=== PATIENT | male | born 1970 | race Native Hawaiian/Other Pacific Islander ===

== ENCOUNTER 2021-02-03 10:14 | Outpatient (REF) | payer MEDICAID, SELFPAY ==
--- NOTE | ~2021-02-03 | XR_ITS ---
EXAMINATION: LUMBOSACRAL SPINE 6 VIEWS PELVIS WITH LEFT HIP 3 VIEWS CHEST 2 VIEWS CLINICAL INFORMATION: Left-sided pain COMPARISON: 11/19/2016 TECHNIQUE: As above nonweightbearing FINDINGS: No acute deformity. Femoral head intact. Joint spaces preserved. No soft tissue calcifications. Sacrum grossly intact. Os acetabuli on the right again suspected. Two-view chest image is no focal abnormality. No rib lesions. No pneumothorax. Heart and mediastinal normal. Lumbosacral spine imaging demonstrates bulky syndesmophytes on the left at L1-L2. Generalized mild endplate spurring but preservation joint spaces. Vertebral pedicles and spinous processes intact. No fracture or subluxation. No spondylolysis. XR/XR chest 2V IMPRESSION: No acute findings. Chronic findings as above.
--- NOTE | ~2021-02-03 | XR_ITS ---
EXAMINATION: LUMBOSACRAL SPINE 6 VIEWS PELVIS WITH LEFT HIP 3 VIEWS CHEST 2 VIEWS CLINICAL INFORMATION: Left-sided pain COMPARISON: 11/19/2016 TECHNIQUE: As above nonweightbearing FINDINGS: No acute deformity. Femoral head intact. Joint spaces preserved. No soft tissue calcifications. Sacrum grossly intact. Os acetabuli on the right again suspected. Two-view chest image is no focal abnormality. No rib lesions. No pneumothorax. Heart and mediastinal normal. Lumbosacral spine imaging demonstrates bulky syndesmophytes on the left at L1-L2. Generalized mild endplate spurring but preservation joint spaces. Vertebral pedicles and spinous processes intact. No fracture or subluxation. No spondylolysis. XR/XR hip LT w PEL1V IMPRESSION: No acute findings. Chronic findings as above.
--- NOTE | ~2021-02-03 | XR_ITS ---
EXAMINATION: LUMBOSACRAL SPINE 6 VIEWS PELVIS WITH LEFT HIP 3 VIEWS CHEST 2 VIEWS CLINICAL INFORMATION: Left-sided pain COMPARISON: 11/19/2016 TECHNIQUE: As above nonweightbearing FINDINGS: No acute deformity. Femoral head intact. Joint spaces preserved. No soft tissue calcifications. Sacrum grossly intact. Os acetabuli on the right again suspected. Two-view chest image is no focal abnormality. No rib lesions. No pneumothorax. Heart and mediastinal normal. Lumbosacral spine imaging demonstrates bulky syndesmophytes on the left at L1-L2. Generalized mild endplate spurring but preservation joint spaces. Vertebral pedicles and spinous processes intact. No fracture or subluxation. No spondylolysis. XR/XR lumbar spine 4V min IMPRESSION: No acute findings. Chronic findings as above.
[2021-02-03 11:31] LABS: Alanine Aminotransferase 34 U/L (0-40); Albumin Level 4.6 g/dL (3.5-5.0); Alkaline Phosphatase 78 U/L (39-117); Anion Gap 12 (12-20); Aspartate Amino Transferase 33 U/L (5-37); Bilirubin Total 0.8 mg/dL (0.0-1.0); Blood Urea Nitrogen 12 mg/dL (9-16); Calcium 9.9 mg/dL (8.4-10.2); Carbon Dioxide 30 mmol/L (22-29); Chloride 103 mmol/L (96-108); Cholesterol 190 mg/dL; Estimated Glomerular Filt Rate > 60; Glucose Random 92 mg/dL (60-115); HDL Cholesterol 85 mg/dL; LDL Cholesterol Calculated 91 mg/dl; Sodium 140 mmol/L (135-145); Total Protein 7.2 g/dL (6.5-8.0); Triglycerides 70 mg/dL
[2021-02-03 11:40] LABS: Hematocrit 45.5 % (42-52); Mean Corpuscular Hemoglobin 31.8 pg (27.0-33.0); Mean Corpuscular Volume 96.6 fL (80-98); Mean Platelet Volume 9.1 fL (9.4-12.4); Platelet Count 264 X10*3/uL (160-400); Red Blood Count 4.71 X10*6/uL (4.60-5.80); Red Cell Distribution Width 12.3 % (11.0-16.0); White Blood Count 8.9 X10*3/uL (4.8-10.8)
[2021-02-03 11:50] LABS: Estimated Average Glucose 100 mg/dL; Hemoglobin A1c % 5.1 %
[2021-02-03 11:53] LABS: TSH reflex Free T4 1.66 uIU/mL (0.32-4.0)
== END 2021-02-03 10:15 | disposition home or self-care (01) ==
LOC: HO.XRAY 10:14
PROVIDERS: Absent Provider Internal Medicine; PCP Internal Medicine; Visit Provider General Practice
DX: Z00.00 Encounter for general adult medical examination without abnormal findings (principal); J44.9 Chronic obstructive pulmonary disease, unspecified; M25.552 Pain in left hip; M54.9 Dorsalgia, unspecified; F17.200 Nicotine dependence, unspecified, uncomplicated
CPT/HCPCS: 36415; 71046; 72110; 73502; 80053; 80061; 83036; 84443; 85027

== ENCOUNTER 2021-02-08 10:44 | Outpatient (REF) | payer MEDICAID, SELFPAY ==
[2021-02-08 11:21] LABS: Appearance Urine CLEAR; Color Urine YELLOW; Glucose Urine UA NEG (NEG); Leukocyte Esterase Urine NEG (NEG); Nitrite Urine NEG (NEG); Urine Blood NEG (NEG); Urine Ketones NEG (NEG); Urine Protein NEG (NEG-TRACE)
== END 2021-02-08 10:45 | disposition home or self-care (01) ==
LOC: HO.LNP 10:44
PROVIDERS: Visit Provider General Practice
DX: Z00.00 Encounter for general adult medical examination without abnormal findings (principal); J44.9 Chronic obstructive pulmonary disease, unspecified; M25.562 Pain in left knee; M54.9 Dorsalgia, unspecified
CPT/HCPCS: 81003

== ENCOUNTER 2021-08-18 14:54 | Outpatient (REF) | payer MEDICAID, SELFPAY ==
--- NOTE | ~2021-08-18 | MR_ITS ---
EXAMINATION: MR LUMBAR SPINE WITHOUT CONTRAST CLINICAL INFORMATION: Left leg pain. Low back pain. COMPARISON: MRI dated 02/07/2008. TECHNIQUE: MRI of the lumbar spine was obtained using routine sequences without contrast. FINDINGS: VERTEBRAL BODIES AND PARASPINAL STRUCTURES: The marrow signal is within normal limits. There are no compression fractures. Slight retrosubluxation evident at the L3-L4 level with progressed endplate spurring and mild disc degeneration. The imaged bony pelvis is normal. There is mild disc space narrowing and endplate osteophyte formation with reduced intradiscal signal which has worsened at the L1-L2, L2-L3, and L4-L5 levels. Mild rightward curvature of the lumbar spine evident. No compression fractures. The paraspinal soft tissues appear normal. CONUS MEDULLARIS AND CAUDA EQUINA: Normal, terminating at the level of L1-L2. No lower cord signal abnormality is seen. The cauda equina nerve roots are normal. SPINAL LEVELS: L1-L2: Mild disc space narrowing and reduced intradiscal signal with a generalized disc bulge and endplate spurring. Shallow left paracentral disc protrusion with an underlying annular tear slightly increased in size compared to prior imaging. No central canal stenosis or foraminal narrowing. No focal nerve root impingement evident. L2-L3: Further disc degeneration and diffuse disc bulge with mild facet arthropathy. No central canal stenosis. Mild left foraminal narrowing. Broad-based right lateral disc protrusion with mild to moderate right foraminal encroachment. L3-L4: Retrosubluxation and diffuse disc bulge with moderate facet arthropathy. No central canal stenosis. Mild to moderate left foraminal narrowing. Right subarticular to right foraminal disc protrusion and endplate spurring are new with significant right foraminal encroachment and mass effect upon the right L3 and L4 nerve roots. L4-L5: Diffuse disc bulge and hypertrophic facet arthropathy without central canal stenosis. New right paracentral disc protrusion mildly distorts the right L5 nerve root and ventral thecal sac. Moderate bilateral foraminal narrowing. L5-S1: Well-hydrated disc without central canal stenosis or foraminal narrowing. MR/MR lumbar spine wo con IMPRESSION: Progressed multilevel lumbar spondylosis compared to prior imaging. New right subarticular to right foraminal disc protrusion and endplate spurring at L3-L4 with significant right foraminal encroachment and compression of the right L3 and right L4 nerve roots. New right paracentral disc protrusion at the L4-L5 level mildly distorting the right L5 nerve root. Moderate bilateral foraminal narrowing without central canal stenosis.
== END 2021-08-18 14:55 | disposition home or self-care (01) ==
LOC: HO.MRI 14:54
PROVIDERS: PCP Family Medicine; Visit Provider Physical Medicine & Rehabilitation
DX: M47.816 Spondylosis without myelopathy or radiculopathy, lumbar region (principal); M51.37 Other intervertebral disc degeneration, lumbosacral region
CPT/HCPCS: 72148

== ENCOUNTER → 2021-12-08 08:52 | Outpatient (BNVA) | payer MEDICAID, SELFPAY | PROVIDERS: PCP Family Medicine; Visit Provider Internal Medicine | DX: M54.16 Radiculopathy, lumbar region (principal) | CPT/HCPCS: 99202 ==

== ENCOUNTER → 2022-01-11 10:27 | Outpatient (BNVA) | payer MEDICAID, SELFPAY | PROVIDERS: PCP Family Medicine; Referring Provider Family Medicine; Visit Provider Physician Assistant | DX: Z12.11 Encounter for screening for malignant neoplasm of colon (principal); R12 Heartburn | CPT/HCPCS: 99202; 99212 ==

== ENCOUNTER 2022-01-24 06:13 | Outpatient (REF) | payer MEDICAID, SELFPAY | END 2022-01-24 06:14 | disposition home or self-care (01) | LOC: HO.RADIR 06:13 | PROVIDERS: Visit Provider Internal Medicine | DX: Z13.89 Encounter for screening for other disorder (principal) ==

== ENCOUNTER 2022-02-09 14:10 | Outpatient (REF) | payer MEDICAID, SELFPAY ==
--- NOTE | ~2022-02-09 | CT_ITS ---
EXAMINATION: CT CHEST SCREENING CLINICAL INFORMATION: Current smoker. 36 pack year history. COMPARISON: None. TECHNIQUE: Multidetector volumetric CT imaging of the chest is performed without contrast using low dose technique. Additional 2D coronal and sagittal reformatted images and axial 3D maximum intensity projection (MIP) images are generated on the CT workstation. This CT examination was performed using dose optimization techniques as appropriate, variously including the following: *Automated exposure control *Adjustment of mA and/or kV according to patient size (this includes techniques or standardized protocols for targeted exams where dose is matched to indication/reason for exam; i.e. extremities or head) *Use of iterative reconstruction technique DLP: 46 mGy-cm FINDINGS: LUNGS: There is mild biapical pleural and parenchymal scarring. There is mild paraseptal emphysema. No pulmonary nodules are seen. No endobronchial or endotracheal lesion. MEDIASTINUM: There are small mediastinal lymph nodes. No enlarged lymph nodes are seen. The mediastinum is otherwise normal. PLEURA: There is no pleural effusion. No pleural mass or thickening. AXILLA: There are small axillary lymph nodes. No enlarged lymph nodes or chest wall mass. UPPER ABDOMEN: Unremarkable OSSEOUS STRUCTURES: Unremarkable. CT/CT lung screening IMPRESSION: Mild emphysema. Mild biapical pleural and parenchymal scarring. No pulmonary nodule. ASSESSMENT: Lung-RADS category 1: Negative RECOMMENDATION: Annual low-dose chest CT follow-up in one year.
== END 2022-02-09 14:11 | disposition home or self-care (01) ==
LOC: HO.CT 14:10
PROVIDERS: PCP Family Medicine; Visit Provider Physician Assistant Medical
DX: Z12.2 Encounter for screening for malignant neoplasm of respiratory organs (principal); F17.210 Nicotine dependence, cigarettes, uncomplicated
CPT/HCPCS: 71271; G0296

== ENCOUNTER 2022-03-14 06:09 | Outpatient (REF) | payer MEDICAID, SELFPAY ==
--- NOTE | ~2022-03-14 | FL_ITS ---
EXAMINATION: XR FLUOROSCOPY WITH IMAGES CLINICAL INFORMATION: Radiculopathy lumbar region. COMPARISON: MRI lumbar spine 08/18/2021. TECHNIQUE: Fluoroscopy performed by VIKI Jacques. Fluoroscopy time: 0.2. Cumulative Dose: 3.11 mGy. DAP: 0.44 Gy-cm2. Images: 2. FINDINGS: There are 2 digital images obtained revealing a posterior epidural contrast centered at L2-L3 disc level. There is loss of L1-L2 disc height with a large bridging left lateral osteophyte. No lytic or sclerotic process seen. FL/FL guidance in treatment room IMPRESSION: Fluoroscopy was provided to referring physician for pain management.
== END 2022-03-14 06:10 | disposition home or self-care (01) ==
LOC: CF 06:09
PROVIDERS: Visit Provider Internal Medicine
DX: M54.16 Radiculopathy, lumbar region (principal)
CPT/HCPCS: 62323; J1040; J1100

== ENCOUNTER → 2022-04-13 09:46 | Outpatient (BNVA) | payer MEDICAID, SELFPAY | PROVIDERS: PCP Family Medicine; Visit Provider Internal Medicine | DX: M54.16 Radiculopathy, lumbar region (principal) | CPT/HCPCS: 99212 ==

== ENCOUNTER → 2022-05-17 07:50 | Day surgery (SDC) | payer MEDICAID, SELFPAY ==
[2022-05-14 13:11] VITALS: BMI 22.3
--- NOTE | 2022-05-16 11:54 | P.CONAN_ITS ---
HPI - Anesthesia Eval Consult details Narrative: Pt reports chest tightness. Anesthesia and surgery agree pt requires medical/cardiac w/u preop. Pt's PCP notified. 52yo M for Upper Endoscopy and Colonoscopy [facility] Active Problems Active Problems: All Active Problems (Updated 02/09/22 @ 13:56 by Jo Ann Emanuel PA-C) Lumbar radiculopathy, chronic (Acute) Personal history of nicotine dependence (Acute) Heartburn (Acute) Wears partial dentures (Acute) COPD with asthma (Acute) Seasonal allergies (Acute) Past Medical History Medical History (Updated 05/17/22 @ 08:58 by Atilio Acuña MD) Alcoholism Lumbar radiculopathy, chronic Personal history of nicotine dependence Family History Family History Mother Diabetes Surgical History Surgical History (Updated 02/09/22 @ 13:59 by Jo Ann Emanuel PA-C) History of tonsillectomy Social History Social History (Updated 02/09/22 @ 13:56 by Jo Ann Emanuel PA-C) Household Members: Spouse Alcohol intake: current Patient Tobacco Use Status: Current everyday Tobacco user Tobacco use type: Cigarette Cigarette Packs Per Day: 1 Cigarettes Per Day: 20.0 Years Smoked: (onset 15yo, 1ppd x 36yrs, 35pyh) Substance Use Type: Marijuana Meds Allergies Allergy/AdvReac Type Severity Reaction Status Date / Time No Known Allergies Allergy Verified 04/13/22 09:49 [No Known Allergies*] Home Medications Medication Instructions Recorded Confirmed Last Taken Type acetaminophen 500 mg tablet 1,000 mg PO Q8H PRN 12/08/21 04/13/22 Unknown History albuterol sulfate 90 mcg/actuation 2 puff PO Q4-6H PRN wheezing 12/08/21 04/13/22 Unknown History aerosol inhaler (ProAir HFA) fluticasone propionate 110 2 puff PO BID 12/08/21 04/13/22 Unknown History mcg/actuation HFA aerosol inhaler (Flovent HFA) gabapentin 300 mg capsule 300 mg PO TID 12/08/21 04/13/22 Unknown History pantoprazole 20 mg tablet,delayed 20 mg PO DAILY 12/08/21 04/13/22 Unknown History release hydrocodone 10 mg-acetaminophen 1 tab PO Q6-8H PRN pain 04/13/22 04/13/22 Unknown History 325 mg tablet naloxone 4 mg/actuation nasal spray 0 spray intranasal 04/13/22 04/13/22 Unknown History sertraline 50 mg tablet 50 mg PO DAILY 04/13/22 04/13/22 Unknown History Exam Exam Date and Time: May 16, 2022 1154 Height,Weight and Vital Signs: Height 5 ft 11 in Weight 72.575 kg Assessment and Plan Assessment Anesthesia Assessment: Chart Reviewed
[2022-05-17 08:16] VITALS: BP 130/75; PULSE 73; RESP 18; TEMP 36.7; O2SAT 99
--- NOTE | 2022-05-17 08:16 | MHC.SHP ---
Pre-Procedural Eval Section A Date of Service: 05/17/22 Section B Chief Complaint: reflux disease,screening Relevant Family History (Specify if Yes): No Relevant Social History: Other (specify) (smoker, THC ) Present Medications: see Short Stay Collaborative assessment Medical History: Significant History (Alcoholism Lumbar radiculopathy, chronic Personal history of nicotine dependence) History of Previous Operations: Relevant previous surgery/procedure and date(s) (History of tonsillectomy) Allergies: Allergies Allergy/AdvReac Type Severity Reaction Status Date / Time No Known Allergies Allergy Verified 04/13/22 09:49 [No Known Allergies*] Review of Systems Sugical H&P ROS: Negative: Constitution, Cardiovascular, Respiratory, Neurological, Psychiatric, Hem-Onc, Allergic/Immunologic, Gastrointestinal, Genitourinary, Musculoskeletal, Integumentary, Endocrine and Eyes/Ears/Nose/Throat Exam Surgical H&P Exam: Normal: HEENT, Normal: Heart, Normal: Lungs, Normal: Extremities, Normal: Abdomen, Normal: Skin and Normal: Neurological Plan Diagnosis/Plan: Unchanged I have reviewed the history and physical and performed a pertinent physical examination on my patient. No changes have occurred unless specified.
[2022-05-17] MEDS: Lactated Ringers 1,000 ML 100 ML IVCONT (08:26)
--- NOTE | 2022-05-17 08:58 | PC.NURSE ---
Patient spoke to Dr Acuña regarding EGD for heartburn. Patient states I dont think its heartburn, that goes away quick but this just last. Its like a tightness I feel. Dr Acuña consulted Dr Cisse anesthesia regarding possible cardiology consult. Per Both Docs case cancelled and to have cardiac workup/clearance. IV removed, belongings returned to patient.
== END ==
PROVIDERS: PCP Family Medicine; Visit Provider Internal Medicine Gastroenterology
DX: Z12.11 Encounter for screening for malignant neoplasm of colon (principal); Z53.8 Procedure and treatment not carried out for other reasons; K21.9 Gastro-esophageal reflux disease without esophagitis

== ENCOUNTER → 2022-05-31 14:13 | Outpatient (BNVA) | payer MEDICAID, SELFPAY | PROVIDERS: PCP Family Medicine; Referring Provider Family Medicine; Visit Provider Physician Assistant | DX: R12 Heartburn (principal); Z79.899 Other long term (current) drug therapy | CPT/HCPCS: 99212 ==

== ENCOUNTER 2022-06-13 06:12 | Outpatient (REF) | payer MEDICAID, SELFPAY | END 2022-06-13 06:13 | disposition home or self-care (01) | LOC: CF 06:12 | PROVIDERS: Visit Provider Internal Medicine | DX: R10.32 Left lower quadrant pain (principal) | CPT/HCPCS: 64425 ==

== ENCOUNTER → 2022-06-15 09:10 | Outpatient (BNVA) | payer MEDICAID, SELFPAY | PROVIDERS: PCP Family Medicine; Visit Provider Internal Medicine | DX: M54.16 Radiculopathy, lumbar region (principal); M54.59 Other low back pain | CPT/HCPCS: 99212 ==

== ENCOUNTER → 2022-07-31 12:20 | Outpatient (BNVA) | payer MEDICAID, SELFPAY | PROVIDERS: Visit Provider Physician Assistant | DX: Z13.89 Encounter for screening for other disorder (principal) ==

== ENCOUNTER 2023-05-24 10:26 | Outpatient (AMB) | payer MEDICAID, SELFPAY ==
--- NOTE | 2023-05-24 10:34 | MHC.OFFVIS ---
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 Patient reports off and pain for a year with no history of injury or trauma. He states that his pain radiates up to his shoulders. Pain is equal on both side per patient. No hx of previous treatment. 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 The patient reports intermittent pain for a year, since 2021, with no injury or trauma. He states he has pain with rest and activities. He claims his pain starts in the bilateral elbows and radiates up to the bilateral shoulders. He states the patient is equal on both sides. He denies any prior treatments or testing. He confirms numbness in the 4th and 5th digits. He states he was treated in the past with night splints for possible carpal tunnel, which gave him relief. However, he states he was told he did not have carpal tunnel therefore he discontinued the use of the splints. The patient is currently being followed by Pain Management for lower back pain. [facility] Medical History (Updated 05/24/23 @ 11:15 by Shabana Churchill PA-C) Personal history of nicotine dependence Lumbar radiculopathy, chronic Alcoholism Surgical History History of tonsillectomy Family History Mother Diabetes Social History (Updated 05/24/23 @ 10:41 by Shawna Ha) Household Members: Spouse Alcohol intake: current Patient Tobacco Use Status: Current everyday Tobacco user Tobacco use type: Cigarette Cigarette Packs Per Day: 1 Cigarettes Per Day: 20.0 Years Smoked: (onset 15yo, 1ppd x 36yrs, 35pyh) Substance Use Type: Marijuana Current occupational status: unemployed Current occupation: right hand dominant Review of Systems Const All systems reviewed & are unremarkable except as noted in HPI and below Physical Exam Vital Signs: BMI result Body Mass Index 23.7 Const General: cooperative and no acute distress Orientation/consciousness: patient oriented x3 Resp Effort & Inspection: normal respiratory effort and able to speak in complete sentences Cardio Peripheral pulses: Peripheral pulses 2+ throughout Skin General skin exam: no rashes or lesions noted Neuro General: patient oriented x3 Extrem Other: Bilateral elbow: Normal to inspection. No ecchymosis, erythema, or edema. No tenderness to palpation over the olecranon. No tenderness to the medial or lateral epicondyle. Negative Tinel?s at the carpal and cubital tunnel. Negative Phalen?s test. NVI. Bilateral hands: Normal to inspection. No ecchymosis, erythema, or edema. Able to perform full finger flexion, extension, abduction, adduction, finger cross, okay sign, and thumbs up without deficit. Able to make a closed fist. Sensation intact. Capillary refill is brisk. Radial pulse intact. Assessment & Plan Assessment & Plan (1) Cubital tunnel syndrome, bilateral: Code(s): G56.23 - Lesion of ulnar nerve, bilateral upper limbs (2) Carpal tunnel syndrome, bilateral upper limbs: Code(s): G56.03 - Carpal tunnel syndrome, bilateral upper limbs Plan Mr. Ellis is a 53-year-old right hand dominant male who presents in the office today, as a new patient, for an evaluation of bilateral elbow and wrist pain. The patient reports intermittent pain for a year, since 2021, with no injury or trauma. He states he has pain with rest and activities. He claims his pain starts in the bilateral elbows and radiates up to the bilateral shoulders. He states the patient is equal on both sides. He denies any prior treatments or testing. He confirms numbness in the 4th and 5th digits. He states he was treated in the past with night splints for possible carpal tunnel, which gave him relief. However, he states he was told he did not have carpal tunnel therefore he discontinued the use of the splints. The patient will be referred for an EMG study for possible carpal and cubital tunnel. Follow up will be after the EMG is obtained, or sooner if needed. Orders: Orders NE electromyogram (EMG) Today G56.03 - Carpal tunnel syndrome, bilateral upper limbs, G56.23 - Lesion of ulnar nerve, bilateral upper limbs Patient Instructions: Scribed for Shabana Churchill PA-C by Jayne Lauren director of medical staff services, on 05/24/2023 at 10:31 am, EST. Coding Level of Care Code New Pt Level 4 (25296) Diagnoses Cubital tunnel syndrome, bilateral G56.23 Carpal tunnel syndrome, bilateral upper limbs G56.03
[2023-05-24 10:41] VITALS: BMI 23.7
== END 2023-05-24 11:13 | disposition home or self-care (01) ==
PROVIDERS: Visit Provider Physician Assistant
DX: G56.23 Lesion of ulnar nerve, bilateral upper limbs (principal); G56.03 Carpal tunnel syndrome, bilateral upper limbs
CPT/HCPCS: 99204

== ENCOUNTER → 2023-05-24 10:26 | Outpatient (BNVA) | payer MEDICAID, SELFPAY | PROVIDERS: Visit Provider Physician Assistant | DX: G56.23 Lesion of ulnar nerve, bilateral upper limbs (principal); G56.03 Carpal tunnel syndrome, bilateral upper limbs | CPT/HCPCS: 99212 ==

== ENCOUNTER 2023-07-05 12:29 | Outpatient (REF) | payer MEDICAID, SELFPAY ==
--- NOTE | 2023-07-05 12:32 | EMG_ITS ---
Chief complaint: Pain along the elbow left worse than right, numbness on 5th and 4th digits Reason for referral: Evaluate for ulnar neuropathy Referred by: Shabana RAMSAY Procedure done: Bilateral upper extremities NCS/EMG Precautions and/or limitations: None The limb temperature was monitored continuously and remained between 32-36 degrees C during the performance of the NCS. Ulnar motor NCS was performed with moderate elbow flexion between 70-90 degrees, with across-elbow distance of 10 cm. Nerve Conduction Studies Anti Sensory Summary Table ?Stim Site NR Onset (ms) Norm Onset (ms) Peak (ms) Norm Peak (ms) O-P Amp (?V) Norm O-P Amp Site1 Site2 Delta-0 (ms) Dist (cm) Lino (m/s) Norm Lino (m/s) Left Med Ante Brach Cutan Anti Sensory (Med Forearm) Elbow ? 2.1 2.7 14.0 Elbow Med Forearm 2.1 0.0 Left Median Anti Sensory (2nd Digit) Wrist ? 2.5 3.1 <3.6 25.2 >10 Wrist 2nd Digit 2.5 14.0 56 Right Median Anti Sensory (2nd Digit) Wrist ? 2.3 3.1 <3.6 16.4 >10 Wrist 2nd Digit 2.3 14.0 61 Left Radial Anti Sensory (Thumb) Forearm ? 1.3 2.1 <3.1 26.2 Forearm Thumb 1.3 0.0 Right Radial Anti Sensory (Thumb) Forearm ? 1.6 2.1 <3.1 25.7 Forearm Thumb 1.6 0.0 Left Ulnar Anti Sensory (5th Digit) Wrist ? 2.3 3.1 <3.7 8.6 >15.0 Wrist 5th Digit 2.3 14.0 61 Right Ulnar Anti Sensory (5th Digit) Wrist ? 3.0 3.3 <3.7 10.4 >15.0 Wrist 5th Digit 3.0 14.0 47 Motor Summary Table ?Stim Site NR Onset (ms) Norm Onset (ms) O-P Amp (mV) Norm O-P Amp iAmp (mV) Amp (1st) (%) Site1 Site2 Delta-0 (ms) Dist (cm) Lino (m/s) Norm Lino (m/s) Left Median Motor (Abd Poll Brev) Wrist ? 3.4 <3.9 10.5 >4.5 13.4 100.0 Elbow Wrist 4.3 23.5 55 >45 Elbow ? 7.7 10.0 12.6 95.2 Right Median Motor (Abd Poll Brev) Wrist ? 3.2 <3.9 11.9 >4.5 15.0 100.0 Elbow Wrist 4.3 23.0 53 >45 Elbow ? 7.5 11.0 14.0 92.4 Left Ulnar Motor (Abd Dig Minimi) Wrist ? 2.5 <3.0 9.6 >5 12.6 100.0 B Elbow Wrist 3.1 23.0 74 >45 B Elbow ? 5.6 10.5 13.8 109.4 A Elbow B Elbow 2.0 10.0 50 >45 A Elbow ? 7.6 9.4 12.1 97.9 Right Ulnar Motor (Abd Dig Minimi) Wrist ? 3.0 <3.0 9.3 >5 11.9 100.0 B Elbow Wrist 3.5 21.0 60 >45 B Elbow ? 6.5 8.9 11.4 95.7 A Elbow B Elbow 1.6 10.0 63 >45 A Elbow ? 8.1 8.5 11.0 91.4 Left Ulnar Motor (FDI) Wrist ? 5.1 <3.0 6.9 >5 7.7 100.0 B Elbow FDI 5.1 22.0 43 B Elbow ? 8.7 8.7 9.9 126.1 A Elbow B Elbow 3.6 10.0 28 >45 A Elbow ? 10.3 8.4 10.0 121.7 1.6 0.0 >45 Right Ulnar Motor (FDI) Wrist ? 4.4 <3.0 9.0 >5 10.9 100.0 B Elbow FDI 4.4 21.0 48 B Elbow ? 7.8 8.9 10.6 98.9 A Elbow B Elbow 3.4 10.0 29 >45 A Elbow ? 9.8 8.4 9.7 93.3 2.0 0.0 >45 EMG ?Side Muscle Nerve Root Ins Act Fibs Psw Amp Dur Poly Recrt Int Pat Comment Right 1stDorInt Ulnar C8-T1 Nml Nml Nml Incr Incr 0 Nml Complete Right Biceps Musculocut C5-6 Nml Nml Nml Nml Nml 0 Nml Complete Right Triceps Radial C6-7-8 Nml Nml Nml Nml Nml 0 Nml Complete Right Deltoid Axillary C5-6 Nml Nml Nml Nml Nml 0 Nml Complete Right FlexCarpiUln Ulnar C8,T1 Nml Nml Nml Nml Nml 0 Nml Complete Left 1stDorInt Ulnar C8-T1 Nml Nml Nml Nml Nml 0 Nml Complete Left Biceps Musculocut C5-6 Nml Nml Nml Nml Nml 0 Nml Complete Left Triceps Radial C6-7-8 Nml Nml Nml Nml Nml 0 Nml Complete Left Deltoid Axillary C5-6 Nml Nml Nml Nml Nml 0 Nml Complete Left FlexCarpiUln Ulnar C8,T1 Nml Nml Nml Nml Nml 0 Nml Complete FINDINGS: Left ulnar motor nerve was within normal, when recording at ADM. But when repeated while recording at FDI, showed prolonged distal latency, normal amplitude and slow conduction velocity across the elbow. Same results seen on right ulnar motor nerve, while recording at FDI. Bilateral ulnar sensory nerves showed normal peak latency but small amplitude. All other nerves tested were within normal. Concentric needle EMG was performed in selected muscles of the bilateral upper extremities. Study revealed Signs of electric abnormalities as shown in the table below. Right FDI showed increased amplitude and duration. IMPRESSION: 1. This is an abnormal study. 2. 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 3. There is no electrodiagnostic evidence for median neuropathy, brachial plexopathy, or cervical radiculopathy. Thank you for your kind referral. Yaa Estrella MD, [facility]ANCE Board Certified, [place] [employer] and [employer] (ABPMR) Board Certified, [place] [employer] Electrodiagnostic [employer] (ABEM) CODIN [id number] x 2 MTDD
== END 2023-07-05 12:30 | disposition home or self-care (01) ==
LOC: HO.NEURO 12:29
PROVIDERS: PCP Family Medicine; Visit Provider Physician Assistant
DX: G56.03 Carpal tunnel syndrome, bilateral upper limbs (principal); G56.23 Lesion of ulnar nerve, bilateral upper limbs
CPT/HCPCS: 95886; 95912

== ENCOUNTER → 2023-07-05 12:32 | Outpatient (BNV) | payer MEDICAID, SELFPAY | PROVIDERS: PCP Family Medicine; Visit Provider Physical Medicine & Rehabilitation | DX: G56.23 Lesion of ulnar nerve, bilateral upper limbs (principal) | CPT/HCPCS: 95886; 95912 ==

== ENCOUNTER 2023-07-16 11:22 | Outpatient (AMB) | payer MEDICAID, SELFPAY ==
--- NOTE | 2023-07-16 11:27 | A.OFFVIS_ITS ---
Intake Intake Visit Reasons: OV - B/L elbow EMG review, EMG done on 07/05/23 Intake Note: Ortega is a 53 year old male who presents today for a EMG review for his bilateral elbows. Bilateral EMG was done on 07/05/22. Patient reports he still continues to have pain nothing has changed. He states that he took a fall down the stairs last which he is having increase in pain on his sholders and elbows. Allergies No Known Allergies [No Known Allergies*] Allergy (Verified 07/16/23 11:27) HPI OV - B/L elbow EMG review, EMG done on 07/05/23 HPI Details 53-year-old right hand dominant male who presents in the office today for a follow up of bilateral elbow pain. I last saw the patient in the office on 05/24/2023 when he was referred for an EMG study. While in the office today the patient reports he is still having pain and his symptoms having not changed since his last encounter. Patient also reports he fell down stairs on 07/11/2023 which has caused him an increase in pain in the bilateral shoulders and elbows. Patient has no known allergy history. Patient is currently taking, as follows: -Acetaminophen 1,000 mg PO Q8H PRN -Albuterol sulfate 90 mcg/actuation 2 pu ffs PO Q4-6H -Fluticasone propionate 110 mcg/actuatio n 2 puffs PO BID -Hydrocodone-acetaminophen 10-325 mg PO Q6-8H PRN Patient has a medical history, as follows: -Lumbar radiculopathy, chronic -Alcoholism -Personal history of nicotine dependence Patient has a surgical history, as follows: -History of tonsillectomy Patient has a social history, as follows: -Alcohol intake: Currently -Tobacco use: Currently; cigarette 1 pac k per day (20 cigarettes) -Substance use: Marijuana -Work status: unemployed [facility] Medical History (Updated 05/24/23 @ 11:15 by Shabana Churchill PA-C) Personal history of nicotine dependence Lumbar radiculopathy, chronic Alcoholism Surgical History History of tonsillectomy Family History Mother Diabetes Social History (Updated 12/08/23 @ 10:41 by Shawna Ha) Household Members: Spouse Alcohol intake: current Patient Tobacco Use Status: Current everyday Tobacco user Tobacco use type: Cigarette Cigarette Packs Per Day: 1 Cigarettes Per Day: 20.0 Years Smoked: (onset 15yo, 1ppd x 36yrs, 35pyh) Substance Use Type: Marijuana Current occupational status: unemployed Current occupation: right hand dominant Review of Systems Const All systems reviewed & are unremarkable except as noted in HPI and below Physical Exam Const General: cooperative, healthy appearing and no acute distress Orientation/consciousness: patient oriented x3 Resp Effort & Inspection: normal respiratory effort and able to speak in complete sentences Cardio Rate: regular rate Peripheral pulses: Peripheral pulses 2+ throughout GI Palpation (GI): Soft to palpation Skin General skin exam: no rashes or lesions noted Lesions: no lesions Rashes: no rashes Neuro General: patient oriented x3 Extrem Other: Bilateral elbow: Normal to inspection. No ecchymosis, erythema, or edema. No tenderness to palpation over the olecranon. No tenderness to the medial or lateral epicondyle. Negative Tinel?s at the carpal and cubital tunnel. Negative Phalen?s test. NVI. Bilateral hands: Normal to inspection. No ecchymosis, erythema, or edema. Able to perform full finger flexion, extension, abduction, adduction, finger cross, okay sign, and thumbs up without deficit. Able to make a closed fist. Sensation intact. Capillary refill is brisk. Radial pulse intact. Assessment & Plan Assessment & Plan (1) Cubital tunnel syndrome, bilateral: Code(s): G56.23 - Lesion of ulnar nerve, bilateral upper limbs (2) Carpal tunnel syndrome, bilateral upper limbs: Code(s): G56.03 - Carpal tunnel syndrome, bilateral upper limbs Plan Mr. Christiano Ellis is a 53-year-old right hand dominant male who presents in the office today for a follow up of bilateral elbow pain. I last saw the patient in the office on 05/24/2023 when he was referred for an EMG study. While in the office today the patient reports he is still having pain and his symptoms having not changed since his last encounter. Patient also reports he fell down stairs on 07/11/2023 which has caused him an increase in pain in the bilateral shoulders and elbows. Patient has no known allergy history. Patient is currently taking, as follows: -Acetaminophen 1,000 mg PO Q8H PRN -Albuterol sulfate 90 mcg/actuation 2 puffs PO Q4-6H -Fluticasone propionate 110 mcg/actuation 2 puffs PO BID -Hydrocodone-acetaminophen 10-325 mg PO Q6-8H PRN Patient has a medical history, as follows: -Lumbar radiculopathy, chronic -Alcoholism -Personal history of nicotine dependence Patient has a surgical history, as follows: -History of tonsillectomy Patient has a social history, as follows: -Alcohol intake: Currently -Tobacco use: Currently; cigarette 1 pack per day (20 cigarettes) -Substance use: Marijuana -Work status: unemployed I discussed in detail the procedure and what to expect pre and post operatively. We discussed the risks, benefits and alternatives to the surgery as well as the rehabilitation course. The risks; which include, but are not limited to infection, bleeding, nerve injury, ongoing pain, swelling, and stiffness, perioperative risk of injury to bones and soft tissues, and blood clots. I have answered all questions and with their understanding they have consented to move forward with a left cubital tunnel release to be performed by Dr Edwige Hammer. A booking sheet was created and given to the surgical schedulers. They will reach out to the patient for available dates. Follow up will be at the post operative appointment or for his H&P prior to surgery (depending on available surgical dates), or sooner if needed. EMG of the bilateral upper extremities, obtained on 07/05/2023, revealed: 1. This is an abnormal study. 2. 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 3. There is no electrodiagnostic evidence for median neuropathy, brachial plexopathy, or cervical radiculopathy. Patient Instructions: Scribed for Shabana Churchill PA-C by Jayne Lauren medical customer service representative, on 07/16/2023 at 11:40 am, EST. Coding Level of Care Code Est Pt Level 4 (81321) Diagnoses Cubital tunnel syndrome, bilateral G56.23 Carpal tunnel syndrome, bilateral upper limbs G56.03
== END 2023-07-16 11:44 | disposition home or self-care (01) ==
PROVIDERS: PCP Family Medicine; Visit Provider Physician Assistant
DX: G56.23 Lesion of ulnar nerve, bilateral upper limbs (principal); G56.03 Carpal tunnel syndrome, bilateral upper limbs
CPT/HCPCS: 99214

== ENCOUNTER → 2023-07-16 11:22 | Outpatient (BNVA) | payer MEDICAID, SELFPAY | PROVIDERS: PCP Family Medicine; Visit Provider Physician Assistant | DX: G56.23 Lesion of ulnar nerve, bilateral upper limbs (principal); G56.03 Carpal tunnel syndrome, bilateral upper limbs | CPT/HCPCS: 99212 ==

== ENCOUNTER 2023-07-25 12:20 | Outpatient (REF) | payer MEDICAID, SELFPAY ==
--- NOTE | ~2023-07-25 | XR_ITS ---
EXAMINATION: XR KNEE, LEFT CLINICAL INFORMATION: Pain status-post fall. COMPARISON: None available. TECHNIQUE: AP, lateral, tunnel, and sunrise views of the left knee. FINDINGS: There are 2 probable mildly displaced fracture fragments arising from the upper pole of the patella. These are unlikely to represent accessory ossification centers. There is adjacent prepatellar soft tissue swelling. No significant joint effusion is seen. The lateral, medial and patellofemoral joint space compartments are well-maintained. No soft tissue gas or foreign body is seen. XR/XR knee LT 4V IMPRESSION: 2 mildly displaced fracture fragments are seen arising from the upper pole of the patella, with adjacent soft tissue swelling. These are unlikely to represent accessory ossification centers, and clinical correlation is recommended. Concomitant prepatellar bursitis is questioned.
== END 2023-07-25 12:21 | disposition home or self-care (01) ==
LOC: HO.XRAY 12:20
PROVIDERS: PCP Family Medicine; Visit Provider Family Medicine
DX: M25.562 Pain in left knee (principal)
CPT/HCPCS: 73564

== ENCOUNTER 2023-07-25 13:12 | Emergency (ER) | payer MEDICAID, SELFPAY ==
[2023-07-25 13:48] VITALS: BP 139/85; PULSE 78; RESP 15; TEMP 36.6; O2SAT 97; BMI 21.2
--- NOTE | 2023-07-25 13:49 | ED.SKABFB ---
HPI - Skin/Abscess/Foreign Bdy General Chief complaint: Skin/Abscess/Foreign Body Stated complaint: facial irritation Time Seen by Provider: 07/25/23 14:03 Source: patient Mode of arrival: ambulatory Limitations: no limitations History of Present Illness HPI narrative: [age] male with a past medical history of COPD and chronic back pain on hydrocodone presents to the emergency department concerns for itching and swelling to the left face and chest. He states yesterday he was cleaning his couch and that the chemical to use may be irritating his skin. He states he has been using aloe and anti-itch cream and that the redness and swelling has decreased. He denies any difficulty swallowing, breathing, or change in phonation. MD complaint: rash Related Data Home Medications Medication Instructions Recorded Confirmed acetaminophen 500 mg tablet 1,000 mg PO Q8H PRN 12/08/21 06/15/22 albuterol sulfate 90 mcg/actuation 2 puff PO Q4-6H PRN wheezing 12/08/21 06/15/22 aerosol inhaler (ProAir HFA) fluticasone propionate 110 2 puff PO BID 12/08/21 06/15/22 mcg/actuation HFA aerosol inhaler (Flovent HFA) hydrocodone 10 mg-acetaminophen 1 tab PO Q6-8H PRN pain 04/13/22 06/15/22 325 mg tablet Allergies Allergy/AdvReac Type Severity Reaction Status Date / Time No Known Allergies Allergy Verified 07/16/23 11:27 [No Known Allergies*] Review of Systems Review of Systems: Yes all other systems are reviewed and are negative [facility] Past Medical History Medical History (Updated 07/25/23 @ 13:59 by Zayra Osorio NP) Personal history of nicotine dependence Lumbar radiculopathy, chronic Alcoholism Surgical History History of tonsillectomy Family History Family History Mother Diabetes Social History Social History (Updated 05/24/23 @ 10:41 by Shawna Ha) Household Members: Spouse Alcohol intake: current Patient Tobacco Use Status: Current everyday Tobacco user Tobacco use type: Cigarette Cigarette Packs Per Day: 1 Cigarettes Per Day: 20.0 Years Smoked: (onset 15yo, 1ppd x 36yrs, 35pyh) Substance Use Type: Marijuana Advance Directives: No Current occupational status: unemployed Current occupation: right hand dominant Physical Exam Vital Signs: Vital Signs: Last Vital Signs Temp 97.9 F 07/25/23 13:48 Pulse 78 07/25/23 13:48 Resp 15 07/25/23 13:48 BP 139/85 07/25/23 13:48 Pulse Ox 97 07/25/23 13:48 O2 Del Method Room Air 07/25/23 13:48 BMI result Body Mass Index 21.2 Nursing notes and vital signs reviewed. GENERAL APPEARANCE: A&0 x 4, generally well appearing, no acute distress HENMT: Normal to inspection, atraumatic, face symmetrical. Normal external ears, nose, and oropharynx clear. EYE: PERRLA, EOM intact, structures appear normal NECK: Supple without stiffness or restricted ROM. HEART: Normal rate and regular rhythm, normal S1/S2, no M/R/G LUNGS: LS CTA, moving air well. Able to speak in complete sentences. No crackles, wheezes, or rhonchi auscultated BACK: No CVAT, no obvious deformity EXTREMITIES: Moving all extremities without difficulty. Normal capillary refill. NEUROLOGICAL: Alert and oriented, moving all 4 extremities with equal strength. CN not formally tested but appearing grossly intact. Observed to ambulate with normal gait. Cognition normal SKIN: Warm and dry. Mild erythema at upper chest with rash. No pustules or lesions noted Medical Decision Making Medical Decision Making MDM Narrative: Old records reviewed for previous imaging, lab studies, ECGs, and notes. Patient was assessed the emergency department with no acute distress or toxicity noted. Rash noted on upper chest without evidence of infection, insect bites, or lesions. Pt educated to use [id number] Benadryl for management of symptoms. Patient is safe for discharge at this time with plan for [id number]-[id number] Tylenol and/or NSAID such as ibuprofen or naproxen for fever/discomfort with dosing as per packaging. HPI, PE, diagnostics, and plan discussed with patient and family with no unanswered questions at this time. Strict return precautions given to return to the emergency department with new, worsening, or concerning emergent symptoms. Recommended to follow-up with there primary care provider in 24-48 hours for further treatment and management. Discharge Plan Discharge Clinical Impression: Rash Patient Disposition: Home, Self-Care Instructions: Contact Dermatitis (ED), Acute Rash (ED) Additional Instructions: Please use [id number] Benadryl for management of your symptoms Prescriptions: No Action acetaminophen 500 mg tablet 1,000 mg PO Q8H PRN fluticasone propionate [Flovent HFA] 110 mcg/actuation HFA aerosol inhaler 2 puff PO BID albuterol sulfate [ProAir HFA] 90 mcg/actuation HFA aerosol inhaler 2 puff PO Q4-6H PRN (Reason: wheezing) hydrocodone-acetaminophen 10-325 mg tablet 1 tab PO Q6-8H PRN (Reason: pain) Referrals: Maryan Santamaria MD [Primary Care Provider] - Interventions: ED Discharge Assessment Last Done: 07/25/23 14:05 Print Language: Welsh
== END 2023-07-25 14:05 | disposition home or self-care (01) ==
PROVIDERS: Emergency Provider Emergency Medicine; PCP Family Medicine
DX: R21 Rash and other nonspecific skin eruption (principal); F17.210 Nicotine dependence, cigarettes, uncomplicated; Z79.899 Other long term (current) drug therapy
CPT/HCPCS: 99282

== ENCOUNTER 2023-09-04 10:17 | Outpatient (AMB) | payer MEDICAID, SELFPAY ==
--- NOTE | 2023-09-04 11:04 | MHC.OFFVIS ---
Intake Vital Signs 09/04/23 11:05 Height 5 ft 11 in Weight 152 lb BMI 21.2 Intake Visit Reasons: Bilateral CTS, discuss surgery Intake Note: Ortega 53 yr old right hand dominant male presents today to discuss left cubital tunnel last seen with Shabana Churchill. Allergies No Known Allergies [No Known Allergies*] Allergy (Verified 09/04/23 11:06) HPI Bilateral CTS, discuss surgery HPI Details Ortega is a 53 year old right hand dominant man who presents for a NCS review of his bilateral hand numbness. His primary complaint is of pain over the dorsal lateral aspect of both elbows, which he says radiates up into his shoulders and neck. He says he is not being seen by anyone for his neck & back pain. He complains of numbness in the ring and small fingers bilaterally. He also says he has some occasional numbness in his index fingers. Symptoms intermittent, but daily, worse at night. He is out of work due to back problems, and say she has been out of work for ~3 years now. [facility] Medical History (Updated 09/04/23 @ 11:14 by Yuri Frankel) Personal history of nicotine dependence Lumbar radiculopathy, chronic Alcoholism Surgical History History of tonsillectomy Family History Mother Diabetes Social History Household Members: Spouse Alcohol intake: current Patient Tobacco Use Status: Current everyday Tobacco user Tobacco use type: Cigarette Cigarette Packs Per Day: 1 Cigarettes Per Day: 20.0 Years Smoked: (onset 15yo, 1ppd x 36yrs, 35pyh) Substance Use Type: Marijuana Current occupational status: unemployed Current occupation: right hand dominant Review of Systems Const All systems reviewed & are unremarkable except as noted in HPI and below Physical Exam Vital Signs: BMI result Body Mass Index 21.2 Const General: cooperative, healthy appearing and no acute distress Orientation/consciousness: patient oriented x3 HEENT Head: Yes normocephalic and Yes atraumatic Eyes EOM: EOMs intact bilaterally Resp Effort & Inspection: normal respiratory effort and able to speak in complete sentences Cardio Jugular venous distension: no JVD Skin General skin exam: turgor normal Rashes: no rashes Neuro General: patient oriented x3 Extrem Other: Evaluation of Bilateral Upper Extremity: The patient is alert, oriented, and in no acute distress Neuro: Median, Ulnar, Radial nerves motor and sensory intact Good finger cross . No thenar or intrinsic wasting. Vascular: Cap refill brisk ROM: He can make a fist and extend all his digits No locking or catching Full active flexion extension and prono-supination of the left elbow. The patient demonstrated that he gets pain over the lateral dorsal aspect of both elbows that radiates up the lateral aspects of the arms to the shoulders and then to his neck again bilaterally. Skin: No lacerations or abrasions. General: No Ecchymosis. No Erythema or evidence of infection. Nerve Conduction Study: IMPRESSION: 1. This is an abnormal study. 2. 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 3. There is no electrodiagnostic evidence for median neuropathy, brachial plexopathy, or cervical radiculopathy. Yaa Estrella MD, [facility] 07/05/23 Psych Appearance: grossly normal Affect: normal affect Attitude: cooperative Assessment & Plan Assessment & Plan (1) Cubital tunnel syndrome, bilateral: Code(s): G56.23 - Lesion of ulnar nerve, bilateral upper limbs (2) COPD with asthma: Code(s): J44.9 - Chronic obstructive pulmonary disease, unspecified (3) Personal history of nicotine dependence: Comment: (current smoker - onset 15yo, 1ppd x 36yrs, 35pyh) Code(s): Z87.891 - Personal history of nicotine dependence Plan Assessment & Plan: 1. Left Cubital tunnel syndrome Symptoms intermittent, but daily, worse at night 2. Right Cubital tunnel syndrome Symptoms intermittent, but daily, worse at night I educated him about this condition I discussed operative and non-operative treatment options The patient would like to proceed with surgery, beginning with the left side He will follow up to discuss treatment for his right side when he has recovered from surgery The risks and benefits of operative treatment were discussed with the patient and the patient wishes to proceed with surgery. These risks include, but are not limited to risk of damage to blood vessels, nerves, tendons, infection, recurrence, incomplete relief of preoperative symptoms, persistent pain, possible need for further surgery and the risks associated with regional blocks and anesthesia. The plan is to take the patient to the operating room sometime in the next few weeks for the following procedures: 1. Left cubital tunnel release vs transposition, under general All of the preoperative paperwork including the consent was reviewed today. All the patient's questions were answered. The patient understands that they will be contacted by our neurosurgery research director soon to schedule this procedure He denies Diabetes, blood thinners, heart, kidney issues He has COPD & asthma, and is a smoker 3. Bilateral upper arm and shoulder pain radiating to his neck Pain that extends from the dorsal lateral aspect of bilateral elbows which he reports radiates into his shoulders and neck. He will make an appointment with a PA to discuss this. Please note that greater than 35 minutes was spent with this patient going over the history, evaluating the patient and radiographs, formulating possible treatment options, discussing them with the patient, and documenting the visit. Scribed for Edwige Hammer MD by Yuri Frankel, medical records director, on 09/04/23 at 11:20 AM, EST. Coding Level of Care Code Est Pt Level 4 (28668) Diagnoses Cubital tunnel syndrome, bilateral G56.23 COPD with asthma J44.9 Personal history of nicotine dependence Z87.891
[2023-09-04 11:05] VITALS: BMI 21.2
== END 2023-09-04 11:57 | disposition home or self-care (01) ==
PROVIDERS: PCP Family Medicine; Visit Provider Orthopaedic Surgery
DX: G56.23 Lesion of ulnar nerve, bilateral upper limbs (principal); J44.9 Chronic obstructive pulmonary disease, unspecified; Z87.891 Personal history of nicotine dependence
CPT/HCPCS: 99214

== ENCOUNTER → 2023-09-04 10:17 | Outpatient (BNVA) | payer MEDICAID, SELFPAY | PROVIDERS: PCP Family Medicine; Visit Provider Orthopaedic Surgery | DX: G56.23 Lesion of ulnar nerve, bilateral upper limbs (principal); J44.9 Chronic obstructive pulmonary disease, unspecified; F17.210 Nicotine dependence, cigarettes, uncomplicated | CPT/HCPCS: 99212 ==

== ENCOUNTER 2023-09-19 07:06 | Day surgery (SDC) | payer MEDICAID, SELFPAY ==
[2023-09-17 14:08] VITALS: BMI 21.2
--- NOTE | 2023-09-18 11:51 | P.CONAN_ITS ---
Documented by User: Mini Croft NP 09/18/23 11:52 HPI - Anesthesia Eval Consult details Narrative: 53yo M for Left Cubital Tunnel Release 2021 pt reported CP in preop for endo procedures. Cx'd DOS and instructed for f/u with pcp and cardiology. No cardiac follow up. Case reviewed with Dr Lucas. ELENA for eval DOS. PMFSH Active Problems Active Problems: All Active Problems (Updated 09/04/23 @ 11:14 by Yuri Frankel) Cubital tunnel syndrome, bilateral (Acute) Intractable low back pain (Acute) Left inguinal pain (Acute) Encounter for screening colonoscopy (Acute) Chest pain (Acute) Lumbar radiculopathy, chronic (Acute) Personal history of nicotine dependence (Acute) Heartburn (Acute) Wears partial dentures (Acute) COPD with asthma (Acute) Seasonal allergies (Acute) Past Medical History Medical History (Updated 09/19/23 @ 07:21 by Rebecca Cheema, RN) Anxiety Depression COPD (chronic obstructive pulmonary disease) Asthma Personal history of nicotine dependence Lumbar radiculopathy, chronic Alcoholism Family History Family History Mother Diabetes Surgical History Surgical History History of tonsillectomy Social History Social History Household Members: Spouse Alcohol intake: current Patient Tobacco Use Status: Current everyday Tobacco user Tobacco use type: Cigarette Cigarette Packs Per Day: 1 Cigarettes Per Day: 20 Years Smoked: (onset 15yo, 1ppd x 36yrs, 35pyh) Use of substances other than those prescribed or required for medical reasons: Yes Substance Use Type: Marijuana Substance Use Frequency: Occasionally Are you DNR?: No Advance Directives: No Advance Directives Information Provided: Yes Current occupational status: unemployed Current occupation: right hand dominant Meds Allergies Allergy/AdvReac Type Severity Reaction Status Date / Time No Known Allergies Allergy Verified 09/19/23 07:21 [No Known Allergies*] Home Medications ?Medication ?Instructions ?Recorded ?Confirmed ?Last Taken ?Type acetaminophen 500 mg tablet 1,000 mg PO Q8H PRN Pain 12/08/21 09/19/23 Unknown History albuterol sulfate 90 mcg/actuation 2 puff PO Q4-6H PRN wheezing 12/08/21 09/19/23 Unknown History aerosol inhaler (ProAir HFA) fluticasone furoate 100 1 inh inhalation QAM 09/19/23 09/19/23 Unknown History mcg/actuation blister powder for inhalation (Arnuity Ellipta) montelukast 10 mg tablet 10 mg QAM 09/19/23 09/19/23 Unknown History sertraline 50 mg tablet 50 mg QAM 09/19/23 09/19/23 Unknown History Exam Height,Weight and Vital Signs: Height 5 ft 11 in Weight 68.946 kg Assessment and Plan Assessment Anesthesia Assessment: Chart Reviewed Documented by User: Hal Sheets MD 09/19/23 08:17 [facility] Past Medical History Medical History (Updated 09/19/23 @ 07:21 by Rebecca Cheema RN) Anxiety Depression COPD (chronic obstructive pulmonary disease) Asthma Personal history of nicotine dependence Lumbar radiculopathy, chronic Alcoholism Family History Family History Mother Diabetes Family history of problems with anesthesia: No Surgical History Surgical History History of tonsillectomy Social History Social History Household Members: Spouse Alcohol intake: current Patient Tobacco Use Status: Current everyday Tobacco user Tobacco use type: Cigarette Cigarette Packs Per Day: 1 Cigarettes Per Day: 20 Years Smoked: (onset 15yo, 1ppd x 36yrs, 35pyh) Use of substances other than those prescribed or required for medical reasons: Yes Substance Use Type: Marijuana Substance Use Frequency: Occasionally Are you DNR?: No Advance Directives: No Advance Directives Information Provided: Yes Current occupational status: unemployed Current occupation: right hand dominant Meds Allergies Allergy/AdvReac Type Severity Reaction Status Date / Time No Known Allergies Allergy Verified 09/19/23 07:21 [No Known Allergies*] Home Medications ?Medication ?Instructions ?Recorded ?Confirmed ?Last Taken ?Type acetaminophen 500 mg tablet 1,000 mg PO Q8H PRN Pain 12/08/21 09/19/23 Unknown History albuterol sulfate 90 mcg/actuation 2 puff PO Q4-6H PRN wheezing 12/08/21 09/19/23 Unknown History aerosol inhaler (ProAir HFA) fluticasone furoate 100 1 inh inhalation QAM 09/19/23 09/19/23 Unknown History mcg/actuation blister powder for inhalation (Arnuity Ellipta) montelukast 10 mg tablet 10 mg QAM 09/19/23 09/19/23 Unknown History sertraline 50 mg tablet 50 mg QAM 09/19/23 09/19/23 Unknown History Exam Airway TM Dist: >3cm Neck ROM: Full Denture: Lower Loose/Missing/Broken Teeth: Yes (broken 25) Heart: rrr Lungs: slight wheeze Assessment and Plan Assessment Anesthesia Assessment: Anesthesia Plan Discussed and Smoking Cess. Discussed Final Anesthetic Review Family History of Problems with Anesthesia: No NPO: Yes ASA Class: III Final Preanesthetic Review: No Changes in Pt Med Stat, Meds/Allgs Chart Reviewed, Consent Obtained/Reviewed and Anes Risks/Benef Reviewed Patient Risk: Intermediate Procedure Risk: Low Anesthetic Plan Anesthetic Plan: GA Disposition: Standard PACU
[2023-09-19] VITALS (7 sets, daily range): BP systolic 126–151; BP diastolic 73–93; PULSE 53–80; RESP 10–20; TEMP 36.1–36.7; O2SAT 96–100; BMI 22.8
--- NOTE | 2023-09-19 09:36 | MHC.SHP ---
Pre-Procedural Eval Section A - 24 Hr Update-Section A only Date of Service: 09/19/23 The patient is an INPATIENT: No Changes since office visit: No Cold of Flu in the past 2 weeks, No New Medical Problems, No Changes in Medication and No Patient answered all questions The patient has been examined within 24 hours of the surgical procedure. The History & Physical has been completed within 30 days and I have reviewed it.: Yes Section B - Complete if H&P > 30 days Chief Complaint: Lesion of ulnar nerve, bilateral upper limbs Allergies: Allergies Allergy/AdvReac Type Severity Reaction Status Date / Time No Known Allergies Allergy Verified 09/19/23 07:21 [No Known Allergies*] Exam Exam Comment: Left cubital tunnel syndrome Plan Diagnosis/Plan: Unchanged I have reviewed the history and physical and performed a pertinent physical examination on my patient. No changes have occurred unless specified. Time Spent With Patient Time: Total time managing care of this patient today ____ minutes.
--- NOTE | 2023-09-19 09:37 | W.PM.OPN ---
Operative Note Operative Note Date of Service: 09/19/23 Narrative: Operative Note Narrative: Preop diagnosis: 1. Left Cubital tunnel syndrome Postop diagnosis: Same Procedure: 1. Left Cubital Tunnel Release Surgeon: Edwige Hammer MD Anesthesia: General Anesthesia Findings: Thickening and fibrosis about the ulnar nerve at the cubital tunnel Implants: none Tourniquet time: 16 minutes EBL: 5.0 ml Specimen: none Drains: None Complications: None Disposition: Brought to the recovery room in stable condition Plan: Follow-up in 10-14 days for wound check, and suture removal Indications: The patient is 53 years old with left cubital tunnel syndrome with some persistent numbness . The risks and benefits of operative treatment, including but not limited to risk of damage to blood vessels, nerves, tendons, infection, recurrence, persistent pain or numbness, incomplete resolution of preoperative symptoms, or need for further surgery were discussed with the patient and they wished to proceed with surgery. Procedure: Once consent was obtained patient was brought back to the operating suite and placed in the operating table in a supine position. Perioperative antibiotics and anesthesia was administered by the anesthesia team. The limb was prepped and draped in a standard surgical fashion, and a sterile tourniquet applied to the proximal aspect of the left upper extremity. The limb was elevated exsanguinated with Esmarch bandage and the tourniquet inflated to 250 mm of mercury for a total tourniquet time of 16 minutes. A 6 cm gently curved but longitudinally oriented incision was made centered over the cubital tunnel of the left upper extremity. Incision was made through the skin to the subcutaneous tissues using a # 15 Blade. I then dissected down to the level of the medial epicondyle and the cubital tunnel using tenotomy scissors. Care was taken to protect the lateral antebrachial cutaneous nerve. The ulnar nerve was identified just posterior to the medial intermuscular septum. The ulnar nerve was released in a proximal to distal direction using tenotomy in iris scissors while directly visualizing and protecting the ulnar nerve. Thickening and fibrosis was appreciated about the ulnar nerve as it passed through the cubital tunnel. The ulnar nerve was assessed as I passed the elbow through full flexion and extension and was found to remain stable within its groove. At this point the tourniquet was deflated and hemostasis obtained with a brief period of local pressure and bipolar electrocautery. The wound was copiously irrigated with normal saline. The subcutaneous layer was closed with 4-0 Vicryl suture, and the skin edges were reapproximated a running 4-0 Monocryl subcuticular closure. Steri-Strips and Mastisol were applied. The wound was infiltrated with some 0.25% plain Marcaine for postop pain control and a sterile dressing was applied.. The patient appears to have tolerated the procedure well and with no complications. All digits were well vascularized conclusion of the case.
== END 2023-09-19 12:46 | disposition home or self-care (01) ==
PROVIDERS: PCP Family Medicine; Visit Provider Orthopaedic Surgery
PROC: (CPT 64718; principal; 2023-09-19 09:00)
DX: G56.22 Lesion of ulnar nerve, left upper limb (principal); R20.0 Anesthesia of skin; J44.9 Chronic obstructive pulmonary disease, unspecified; F10.20 Alcohol dependence, uncomplicated; F32.A Depression, unspecified; F41.9 Anxiety disorder, unspecified; Z79.51 Long term (current) use of inhaled steroids; Z79.899 Other long term (current) drug therapy; F17.210 Nicotine dependence, cigarettes, uncomplicated; Z56.0 Unemployment, unspecified
CPT/HCPCS: 64718; J0690; J1100; J1170; J2250; J2405; J2704; J2795; J3010

== ENCOUNTER → 2023-09-19 07:06 | Outpatient (BNV) | payer MEDICAID, SELFPAY | PROVIDERS: PCP Family Medicine; Visit Provider Orthopaedic Surgery | DX: G56.22 Lesion of ulnar nerve, left upper limb (principal) | CPT/HCPCS: 64718 ==

== ENCOUNTER 2023-09-27 08:30 | Outpatient (REF) | payer MEDICAID, SELFPAY ==
--- NOTE | ~2023-09-27 | XR_ITS ---
EXAMINATION: XR KNEE, RIGHT CLINICAL INFORMATION: Pain and unspecified knee. COMPARISON: 07/25/2023 left knee. TECHNIQUE: Single AP standing view of bilateral knees. FINDINGS: LEFT KNEE: Redemonstration of 2 possible mildly displaced fracture fragments versus accessory ossification centers along the superior pole of the patella, similar in appearance, but difficult to characterize due to overlying bony structures on the single view provided. Mild narrowing of the medial compartment. RIGHT KNEE: Mild narrowing of the medial compartment. XR/XR knee RT 2V IMPRESSION: 1. Redemonstration of 2 possible mildly displaced fracture fragments versus accessory ossification centers along the superior pole of the left patella, similar in appearance, but difficult to characterize due to overlying bony structures on the single view provided. 2. Mild narrowing of the medial compartments of bilateral knees.
== END 2023-09-27 08:31 | disposition home or self-care (01) ==
LOC: HO.HOSX 08:30
PROVIDERS: Visit Provider Physician Assistant
DX: S82.002A Unspecified fracture of left patella, initial encounter for closed fracture (principal)
CPT/HCPCS: 73560; 99212

== ENCOUNTER 2023-09-27 10:11 | Outpatient (AMB) | payer MEDICAID, SELFPAY ==
--- NOTE | 2023-09-27 10:24 | A.OFFVIS_ITS ---
Intake Intake Visit Reasons: New prob pain in LT knee s/p falling 1.5 month ago Intake Note: Ortega a 53 year old male presents today for an evaluation of left knee pain. Patient reports that he has tolerable bilateral knee pain however after a recent fall about 1.5 months ago his left knee pain has increased. He has a constant pain/ache in the anterior aspect of knee as well as intermittent swelling. Finds a little support with knee brace for support. States very little to no relief w ith ibuprofen and Tylenol. No previous tx. Allergies No Known Allergies [No Known Allergies*] Allergy (Verified 09/27/23 10:30) Medication List - Last Reconciled 09/27/23 by Gael Smith PA-C acetaminophen 1,000 mg PO Q8H PRN albuterol sulfate 90 mcg/actuation (ProAir HFA) 2 puffs PO Q4-6H PRN fluticasone furoate 100 mcg/actuation (Arnuity Ellipta) 1 inh inhalation QAM ibuprofen 600 mg PO TID montelukast 10 mg QAM sertraline 50 mg QAM HPI New prob pain in LT knee s/p falling 1.5 month ago HPI Details 53-year-old male who presents to the off ice today for evaluation of left knee pain. He was seen by his PCP who referred him to our office. He reports he has tolerable bilateral knee pain however after a recent fall about 1.5 months ago his left knee pain has increased. He currently states he has constant pain and intermittent swelling at the anterior aspect of his knee. His pain is aggravated with walking, going upstairs and even when sedentary. He finds mild support with a knee brace. He finds minimal relief with ibuprofen and Tylenol. He has not had any treatment in the past. [facility] Medical History (Updated 09/27/23 @ 10:55 by Gael Smith PA-C) Anxiety Depression COPD (chronic obstructive pulmonary disease) Asthma Personal history of nicotine dependence Lumbar radiculopathy, chronic Alcoholism Surgical History History of tonsillectomy Family History Mother Diabetes Social History Household Members: Spouse Alcohol intake: current Patient Tobacco Use Status: Current everyday Tobacco user Tobacco use type: Cigarette Cigarette Packs Per Day: 1 Cigarettes Per Day: 20 Years Smoked: (onset 15yo, 1ppd x 36yrs, 35pyh) Substance Use Type: Marijuana Current occupational status: unemployed Current occupation: right hand dominant Review of Systems Const All systems reviewed & are unremarkable except as noted in HPI and below Physical Exam Const General: cooperative and no acute distress Orientation/consciousness: patient oriented x3 Resp Effort & Inspection: normal respiratory effort and able to speak in complete sentences Cardio Peripheral pulses: Peripheral pulses 2+ throughout Neuro General: patient oriented x3 Extrem Other: Left knee: Skin intact, no erythema or joint effusion. Tenderness over the superior lateral portion of patella. Full ROM with crepitus. Negative Tyrone?s. No ligamentous laxity. NVI. Office Procedures Fracture Care Fracture Billing Code: Fracture Billing Code Results Reviewed Results Reviewed: Xrays were obtained in the office today and personally reviewed by me of the left knee evidence of stable fracture along the upper pole of the patella, Assessment & Plan Assessment & Plan (1) Left patella fracture: Code(s): S82.002A - Unspecified fracture of left patella, initial encounter for closed fracture (2) Osteoarthritis of left knee: Code(s): M17.12 - Unilateral primary osteoarthritis, left knee Plan With the injury occurring 2 months ago and the xray demonstrating stability of the fracture, he can increase activities as tolerated. We discussed options which include PT and NSAIDs. The patient will proceed with PT and NSAIDs. If symptoms persist, the patient will contact me for an injection, otherwise, PRN. Orders: Orders XR knee RT 2V Today M25.569 - Pain in unspecified knee PT Evaluation and Treatment Today M17.12 - Unilateral primary osteoarthritis, left knee, S82.002A - Unspecified fracture of left patella, initial encounter for closed fracture Patient Instructions: Scribed for Gael Smith PA-C, by Jorge Christensen medical technologist generalist, on 09/27/2023 at 10:15 AM CATALINO. Gael Kruger PA-C, have personally reviewed and agree with the information entered by the scribe. Coding Level of Care Code Est Pt Level 3 (85513) Diagnoses Left patella fracture S82.002A Osteoarthritis of left knee M17.12 CPT Codes Fracture Care - Fracture Billing Code: Fracture Billing Code ([id number])
== END 2023-09-27 11:26 | disposition home or self-care (01) ==
PROVIDERS: PCP Family Medicine; Visit Provider Physician Assistant
DX: S82.002A Unspecified fracture of left patella, initial encounter for closed fracture (principal); M17.12 Unilateral primary osteoarthritis, left knee
CPT/HCPCS: 99213

== ENCOUNTER 2023-10-04 08:10 | Outpatient (AMB) | payer MEDICAID, SELFPAY ==
--- NOTE | 2023-10-04 08:12 | MHC.OFFVIS ---
Vital Signs 10/04/23 08:16 Height 6 ft Weight 165 lb BMI 22.4 Intake Visit Reasons: PO LT Cubital tunnel release 09/19/23 AR Intake Note: Ortega is a 53 year old right hand dominant male who presents today for a post operative visit s/p Left Cubital Tunnel Release 09/19/[address] Hammer. Patient reports that he is doing well, he has some tenderness on the medial aspect of the elbow. His numbness and tingling has mostly resolved but he has some remaining in his small finger. He reports that his sutures fell out when he removed his bandage. Allergies No Known Allergies [No Known Allergies*] Allergy (Verified 10/04/23 08:16) HPI HPI PO LT Cubital tunnel release 09/19/23 AR: Details: 53-year-old right hand dominant male who returns to the office today for post-op left cubital tunnel release, 09/19/[address] Hammer. He reports he is doing well however he does c/o mild tenderness over the medial aspect of the elbow. He also states his numbness and tingling was resolved for about a week however it returned along the small finger and is intermittent. He mentions his sutures fell out when he removed his bandage. He has no other concerns today. [facility] Medical History (Updated 10/04/23 @ 08:32 by Gael Smith PA-C) Anxiety Depression COPD (chronic obstructive pulmonary disease) Asthma Personal history of nicotine dependence Lumbar radiculopathy, chronic Alcoholism Surgical History (Updated 10/04/23 @ 08:17 by Mesha Martin CMA) S/P cubital tunnel release (09/19/23) History of tonsillectomy Family History Mother Diabetes Social History Household Members: Spouse Alcohol intake: current Patient Tobacco Use Status: Current everyday Tobacco user Tobacco use type: Cigarette Cigarette Packs Per Day: 1 Cigarettes Per Day: 20 Years Smoked: (onset 15yo, 1ppd x 36yrs, 35pyh) Substance Use Type: Marijuana Current occupational status: unemployed Current occupation: right hand dominant Review of Systems Const All systems reviewed & are unremarkable except as noted in HPI and below Physical Exam Vital Signs: BMI result Body Mass Index 22.4 Extrem Other: Left elbow: Incision well healed. He has mild swelling over the surgical site. Good sensation over the surgical site. He has diminished sensation at the ulnar aspect of the hand. Full ROM of elbow and wrist. He is able to make a full fist and extend all the digits. NVI. Assessment & Plan Assessment & Plan (1) Cubital tunnel syndrome on left: Code(s): G56.22 - Lesion of ulnar nerve, left upper limb Category: Medical Plan I recommend a course of occupational therapy to initiate gentle motion, strengthening and iontophoresis. I did stress the importance of avoiding heavy lifting and repetitive motions for the next 4-6 weeks to aid in successful recovery. He did express his concerns about obtaining a ride to therapy sessions and I informed him to let the office know that he needs a Lyft ride to set him up a day before his appointment. I will see him back in [address] Hammer for reevaluation, sooner if needed. Orders: Orders OT Evaluation and Treatment Today G56.22 - Lesion of ulnar nerve, left upper limb Patient Instructions: Scribed for Gael Smith PA-C, by Jorge Christensen medical assistant float, on 10/04/2023 at 8:00 AM CATALINO. I, Gael Smith PA-C, have personally reviewed and agree with the information entered by the scribe.
[2023-10-04 08:16] VITALS: BMI 22.4
== END 2023-10-04 08:56 | disposition home or self-care (01) ==
PROVIDERS: PCP Family Medicine; Visit Provider Physician Assistant
DX: G56.22 Lesion of ulnar nerve, left upper limb (principal)
CPT/HCPCS: 99024

== ENCOUNTER → 2023-10-04 08:10 | Outpatient (BNVA) | payer MEDICAID, SELFPAY | PROVIDERS: PCP Family Medicine; Visit Provider Physician Assistant | DX: Z47.89 Encounter for other orthopedic aftercare (principal); Z98.890 Other specified postprocedural states | CPT/HCPCS: 99212 ==

== ENCOUNTER 2023-10-17 09:14 | Outpatient (REF) | payer MEDICAID, SELFPAY | END 2023-10-17 09:15 | disposition home or self-care (01) | LOC: HO.HOSX 09:14 | PROVIDERS: Visit Provider Physician Assistant | DX: Z13.89 Encounter for screening for other disorder (principal) ==

== ENCOUNTER 2023-10-28 09:40 | Outpatient (REF) | payer MEDICAID, SELFPAY ==
--- NOTE | ~2023-10-28 | XR_ITS ---
EXAMINATION: Right shoulder 3 views Left shoulder 3 views CLINICAL INFORMATION: Pain in unspecified shoulder COMPARISON: None. TECHNIQUE: 3 views of the right shoulder and 3 views of the left shoulder were obtained FINDINGS: Right shoulder: Alignment is anatomic. No fracture. Minimal spurring posterior glenoid. The visible right lung is clear. Left shoulder: Alignment is anatomic. No fracture. Minimal spurring anterior and posterior glenoid. The visible left lung is clear. XR/XR shoulder RT min 2V IMPRESSION: Minimal osteoarthritis.
--- NOTE | ~2023-10-28 | XR_ITS ---
EXAMINATION: Right shoulder 3 views Left shoulder 3 views CLINICAL INFORMATION: Pain in unspecified shoulder COMPARISON: None. TECHNIQUE: 3 views of the right shoulder and 3 views of the left shoulder were obtained FINDINGS: Right shoulder: Alignment is anatomic. No fracture. Minimal spurring posterior glenoid. The visible right lung is clear. Left shoulder: Alignment is anatomic. No fracture. Minimal spurring anterior and posterior glenoid. The visible left lung is clear. XR/XR shoulder LT min 2V IMPRESSION: Minimal osteoarthritis.
== END 2023-10-28 09:41 | disposition home or self-care (01) ==
LOC: HO.HOSX 09:40
PROVIDERS: Visit Provider Physician Assistant
DX: M54.12 Radiculopathy, cervical region (principal); M25.512 Pain in left shoulder; M25.511 Pain in right shoulder
CPT/HCPCS: 73030; 99212

== ENCOUNTER 2023-10-28 13:01 | Outpatient (AMB) | payer MEDICAID, SELFPAY ==
--- NOTE | 2023-10-28 13:28 | A.OFFVIS_ITS ---
Intake Visit Reasons: New Prob - B/L Shoulder pain Intake Note: Ortega is a 53 year old right hand dominant male who presents today for evaluation of his bilateral shoulder pain. Patient reports off and on pain for 3 - 4 months. He expresses that his left shoulder is worse than the right. Pain is on top of the shoulders and it moves down to his elbows. He doesn't find relief with taking Tylenol and ibuprofen. Pain is worse when lifting and doing his daily house cleaning. Allergies No Known Allergies [No Known Allergies*] Allergy (Verified 10/28/23 13:32) HPI HPI New Prob - B/L Shoulder pain: Details: 53-year-old right hand dominant male who presents in the office today for an evaluation of bilateral shoulder pain. Patient reports intermittent pain for 3-4 months. He states his left shoulder is worse than the right shoulder. He claims the pain is located on the top of the bilateral shoulders and radiates down to his bilateral elbows. He confirms the use of Tylenol and Ibuprofen with no relief. States pain increases when lifting and doing daily house cleaning. He confirms the use of an SUNITA wrap but states he does not get relief with this. He states the pain is affecting his daily life due to pain. Patient confirms lumbar back pain. He denies recent treatment of back pain. He does recall prior evaluation at [facility] but it has been a while. Patient confirms a history of cortisone injections with no relief. Patient has a surgical history of left carpal tunnel release on 09/19/[address] Hammer[address] [facility] Medical History (Updated 10/28/23 @ 13:51 by Jayne Lauren) Anxiety Depression COPD (chronic obstructive pulmonary disease) Asthma Personal history of nicotine dependence Lumbar radiculopathy, chronic Alcoholism Surgical History (Updated 10/04/23 @ 08:17 by Mesha Martin CMA) S/P cubital tunnel release (09/19/23) History of tonsillectomy Family History Mother Diabetes Social History Household Members: Spouse Alcohol intake: current Patient Tobacco Use Status: Current everyday Tobacco user Tobacco use type: Cigarette Cigarette Packs Per Day: 1 Cigarettes Per Day: 20 Years Smoked: (onset 15yo, 1ppd x 36yrs, 35pyh) Substance Use Type: Marijuana Current occupational status: unemployed Current occupation: right hand dominant Review of Systems Const All systems reviewed & are unremarkable except as noted in HPI and below Physical Exam Const General: cooperative, healthy appearing and no acute distress Resp Effort & Inspection: normal respiratory effort and able to speak in complete sentences Cardio Rate: regular rate Peripheral pulses: Peripheral pulses 2+ throughout GI Palpation (GI): Soft to palpation Skin Lesions: no lesions Rashes: no rashes Extrem Other: Bilateral shoulders: Forward flexion and abduction to 90 degrees. External rotation to neutral. Pain with cross-body reach. Negative empty can. Negative drop arm. ROM restrictions in all planes of cervical spine ROM. Assessment & Plan Assessment & Plan (1) Cervical radiculopathy: Code(s): M54.12 - Radiculopathy, cervical region Category: Medical Plan Mr. Christiano Ellis is a 53-year-old right hand dominant male who presents in the office today for an evaluation of bilateral shoulder pain. Patient reports intermittent pain for 3-4 months. He states his left shoulder is worse than the right shoulder. He claims the pain is located on the top of the bilateral shoulders and radiates down to his bilateral elbows. He confirms the use of Tylenol and Ibuprofen with no relief. States pain increases when lifting and doing daily house cleaning. He confirms the use of an SUNITA wrap but states he does not get relief with this. He states the pain is affecting his daily life due to pain. Patient confirms lumbar back pain. He denies recent treatment of back pain. He does recall prior evaluation at [facility] but it has been a while. Patient confirms a history of cortisone injections with no relief. Patient has a surgical history of left carpal tunnel release on 09/19/[address] Hammer. A referral Physiatry was placed in the office today for further evaluation of possible cervical back pain. Follow up with Orthopedics will be PRN, or sooner if needed. X-rays of the bilateral shoulders which were obtained while in the office today and were reviewed by me, Shabana Churchill PA-C, revealed no acute fracture or dislocation. Orders: Orders XR shoulder LT min 2V Today M25.519 - Pain in unspecified shoulder XR shoulder RT min 2V Today M25.519 - Pain in unspecified shoulder Patient Instructions: Scribed by Jayne Lauren, certified ophthalmic medical technician, for Shabana Churchill PA-C on 10/28/2023 at 1:07 pm, EST. Coding Level of Care Code Est Pt Level 3 (19458) Diagnoses Cervical radiculopathy M54.12
== END 2023-10-28 13:58 | disposition home or self-care (01) ==
PROVIDERS: PCP Family Medicine; Visit Provider Physician Assistant
DX: M54.12 Radiculopathy, cervical region (principal)
CPT/HCPCS: 99213

== ENCOUNTER 2023-10-31 11:00 | Outpatient (RCR) | payer MEDICAID, SELFPAY ==
--- NOTE | 2023-11-13 09:48 | MHC.PT.DC ---
[facility] [place] Office [place] Office [place] Office [address] Michaelle Dimas [address] [phone] F: [phone] F: [phone] F: [phone] F: [phone] Physical Therapy Discharge Report Diagnosis: unspecified fx of L patella, OA Date of Surgery: n/a Date of Evaluation: 10/21/23 Date of Discharge: 11/13/23 Treatments to Date: 2 Cancellations to Date: 4 No Shows to Date: 2 Discharge Status: Visit Non-compliance Discharge Summary: Pt no showed his last 2 scheduled visits and therefore to be d/c per attendance policy. Electronically signed by: Vijaya Flaherty, PT, DPT, ATC Please sign and return to therapist. Thank you for your referral.
== END 2023-11-13 09:48 | disposition home or self-care (01) ==
LOC: HO.PTCHIC 11:00
PROVIDERS: PCP Family Medicine; Visit Provider Physician Assistant
DX: S82.002D Unspecified fracture of left patella, subsequent encounter for closed fracture with routine healing (principal); M17.12 Unilateral primary osteoarthritis, left knee
CPT/HCPCS: 97110; 97161

== ENCOUNTER 2023-11-20 09:51 | Outpatient (REF) | payer MEDICAID, SELFPAY ==
--- NOTE | ~2023-11-20 | XR_ITS ---
EXAMINATION: XR CERVICAL SPINE CLINICAL INFORMATION: Cervalgia. COMPARISON: None available. TECHNIQUE: 3 views of the cervical spine were obtained. FINDINGS: Degenerative changes are present from C3 through C7 with most marked disc space narrowing at C3-C4 and C5-C6. There is endplate sclerosis and osteophyte formation. No prevertebral soft tissue swelling, fractures or subluxations. XR/XR cervical spine 3V IMPRESSION: Degenerative changes in the cervical spine as described above.
== END 2023-11-20 09:52 | disposition home or self-care (01) ==
LOC: HO.HOSX 09:51
PROVIDERS: Visit Provider Physical Medicine & Rehabilitation
DX: M54.12 Radiculopathy, cervical region (principal); M75.82 Other shoulder lesions, left shoulder; M54.2 Cervicalgia
CPT/HCPCS: 72040; 99212

== ENCOUNTER 2023-11-20 10:52 | Outpatient (AMB) | payer MEDICAID, SELFPAY ==
--- NOTE | 2023-11-20 10:57 | MHC.OFFVIS ---
Intake Visit Reasons: New Pt - cervical back pain Intake Note: Ortega is a 53 year old right hand dominant male who presents today for evaluation of his cervical spine pain. Patient reports his pain is a 7-8/10 on the pain scale. Pain is mainly in his neck, however his pain moves down to his left shoulder. He states that his pain hasn't really change since his last visit with Shabana. He has tried and failed taking ibuprfen and tylenol. No history of physical therapy. Allergies No Known Allergies [No Known Allergies*] Allergy (Verified 11/20/23 10:57) Medication List - Last Reconciled 11/20/23 by Yaa Estrella MD acetaminophen 1,000 mg PO Q8H PRN albuterol sulfate 90 mcg/actuation (ProAir HFA) 2 puffs PO Q4-6H PRN fluticasone furoate 100 mcg/actuation (Arnuity Ellipta) 1 inh inhalation QAM ibuprofen 600 mg PO TID montelukast 10 mg QAM prednisone 5 mg PO DIRECTED pregabalin (Lyrica) 25 mg PO BEDTIME sertraline 50 mg QAM HPI Comments Details: Met him for EMG done 07/05/23 which showed bilateral UNE. He has seen Dr. Hammer and had left cubital tunnel release. Was seeing Shabana RAMSAY for shoulder, which is not sure if connected to neck pain. He was then referred for neck pain to Physiatry. He can say that neck pain is separate issue from the hand numbness. 2-3 months, started with left neck pain. No falls or inciting injuries. He woke up with left arm/shoulder was in pain. Points to left lateral neck down to upper arm, forearm if ever. Limited shoulder ROM with pain. Ongoing left 5th digit numbness, thought to be ulnar neuropathy, he says is better after surgery. Treatment done so far: NSAIDs, tylenol wears chelsea band to release the tension No therapy yet. [facility] Medical History (Updated 11/20/23 @ 11:22 by Yaa Estrella MD) Anxiety Depression COPD (chronic obstructive pulmonary disease) Asthma Personal history of nicotine dependence Lumbar radiculopathy, chronic Alcoholism Surgical History (Updated 10/04/23 @ 08:17 by Mesha Martin [facility]) S/P cubital tunnel release (09/19/23) History of tonsillectomy Family History Mother Diabetes Social History Household Members: Spouse Alcohol intake: current Patient Tobacco Use Status: Current everyday Tobacco user Tobacco use type: Cigarette Cigarette Packs Per Day: 1 Cigarettes Per Day: 20 Years Smoked: (onset 15yo, 1ppd x 36yrs, 35pyh) Substance Use Type: Marijuana Current occupational status: unemployed Current occupation: right hand dominant Review of Systems Const All systems reviewed & are unremarkable except as noted in HPI and below Physical Exam Constitutional: Patient appears to be in no acute distress, well nourished and well developed. Patient was appropriately conversant and oriented. Good historian. MSK: Inspection reveals appropriate head and neck positioning. No pain with palpation over the neck musculature. Cervical ROM was full. Spurling's sign positive left? Limited left shoulder range of motion with abduction and forward flexion. Positive Aguiar sign on left. Positive empty can sign on left. Negative speed's test. No scapular winging. Strength is 5/5 in all muscle groups tested. No increased tone noted. Neurological: Neurologic examination of the upper and lower extremities was nonfocal with intact sensation, muscle stretch reflexes and without focal motor deficits . Hill?s negative bilaterally. Babinski was down going bilaterally. Clonus was negative. Gait is antalgic without loss of balance from chronic low back pain. Results Reviewed Results Reviewed: I independently reviewed the results of the following: X-rays done today showed decreased disc space most notably at C5-C6, anterior endplate spurs. I reviewed records from the following: Orthopedics/hand surgery Pain Management Assessment & Plan Assessment & Plan (1) Cervical radiculopathy: Code(s): M54.12 - Radiculopathy, cervical region Category: Medical (2) Tendonitis of left rotator cuff: Code(s): M75.82 - Other shoulder lesions, left shoulder Category: Medical Plan Difficult to localize if symptoms are coming from left C5-6 radiculitis versus rotator cuff injury. Could be both. We will start with sending patient to physical therapy. We will put him on a short dose oral prednisone. Discussed side effects and precautions. He has taken this before for low back pain without issues. Will re-evaluate in 6 weeks, at that point we can hopefully determine if we need further imaging for cervical or for shoulder. Assessment and plan discussed with patient, and patient was agreeable. All questions were answered thoroughly. Follow-up 6 weeks. Yaa Estrella MD, [place] Board Certified, [place] Board [employer] and Rehabilitation (ABPMR) Board Certified, [place] Board [employer] Electro[employer] (ABEM) Orders: Orders XR cervical spine 3V Today M54.2 - Cervicalgia PT Evaluation and Treatment Today M54.12 - Radiculopathy, cervical region, M75.82 - Other shoulder lesions, left shoulder Medications: New prednisone see taper instructions; 40 mg Daily for three days, 30 mg daily for three days, 20 mg daily for three days, 10 mg daily for three days 5 mg PO DIRECTED 60 tabs 0RF Coding Level of Care Code Est Pt Level 4 (09872) Diagnoses Cervical radiculopathy M54.12 Tendonitis of left rotator cuff M75.82
== END 2023-11-20 11:30 | disposition home or self-care (01) ==
PROVIDERS: PCP Family Medicine; Visit Provider Physical Medicine & Rehabilitation
DX: M54.12 Radiculopathy, cervical region (principal); M75.82 Other shoulder lesions, left shoulder
CPT/HCPCS: 99214

== ENCOUNTER 2024-01-15 10:45 | Outpatient (AMB) | payer MEDICAID, SELFPAY ==
--- NOTE | 2024-01-15 10:46 | A.OFFVIS_ITS ---
Vital Signs 01/15/24 10:57 Height 6 ft Weight 165 lb BMI 22.4 Intake Visit Reasons: O/V neck pain 6-7 week follow up Intake Note: Ortega is a 53 year old right hand dominant male who presents today for a follow up of his neck pain .Last visit states left C5-6 radiculitis versus rotator cuff injury. He was given a script for a Prednisone taper, this was not helpful. He explains that his pain is starting in the anterior aspect of the left shoulder and radiates down to the bicep. Additionally he complains of numbness and tingling in his elbow to hand and fingers. Hx of LT Cubital tunnel release 09/19/23 Dr. Hammer, this initially helped his numbness and tingling but has returned Allergies No Known Allergies [No Known Allergies*] Allergy (Verified 01/15/24 10:57) Medication List - Last Reconciled 01/15/24 by Yaa Estrella MD acetaminophen 1,000 mg PO Q8H PRN albuterol sulfate 90 mcg/actuation (ProAir HFA) 2 puffs PO Q4-6H PRN fluticasone furoate 100 mcg/actuation (Arnuity Ellipta) 1 inh inhalation QAM ibuprofen 600 mg PO TID montelukast 10 mg QAM pregabalin (Lyrica) 25 mg PO BEDTIME sertraline 50 mg QAM HPI Comments Details: Met him for EMG done 07/05/23 which showed bilateral UNE. He has seen Dr. Hammer and had left cubital tunnel release. Was seeing Shabana RAMSAY for shoulder, which is not sure if connected to neck pain. He was then referred for neck pain to Physiatry. He can say that neck pain is separate issue from the hand numbness. 2-3 months, started with left neck pain. No falls or inciting injuries. He woke up with left arm/shoulder was in pain. Points to left lateral neck down to upper arm, forearm if ever. Limited shoulder ROM with pain. Ongoing left 5th digit numbness, thought to be ulnar neuropathy. Appears more shaky since last time I saw him, says finger tremors started only 2 weeks ago. Denies any falls or stumbling. Chronic lower back pain that affects his gait. Still continues to have left-sided shoulder, upper arm pain with numbness on left hand especially 5th digit, despite ulnar neuropathy previously. Denies bladder or bowel changes. Despite chronic poor gait, denies any new weakness. [facility] Medical History Anxiety Depression COPD (chronic obstructive pulmonary disease) Asthma Personal history of nicotine dependence Lumbar radiculopathy, chronic Alcoholism Surgical History S/P cubital tunnel release (09/19/23) History of tonsillectomy Family History Mother Diabetes Social History Household Members: Spouse Alcohol intake: current Patient Tobacco Use Status: Current everyday Tobacco user Tobacco use type: Cigarette Cigarette Packs Per Day: 1 Cigarettes Per Day: 20 Years Smoked: (onset 15yo, 1ppd x 36yrs, 35pyh) Substance Use Type: Marijuana Current occupational status: unemployed Current occupation: right hand dominant Physical Exam Vital Signs: BMI result Body Mass Index 22.4 Constitutional: Patient appears to be in no acute distress, well nourished and well developed. Patient was appropriately conversant and oriented. Good historian. MSK: Inspection reveals appropriate head and neck positioning. No pain with palpation over the neck musculature. Cervical ROM was full. Spurling's sign positive left? Strength is 5/5 in all muscle groups tested. No increased tone noted. Neurological: Neurologic examination of the upper and lower extremities was nonfocal with intact sensation, muscle stretch reflexes and without focal motor deficits . Hill?s negative bilaterally. Babinski was down going bilaterally. Clonus was negative. Gait is antalgic without loss of balance from chronic low back pain. Results Reviewed Results Reviewed: Ordering Physician: Yaa Mckeon Date of Service: 11/20/23 Procedure(s): XR cervical spine 3V Accession Number(s): [id number] cc: Yaa Mckeon~ EXAMINATION: XR CERVICAL SPINE CLINICAL INFORMATION: Cervalgia. COMPARISON: None available. TECHNIQUE: 3 views of the cervical spine were obtained. FINDINGS: Degenerative changes are present from C3 through C7 with most marked disc space narrowing at C3-C4 and C5-C6. There is endplate sclerosis and osteophyte formation. No prevertebral soft tissue swelling, fractures or subluxations. XR/XR cervical spine 3V IMPRESSION: Degenerative changes in the cervical spine as described above. Assessment & Plan Assessment & Plan (1) Cervical radiculopathy: Code(s): M54.12 - Radiculopathy, cervical region Category: Medical (2) Cervical myelopathy: Code(s): G95.9 - Disease of spinal cord, unspecified Category: Medical Plan More concerned now for cervical myelopathy and/or radiculopathy. He has done PT and has taken oral prednisone without relief. Appears more shaky which he said started 2 weeks ago, but exam today overall normal. No hyperreflexia. We should still rule out significant spinal stenosis or cord compression. Urgent cervical spine MRI ordered. Advised to watch out for red flags and to seek Urgent Care if so. Assessment and plan discussed with patient, and patient was agreeable. All questions were answered thoroughly. Follow up or we will call patient after MRI done and reviewed. Yaa Estrella MD, VANCE Board Certified, [place] [employer] and Rehabilitation (ABPMR) Board Certified, [place] [employer] Electrodiagnostic [employer] (ABEM) Orders: Orders MR cervical spine wo con Today G95.9 - Disease of spinal cord, unspecified, M54.12 - Radiculopathy, cervical region Coding Level of Care Code Est Pt Level 4 (45667) Diagnoses Cervical radiculopathy M54.12 Cervical myelopathy G95.9
[2024-01-15 10:57] VITALS: BMI 22.4
== END 2024-01-15 11:22 | disposition home or self-care (01) ==
PROVIDERS: PCP Family Medicine; Referring Provider Family Medicine; Visit Provider Physical Medicine & Rehabilitation
DX: M54.12 Radiculopathy, cervical region (principal); G95.9 Disease of spinal cord, unspecified
CPT/HCPCS: 99213

== ENCOUNTER → 2024-01-15 10:45 | Outpatient (BNVA) | payer MEDICAID, SELFPAY | PROVIDERS: PCP Family Medicine; Visit Provider Physical Medicine & Rehabilitation | DX: M54.12 Radiculopathy, cervical region (principal); G95.9 Disease of spinal cord, unspecified | CPT/HCPCS: 99212 ==

== ENCOUNTER 2024-02-12 13:45 | Outpatient (REF) | payer MEDICAID, SELFPAY ==
--- NOTE | ~2024-02-12 | XR_ITS ---
EXAMINATION: XR SCREENING FILM FOR MR CLINICAL INFORMATION: Pre-MRI x-ray of head to rule out foreign body. COMPARISON: None available. TECHNIQUE: PA and lateral views of the skull obtained for evaluation for possible foreign body. FINDINGS: No radiopaque foreign body appreciated in the region of the orbits. XR/XR pre mri screening IMPRESSION: No radiopaque foreign body appreciated in the region of the orbits. Electronically signed by: Paula Diana MD 03/04/2024 09:40 AM EDT
--- NOTE | ~2024-02-12 | MR_ITS ---
EXAMINATION: MR CERVICAL SPINE WITHOUT CONTRAST CLINICAL INFORMATION: Cervical radiculopathy. COMPARISON: None TECHNIQUE: MRI of the cervical spine was obtained using routine sequences without contrast. FINDINGS: Motion degraded examination which somewhat limits accurate assessment of neural foraminal patency and cord signal. Trace retrolisthesis of C3 on C4. No suspicious marrow signal or focal osseous lesion. Endplate marrow edema is noted at C3-C4 and C6-C7. Type II endplate marrow signal changes at C5-C6. The vertebral body heights are maintained. Multilevel disc desiccation and height loss, worst at C3-C4 and C5-C6. No signal abnormality of the cervical cord within limitations of motion artifact. Limited evaluation of the soft tissues of the neck without demonstrated abnormalities. The flow voids of the major cervical vessels are maintained. Normal appearance of the cervicomedullary junction and visualized posterior fossa SPINAL LEVELS: C2-C3: No significant spinal canal or neuroforaminal narrowing . Mild facet arthropathy. C3-C4: Trace retrolisthesis. Mild facet arthropathy. Left greater than right uncovertebral hypertrophy. Suggestion of moderate right and severe left neural foraminal narrowing. No significant central spinal canal stenosis. C4-C5: Left greater than right facet arthropathy. Uncovertebral hypertrophy. No significant central spinal canal stenosis. Suggestion of mild to moderate bilateral neural foraminal narrowing C5-C6: Mild facet arthropathy. Right greater than left uncovertebral hypertrophy. Suggestion of severe right and moderate left neural foraminal narrowing. No significant central spinal canal stenosis. C6-C7: Disc osteophyte complex. Uncovertebral hypertrophy. Ligamentum flavum infolding. Mild to moderate central spinal canal stenosis. Suggestion of severe bilateral neuroforaminal narrowing. C7-T1: No significant spinal canal or neuroforaminal narrowing . Facet arthropathy. MR/MR cervical spine wo con IMPRESSION: Motion degraded examination which somewhat limits accurate assessment of neural foraminal patency and cord signal. Multilevel cervical spondylosis as described above, worst at C6-C7 where there is mild to moderate spinal canal stenosis and suggestion of severe bilateral neural foraminal narrowing. No other significant spinal canal canal stenosis, cord compression, or evidence of cord signal abnormality. Additional multilevel neural foraminal stenosis as detailed above, worst at C3-C4 and C5-C6 with suggestion of severe left neural foraminal narrowing at C3-C4 and severe right neural foraminal narrowing at C5-C6. Electronically signed by: Cordell Rangel MD 03/02/2024 01:11 PM EDT RP
== END 2024-02-12 13:46 | disposition home or self-care (01) ==
LOC: HO.MRI 13:45
PROVIDERS: PCP Family Medicine; Visit Provider Physical Medicine & Rehabilitation
DX: M54.12 Radiculopathy, cervical region (principal); G95.9 Disease of spinal cord, unspecified
CPT/HCPCS: 72141

== ENCOUNTER 2024-03-05 09:05 | Outpatient (AMB) | payer MEDICAID, SELFPAY ==
--- NOTE | 2024-03-05 09:06 | A.OFFVIS_ITS ---
Intake Visit Reasons: OV - Left Cubital Tunnel Release 09/19/23 Intake Note: Ortega is a 53 year old right hand dominant male who presents today for a follow up of his left wrist S/P Left Cubital Tunnel Release DOS: 09/19/2023 w/ Dr Hammer. Pt states he still has some tingling in all of his fingers and his pal m which travels up his arm. Pt denies any pain. Allergies No Known Allergies [No Known Allergies*] Allergy (Verified 03/05/24 09:06) HPI HPI OV - Left Cubital Tunnel Release 09/19/23: Details: Patient is a 53-year-old male who presents for numbness and tingling of the left hand, status post left cubital tunnel release with Dr. Hammer, DOS 09/19/2023. The patient reports that the numbness and tingling in his left small finger return to proximally one-week after his cubital tunnel release, and has gradually worsened since that time. Patient also reports that, over the last month, he has noticed increasing numbness and tingling in all of the other digits of his left hand, that moves into his left forearm. Patient reports that this numbness worsens with activity. Of note, the patient does report that he is also being evaluated for potential cervical spine pathologies with Dr. Mckeon, and then he has an MRI scheduled for his cervical spine. Patient denies any numbness or tingling in the right upper extremity. No other acute complaints or concerns at this time. [facility] Medical History Anxiety Depression COPD (chronic obstructive pulmonary disease) Asthma Personal history of nicotine dependence Lumbar radiculopathy, chronic Alcoholism Surgical History S/P cubital tunnel release (09/19/23) History of tonsillectomy Family History Mother Diabetes Social History Household Members: Spouse Alcohol intake: current Patient Tobacco Use Status: Current everyday Tobacco user Tobacco use type: Cigarette Cigarette Packs Per Day: 1 Cigarettes Per Day: 20 Years Smoked: (onset 15yo, 1ppd x 36yrs, 35pyh) Substance Use Type: Marijuana Current occupational status: unemployed Current occupation: right hand dominant Physical Exam Extrem Other: Neuro: Decreased sensation in the small finger of the left hand. Normal sensation to all other digits in the left hand today. Normal sensation in the tips of all digits of the right hand today. No thenar or intrinsic wasting. Good APB muscle firing and good finger cross. Vascular: Capillary refill brisk. ROM: Patient can make a fist and extend all their digits. Skin: No lacerations or abrasions noted. General: No ecchymosis. No erythema or evidence of infection. Assessment & Plan Assessment & Plan (1) Numbness and tingling of left hand: Code(s): R20.0 - Anesthesia of skin; R20.2 - Paresthesia of skin Category: Medical Plan 1. Numbness and tingling of left hand status post left cubital tunnel release DOS 09/19/2023 At this time, a repeat EMG and conduction study of the left upper extremity are ordered to assess the health of the nerves of the left upper extremity Patient is also educated that it was possible that any issues that he has ongoing in his cervical spine could also be causing this numbness and tingling in his left upper extremity, and that if this is the case on EMG we will have to refer him to a different provider for treatment. Patient is amenable to this plan Patient will follow-up with me after EMG and nerve conduction study for results review and discussion of further treatment options if indicated, sooner with any acute concerns Orders: Orders NE electromyogram (EMG) Today R20.0 - Anesthesia of skin, R20.2 - Paresthesia of skin NE nerve conduction velocity Today R20.0 - Anesthesia of skin, R20.2 - Paresthesia of skin Coding Level of Care Code Est Pt Level 3 (98625) Diagnoses Numbness and tingling of left hand R20.0; R20.2
== END 2024-03-05 09:43 | disposition home or self-care (01) ==
PROVIDERS: PCP Family Medicine
DX: R20.0 Anesthesia of skin (principal); R20.2 Paresthesia of skin
CPT/HCPCS: 99213

== ENCOUNTER → 2024-03-05 09:05 | Outpatient (BNVA) | payer MEDICAID, SELFPAY | PROVIDERS: PCP Family Medicine | DX: R20.0 Anesthesia of skin (principal); R20.2 Paresthesia of skin; G56.22 Lesion of ulnar nerve, left upper limb | CPT/HCPCS: 99212 ==

== ENCOUNTER → 2024-03-27 11:55 | Outpatient (BNVA) | payer MEDICAID, SELFPAY | PROVIDERS: PCP Family Medicine; Visit Provider Physical Medicine & Rehabilitation ==

== ENCOUNTER 2024-04-01 13:26 | Outpatient (REF) | payer MEDICAID, SELFPAY ==
--- NOTE | 2024-04-01 13:29 | EMG_ITS ---
Chief complaint: Last EMG 07/05/2023 showed bilateral ulnar neuropathy at the elbow. Patient underwent left cubital surgery by Dr. Hammer. However he continues to have the same symptoms, but now affecting all fingers of left hand, forearm and shoulder. Been following patient also for neck pain, possible radiculopathy/stenosis. MRI recently done, showed moderate spinal stenosis C6-7 with bilateral foraminal stenosis. Reason for referral: Evaluate for ulnar neuropathy versus Carpal Tunnel Syndrome versus radiculopathy Referred by: Chon RAMSAY Procedure done: Left upper extremity NCS/EMG Precautions and/or limitations: None The limb temperature was monitored continuously and remained between 32-36 degrees C during the performance of the NCS. Ulnar motor NCS was performed with moderate elbow flexion between 70-90 degrees, with across-elbow distance of 10 cm. Nerve Conduction Studies Anti Sensory Summary Table ?Stim Site NR Onset (ms) Norm Onset (ms) Peak (ms) Norm Peak (ms) O-P Amp (?V) Norm O-P Amp Site1 Site2 Delta-0 (ms) Dist (cm) Lino (m/s) Norm Lino (m/s) Left Median Anti Sensory (2nd Digit) Wrist ? 2.8 3.4 <3.6 17.5 >10 Wrist 2nd Digit 2.8 14.0 50 Left Radial Anti Sensory (Thumb) Forearm ? 1.9 2.5 <3.1 10.2 Forearm Thumb 1.9 0.0 Left Ulnar Anti Sensory (5th Digit) Wrist ? 2.6 3.2 <3.7 14.3 >15.0 Wrist 5th Digit 2.6 14.0 54 Motor Summary Table ?Stim Site NR Onset (ms) Norm Onset (ms) O-P Amp (mV) Norm O-P Amp iAmp (mV) Amp (1st) (%) Site1 Site2 Delta-0 (ms) Dist (cm) Lino (m/s) Norm Lino (m/s) Left Median Motor (Abd Poll Brev) Wrist ? 3.6 <3.9 10.4 >4.5 13.6 100.0 Elbow Wrist 4.4 24.5 56 >45 Elbow ? 8.0 10.0 13.1 96.2 Left Ulnar Motor (Abd Dig Minimi) Wrist ? 2.8 <3.0 13.8 >5 17.2 100.0 B Elbow Wrist 3.5 21.0 60 >45 B Elbow ? 6.3 13.0 16.3 94.2 A Elbow B Elbow 2.1 10.0 48 >45 A Elbow ? 8.4 12.0 14.0 87.0 EMG ?Side Muscle Nerve Root Ins Act Fibs Psw Amp Dur Poly Recrt Int Pat Comment Left 1stDorInt Ulnar C8-T1 Nml Nml Nml Nml Nml 0 Nml Complete Left FlexCarRad Median C6-7 Nml Nml Nml Nml Nml 0 Nml Complete Left Biceps Musculocut C5-6 Nml Nml Nml Nml Nml 0 Nml Complete Left Triceps Radial C6-7-8 Nml Nml Nml Nml Nml 0 Nml Complete Left Deltoid Axillary C5-6 Nml Nml Nml Nml Nml 0 Nml Complete Paraspinal EMG ?Side Muscle Nerve Root Ins Act Fibs Psw Comment Left Cervical Upper Rami Nml Nml Nml Left Cervical Mid Rami Nml Nml Nml Left Cervical Lower Rami Nml Nml Nml FINDINGS: Left ulnar motor nerve showed normal distal latency, normal amplitude and slight slowing of conduction velocity across elbow, but this time within normal limits and improved from last NCS. Left ulnar sensory nerve showed normal peak latency but slighly small amplitude, still overall improved from last NCS. All other nerves tested were within normal. Concentric needle EMG was performed in selected muscles of the left upper extremity and cervical paraspinals. Study did not reveal signs of electric abnormalities as shown in the table above. IMPRESSION: 1. Improvement of left ulnar neuropathy at the elbow. 2. No electrodiagnostic findings to suggest cervical radiculopathy or brachial plexopathy. 3. No electrodiagnostic findings for left median neuropathy at the wrist or Carpal Tunnel Syndrome. CLINICAL COMMENT: Discussed briefly MRI findings. Suspicion that symptoms are coming from cervical foraminal stenosis. Patient has follow up with me next week, patient wants to discuss further. Thank you for your kind referral. Yaa Estrella MD, VANCE Board Certified, [place] Board [employer] Physical Medicine and Rehabilitation (ABPMR) Board Certified, [place] Board [employer] Electrodiagnostic Medicine (ABEM) CODIN [id number] MTDD
== END 2024-04-01 13:27 | disposition home or self-care (01) ==
LOC: HO.NEURO 13:26
PROVIDERS: PCP Family Medicine
DX: R20.0 Anesthesia of skin (principal); R20.2 Paresthesia of skin
CPT/HCPCS: 95886; 95909

== ENCOUNTER → 2024-04-01 13:29 | Outpatient (BNV) | payer MEDICAID, SELFPAY | PROVIDERS: PCP Family Medicine; Visit Provider Physical Medicine & Rehabilitation | DX: R20.0 Anesthesia of skin (principal); R20.2 Paresthesia of skin | CPT/HCPCS: 95886; 95909 ==

== ENCOUNTER 2024-04-09 08:47 | Outpatient (AMB) | payer MEDICAID, SELFPAY ==
--- NOTE | 2024-04-09 08:50 | MHC.OFFVIS ---
Vital Signs 04/09/24 08:51 Height 6 ft Weight 165 lb BMI 22.4 Intake Visit Reasons: OV-MRI Review of Cervical Spine Intake Note: Ortega is a 53 year old male who presents today for a MRI review of his cervical spine. Allergies No Known Allergies [No Known Allergies*] Allergy (Verified 04/09/24 08:51) Medication List - Last Reconciled 04/09/24 by Yaa Estrella MD acetaminophen 1,000 mg PO Q8H PRN albuterol sulfate 90 mcg/actuation (ProAir HFA) 2 puffs PO Q4-6H PRN fluticasone furoate 100 mcg/actuation (Arnuity Ellipta) 1 inh inhalation QAM ibuprofen 600 mg PO TID montelukast 10 mg QAM pregabalin (Lyrica) 25 mg PO BEDTIME sertraline 50 mg QAM HPI Comments Details: Met him for EMG done 07/05/23 which showed bilateral UNE. He has seen Dr. Hammer and had left cubital tunnel release. Was seeing Shabana RAMSAY for shoulder, which is not sure if connected to neck pain. He was then referred for neck pain to Physiatry. He can say that neck pain is separate issue from the hand numbness. 2-3 months, started with left neck pain. No falls or inciting injuries. He woke up with left arm/shoulder was in pain. Points to left lateral neck down to upper arm, forearm if ever. Limited shoulder ROM with pain. Ongoing left 5th digit numbness, thought to be ulnar neuropathy. On last visit, appeared more shaky since last time I saw him, says finger tremors started only 2 weeks ago. Denies any falls or stumbling. Chronic lower back pain that affects his gait. Still continues to have left-sided shoulder, upper arm pain with numbness on left hand especially 5th digit, despite ulnar neuropathy previously. Denies bladder or bowel changes. Despite chronic poor gait, denies any new weakness. Cervical MRI showed multilevel spondylosis, mild-moderate spinal stenosis most notable at C6-7, without cord compression. IMPRESSION: Motion degraded examination which somewhat limits accurate assessment of neural foraminal patency and cord signal. Multilevel cervical spondylosis as described above, worst at C6-C7 where there is mild to moderate spinal canal stenosis and suggestion of severe bilateral neural foraminal narrowing. No other significant spinal canal canal stenosis, cord compression, or evidence of cord signal abnormality. Additional multilevel neural foraminal stenosis as detailed above, worst at C3-C4 and C5-C6 with suggestion of severe left neural foraminal narrowing at C3-C4 and severe right neural foraminal narrowing at C5-C6. Repeat EMG last week: IMPRESSION: 1. Improvement of left ulnar neuropathy at the elbow. 2. No electrodiagnostic findings to suggest cervical radiculopathy or brachial plexopathy. 3. No electrodiagnostic findings for left median neuropathy at the wrist or Carpal Tunnel Syndrome. CLINICAL COMMENT: Discussed briefly MRI findings. Suspicion that symptoms are coming from cervical foraminal stenosis. Patient has follow up with me next week, patient wants to discuss further. [facility] Medical History Anxiety Depression COPD (chronic obstructive pulmonary disease) Asthma Personal history of nicotine dependence Lumbar radiculopathy, chronic Alcoholism Surgical History S/P cubital tunnel release (09/19/23) History of tonsillectomy Family History Mother Diabetes Social History Household Members: Spouse Alcohol intake: current Patient Tobacco Use Status: Current everyday Tobacco user Tobacco use type: Cigarette Cigarette Packs Per Day: 1 Cigarettes Per Day: 20 Years Smoked: (onset 15yo, 1ppd x 36yrs, 35pyh) Substance Use Type: Marijuana Current occupational status: unemployed Current occupation: right hand dominant Physical Exam Vital Signs: BMI result Body Mass Index 22.4 Constitutional: Patient appears to be in no acute distress, well nourished and well developed. Patient was appropriately conversant and oriented. Good historian. MSK: Inspection reveals appropriate head and neck positioning. No pain with palpation over the neck musculature. Cervical ROM was full. Spurling's sign equivocal, already has constant tingling on left upper extremity. Strength is 5/5 in all muscle groups tested. No increased tone noted. Neurological: Neurologic examination of the upper and lower extremities was nonfocal with intact sensation, muscle stretch reflexes and without focal motor deficits. He has finger tremors. But he is not hyperreflexic. Hill?s negative bilaterally. Babinski was down going bilaterally. Clonus was negative. Gait is non antalgic without loss of balance, from chronic low back pain. Results Reviewed Results Reviewed: MRI and EMG as above. Images viewed with patient. Assessment & Plan Assessment & Plan (1) Cervical radiculopathy: Code(s): M54.12 - Radiculopathy, cervical region Category: Medical (2) Cervical myelopathy: Code(s): G95.9 - Disease of spinal cord, unspecified Category: Medical (3) Numbness and tingling of left hand: Code(s): R20.0 - Anesthesia of skin; R20.2 - Paresthesia of skin Category: Medical (4) Cervical stenosis of spinal canal: Code(s): M48.02 - Spinal stenosis, cervical region Category: Medical Plan MRI confirms [id number] spinal stenosis C6-7. Patient has shaking in his fingers but does not have other signs of hyperreflexia. Question whether he is myelopathic or not. He does not have any other neurologic deficits or concerns. But he continues to have constant tingling on left upper extremity despite EMG showing improvement of ulnar nerve, status post ulnar nerve surgery by Dr. Hammer. We talked about treatment options for him, pursuing injections versus getting surgical opinion. Patient opts to be referred to neurospine to discuss his surgical options. Patient has chronic neck pain, left upper extremity paresthesias, now also bothering right side, with chronic low back pain. It would be useful to refer him to physical therapy. Assessment and plan discussed with patient, and patient was agreeable. All questions were answered thoroughly. Follow up 2 months or after he sees neuro spine. Yaa Estrella MD, VANCE Board Certified, [place] Board [employer] and Rehabilitation (ABPMR) Board Certified, [place] Board [employer] Electrodiagnostic [employer] (ABEM) Orders: Orders PT Evaluation and Treatment Today G95.9 - Disease of spinal cord, unspecified, M48.02 - Spinal stenosis, cervical region, M54.12 - Radiculopathy, cervical region, R20.0 - Anesthesia of skin, R20.2 - Paresthesia of skin Referrals Neurosurgery Referral G95.9 - Disease of spinal cord, unspecified, M48.02 - Spinal stenosis, cervical region, M54.12 - Radiculopathy, cervical region, R20.0 - Anesthesia of skin, R20.2 - Paresthesia of skin Coding Level of Care Code Est Pt Level 4 (45505) Complex EM visit Add On G2211 Diagnoses Cervical radiculopathy M54.12 Cervical myelopathy G95.9 Numbness and tingling of left hand R20.0; R20.2 Cervical stenosis of spinal canal M48.02
[2024-04-09 08:51] VITALS: BMI 22.4
== END 2024-04-09 09:12 | disposition home or self-care (01) ==
PROVIDERS: PCP Family Medicine; Visit Provider Physical Medicine & Rehabilitation
DX: M54.12 Radiculopathy, cervical region (principal); G95.9 Disease of spinal cord, unspecified; R20.0 Anesthesia of skin; R20.2 Paresthesia of skin; M48.02 Spinal stenosis, cervical region
CPT/HCPCS: 99214

== ENCOUNTER → 2024-04-09 08:47 | Outpatient (BNVA) | payer MEDICAID, SELFPAY | PROVIDERS: PCP Family Medicine; Visit Provider Physical Medicine & Rehabilitation | DX: M54.12 Radiculopathy, cervical region (principal); M48.02 Spinal stenosis, cervical region; G95.9 Disease of spinal cord, unspecified; R20.0 Anesthesia of skin; R20.2 Paresthesia of skin | CPT/HCPCS: 99212 ==

== ENCOUNTER 2024-04-20 12:29 | Outpatient (AMB) | payer MEDICAID, SELFPAY ==
--- NOTE | 2024-04-20 12:54 | A.SPINEOV_ITS ---
Intake Visit Reasons: cervical stenosis/anesthesia of skin Intake Note: Mr. Christiano Ellis is here today c/o shoulder and back pain. Program Associate Required: No Allergies No Known Allergies [No Known Allergies*] Allergy (Verified 04/20/24 12:57) Assessment & Plan Assessment & Plan (1) Cervical radiculopathy: Code(s): M54.12 - Radiculopathy, cervical region Category: Medical Plan Dear Dr. Mckeon, Thank you for referring Ortega to our office today. He is a pleasant 53 y/o male who comes in today with a chief complaint of neck pain and shooting pains into his bilateral upper extremities, left worse than right. He states that about a year ago he started having pain near his left elbow shooting into his left 4th and 5th digits. He reports a numbness / tingling that accompanied this pain. He was evaluated by Orthopedics that completed a left cubital tunnel release back in October of this year. Unfortunately the patient continued to have worsening symptoms despite this. Over the course of the last few months he has also developed left-sided neck pain, left shoulder pain, and an intermittent shooting pain into his right deltoid (which he describes as much less severe than his LUE symptoms). He has tried several different bncn-gkh-[id number] remedies for this issue including Tylenol, ibuprofen, and pain gel/creams. He is currently on prescribed Lyrica in attempt to help mitigate this pain. He has been to physical therapy in the past for his lumbar spine, but has not as of yet attempted physical therapy for his neck. He does report he has been trying at home stretching/exercise with minimal relief of symptoms. He feels he is now to the point where symptoms are quite severe, causing him to be in pain all throughout the day, and lose many hours of sleep at night. He asked to sleep with multiple different pillows arranged in a certain way (body pillow, throw pillow, neck pillow) in order to obtain just enough relief to get to sleep. He does report pertinent medical history of longstanding spinal stenosis in his lumbar spine, and bilateral hip/knee osteoarthritis that somewhat affects his gait. PMH: COPD with asthma, GERD, generalized anxiety. History of left cubital tunnel release. Does not have this documented - but appears to have an essent ial tremor. Social hx: The patient smokes 1 pack per day cigarettes. Denies any other substance use. Medications: Tylenol, albuterol, fluticasone, ibuprofen, montelukast, Lyrica, sertraline. Allergies: NKDA. Physical exam: The patient has diminished 4/5 strength in his bilateral triceps. He has about 4/5 strength with interossei testing as well. He elicits full 5/5 strength elsewhere, but does have quite a bit of pain with bilateral iliopsoas testing. His reflexes are difficult to properly assess as he was unable to relax fully during the examination, however he does not appear to have hyperreflexia anywhere. He ambulates well with a somewhat antalgic gait favoring the left, but does not have a spastic gait. (-) Hill's bilaterally, (-) clonus, (-) Lhermitte's. Imaging review: MRI of the cervical spine completed here at [facility] shows moderate central canal and severe bilateral foraminal stenosis at C6-7. There also appears to be moderate left-sided foraminal stenosis at C3-4, and evidence of endplate inflammation seen on FLAIR sequence at C5-6. The inflammation seen at C5-6 is accompanied by a slight right-sided disc bulge causing only mild foraminal stenosis at this level. No notable myelomalacia or cord signal change. Impression: Ortega is a pleasant 53-year-old male who comes in today with a chief complaint of 1 year left ulnar radiculopathy with associated numbness/tingling into the left 4/5 digits. This did not improve with a cubital tunnel release on the left side. His symptoms have worsened over the course of the last few months and are now accompanied by left-sided neck pain, left shoulder pain, and an intermittent right triceps radiculopathy. He has notable weakness with interossei and triceps muscle group testing. I believe his symptoms are most likely caused by the severe bilateral foraminal stenosis at C6-7. This is something that Dr. Villaseñor would typically offer a C6-7 ACDF to treat. I informed the patient that I will need to review this case with Dr. Villaseñor and get back to him with a treatment decision later this week. We did discuss the possibility of cortisone injections as a temporizing measure before surgery, however he has attempted multiple rounds of cortisone injections for the known stenosis that he has in his lumbar spine and does not wish to pursue any type of other injection at this time, as he found they were not helpful at all for him. Thank you for allowing us to care for your patient. The total time spent with this visit with this patient was 45 minutes reviewing history, physical exam, MRI imaging review, and implementation of treatment plan or further diagnostic testing Tahir Villaseñor MD,PhD [facility] Coding Level of Care Code New Pt Level 4 (42518) Diagnoses Cervical radiculopathy M54.12
== END 2024-04-20 14:36 | disposition home or self-care (01) ==
LOC: HO.HNS 12:30
PROVIDERS: PCP Family Medicine; Referring Provider Physical Medicine & Rehabilitation; Visit Provider Physician Assistant
DX: M54.12 Radiculopathy, cervical region (principal)
CPT/HCPCS: 99204

== ENCOUNTER → 2024-04-20 12:29 | Outpatient (BNVA) | payer MEDICAID, SELFPAY | PROVIDERS: PCP Family Medicine; Visit Provider Physician Assistant | DX: M54.12 Radiculopathy, cervical region (principal); M62.81 Muscle weakness (generalized) | CPT/HCPCS: 99212 ==

== ENCOUNTER → 2024-05-20 13:04 | Outpatient (BNV) | payer MEDICAID, SELFPAY | PROVIDERS: PCP Family Medicine; Visit Provider Internal Medicine Cardiovascular Disease | DX: Z01.810 Encounter for preprocedural cardiovascular examination (principal) | CPT/HCPCS: 93010 ==

== ENCOUNTER 2024-06-03 08:29 | Day surgery (SDC) | payer MEDICAID, SELFPAY ==
--- NOTE | 2024-05-20 | ECG_ITS ---
Test Reason : preop Blood Pressure : / mmHG Vent. Rate : 069 BPM Atrial Rate : 069 BPM P-R Int : 122 ms QRS Dur : 096 ms QT Int : 398 ms P-R-T Axes : 034 058 065 degrees QTc Int : 426 ms Normal sinus rhythm Normal ECG No previous ECGs available Referred By: Mini Croft Electronically Signed By:Roel Concepcion
[2024-05-20 12:13] VITALS: BP 108/68; PULSE 77; RESP 16; O2SAT 96; BMI 21.4
--- NOTE | 2024-05-20 12:41 | HO.ANESPROP2 ---
HPI - Anesthesia Eval Consult details Narrative: 54yo M for C6-7 Ant Cerv Discectomy w/ fusion, 06/03/24 s/p cubital tunnel 09/2023 with GA-LMA 4 No recent illness No CP. SPAIN from lung disease at baseline. Able to do housework and walk flat ~ 15 mins Pain: r/t cspine. Rare atypical chest pains. COPD/Asthma/Smoker: Scheduled inhaler BID, rescue inhaler BID ETOH: 2-3 beers daily, discussed periop risk of daily ETOH use PMFSH Active Problems Active Problems: All Active Problems Cervical stenosis of spinal canal (Acute) Numbness and tingling of left hand (Acute) Cervical myelopathy (Acute) Tendonitis of left rotator cuff (Acute) Cervical radiculopathy (Acute) Cubital tunnel syndrome on left (Acute) Osteoarthritis of left knee (Acute) Left patella fracture (Acute) Cubital tunnel syndrome, bilateral (Acute) Intractable low back pain (Acute) Left inguinal pain (Acute) Encounter for screening colonoscopy (Acute) Chest pain (Acute) Heartburn (Acute) Wears partial dentures (Acute) COPD with asthma (Acute) Seasonal allergies (Acute) Lumbar radiculopathy, chronic (Acute) Personal history of nicotine dependence (Acute) Past Medical History Medical History Chest pain Tremor of both hands Numbness and tingling in left hand Hx of fracture of patella Osteoarthritis Carpal tunnel syndrome Fibromyalgia Medial epicondylitis of both elbows Low back pain Chronic nasal congestion Environmental and seasonal allergies Anxiety Depression COPD (chronic obstructive pulmonary disease) Asthma Personal history of nicotine dependence Lumbar radiculopathy, chronic Alcoholism Family History Family History Mother Diabetes Family history of problems with anesthesia: No Surgical History Surgical History S/P cubital tunnel release (09/19/23) History of tonsillectomy History of Problems with Anesthesia: No Social History Social History Household Members: Spouse Are you a primary reservoir caretaker to a significant other at home: No Do you presently have visiting nurse or other home services: No Alcohol intake: current Patient Tobacco Use Status: Current everyday Tobacco user Tobacco use type: Cigarette Cigarette Packs Per Day: 1 Cigarettes Per Day: 20.0 Years Smoked: (onset 15yo, 1ppd x 36yrs, 35pyh) Second Hand Smoke Exposure: No Substance Use Type: Marijuana Current occupational status: unemployed Current occupation: right hand dominant Meds Allergies Allergy/AdvReac Type Severity Reaction Status Date / Time No Known Allergies Allergy Verified 06/03/24 09:13 [No Known Allergies*] Home Medications ?Medication ?Instructions ?Recorded ?Confirmed ?Last Taken ?Type acetaminophen 500 mg tablet 1,000 mg PO Q8H PRN Pain 12/08/21 05/20/24 Unknown History montelukast 10 mg tablet 10 mg QAM 09/19/23 05/20/24 Unknown History sertraline 50 mg tablet 50 mg QAM 09/19/23 05/20/24 Unknown History ibuprofen 600 mg tablet 600 mg PO TID 09/27/23 05/20/24 05/27/24 History albuterol sulfate 90 mcg/actuation 2 puff inhalation Q4H PRN wheezing 05/20/24 05/20/24 Unknown History aerosol inhaler (Ventolin HFA) mometasone 100 mcg/actuation HFA 1 puff inhalation BID 05/20/24 05/20/24 Unknown History aerosol inhaler (Asmanex HFA) pregabalin 150 mg capsule 150 mg BID 05/20/24 05/20/24 Unknown History Exam Height,Weight and Vital Signs: Height 5 ft 10 in Weight 67.7 kg Last Vital Signs Pulse 77 05/20/24 12:13 Resp 16 05/20/24 12:13 BP 108/68 05/20/24 12:13 Pulse Ox 96 05/20/24 12:13 O2 Del Method Room Air 05/20/24 12:13 Pertinent Lab Results Pertinent Lab Results: Lab Results 05/20/24 Range/Units 13:02 WBC 8.8 (4.8-10.8) X10*3/uL RBC 4.51 L (4.60-5.80) X10*6/uL Hgb 14.9 (14.0-18.0) g/dl Hct 43.9 (42.0-52.0) % MCV 97.3 (80.0-98.0) fL MCH 33.0 (27.0-33.0) pg MCHC 33.9 (31.0-36.0) g/dl RDW 12.6 (11.0-16.0) % Plt Count 275 (160-400) X10*3/uL MPV 8.8 L (9.4-12.4) fL Absolute Nucleated RBC 0.000 (0.0-0.012) X10*3/uL Nucleated RBC % (auto) 0.0 (0.0-0.2) /100WBC Sodium 137 (135-145) mmol/L Potassium 4.2 (3.3-5.1) mmol/L Chloride 105 (96-108) mmol/L Carbon Dioxide 23 (22-29) mmol/L Anion Gap 13 (12-20) BUN 8 L (9-16) mg/dL Creatinine 0.62 (0.5-1.4) mg/dL Estim Creat Clear Calc 130.4 Estimated GFR > 60 Random Glucose 74 (60-115) mg/dL Calcium 9.2 D (8.4-10.2) mg/dL Total Bilirubin 0.9 (0.0-1.0) mg/dL AST 48 H (5-37) U/L ALT 38 (0-40) U/L Alkaline Phosphatase 73 (39-117) U/L Total Protein 6.9 (6.5-8.0) g/dL Albumin 4.0 (3.5-5.0) g/dL Narrative Narrative: EKG 05/2024 Vent. Rate : 069 BPM Atrial Rate : 069 BPM P-R Int : 122 ms QRS Dur : 096 ms QT Int : 398 ms P-R-T Axes : 034 058 065 degrees QTc Int : 426 ms Normal sinus rhythm Normal ECG No previous ECGs available Airway Mallampati Class: II TM Dist: >3cm Neck ROM: Limited Partial: Lower Heart: RRR Lungs: CTAB Assessment and Plan Assessment Anesthesia Assessment: Anesthesia Plan Discussed, Smoking Cess. Discussed and PAT Visit Final Anesthetic Review Family History of Problems with Anesthesia: No History of Problems with Anesthesia: No
[2024-05-20 13:30] LABS: Hematocrit 43.9 % (42.0-52.0); Hemoglobin 14.9 g/dl (14.0-18.0); Mean Corpuscular HGB Conc 33.9 g/dl (31.0-36.0); Mean Corpuscular Volume 97.3 fL (80.0-98.0); Mean Platelet Volume 8.8 fL (9.4-12.4); Platelet Count 275 X10*3/uL (160-400); Red Blood Count 4.51 X10*6/uL (4.60-5.80); Red Cell Distribution Width 12.6 % (11.0-16.0); White Blood Count 8.8 X10*3/uL (4.8-10.8)
[2024-05-20 14:17] LABS: Alanine Aminotransferase 38 U/L (0-40); Alkaline Phosphatase 73 U/L (39-117); Anion Gap 13 (12-20); Aspartate Amino Transferase 48 U/L (5-37); Bilirubin Total 0.9 mg/dL (0.0-1.0); Blood Urea Nitrogen 8 mg/dL (9-16); Calcium 9.2 mg/dL (8.4-10.2); Carbon Dioxide 23 mmol/L (22-29); Chloride 105 mmol/L (96-108); Creatinine Clr Calc Pharmacy 130.4; Estimated Glomerular Filt Rate > 60; Glucose Random 74 mg/dL (60-115); Potassium 4.2 mmol/L (3.3-5.1); Sodium 137 mmol/L (135-145); Total Protein 6.9 g/dL (6.5-8.0)
[2024-06-03] VITALS (13 sets, daily range): BP systolic 114–149; BP diastolic 65–88; PULSE 65–86; RESP 15–17; TEMP 36.1–36.9; O2SAT 94–98
--- NOTE | 2024-06-03 06:56 | MHC.SHP ---
Pre-Procedural Eval Section A - 24 Hr Update-Section A only Date of Service: 06/03/24 Section B - Complete if H&P > 30 days Chief Complaint: Radiculopathy, cervical region Allergies: Allergies Allergy/AdvReac Type Severity Reaction Status Date / Time No Known Allergies Allergy Verified 05/20/24 12:06 [No Known Allergies*] Review of Systems Sugical H&P ROS: Negative: Constitution, Cardiovascular, Respiratory, Neurological, Psychiatric, Hem-Onc, Allergic/Immunologic, Gastrointestinal, Genitourinary, Musculoskeletal, Integumentary, Endocrine and Eyes/Ears/Nose/Throat Exam Surgical H&P Exam: Not Evaluated: HEENT, Not Evaluated: Heart, Not Evaluated: Lungs, Not Evaluated: Extremities, Not Evaluated: Abdomen, Not Evaluated: Skin and Not Evaluated: Neurological Exam Comment: The patient is awake, alert, no acute distress. Proposed surgical incision site is clean, dry, with no evidence of recent injury or surgery. Plan Diagnosis/Plan: Unchanged I have reviewed the history and physical and performed a pertinent physical examination on my patient. No changes have occurred unless specified. Plan remains the same, C6-7 ACDF. Time Spent With Patient Time: Total time managing care of this patient today __15__ minutes.
--- NOTE | 2024-06-03 08:30 | HO.ANESPROP2 ---
[facility] Active Problems Active Problems: All Active Problems Cervical stenosis of spinal canal (Acute) Numbness and tingling of left hand (Acute) Cervical myelopathy (Acute) Tendonitis of left rotator cuff (Acute) Cervical radiculopathy (Acute) Cubital tunnel syndrome on left (Acute) Osteoarthritis of left knee (Acute) Left patella fracture (Acute) Cubital tunnel syndrome, bilateral (Acute) Intractable low back pain (Acute) Left inguinal pain (Acute) Encounter for screening colonoscopy (Acute) Chest pain (Acute) Heartburn (Acute) Wears partial dentures (Acute) COPD with asthma (Acute) Seasonal allergies (Acute) Lumbar radiculopathy, chronic (Acute) Personal history of nicotine dependence (Acute) Past Medical History Medical History Chest pain Tremor of both hands Numbness and tingling in left hand Hx of fracture of patella Osteoarthritis Carpal tunnel syndrome Fibromyalgia Medial epicondylitis of both elbows Low back pain Chronic nasal congestion Environmental and seasonal allergies Anxiety Depression COPD (chronic obstructive pulmonary disease) Asthma Personal history of nicotine dependence Lumbar radiculopathy, chronic Alcoholism Functional capacity: independent ambulation Family History Family History Mother Diabetes Family history of problems with anesthesia: No Surgical History Surgical History S/P cubital tunnel release (09/19/23) History of tonsillectomy History of Problems with Anesthesia: No Social History Social History Household Members: Spouse Are you a primary urgent care technician to a significant other at home: No Do you presently have visiting nurse or other home services: No Alcohol intake: current Patient Tobacco Use Status: Current everyday Tobacco user Tobacco use type: Cigarette Cigarette Packs Per Day: 1 Cigarettes Per Day: 20.0 Years Smoked: (onset 15yo, 1ppd x 36yrs, 35pyh) Smoked in Last 30 Days: Yes Second Hand Smoke Exposure: No Use of substances other than those prescribed or required for medical reasons: Yes Substance Use Type: Marijuana Substance Use Frequency: Daily Have you been hit, kicked, punched, or otherwise hurt by someone within the past year? If so, by whom?: No Are you DNR?: No Advance Directives: No Advance Directives Information Provided: Yes Advance Directives on File: No Recently lost weight without trying: No Poor oral hygiene: Yes (lower partial, many missing teeth) Current occupational status: unemployed Current occupation: right hand dominant Meds Allergies Allergy/AdvReac Type Severity Reaction Status Date / Time No Known Allergies Allergy Verified 06/03/24 09:13 [No Known Allergies*] Home Medications ?Medication ?Instructions ?Recorded ?Confirmed ?Last Taken ?Type acetaminophen 500 mg tablet 1,000 mg PO Q8H PRN Pain 12/08/21 05/20/24 Unknown History montelukast 10 mg tablet 10 mg QAM 09/19/23 05/20/24 Unknown History sertraline 50 mg tablet 50 mg QAM 09/19/23 05/20/24 Unknown History ibuprofen 600 mg tablet 600 mg PO TID 09/27/23 05/20/24 05/27/24 History albuterol sulfate 90 mcg/actuation 2 puff inhalation Q4H PRN wheezing 05/20/24 05/20/24 Unknown History aerosol inhaler (Ventolin HFA) mometasone 100 mcg/actuation HFA 1 puff inhalation BID 05/20/24 05/20/24 Unknown History aerosol inhaler (Asmanex HFA) pregabalin 150 mg capsule 150 mg BID 05/20/24 05/20/24 Unknown History Exam Height,Weight and Vital Signs: Height 5 ft 10 in Weight 67.7 kg Last Vital Signs Pulse 77 05/20/24 12:13 Resp 16 05/20/24 12:13 BP 108/68 05/20/24 12:13 Pulse Ox 96 05/20/24 12:13 O2 Del Method Room Air 05/20/24 12:13 Pertinent Lab Results Pertinent Lab Results: Laboratory Tests 05/20/24 13:02 WBC 8.8 RBC 4.51 L Hgb 14.9 Hct 43.9 MCV 97.3 MCH 33.0 MCHC 33.9 RDW 12.6 Plt Count 275 MPV 8.8 L Absolute Nucleated RBC 0.000 Nucleated RBC % (auto) 0.0 Sodium 137 Potassium 4.2 Chloride 105 Carbon Dioxide 23 Anion Gap 13 BUN 8 L Creatinine 0.62 Estim Creat Clear Calc 130.4 Estimated GFR > 60 Random Glucose 74 Calcium 9.2 D Total Bilirubin 0.9 AST 48 H ALT 38 Alkaline Phosphatase 73 Total Protein 6.9 Albumin 4.0 Airway Mallampati Class: II TM Dist: >3cm Neck ROM: Full Partial: Upper Heart: RRR Lungs: CTA Assessment and Plan Assessment Anesthesia Assessment: Anesthesia Plan Discussed, Smoking Cess. Discussed and Chart Reviewed Final Anesthetic Review Family History of Problems with Anesthesia: No History of Problems with Anesthesia: No NPO: Yes ASA Class: II Final Preanesthetic Review: Meds/Allgs Chart Reviewed, Consent Obtained/Reviewed and Anes Risks/Benef Reviewed Patient Risk: Intermediate Procedure Risk: Intermediate Anesthetic Plan Anesthetic Plan: GA Disposition: Standard PACU
[2024-06-03] MEDS: methocarbamoL 750 MG TABLET PO (09:19)
[2024-06-03] MEDS: Gabapentin 300 MG CAPSULE PO (09:19)
[2024-06-03] MEDS: Lactated Ringers 1,000 ML 100 ML IVCONT (09:22)
--- NOTE | 2024-06-03 11:50 | P.OP_ITS ---
Operative Note Operative Note Date of Service: 06/03/24 Narrative: Preoperative Diagnosis: Bilateral cervical radiculopathy Procedure: C6-7 Anterior discectomy, arthrodesis and implantation cage ; C6-7 anterior instrumentation ; local autograft; microscope Informed Consent was obtained for this operation. I have explained the nature, purpose and benefits of the operation. I have discussed the risks and benefit of the operation including possible complications or adverse events with patient/family. Alternative(s) were discussed with the patient with their relative benefits and risks as well as the consequences of not accepting the operation were included in obtaining consent. Surgeon: RANJIT BYRNES MD, PHD Procedure Assisted By: DEVENDRA David Description of Procedure: This patient is suffering from bilateral cervical radiculopathy. An MRI shows degenerative disc disease C6-7 with bilateral foraminal stenosis, left more than right which is in agreement with his clinical presentation. He was offered an anterior diskectomy and fusion C6-7. The procedure complications were explained. The patient was consented. The patient was brought to the operating room and endotracheally intubated. The patient was put in supine position with slight extension of the neck. Prep and drape was done followed by timeout. A mid cervical incision was made followed by opening of the platysma. The prevertebral fascia was reached following the natural planes while the physician sales service assistant provided manual retraction. The prevertebral fascia was opened to expose the disc space. A spinal needle was placed in the disk space to confirm the correct level with xray. The longus colli muscles were released bilaterally and a self retaining retractor was inserted. Two [place] pins were placed in the C6-7 vertebral bodies and distraction was give over the interspace. The discectomy was completed toward the posterior annulus of the disc. The microscope was brought in. The remainder of the discectomy was completed. The posterior ligament was opened and resected to expose the underlying dura. Osteophytes were resected from the body of C6-7 and saved for autograft. Bilateral foraminotomies were done. Severe left and moderate right foraminal stenosis was relieved. The endplates were prepared after which a 6 mm cage filled with autograft was inserted into the disc space. A separate attached plate was locked down with 2 x 14 mm screws as anterior instrumentation. Final x-rays in AP and lateral projection showed a satisfactory position of the implant. The physician sales service assistant took over. The [place] pin was removed. Hemostasis was done. He closed the incision in 2 layers with a 3-0 Vicryl. Steri-Strips used to approximate incision. An OpSite with Tegaderm was used to cover the incision. All sponge and needle counts were correct. Patient was extubated and transported in stable is to recovery room. Anesthesia: General Estimated Blood Loss (ml): 15 mL Duration of Surgery: 60 minutes Postoperative Plan: Discharge home Complications: None
--- NOTE | 2024-06-03 12:04 | P.DS_ITS ---
DS: Providers Provider Date of Service: 06/03/24 Primary care physician: Maryan Santamaria MD DS: Summary Time Attestation Discharge Coordination Time (in mins): 15 Quality: Safe Use of Opioids Does Pt have an Active Cancer Diagnosis on the Problem List?: No Quality: Stroke Does the patient have a stroke diagnosis?: No Physical Exam Vital Signs: Vital Signs: Last Vital Signs Temp 98.5 F 06/03/24 09:17 Pulse 73 06/03/24 09:17 Resp 15 06/03/24 09:17 BP 114/65 06/03/24 09:17 Pulse Ox 98 06/03/24 09:17 O2 Del Method Room Air 06/03/24 09:17 BMI result Body Mass Index 21.4 Discharge Plan Discharge Patient Disposition: Home, Self-Care Referrals: Maryan Santamaria MD [Primary Care Provider] - 1 Week Discharge Medications: New oxycodone 5 mg tablet 5 mg PO Q6H PRN (Reason: pain ) Qty: 30 0RF Rx Instructions: Partial Fill upon patient request. Continued albuterol sulfate [Ventolin HFA] 90 mcg/actuation HFA aerosol inhaler 2 puff inhalation Q4H PRN (Reason: wheezing) pregabalin 150 mg capsule 150 mg BID Asmanex HFA 100 mcg/actuation HFA aerosol inhaler 1 puff inhalation BID montelukast 10 mg tablet 10 mg QAM sertraline 50 mg tablet 50 mg QAM acetaminophen 500 mg tablet 1,000 mg PO Q8H PRN (Reason: Pain) Held ibuprofen 600 mg tablet 600 mg PO TID Hold Instructions: Resume on 06/04/24. Discharge Orders: Discharge Order (Routine); Ordered 06/03/24 Ordered By: Tahir Gillespie Diet: Advance to usual diet Activity on Discharge: As tolerated Activity Restrictions/Additional Instructions: After your spinal surgery we ask you to observe the following restrictions/guidelines: Activity: It is normal to feel some discomfort as you increase your activity, but that will improve with time. We ask you avoid heavy lifting or acitivities that cause pain. As a general r ule, 8lbs is a safe limit for lifting right after surgery. Walk as much as you feel comfortable but not to exhaustion. You will feel extra tired the first few days after surgery. Stay well hydrated. It is OK to walk up and down stairs You may return to driving when you are off narcotics (such as vicodin, oxycodone, dilaudid, etc), and you are back to normal functional capacity. If you have any concerns please check with office before driving. Return to work is specific to each patient and each surgery, so please speak with your doctor/PA at first follow up. Please bring paperwork such as FMLA at that time if you need it filled out. Medications: We recommend you take 1,000mg Tylenol every 8 hours for the first few weeks after surgery, if you do not have any liver issues and can tolerate this medication. Do not exceed 4,000mg daily. We will give you a short supply of narcotics after surgery (usually one weeks worth). If you need more please call the office but do not use more than prescribed. You will need to give our office 48 hours notice if you need narcotics refilled and we do not fill narcotics on weekends or evenings. If you are on a narcotic, it is a good idea to take a stool softener such as colace or senna to avoid constipation If you take blood thinner such as aspirin, Plavix, Coumadin, Effient, Eliquis etc for conditions such as Afib, DVT, Pulmonary embolus, coronary disease, stents etc please speak with your surgeon about specific details as to when you can resume these medications. You can resume NSAIDs on post op day 1 (eg: Motrin, Naproxen, etc). Follow up: Please call the office, , after surgery to arrange a 3 week follow up for wound check. Wound Care: You may remove your dressing on the first day after surgery. ?You may ?leave open to air. Please do not remove the steri strips underneath. they will fall off on their own in one week. IT IS NORMAL FOR THE WOUND TO OOZE OR BE BLOODY FOR A FEW DAYS AFTER SURGERY. ?IF THIS HAPPENS JUST PLACE NEW DRESSING OVER IT TO AVOID STAINING CLOTHES. You may shower on post op day # 1 We ask that you do not let the water soak the wound. If it does get wet, just towel dry lightly. Please do not scrub your incision or place any type of chemical/ointment on the wound. No tub baths, pools or jacuzzis for one month. If you have any leaking or redness from your wound, or fevers, please call the office. Print Language: Panamanian
[2024-06-03] MEDS: fentaNYL citrate/PF 100 MCG/2 ML VIAL 25 MCG IVPUSH ×2 (13:26→13:39)
--- NOTE | 2024-06-03 15:15 | HO.POSTANES ---
Post Anesthesia Evaluation Post Anesthesia Evaluation Date of Service: 06/03/24 Vital Signs: Vital Signs Temp Pulse Resp BP Pulse Ox O2 Del Method 06/03/24 14:04 97.0 F 77 17 129/74 98 Room Air 06/03/24 13:46 70 17 130/74 97 Room Air 06/03/24 13:39 17 06/03/24 13:31 65 16 128/80 97 Room Air 06/03/24 13:26 17 06/03/24 13:18 66 17 136/81 98 Room Air 06/03/24 13:00 81 16 130/81 96 Room Air 06/03/24 12:45 71 16 147/88 H 96 Room Air 06/03/24 12:29 86 16 128/77 96 Room Air 06/03/24 12:24 82 16 141/85 H 96 Room Air 06/03/24 12:19 77 16 144/85 H 94 Room Air 06/03/24 12:14 97.8 F 86 16 149/86 H 94 Room Air 06/03/24 09:17 98.5 F 73 15 114/65 98 Room Air Anesthesia: General LMA Mental Status: Awake Pain Control: Satisfactory Nausea/Vomiting: None Hydration: Adequate Anesthesia-Related Issues: No Anes. Related Issues
== END 2024-06-03 14:51 | disposition home or self-care (01) ==
PROVIDERS: Nurse Practitioner; PCP Family Medicine; Visit Provider Neurological Surgery
PROC: (CPT 22551; principal; 2024-06-03 09:50)
DX: M54.12 Radiculopathy, cervical region (principal); M54.2 Cervicalgia; M48.02 Spinal stenosis, cervical region; M79.622 Pain in left upper arm; M79.621 Pain in right upper arm; M25.511 Pain in right shoulder; R20.0 Anesthesia of skin; R20.2 Paresthesia of skin; J44.9 Chronic obstructive pulmonary disease, unspecified; F41.1 Generalized anxiety disorder; Z98.890 Other specified postprocedural states; F17.210 Nicotine dependence, cigarettes, uncomplicated; Z79.899 Other long term (current) drug therapy
CPT/HCPCS: 22551; 22853; 20936; 22845; 36415; 80053; 85027; 93005; C1713; C1889; J0131; J0690; J1100; J1596; J2003; J2250; J2405; J2704; J3010

== ENCOUNTER → 2024-06-03 08:29 | Outpatient (BNV) | payer MEDICAID, SELFPAY | PROVIDERS: PCP Family Medicine; Visit Provider Neurological Surgery | DX: M54.12 Radiculopathy, cervical region (principal) | CPT/HCPCS: 20936; 22551; 22845; 22853; 99499 ==

== ENCOUNTER 2024-06-23 12:24 | Outpatient (AMB) | payer MEDICAID, SELFPAY ==
--- NOTE | 2024-06-23 12:58 | A.SPINEOV_ITS ---
Vital Signs 06/23/24 13:08 Height 6 ft Weight 145 lb BMI 19.7 Intake Visit Reasons: 1st post Intake Note: Mr. Christiano Ellis is here today for his 1st post op. Underwriter Required: No Allergies No Known Allergies [No Known Allergies*] Allergy (Verified 06/23/24 13:01) Physical Exam Vital Signs: BMI result Body Mass Index 19.7 Assessment & Plan Assessment & Plan (1) S/P cervical spinal fusion: Code(s): Z98.1 - Arthrodesis status Category: Surgical Plan Ortega comes in today for his 1st postoperative appointment after C6-7 ACDF was completed about 3 weeks ago. He reports that his shooting pain into his left upper extremity has largely resolved, but he continues to have lot of posterior neck pain and difficulty with sleeping. In addition to this he reports that directly after surgery he had quite a bit of trouble with swallowing. Thankfully is now able to swallow fairly well, but he is still dealing with quite a bit of pain as described previously. He asked several questions regarding the postoperative healing course all of which I answered to the best of my ability. No new neurological deficits. The patient ambulates well and rises from seated position without difficulty. The anterior incision site is closed and well healing with no signs of drainage. I would like to follow up with Ortega again in 6 weeks and obtain a set of x- rays. I believe his pain is related to postoperative inflammation, I refilled his oxycodone for him. Tahir Villaseñor MD,PhD [facility] Medications: Changed From oxycodone Please do not fill until 06/11 5 mg PO Q6H PRN 30 tabs 0RF pain To oxycodone 5 mg PO BID PRN 14 tabs 0RF pain Coding Level of Care Code Global (43023) Diagnoses S/P cervical spinal fusion Z98.1
[2024-06-23 13:08] VITALS: BMI 19.7
== END 2024-06-23 13:21 | disposition home or self-care (01) ==
PROVIDERS: PCP Family Medicine; Visit Provider Physician Assistant
DX: Z98.1 Arthrodesis status (principal)
CPT/HCPCS: 99024

== ENCOUNTER → 2024-06-23 12:24 | Outpatient (BNVA) | payer MEDICAID, SELFPAY | PROVIDERS: PCP Family Medicine; Visit Provider Physician Assistant | DX: Z98.1 Arthrodesis status (principal) | CPT/HCPCS: 99212 ==

== ENCOUNTER 2024-07-08 15:00 | Emergency (ER) | payer MEDICAID, SELFPAY ==
--- NOTE | 2024-07-08 | ECG_ITS ---
Test Reason : CHEST PAIN Blood Pressure : */* mmHG Vent. Rate : 88 BPM Atrial Rate : 88 BPM P-R Int : 132 ms QRS Dur : 84 ms QT Int : 344 ms P-R-T Axes : 73 63 67 degrees QTcB Int : 416 ms Sinus rhythm with occasional Premature ventricular complexes Otherwise normal ECG When compared with ECG of 20-May-2024 13:04, Premature ventricular complexes are now Present Referred By: Generic ED Physician Electronically Signed By: ANSLEY SÁNCHEZ MD
--- NOTE | ~2024-07-08 | XR_ITS ---
EXAMINATION: XR CHEST CLINICAL INFORMATION: chest pain COMPARISON: 02/03/2021. TECHNIQUE: Frontal view of the chest was obtained. FINDINGS: Cardiac, hilar, and mediastinal contours are normal. Subsegmental consolidation inferior lateral right upper lobe abutting the minor fissure. Findings are consistent with pneumonia. Left lung is clear. There are no effusions or pneumothoraces. No soft tissue or bony abnormalities. XR/XR chest 1V IMPRESSION: Right upper lobe subsegmental pneumonia. No effusions. Electronically signed by: Chuck Doss MD 07/08/2024 04:01 PM EST
[2024-07-08 15:10] VITALS: BP 116/72; PULSE 84; O2SAT 97
[2024-07-08 15:12] VITALS: BP 130/73; PULSE 93; RESP 20; TEMP 37.1; O2SAT 98; BMI 21.8
[2024-07-08 15:59] LABS: Basophils Absolute Auto 0.1 X10*3/uL (0.0-0.2); Basophils Percent Auto 0.6 % (0-2); Eosinophils Absolute Auto 0.1 X10*3/uL (0.0-0.4); Eosinophils Percent Auto 0.9 % (0-4); Hematocrit 43.3 % (42.0-52.0); Hemoglobin 14.7 g/dl (14.0-18.0); Imm Gran Pct Auto 0.6 % (0.0-0.4); Lymphocytes Absolute Auto 1.5 X10*3/uL (1.2-4.9); Lymphocytes Percent Auto 9.4 % (20-40); MANUAL DIFF FLAG SCAN; Mean Corpuscular HGB Conc 33.9 g/dl (31.0-36.0); Mean Corpuscular Hemoglobin 32.9 pg (27.0-33.0); Mean Corpuscular Volume 96.9 fL (80.0-98.0); Mean Platelet Volume 9.5 fL (9.4-12.4); Monocytes Absolute Auto 1.4 X10*3/uL (0.1-1.2); Monocytes Percent Auto 8.6 % (2-11); Neutrophils Absolute Auto 12.9 x10*3/uL (2.0-8.3); Neutrophils Percent Auto 79.9 % (45-73); PLT CLUMP 1; Red Blood Count 4.47 X10*6/uL (4.60-5.80); Red Cell Distribution Width 12.3 % (11.0-16.0); SCAN SMEAR FLAG 1
[2024-07-08 16:08] LABS: Alanine Aminotransferase 11 U/L (0-40); Albumin Level 3.6 g/dL (3.5-5.0); Anion Gap 16 (12-20); Aspartate Amino Transferase 21 U/L (5-37); Bilirubin Total 0.8 mg/dL (0.0-1.0); Blood Urea Nitrogen 5 mg/dL (9-16); Calcium 8.7 mg/dL (8.4-10.2); Carbon Dioxide 19 mmol/L (22-29); Chloride 103 mmol/L (96-108); Creatinine Clr Calc Pharmacy 148.5; Estimated Glomerular Filt Rate > 60; Glucose Random 88 mg/dL (60-115); Potassium 4.1 mmol/L (3.3-5.1); Sodium 134 mmol/L (135-145); Total Protein 6.8 g/dL (6.5-8.0)
--- NOTE | 2024-07-08 16:11 | ED_ITS ---
HPI - Chest Pain General Chief Complaint: Chest Pain Stated Complaint: CP RAD TO R SINCE LAST NIGHT,SOB PER EMS Time Seen by Provider: 07/08/24 16:01 History of Present Illness HPI narrative: Patient is a 54-year-old male presents today with having chest pain that is sharp. It initially started on the middle. Then it radiates from 1 side to another. It is not associated with shortness breath is associated with coughing. Positive history of smoking. No history of ND. No history of diabetes. No history of hypertension. No family history of coronary artery disease. Denies any leg swelling. No travel history. No diaphoresis. Patient from home no recent stress test. Pain is worse with touch. Now is on the right side. Related Data Home Medications ?Medication ?Instructions ?Recorded ?Confirmed acetaminophen 500 mg tablet 1,000 mg PO Q8H PRN Pain 12/08/21 05/20/24 montelukast 10 mg tablet 10 mg QAM 09/19/23 05/20/24 sertraline 50 mg tablet 50 mg QAM 09/19/23 05/20/24 ibuprofen 600 mg tablet 600 mg PO TID 09/27/23 05/20/24 albuterol sulfate 90 mcg/actuation 2 puff inhalation Q4H PRN wheezing 05/20/24 05/20/24 aerosol inhaler (Ventolin HFA) mometasone 100 mcg/actuation HFA 1 puff inhalation BID 05/20/24 05/20/24 aerosol inhaler (Asmanex HFA) pregabalin 150 mg capsule 150 mg BID 05/20/24 05/20/24 Previous Rx's ?Medication ?Instructions ?Recorded baclofen 5 mg tablet 5 mg PO TID muscle spasms #30 tabs 06/08/24 oxycodone 5 mg tablet 5 mg PO BID PRN pain #14 tabs 06/23/24 doxycycline hyclate 100 mg capsule 100 mg PO BID cough 7 days #14 caps 07/08/24 Allergies Allergy/AdvReac Type Severity Reaction Status Date / Time No Known Allergies Allergy Verified 07/08/24 15:15 [No Known Allergies*] Review of Systems 2 Review of Systems: Positive coughing positive chest pain Yes all other systems are reviewed and are negative PMFSH Past Medical History Attestation statement: The following information was validated with the patient. Medical History Chest pain Tremor of both hands Numbness and tingling in left hand Hx of fracture of patella Osteoarthritis Carpal tunnel syndrome Fibromyalgia Medial epicondylitis of both elbows Low back pain Chronic nasal congestion Environmental and seasonal allergies Anxiety Depression COPD (chronic obstructive pulmonary disease) Asthma Personal history of nicotine dependence Lumbar radiculopathy, chronic Alcoholism Surgical History S/P cubital tunnel release (09/19/23) History of tonsillectomy Family History Family History Mother Diabetes Social History Social History Household Members: Spouse Are you a primary client care consultant to a significant other at home: No Do you presently have visiting nurse or other home services: No Alcohol intake: current Patient Tobacco Use Status: Current everyday Tobacco user Tobacco use type: Cigarette Cigarette Packs Per Day: 1 Cigarettes Per Day: 20.0 Years Smoked: (onset 15yo, 1ppd x 36yrs, 35pyh) Second Hand Smoke Exposure: No Substance Use Type: Marijuana Advance Directives: No Advance Directives Information Provided: Yes Do you have a plan to hurt others: No Plan Current occupational status: unemployed Current occupation: right hand dominant Physical Exam 2 Vital Signs: Vital Signs: Last Vital Signs Temp 99.1 F 07/08/24 16:27 Pulse 85 07/08/24 16:27 Resp 20 07/08/24 16:27 BP 129/77 07/08/24 16:27 Pulse Ox 97 07/08/24 16:27 O2 Del Method Room Air 07/08/24 16:27 BMI result Body Mass Index 21.8 Appearance: Alert. Oriented X3. No acute distress. Eyes: Pupils equal, round and reactive to light. ENT: Pharynx normal. Neck: Normal inspection. Neck supple. No lymph nodes noted. No crepitus CVS: Normal heart rate and rhythm. Pulses normal. Normal S1 and S2 Respiratory: No respiratory distress. Breath sounds normal. No Wheezing. No rales Abdomen: Soft and nontender. No rigidity. No distention. good BS x4 Skin: Skin warm and dry. Normal skin color. Normal skin turgor. Extremities: No lower extremity edema. Neurovascular intact to all extremities. No Lacerations. No Rash Neuro: Oriented X 3. No motor deficit. No sensory deficit. Moving all extermities. No slurred speech Medications Administered Discontinued Medications Generic Name Dose Route Start Last Admin Trade Name Socrates PRN Reason Stop Dose Admin Azithromycin 500 mg 07/08/24 16:09 07/08/24 16:29 Azithromycin 500 Mg Tablet PO 07/08/24 16:10 500 mg ONCE ONE Administration Ceftriaxone Sodium 1 gm 07/08/24 16:09 07/08/24 16:29 Ceftriaxone Sodium 1 Gm Vial IVPUSH 07/08/24 16:10 1 gm ONCE ONE Administration Medical Decision Making Medical Decision Making [facility] Narrative: Patient had chest pain that is sharp. Worse with coughing worse with breathing. Patient's D-dimer is negative. There is no history of blood clot there is no risk for blood clot in the setting of low risk unlikely to have pulmonary emboli. Patient's chest x-ray was done. There is evidence for a right sided pneumonia. Patient otherwise well-appearing white count is normal oxygen saturation is good patient in no distress. Lactate is normal there is no evidence for severe sepsis. Pneumonia severity index is low. Will discharge patient home on outpatient antibiotics. Currently in stable condition. Patient's chest pain atypical for ACS. Patient is 54 years old heart enzymes are negative. EKG is normal. Heart score is less than 3. Differential Diagnosis Differential Diagnoses: The differential diagnosis associated with the presentation includes ACS, pneumonia, PE, pneumothorax Admission/Observation Consideration of admission/observation: Escalation of care including admission/observation considered Lab Data [facility] Lab Attestation statement: I reviewed the patient's lab results. 07/08/24 15:48 07/08/24 15:48 Labs: Lab Results 07/08/24 07/08/24 Range/Units 15:48 16:27 WBC 16.2 H (4.8-10.8) X10*3/uL RBC 4.47 L (4.60-5.80) X10*6/uL Hgb 14.7 (14.0-18.0) g/dl Hct 43.3 (42.0-52.0) % MCV 96.9 (80.0-98.0) fL MCH 32.9 (27.0-33.0) pg MCHC 33.9 (31.0-36.0) g/dl RDW 12.3 (11.0-16.0) % Plt Count TNP MPV 9.5 (9.4-12.4) fL Immature Gran % (Auto) 0.6 H (0.0-0.4) % Neut % (Auto) 79.9 H (45-73) % Lymph % (Auto) 9.4 L (20-40) % Hardee % (Auto) 8.6 (2-11) % Eos % (Auto) 0.9 (0-4) % Baso % (Auto) 0.6 (0-2) % Lymph # (Auto) 1.5 (1.2-4.9) X10*3/uL Hardee # (Auto) 1.4 H (0.1-1.2) X10*3/uL Eos # (Auto) 0.1 (0.0-0.4) X10*3/uL Baso # (Auto) 0.1 (0.0-0.2) X10*3/uL Abs Immat Gran (auto) 0.10 H (0.00-0.03) X10*3/uL Absolute Neuts (auto) 12.9 H (2.0-8.3) x10*3/uL Absolute Nucleated RBC 0.000 (0.0-0.012) X10*3/uL Nucleated RBC % (auto) 0.0 (0.0-0.2) /100WBC Smear Tech's Comments VERIFIED D-Dimer High Sensitivty < 150 NG/ML Sodium 134 L (135-145) mmol/L Potassium 4.1 (3.3-5.1) mmol/L Chloride 103 (96-108) mmol/L Carbon Dioxide 19 L (22-29) mmol/L Anion Gap 16 (12-20) BUN 5 L (9-16) mg/dL Creatinine 0.57 (0.5-1.4) mg/dL Estim Creat Clear Calc 148.5 Estimated GFR > 60 Random Glucose 88 (60-115) mg/dL Lactic Acid 1.3 (0.5-2.0) mmol/L Calcium 8.7 (8.4-10.2) mg/dL Total Bilirubin 0.8 (0.0-1.0) mg/dL AST 21 (5-37) U/L ALT 11 (0-40) U/L Alkaline Phosphatase 98 (39-117) U/L Troponin I High Sens < 2.7 (<3.5-35.0) ng/L Total Protein 6.8 (6.5-8.0) g/dL Albumin 3.6 (3.5-5.0) g/dL Influenza Type A (PCR) NEGATIVE (Negative) Influenza Type B (PCR) NEGATIVE (Negative) RSV RNA Qual (PCR) NEGATIVE (Negative) SARS-CoV-2 RNA (RT-PCR) NEGATIVE (Negative) Independent Interpretation I performed an independent interpretation of an: EKG ( sinus heart rate is 90 W[place] QRS QTC normal there is PVC noted there is no acute ST segment elevation. Other than the PVC there is no other changes in EKG) and Plain X-Ray ( chest x-ray showed a right middle lobe infiltrate) Radiology Impression Discussion of test interpretation with radiology: I have reviewed the radiologist's reading. External Record Review External record reviewed: Inpatient record Prescription Management I considered prescription management with: Antibiotic Discharge Plan Discharge Clinical Impression: Pneumonia Patient Disposition: Home, Self-Care Instructions: Community Acquired Pneumonia (DC) Prescriptions: New doxycycline hyclate 100 mg capsule 100 mg PO BID 7 Days Qty: 14 0RF No Action baclofen 5 mg tablet 5 mg PO TID Qty: 30 0RF albuterol sulfate [Ventolin HFA] 90 mcg/actuation HFA aerosol inhaler 2 puff inhalation Q4H PRN (Reason: wheezing) pregabalin 150 mg capsule 150 mg BID Asmanex HFA 100 mcg/actuation HFA aerosol inhaler 1 puff inhalation BID montelukast 10 mg tablet 10 mg QAM sertraline 50 mg tablet 50 mg QAM acetaminophen 500 mg tablet 1,000 mg PO Q8H PRN (Reason: Pain) ibuprofen 600 mg tablet 600 mg PO TID oxycodone 5 mg tablet 5 mg PO BID PRN (Reason: pain ) Qty: 14 0RF Referrals: Maryan Santamaria MD [Primary Care Provider] - 07/10/24 Print Language: Georgian
[2024-07-08 16:14] LABS: White Blood Count 16.2 X10*3/uL (4.8-10.8)
[2024-07-08 16:15] LABS: SLIDE REVIEW VERIFIED
[2024-07-08 16:16] LABS: Troponin-I High Sensitivity < 2.7 ng/L (<3.5-35.0)
[2024-07-08 16:17] LABS: Alkaline Phosphatase 98 U/L (39-117)
[2024-07-08 16:27] VITALS: BP 129/77; PULSE 85; RESP 20; TEMP 37.3; O2SAT 97
[2024-07-08] MEDS: cefTRIAXone sodium 1 GM VIAL IVPUSH (16:29)
[2024-07-08] MEDS: Azithromycin 500 MG TABLET PO (16:29)
[2024-07-08 16:51] LABS: Lactic Acid 1.3 mmol/L (0.5-2.0)
[2024-07-08 17:01] LABS: D Dimer High Sensitivity < 150 NG/ML
[2024-07-08 17:15] LABS: Influenza A PCR NEGATIVE (Negative); Influenza B PCR NEGATIVE (Negative); Resp Syncy Virus RNA Qual PCR NEGATIVE (Negative); SARS COV2 PCR INHOUSE NEGATIVE (Negative)
--- OUTSIDE RECORDS SUMMARY | 2024-07-08 17:47 | XMS_ITS | Encounter Summary ---
Author Organization [facility] Address [address] [place] [address] Care Team Providers Care Cognos Name Role Phone Maryan Santamaria MD Primary Care Provider [phone] Reason for Visit * Reason Onset Date Comments case back from lab 07/25/2023 Encounter Details Date Type Department Care Team (Late st Contact Info) Description 07/25/2023 Telephone [facility] ADULT DENTAL [address] [place] [address] Norberto Castro DDS [address] [place] [address] case back from lab Social History Tobacco Use Types Packs/Day Years Used Date Smoking Tobacco: Every Day Cigarettes Passive Smoke Exposure: Never Smokeless Tobacco: Never Alcohol Use Standard Drinks/Week Comments Never 0 (1 standard drink = 0.6 oz pur e alcohol) Depression Answer Date Recorded Patient Health Questionnaire-9 Score 13 07/26/2022 Housing Stability Answer Date Recorded What is your housing situation today? I have sondra angela 04/03/[address] you li ve. Do you have problems with any of the following? None of the above 04/03/2023 Food Insecurity Answer Date Recorded Within the past 12 months, y ou worried that your food would run out before you got money to buy more: Never True 04/03/2023 Within the past 12 months,th e food you bought just didn't last and you didn't have enough money to get more: Never True Transportation Answer Date Recorded In the past 12 months, has l ack of transportation kept you from medical appts, meetings, work or from getting things needed for daily living? No 04/03/2023 Utilities Answer Date Recorded In the past 12 months, has t he electric, gas, oil or water company threatened to shut off services in your home? No 04/03/2023 Depression Answer Date Recorded Patient Health Questionnaire-2 Score 4 07/26/2022 Sex and Gender Information Value Date Recorded Sex Assigned at Male 04/16/2022 10:20 AM EDT Legal Sex Male 10:20 AM EDT Gender Identity Male 04/16/2022 10:20 AM EDT Sexual Orientation Straight 04/16/2022 10 :20 AM EDT documented as of this encounter Miscellaneous Notes * Telephone Encounter - Rossy Cruz - 07/25/2023 2:31 PM EST Patient called in to confirm if case is back from lab. Patient would like to hear back either way. Pls reach out to patient. DR documented in this encounter Plan of Treatment Upcoming Encounters Date Type Department Care Team (Late st Contact Info) Description 07/20/2024 3:00 PM EST Office Visit [facility] ADULT DENTAL [address] [place] [address] Tello Ramirez, DMD [address] [place] [address] documented as of this encounter Visit Diagnoses Not on filedocumented in this encounter Additional Health Concerns Assessment Noted Time PHQ-9 Depression Total Score: 13 023 9:21 AM EST documented as of this encounter Care Teams Cognos Relationship Specialty Start Date End Date Maryan Santamaria MD [address] [place] [address] PCP - General Family Medicine 03/17/21 documented as of this encounter
--- OUTSIDE RECORDS SUMMARY | 2024-07-08 17:47 | XMS_ITS | Encounter Summary ---
Author Organization [facility] Address [address] [place] [address] Care Team Providers Care Industrial Trainer Name Role Phone Maryan Santamaria MD Primary Care Provider [phone] Reason for Visit * Reason Onset Date Comments PT-1 08/20/2023 Encounter Details Date Type Department Care Team ([facility] st Contact Info) Description 08/20/2023 Telephone [facility] MEDICINE [address] [place] [address] Maryan Santamaria MD [address] [place] [address] PT-1 Social History Tobacco Use Types Packs/Day Years Used Date Smoking Tobacco: Every Day Cigarettes Passive Smoke Exposure: Never Smokeless Tobacco: Never Alcohol Use Standard Drinks/Week Comments Never 0 (1 standard drink = 0.6 oz pur e alcohol) Depression Answer Date Recorded Patient Health Questionnaire-9 Score 13 07/26/2022 Housing Stability Answer Date Recorded What is your housing situation today? I have sondra angela 08/23/[address] you li ve. Do you have problems with any of the following? None of the above 08/23/2023 Food Insecurity Answer Date Recorded Within the past 12 months, y ou worried that your food would run out before you got money to buy more: Never True 08/23/2023 Within the past 12 months,th e food you bought just didn't last and you didn't have enough money to get more: Never True 01/2024 Transportation Answer Date Recorded In the past 12 months, has l ack of transportation kept you from medical appts, meetings, work or from getting things needed for daily living? Yes, it has kept me from medical appointments or getting medications. 08/23/2023 Utilities Answer Date Recorded In the past 12 months, has t he electric, gas, oil or water company threatened to shut off services in your home? No 08/23/2023 Depression Answer Date Recorded Patient Health Questionnaire-2 Score 4 07/26/2022 Sex and Gender Information Value Date Recorded Sex Assigned at Male 04/16/2022 10:20 AM EDT Legal Sex Male 10:20 AM EDT Gender Identity Male 04/16/2022 10:20 AM EDT Sexual Orientation Straight 04/16/2022 10 :20 AM EDT documented as of this encounter Miscellaneous Notes * Telephone Encounter - Zulay Donahue - 08/20/2023 3:11 PM EST PT-1 submitted for patient. They will receive a letter of approval or denial in the mail. * Telephone Encounter - Jeremias Espino - 08/20/2023 1:37 PM EST PT1 needed Date: 08/28 Time: 9:00 Visits: 3 Address: [address] [place], [place] Facility: [facility] Norberto Castro Wheel Chair: no Head Baggage Porter Needed: no PT1 needed Date: 09/01 Time: 10:30 Visits: 4 Address: [address] [place], [place] Facility: [facility] [address] Chair: no Head Baggage Porter Needed: no PT1 needed Date: 09/03 Time: 10:30 Visits: 3 Address: [address] [place] [address] Facility[place] [facility] [place] [address] [place] Chair: no Head Baggage Porter Needed: no documented in this encounter Plan of Treatment Upcoming Encounters Date Type Department Care Team (Late st Contact Info) Description 07/20/2024 3:00 PM EST Office Visit [facility] ADULT [facility] [address] [place] [address] Tello Ramirez, DMD [address] [place] [address] documented as of this encounter Visit Diagnoses Not on filedocumented in this encounter Additional Health Concerns Assessment Noted Time PHQ-9 Depression Total Score: 13 023 9:21 AM EST documented as of this encounter Care Teams Industrial Trainer Relationship Specialty Start Date End Date Maryan Santamaria MD [address] [place] [address] PCP - General Family Medicine 03/17/21 documented as of this encounter
--- OUTSIDE RECORDS SUMMARY | 2024-07-08 17:47 | XMS_ITS | Clinical Summary ---
Author Organization [facility] Address [address] [place] [address] Care Team Providers Care Drafter Cartographic Name Role Phone Hiren Alcala MD Primary Care Provider [phone] Allergies No known active allergies Medications Medication Sig Dispensed Refills Start Date End Date Status cyclobenzaprine (FLEXERIL) 10 mg tablet Take 1 Tab by mouth 3 times daily as needed for Muscle spasms. 02/16/2014 Active loratadine (CLARITIN) 10 mg tablet Take 1 Tab by mouth daily. 02/16/2014 Active fluticasone HFA (Flovent HFA) 110 mcg/actuation inhaler Inhale 1 Puff into the lungs 2 times daily. Rinse mouth after use. 07/21/2013 Active Active Problems Problem Noted Date Diagnosed Date Asthma 06/22/2024 Gynecomastia 04/12/2014 Low back pain 07/05/2011 Lumbar disc herniation with radiculopathy 2011 Immunizations Name Administration Dates Next Due Hepatitis B (Megppge-B-Spnaj , Recombivax HB-Adult) 19yo and older 03/23/2013,02/19/2013 Td Tetanus diptheria (Tdvax) 7yo and older 07/28 Tdap Tetanus diptheria acell ular pertussis (Boostrix; Adacel) 7yo and older 04/17/2013 Surgical History Surgery Date Site/Laterality Comments WISDOM TOOTH EXTRACTION PROCEDURE: HISTORICAL WISDOM TEETH EXTRACTION Medical History Medical History Date Comments Lumbar disc herniation with radiculopathy 07/05/2011 DX:Lumbar disc herniation wi th radiculopathy Asthma DX:Asthma Family History Medical History Relation Name Comments Hypertension Brother 1 Diabetes Mother asthma, glaucom a Hypertension Mother Other cancer Mother pancreatic Hypertension Sister 1 Relation Name Status Comments Brother 1 Brother 2 Mother Sister 1 Sister 2 Social History Tobacco Use Types Packs/Day Years Used Date Smoking Tobacco: Every Day Cigarettes Smokeless Tobacco: Never Alcohol Use Standard Drinks/Week Comments Yes 0 (1 standard drink = 0.6 oz pur e alcohol) Sex and Gender Information Value Date Recorded Sex Assigned at Not on file Gender Identity Not on file Sexual Orientation Not on file Obstetrics History Plan of Treatment Health Maintenance Due Date Last Done Comments Pneumococcal Vaccine: Pediatrics (0 to 5 Years) and At-Risk Patients (6 to 64 Years) (1 of 2 - PCV) 1976 Hepatitis B Vaccines (3 of 3 - 19+ 3-dose series) 08/19/2013 03/23/2013, 02/19/2013 Zoster Vaccines (1 of 2) 2020 DTaP,Tdap,and Td Vaccines (3 - Td or Tdap) 04/17/2023 04/17/2013, 07/28/2008 COVID-19 Vaccine (2023-2 5 season) 2024 Influenza Vaccine (#1) 2024 Cholesterol Screening (Lipid Panel) 06/23/2024 01/04/2013 Colorectal Cancer Screening: Colonoscopy 06/23/2024 Depression Screening 06/23/2024 07/26/2022 HIV Screening 06/23/2024 Hepatitis C Screening 06/23/2024 Social Influencers of Health Screening 06/23/2024 HIB Vaccines Aged Out No longer eligi ble based on patient's age to complete this topic HPV Vaccines Aged Out No longer eligi ble based on patient's age to complete this topic Hepatitis A Vaccines Aged Out No long er eligible based on patient's age to complete this topic IPV Vaccines Aged Out No longer eligi ble based on patient's age to complete this topic MMR Vaccines Aged Out No longer eligi ble based on patient's age to complete this topic Meningococcal ACWY Vaccine Aged Out N o longer eligible based on patient's age to complete this topic RSV Immunization Patients Under 20 months Aged Out No longer eligible b ased on patient's age to complete this topic Varicella Vaccines Aged Out No longer eligible based on patient's age to complete this topic Procedures Procedure Name Priority Date/Time Associated Diagnosis Comments LIPID PANEL Routine 01/04/2013 from Last 3 Months or Most Recently Relevant to Health Maintenance Results * Lipid panel (01/04/2013) LDL/HDL Ratio 2 0 - 4 Triglycerides 75 0 - 150 mg/dL Cholesterol 151 0 - 200 mg/dL HDL 93 40 mg/dL LDL Cholesterol 43 0 - 100 mg/dL Blood Venous blood specimen / Unknown Historical Provider LAB BLOOD ORDERAB LES from Last 3 Months or Most Recently Relevant to Health Maintenance Care Teams Drafter Cartographic Relationship Specialty Start Date End Date Hiren lAcala MD PCP - General Internal Medicine 05/29/11
--- OUTSIDE RECORDS SUMMARY | 2024-07-08 17:47 | XMS_ITS | Encounter Summary ---
Author Organization [employer] Address [address] [facility] [address] [place] [address] Care Team Providers Care Education Spec Name Role Phone Maryan Santamaria MD Primary Care Provider [phone] Reason for Visit * Reason Onset Date Comments call back requested 09/17/2023 Encounter Details Date Type Department Care Team ([facility] st Contact Info) Description 09/17/[address] [facility] MEDICINE [address] [place] [address] Maryan Santamaria MD [address] [place] [address] call back requested Social History Tobacco Use Types Packs/Day Years Used Date Smoking Tobacco: Every Day Cigarettes Passive Smoke Exposure: Never Smokeless Tobacco: Never Alcohol Use Standard Drinks/Week Comments Never 0 (1 standard drink = 0.6 oz pur e alcohol) Alcohol Answer Date Recorded Frequency of Alcohol Consumption Not on file 04/17/2024 Average Number of Drinks Not on file 024 Frequency of Binge Drinking Not on file 06/2023 Score 0 04/17/2024 Depression Answer Date Recorded Patient Health Questionnaire-9 Score 15 04/17/2024 Patient Health Questionnaire-9 Score 15 04/17/2024 Last PHQ-9: Questionnaire Data Not on file 1 06/17/2023 Housing Stability Answer Date Recorded What is [...] the past 12 months, has t he [employer], gas, oil or water company threatened to shut off services in your home? No 08/23/2023 Depression Answer Date Recorded Patient Health Questionnaire-2 Score 4 04/17/2024 Sex and Gender Information Value Date Recorded Sex Assigned at Male 04/16/2022 10:20 AM EDT Legal Sex Male 10:20 AM EDT Gender Identity Male 04/16/2022 10:20 AM EDT Sexual Orientation Straight 04/16/2022 10 :20 AM EDT documented as of this encounter Miscellaneous Notes * Telephone Encounter - Kaya Archuleta RN - 09/19/2023 11:00 AM EDT T/C to [facility] ortho for below message, Tile Inspector states Anesthesiologist already spoke with show dog trainer. Orthopedics office is all set now. * Telephone Encounter - Nessa Phillips - 09/18/2023 11:12 AM EDT Tc from [facility] at [facility] requesting status on message below. * Telephone Encounter - Shazia Delacruz - 09/17/2023 3:25 PM EDT Tc from [facility] requesting a call back, states would like to know if pt has xavier show dog trainer or if pt has any cardiac issue due to pt having procedure on 09/19/23 and will be under general anesthesia , and if PCP can specifications writer a letter with further information. Please contact at [phone] documented in this encounter Plan of Treatment Upcoming Encounters Date Type Department Care Team (Late st Contact Info) Description 07/20/2024 3:00 PM EST Office Visit [facility] ADULT DENTAL [address] [place] [address] Tello Ramirez, DMD [address] [place] [address] documented as of this encounter Visit Diagnoses Not on filedocumented in this encounter Additional Health Concerns Assessment Noted Time PHQ-9 Depression Total Score: 10 024 10:41 AM EDT documented as of this encounter Care Teams Education Spec Relationship Specialty Start Date End Date Maryan Santamaria MD [address] [place] [address] PCP - General Family Medicine 03/17/21 documented as of this encounter
--- OUTSIDE RECORDS SUMMARY | 2024-07-08 17:47 | XMS_ITS | Encounter Summary ---
Author Organization [employer] Address [address] [facility] [address] [place] [address] Care Team Providers Care Personnel Associate Name Role Phone Maryan Santamaria MD Primary Care Provider [phone] Reason for Visit * Reason Comments Scaling And Root Planing UR LR Encounter Details Date Type Department Care Team ([facility] st Contact Info) Description 06/11/2024 9:00 AM EST Office Visit [facility] ADULT DENTAL [address] [place] [address] Jasmin Marie Dental calculus (Primary Dx) Social History Tobacco Use Types Packs/Day Years [...] your housing situation today? I have sondra julio césar 08/23/[address] you li [...] AM EDT documented as of this encounter Last Filed Vital Signs Vital Sign Reading Time Taken Comments Blood Pressure 132/86 06/11/2024 8:22 AM EST Pulse - - Temperature - - Respiratory Rate - - Oxygen Saturation - - Inhaled Oxygen Concentration - - Weight - - Height - - Body Mass Index - - documented in this encounter Progress Notes * Jasmin Marie - 06/11/2024 9:00 AM EST Patient ID: Ortega Ellis is a 54 y.o. male. Time Out: Timeout Date: 06/11/24, Timeout Time: 824 Location: [facility] Tooth: UR and LR Procedure: Scaling and Root Planing Verified the above with patient, per diem physical therapist assistant, and provider. Confirmed via patient's chart, intraorally and by radiographs. Waitstaff Captain: not applicable Medical Hx: Vitals: Blood pressure 132/86. Medications, Med Hx reviewed with patient and updated in chart. Treatment Provided Dental procedures in this visit D4341 - PERIODONTAL SCALING AND ROOT PLANING - 4 OR MORE TEETH PER QUADRANT UR (Completed) Service provider: Jasmin Cruz provider: Dina Darnell [id number] - PERIODONTAL SCALING AND ROOT PLANING - 4 OR MORE TEETH PER QUADRANT LR (Completed) Service provider: Jasmin Cruz provider: Dina Darnell [id number] - CASE PRESENTATION, DETAILED AND EXTENSIVE TREATMENT PLANNING (Completed) Service provider: Jasmin Cruz provider: Dina Darnell [id number] - ORAL HYGIENE INSTRUCTIONS (Completed) Service provider: Jasmin Marie Billing provider: Dina Darnell Topical: 20% Benzocaine Confirmed profound anesthesia. Oral Cancer Screening: No lesions Head/Neck Exam: No Lesions Instruments Used: Hand Scalers and Prophy angle Fluoride: N/A Calculus: Light, Generalized, and Subgingival Plaque: Moderate and Generalized Stain: Light and Generalized Bleeding: Moderate and Localized Gingiva: Bleeding on probing, Recession- localized, and Erythematous OH: Poor Oral hygiene instructions provided to patient including brushing technique and flossing. Recommendations: Como two times daily, modified wilson technique, Floss daily, Electric toothbrush, Soft bristle toothbrush, Como Tongue, Anti-sensitivity toothpaste Recall Frequency: 6 mo NV: Extractions Hygienist: Jasmin Marie RDH documented in this encounter Plan of Treatment Upcoming Encounters Date Type Department Care Team (Late st Contact Info) Description 07/20/2024 3:00 PM EST Office Visit [facility] ADULT D[facility]AL [address] [place] [address] Tello Ramirez, DMD [address] [place] [address] documented as of this encounter Procedures Procedure Name Priority Date/Time Associated Diagnosis Comments LR PERIODONTAL SCALING AND ROOT PLANING - 4 OR MORE TEETH PER QUADRANT Routine 06/11/2024 9:00 AM EST UR PERIODONTAL SCALING AND ROOT PLANING - 4 OR MORE TEETH PER QUADRANT Routine 06/11/2024 9:00 AM EST ORAL HYGIENE INSTRUCTIONS Routine 2023 9:00 AM EST [facility] - PROFESSIONAL VISITS - CASE PRESENTATION, SUBSEQUENT TO DETAILED AND EXTENSIVE TREATMENT PLANNING Routine 06/11/2024 9:00 AM EST documented in this encounter Visit Diagnoses Diagnosis Dental calculus- Primary Accretions on teeth documented in this encounter Additional Health Concerns Assessment Noted Time PHQ-9 Depression Total Score: 15 024 8:53 AM EDT documented as of this encounter Care Teams Personnel Associate Relationship Specialty Start Date End Date Maryan Santamaria MD [address] [place] [id number] PCP - General Family Medicine 03/17/21 documented as of this encounter
--- OUTSIDE RECORDS SUMMARY | 2024-07-08 17:47 | XMS_ITS | Encounter Summary ---
Author Organization [employer] Address [address] [place] [address] Care Team Providers Care Publications Production Supervisor Name Role Phone Maryan Santamaria MD Primary Care Provider [phone] Encounter Details Date Type Department Care Team (Late st Contact Info) Description 08/01/2023 Abstract [facility] ADULT DENTAL [address] [place] [address] Norberto Castro DDS [address] [facility] [place] [address] Social History Tobacco Use Types Packs/Day Years [...] AM EDT documented as of this encounter Plan of Treatment Upcoming Encounters Date Type Department Care Team (Late st Contact Info) Description 07/20/2024 3:00 PM EST Office Visit [facility] ADULT DENTAL [address] [place] [address] Tello Ramirez, DMD [address] [place] [address] documented as of this encounter Visit Diagnoses Not on filedocumented in this encounter Additional Health Concerns Assessment Noted Time PHQ-9 Depression Total Score: 13 023 9:21 AM EST documented as of this encounter Care Teams Publications Production Supervisor Relationship Specialty Start Date End Date Maryan Santamaria MD [address] [place] [address] PCP - General Family Medicine 03/17/21 documented as of this encounter
--- OUTSIDE RECORDS SUMMARY | 2024-07-08 17:47 | XMS_ITS | Encounter Summary ---
Author Organization [employer] Address [address] [place] [address] [address] [place] [address] Care Team Providers Care House Furnishings Supervisor Name Role Phone Maryan Santamaria MD Primary Care Provider [phone] Reason for Visit * Reason Comments Med Refill Encounter Details Date Type Department Care Team ([facility] st Contact Info) Description 06/26/2024 Refill [facility]ED[facility] [address] [place] [address] Maryan Santamaria MD [address] [place] [address] Social History Tobacco Use Types Packs/Day Years [...] Description 07/20/2024 3:00 PM EST Office Visit [facility] ADULT DENTAL [address] [place] [address] Tello Ramirez, DMD [address] [place] [address] documented as of this encounter Visit Diagnoses Not on filedocumented in this encounter Additional Health Concerns Assessment Noted Time PHQ-9 Depression Total Score: 15 024 8:53 AM EDT documented as of this encounter Care Teams House Furnishings Supervisor Relationship Specialty Start Date End Date Maryan Santamaria MD [address] [place] [address] PCP - General Family Medicine 03/17/21 documented as of this encounter
--- OUTSIDE RECORDS SUMMARY | 2024-07-08 17:47 | XMS_ITS | Clinical Summary ---
Author Organization [employer] Address [address] [facility] [address] [place] [address] Care Team Providers Care Carpenter Labor Supervisor Name Role Phone Maryan Santamaria MD Primary Care Provider [phone] Allergies No known active allergies Medications naloxone (Narcan) 4 mg/0.1 mL nasal spray FOR SUSPECTED OPIOID OVERDOSE. SPRAY 0.1mL IN ONE NOSTRIL. REPEAT IN ALTERNATE NOSTRIL EVERY 2-3 MINUTES IF NEEDED. SEEK MEDICAL ATTENTION IMMEDIATELY EVEN IF PT RESPONDS. 03/07/20 22 Active omeprazole (PriLOSEC) [address] capsule Take 20 mg by mouth in the morning. 03/07/20 22 Active polyethylene glycol, PEG, 3350 (Glycolax) 17 GM/SCOOP powder MIX with liquid AND DRINK ONCE DIRECTED THE DAY BEFORE your PROCEDURE 01/12/20 22 Active gabapentin (Neurontin) 300 MG capsuleIndicati ons:Chronic midline low back pain, unspecified whether sciatica present Take 1 capsule (300 mg) by mouth 3 times daily. 90 capsule 2 07/26/19 23 Active fluticasone (Flonase) 50 MCG/ACT nasal spray Administer 1-2 sprays into each nostril in the morning. Shake gently. Before first use, prime pump. After use, clean tip and replace cap. 16 g 2 09/02/19 24 025 Active montelukast (Singulair) 10 MG tablet Take 1 tablet (10 mg) by mouth in the morning. 30 tablet 11 09/02/19 24 025 Active albuterol (Ventolin HFA) 108 (90 Base) MCG/ACT inhaler Inhale 2 puffs every 4 (four) hours if needed for wheezing. 18 g 11 09/02/19 24 Active Acetaminophen Extra Strength 500 MG tablet TAKE TWO TABLETS BY MOUTH EVERY EIGHT HOURS NEEDED 120 tablet 1 04/17/20 24 Active Mometasone Furoate (Asmanex, 30 Metered Doses,) 110 MCG/ACT aerosol powder Inhale 1 puff 2 times daily. 60 each 3 04/17/20 24 Active sertraline (Zoloft) 50 MG tablet TAKE ONE TABLET EVERY MORNING 90 tablet 1 06/02/20 24 Active oxyCODONE (Roxicodone) 5 MG immediate release tablet 5 mg. 06/03/20 24 Active ibuprofen 600 MG tablet TAKE ONE TABLET THREE TIMES DAILY 270 tablet 1 06/29/19 25 Active pregabalin (Lyrica) 150 MG capsule TAKE ONE CAPSULE TWICE DAILY 60 capsule 2 06/29/19 25 Active ibuprofen 600 MG tablet Take 1 tablet (600 mg) by mouth 3 times daily. 270 tablet 1 09/02/19 24 025 Discontinued pregabalin (Lyrica) 150 MG capsule TAKE ONE CAPSULE TWICE DAILY 60 capsule 2 02/27/20 24 025 Discontinued Active Problems Problem Noted Date Diagnosed Date Osteoarthritis of left knee 03/05/2024 Left patella fracture 03/05/2024 Physical exam 09/02/2023 Assessment & Plan (09/02/2023 11:12 PM EDT): Labs: Lipid Panel IZ: Tdap, PCV-20 Polyarthralgia 09/02/2023 Assessment & Plan (09/02/2023 11:11 PM EDT): Patient has Hx of osteoarthritis. We discussed possible referral to a lunchroom food service supervisor for further evaluation and management. Explore non-opiate pain management options and consider referral to a transportation equipment painter. Labs: CBC, C-reactive, Sed Rate, LISA Screen, Rheumatoid Factor, CCP, Comprehensive Metabolic Panel Fibromyalgia 07/31/2023 Assessment & Plan (04/18/2024 1:01 AM EDT): -Pt continues experiencing pain despite trying different medications including opiates. -Pt was provided with a list of his current medical conditions -Pt was advised to f/u with his Neurosurgeon and pain specialist. Relevant orders: Referral to Pain Medicine Assessment & Plan (07/31/2023 9:28 AM EST): Patient reported that the [place] medication is not helping with pain . I discontinued Chey[place] medication and prescribed Lyrica. I have also sent a referral for pain management. He will have a follow-up appointment for physical examination and on Lyrica medication F/U. I discussed the imaging finding of his left knee. I informed him he will be referred to orthopedic since he has severe arthritis. Carpal tunnel syndrome, bilateral upper limbs Cubital tunnel syndrome, bilateral 07/31/2023 Lumbar radiculopathy, chronic 07/31/2023 Personal history of nicotine dependence 07/31/19 24 Fall (on) (from) other stairs and steps, initial encounter 07/18/2023 Acute pain of left knee 07/18/2023 Assessment & Plan (07/18/2023 2:48 PM EST): Patient that presented visit with complaints of L knee pain that worse due to a fall, will be sent for imaging for further evaluation. In addition, patient will be referred to Orthopaedic Surgery. Medial epicondylitis of both elbows 03/28/2023 Assessment & Plan (03/28/2023 5:05 PM EDT): -Patient will be referred to Hand Surgery. -Will be prescribing low dose of Prednisone to treat inflammation. - He is already on norco 10 mg chronically - will schedule patient for regular f/up to address his other concerns Chronic midline low back pain 07/26/2022 Assessment & Plan (07/18/2023 2:48 PM EST): Patient that presented visit with chronic lower back pain will be provided with medication to treat pain. Assessment & Plan (07/26/2022 9:11 PM EST): Patient with severe LBP not improved with various trials of medications including other narcotics. He was seen by neurosurgeon and also follows with pain management. Recommended continue followup with them. Unfortnately we have not been able to help decrease patient patient and improvement of his MRADLs. Will send message to COT RN to get patient in opiate contract Chronic nasal congestion 06/22/2022 Assessment & Plan (06/25/2022 4:42 PM EST): Recommended supportive care, nasal lavage with high nasal saline volume low pressure. Will rx decongestant. Normal lung exam. Alcoholism 03/26/2018 Asthma-chronic obstructive p ulmonary disease overlap syndrome 03/26/2018 Assessment & Plan (04/18/2024 12:46 AM EDT): Notified the pt that his medication had been discontinued by the demand equipment repairer. I informed the pt that I sent a new order for a similar medication on the . Had to call the pharmacy to sort out issue with insurance approval. 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/26/2018 Wears partial dentures 03/26/2018 Encounters Date Type Department Care Team Description 07/08/2024 Orders Only [facility] External Provider, [facility] 06/26/2024 Refill [facility] [address] [place] [address] Maryan Santamaria MD 06/22/2024 1:00 PM EST Office Visit [facility] [address] [place] [address] Tello Ramirez DMD Dental caries (Primary Dx); Periodontal disease 06/11/2024 9:00 AM EST Office Visit [facility] [address] [place] [address] Jasmin Marie Dental calculus (Primary Dx) 06/01/2024 10:00 AM EST Office Visit [facility] [address] [place] [address] Tello Ramirez DMD Dental caries (Primary Dx) 06/01/2024 Refill [facility] [address] [place] [address] Maryan Santamaria MD 05/20/2024 Orders Only GENERIC EXTERNAL DATA DEPARTMENT Provider, Generic External Data 05/19/2024 10:00 AM EST Office Visit [facility] [address] [place] [address] Jasmin Marie Dental calculus (Primary Dx) 05/04/2024 9:00 AM EST Office Visit [facility] [address] [place] [address] Fabian Patel Dental calculus (Primary Dx) 04/27/2024 Telephone [facility] [address] [place], [place] [phone] Erika Rodriguez DDS 04/24/2024 Telephone [facility] [address] [place] [address] [phone] Maryan Santamaria MD 04/17/2024 9:00 AM EDT Office Visit [facility] [address] [place] [address] Maryan Santamaria MD Asthma-chronic obstructive pulmonary disease overlap syndrome (CMS/HCC) (Primary Dx); Fibromyalgia 04/17/2024 Travel 04/17/2024 Refill [facility] [address] [place] [address] Maryan Santamaria MD 04/14/2024 Telephone [facility] [address] [place], [place] [phone] Maryan Santamaria MD CHART PREP 04/10/2024 Patient Outreach [facility] [address] [place] [address] Maryan Santamaria MD Pre-visit Planning ([facility] screening completed on 08/23/2023/) from Last 3 Months Immunizations Name Administration Dates Next Due Hep B, adult 08/07/2019,03/23/2013,02/19/2013 Pfizer Covid-19 Vaccine 12+ Bivalent 05/22/2022 Pfizer Covid-19 Vaccine 12+ lashanda-sucrose (Aldrich Cap) 07/18/2021 Pneumococcal Conjugate PCV 20 09/02/2023 Pneumococcal Polysaccharide PPSV23 12/04/2016 TD (adult), 2 Lf tetanus tox oid, preservative free, adsorbed 07/28/2008 Tdap 09/02/2023,04/17/2013 Social History Tobacco Use Types Packs/Day Years Used Date Smoking Tobacco: Every Day Cigarettes Passive Smoke Exposure: Never Smokeless Tobacco: Never Tobacco Cessation:Ready to Q uit: Not Asked; Counseling Given: Not Answered Alcohol Use Standard Drinks/Week Comments Never 0 [...] Orientation Straight 04/16/2022 10 :20 AM EDT Last Filed Vital Signs Vital Sign Reading Time Taken Comments Blood Pressure 120/78 06/22/2024 1:03 PM EST Pulse 60 05/04/2024 8:53 AM EST Temperature 36.7 ??C (98 ??F) 04/17/2024 8:49 AM EDT Respiratory Rate 19 04/17/2024 8:49 AM EDT Oxygen Saturation 96% 04/17/2024 8:49 AM EDT Inhaled Oxygen Concentration - - Weight 64.9 kg (143 lb) 04/17/2024 8:49 AM EDT Height 177.8 cm (5' 10 ) 04/17/2024 8:49 AM EDT Body Mass Index 20.52 04/17/2024 8:49 AM EDT Plan of Treatment Upcoming Encounters Date Type Department Care Team (Late st Contact Info) Description 07/20/2024 3:00 PM EST Office Visit [facility] [address] [place] [address] Tello Ramirez, DMD [address] [place] [address] Health Maintenance Due Date Last Done Comments CT Colonography 1970 Colonoscopy 1970 FIT 1970 FOBT 1970 Sigmoidoscopy 1970 Hepatitis A Vaccines (1 of 2 - Risk 2-dose series) 1989 Zoster Vaccines (1 of 2) 2020 Dental Oral Exam 11/14/2023 05/15/2023, 01/27/2010 COVID-19 Vaccine ( season) 2024 05/22/2022, 07/18/2021, 01/02/2021, Additional history exists SDOH Screening 08/22/2024 08/23/2023 Depression Monitoring (PHQ-9) 10/15/2024 04/17/2024, 04/17/2024 Dental Prophylaxis 11/02/2024 05/04/2024, 0 07/05/2023, 02/06/2010 Influenza Vaccine (#1) 2024 Postp oned from 02/16/2024 (Patient Refused) Alcohol/Substance Use Screening 04/17/2025 04/17/2024 Depression Screening 04/17/2025 04/17/2024, 04/17/20 Dental X-Ray: Bitewings 05/05/2025 05/04/20, 05/15/2023, 01/27/2010 Tobacco Screening 06/22/2025 06/22/2024 Dental X-Ray: Full Mouth 05/16/2026 023, 01/27/2010, 11/09/2009 Colorectal Cancer Screening 10/03/2026 FIT DNA/Cologuard 10/03/2026 10/04/2023 Lipid Panel 03/07/2027 03/07/2022 DTaP/Tdap/Td Vaccines (3 - Td or Tdap) 09/01/2033 09/02/2023, 04/17/2013, 07/28/2008 RSV Patients and Patients Aged 60 years or older (1 - 1-dose 75+ series) 2045 Hepatitis B Vaccines Completed 08/07/2019, 03/23/2013, 02/19/2013 HIV Screening Completed 03/07/2022 Hepatitis C Screening Completed 03/07/2022 Pneumococcal Vaccine: Pediatrics (0 to 5 Years) and At-Risk Patients (6 to 64 Years) Completed 09/02/2023, 12/04/2016 HIB Vaccines Aged Out No longer eligi ble based on patient's age to complete this topic HPV Vaccines Aged Out No longer eligi ble based on patient's age to complete this topic IPV Vaccines Aged Out No longer eligi ble based on patient's age to complete this topic Meningococcal Vaccine Aged Out No lashay mee eligible based on patient's age to complete this topic RSV under 20 months Aged Out No longe r eligible based on patient's age to complete this topic Rotavirus Vaccines Aged Out No longer eligible based on patient's age to complete this topic Procedures Procedure Name Priority Date/Time Associated Diagnosis Comments D DIMER HIGH SENSITIVITY Routine 07/08/2024 4:27 PM EST LACTIC ACID Routine 07/08/2024 4:27 PM EST SARS COV2/INFLUENZA A/B AND RSV RNA QL NAAT Routine 07/08/2024 4:27 PM EST XR CHEST 1 VIEW Routine 07/08/2024 3:52 PM EST ADJUNCTIVE GENERAL SERVICES - PROFESSIONAL VISITS - CASE PRESENTATION, SUBSEQUENT TO DETAILED AND EXTENSIVE TREATMENT PLANNING Routine 06/22/2024 1:00 PM EST Dental caries Periodontal disease 14 EXTRACTION, ERUPTED TOOTH OR EXPOSED ROOT (ELEVATION AND/OR FORCEPS REMOVAL) Routine 06/22/2024 1:00 PM EST Dental caries Periodontal disease 15 EXTRACTION, ERUPTED TOOTH OR EXPOSED ROOT (ELEVATION AND/OR FORCEPS REMOVAL) Routine 06/22/2024 1:00 PM EST Dental caries Periodontal disease ORAL HYGIENE INSTRUCTIONS Routine 06/11/2024 9:00 AM EST ADJUNCTIVE GENERAL SERVICES - PROFESSIONAL VISITS - CASE PRESENTATION, SUBSEQUENT TO DETAILED AND EXTENSIVE TREATMENT PLANNING Routine 06/11/2024 9:00 AM EST LR PERIODONTAL SCALING AND ROOT PLANING - 4 OR MORE TEETH PER QUADRANT Routine 06/11/2024 9:00 AM EST UR PERIODONTAL SCALING AND ROOT PLANING - 4 OR MORE TEETH PER QUADRANT Routine 06/11/2024 9:00 AM EST ADJUNCTIVE GENERAL SERVICES - PROFESSIONAL VISITS - CASE PRESENTATION, SUBSEQUENT TO DETAILED AND EXTENSIVE TREATMENT PLANNING Routine 06/01/2024 10:00 AM EST Dental caries 12 MOD RESTORATIVE - RESIN-BASED COMPOSITE RESTORATIONS - DIRECT - RESIN-BASED COMPOSITE - THREE SURFACES, POSTERIOR Routine 06/01/2024 10:00 AM EST Dental caries 8 L RESTORATIVE - RESIN-BASED COMPOSITE RESTORATIONS - DIRECT - RESIN-BASED COMPOSITE - ONE SURFACE, ANTERIOR Routine 06/01/2024 10:00 AM EST Dental caries COMPREHENSIVE METABOLIC PANEL Routine 05/20/2024 1:02 PM EST CBC Routine 05/20/2024 1:02 PM EST ORAL HYGIENE INSTRUCTIONS Routine 05/19/2024 10:00 AM EST ADJUNCTIVE GENERAL SERVICES - PROFESSIONAL VISITS - CASE PRESENTATION, SUBSEQUENT TO DETAILED AND EXTENSIVE TREATMENT PLANNING Routine 05/19/2024 10:00 AM EST LL PERIODONTAL SCALING AND ROOT PLANING - 1 TO 3 TEETH PER QUADRANT Routine 05/19/2024 10:00 AM EST UL PERIODONTAL SCALING AND ROOT PLANING - 4 OR MORE TEETH PER QUADRANT Routine 05/19/2024 10:00 AM EST INTRAORAL - PERIAPICAL EACH ADDITIONAL RADIOGRAPHIC IMAGE Routine 05/04/2024 9:00 AM EST INTRAORAL - PERIAPICAL FIRST RADIOGRAPHIC IMAGE Routine 05/04/2024 9:00 AM EST ORAL HYGIENE INSTRUCTIONS Routine 05/04/2024 9:00 AM EST BITEWINGS - 4 RADIOGRAPHIC IMAGES Routine 05/04/2024 9:00 AM EST Full PROPHYLAXIS - ADULT Routine 05/04/2024 9:00 AM EST ADJUNCTIVE GENERAL SERVICES - PROFESSIONAL VISITS - CASE PRESENTATION, SUBSEQUENT TO DETAILED AND EXTENSIVE TREATMENT PLANNING Routine 05/04/2024 9:00 AM EST LAB COLOGUARD?? COLON CANCER SCREEN Routine 10/04/2023 12:30 PM EDT Colon cancer screening DIAGNOSTIC - DIAGNOSTIC IMAGING - INTRAORAL - COMPREHENSIVE SERIES OF RADIOGRAPHIC IMAGES Routine 05/15/2023 9:00 AM EST PERIODIC ORAL EVALUATION - ESTABLISHED PATIENT Routine 05/15/2023 9:00 AM EST LIPID PANEL, STANDARD Routine 03/07/2022 11:24 AM EDT ZZZ HISTORICAL HEPATITIS C AB W/REFL TO HCV RNA, QN, PCR Routine 03/07/2022 11:23 AM EDT HIV 1/2 ANTIGEN/ANTIBODY, FOURTH GENERATION W/RFL Routine 03/07/2022 11:23 AM EDT from Last 3 Months or Most Recently Relevant to Health Maintenance Results * D Dimer High Sensitivity (07/08/2024 4:27 PM EST) D Dimer High Sensitivity <150 NG/ML [facility] Comment:D-DIMER HS REFERENCE RANGENote: Our assay reports D-Dimer Units (D- DU).The cut-off value for venous thromboembolic (VTE) disease is230 ng/mL. This value has a very high negative predictivevalue when the patient has a low to moderate clinicalprobability of VTE.The upper limit of normal is 243 ng/mL. 07/08/2024 4:27 PM EST 07/08/2024 4:35 PM EST us Generic External Data Provider LAB BLOOD ORDERAB LES Final Result [facility] [address] [place] [phone] * SARS-CoV-2 RNA, Influenza A/B, and RSV RNA, Ql NAAT (07/08/2024 4:27 PM EST) Influenza A PCR NEGATIVE Negative [facility] Influenza B PCR NEGATIVE Negative [facility] Resp Syncy Virus RNA Qual PCR NEGATIVE Negative [facility] SARS COV2 PCR NEGATIVE Negative [facility] Comment:All test results mus t be correlated with clinical findings.Negative results do not preclude SARS-CoV2, influenza Avirus, influenza B virus and/or RSV infectionand should not be used as the sole basis for treatment orother patient management decisions. Negative results must becombined with clinical observations, patient history, andepidemiological information.This test has not been evaluated for monitoring treatment ofinfection.This test has been authorized by the FDA under an EmergencyUse Authorization (EUA) for use by authorized laboratories.Testing performed on the [employer] GeneXpert utilizingreal-time RT-PCR.All SARS CoV2 and positive influenza A/B results arereported to [facility]. 07/08/2024 4:27 PM EST 07/08/2024 4:32 PM EST Generic External Data Provider LAB MICROBIOLOGY - GENERAL ORDERABLES Final Result Performing Organization Address City/[facility]/ZIP Co de Phone Number [facility] [address] [place] [phone] * Lactic Acid (07/08/2024 4:27 PM EST) Lactic Acid 1.3 0.5 - 2.0 mmol/L [facility] 07/08/2024 4:27 PM EST 07/08/2024 4:32 PM EST Generic External Data Provider LAB BLOOD ORDERAB LES Final Result Performing Organization Address [facility]/ZIP Co de Phone Number [facility] [address] [place] [phone] * XR Chest 1 View (07/08/2024 3:52 PM EST) Anatomical Region Laterality Modality Chest Radiographic Ines ging 07/08/2024 3:52 PM EST Narrative 07/08/2024 4:04 PM EST ? [facility] ?[address] ?[place] [address] ?XRay Report ? Signed ? Patient: Alvarado Ellis,Ortega L ?MR#: ?? [id number] ? : 1970 ?Acct:[id number] ? Age/Sex: 54 / M ?ADM Date: 07/08/24 ? Loc: HO.ED ? Attending Dr: ? Ordering Physician: Cat Vinson MD ?? Date of Service: 07/08/24 ?? Procedure(s): XR chest 1V ?? Accession Number(s): [id number] ? cc: Cat Vinson MD; Maryan Santamaria MD ? EXAMINATION: ?? XR CHEST ? CLINICAL INFORMATION: ?? chest pain ? COMPARISON: ?? 02/03/2021. ? TECHNIQUE: ?? Frontal view of the chest was obtained. ? FINDINGS: ?? Cardiac, hilar, and mediastinal contours are normal. ? Subsegmental consolidation inferior lateral right upper lobe abutting ?? the minor fissure. Findings are consistent with pneumonia. ?? Left lung is clear. There are no effusions or pneumothoraces. ? No soft tissue or bony abnormalities. ? XR/XR chest 1V ?? IMPRESSION: ?? Right upper lobe subsegmental pneumonia. No effusions. ? Electronically signed by: ??Chuck Doss MD ??07/08/2024 04:01 PM EST RP ? Dictated By: ?Chuck Doss MD ? Signed By: ?<Electronically signed by Chuck Doss MD in OV> ?07/08/24 1601 ? DD/ 1552 ? TD/TT: 07/08/24 1552 ? Crossing Supervisor: ? Procedure Note Chen Whittaker - 07/08/[address] [address] XRay Report Signed Patient: Ortega Lane LMR#: [id number] : 1970Acct:[id number] Age/Sex: 54 / MADM Date: 07/08/24 Loc: HO.ED Attending Dr: Ordering Physician: Cat Vinson MD Date of Service: 07/08/24 Procedure(s): XR chest 1V Accession Number(s): [id number] cc: Cat Vinson MD; Maryan Santamaria MD EXAMINATION: XR CHEST CLINICAL INFORMATION: chest pain COMPARISON: 02/03/2021. TECHNIQUE: Frontal view of the chest was obtained. FINDINGS: Cardiac, hilar, and mediastinal contours are normal. Subsegmental consolidation inferior lateral right upper lobe abutting the minor fissure. Findings are consistent with pneumonia. Left lung is clear. There are no effusions or pneumothoraces. No soft tissue or bony abnormalities. XR/XR chest 1V IMPRESSION: Right upper lobe subsegmental pneumonia. No effusions. Electronically signed by: Chuck Doss MD 07/08/2024 04:01 PM EST Dictated By: Chuck Doss MD Signed By: <Electronically signed by Chuck Doss MD in OV> 07/08/24 1601 DD/ 1552 TD/TT: 07/08/24 1552 Crossing Supervisor: [facility] External Provider IMG XR PROCEDURES Final Result * (ABNORMAL) CBC (05/20/2024 1:02 PM EST) White Blood Count 8.8 4.8 - 10.8 X10*3/uL [facility] Red Blood Count 4.51(L) 4.60 - 5.80 X10*6/uL [facility] Hemoglobin 14.9 14.0 - 18.0 g/dl [facility] Hematocrit 43.9 42.0 - 52.0 % [facility] Mean Corpuscular Volume 97.3 80.0 - 98.0 fL [facility] Mean Corpuscular Hemoglobin 33.0 27.0 - 33.0 pg [facility] Mean Corpuscular HGB Conc 33.9 31.0 - 36.0 g/dl [facility] Red Cell Distribution Width 12.6 11.0 - 16.0 % [facility] Platelet Count 275 160 - 400 X10*3/uL [facility] Mean Platelet Volume 8.8(L) 9.4 - 12.4 fL [facility] NRBC Pct Auto 0.0 0.0 - 0.2 /100WBC [facility] NRBC Abs Auto 0.000 0.0 - 0.012 X10*3/uL [facility] 05/20/2024 1:02 PM EST 05/20/2024 1:02 PM EST us Generic External Data Provider LAB BLOOD ORDERAB LES Final Result [facility] [address] [place] [phone] * (ABNORMAL) Comprehensive Metabolic Panel (05/20/2024 1:02 PM EST) Sodium 137 135 - 145 mmol/L [facility] Potassium 4.2 3.3 - 5.1 mmol/L [facility] Chloride 105 96 - 108 mmol/L [facility] Carbon Dioxide 23 22 - 29 mmol/L [facility] Anion Gap 13 12 - 20 [facility] Urea Nitrogen (BUN) 8(L) 9 - 16 mg/dL [facility] Creatinine, Serum 0.62 0.5 - 1.4 mg/dL [facility] Creatinine Clr Calc Pharmacy 130.4 [facility] Comment:eGFR (calculated fro m the MDRD study equation) and eCrCl(calculated from the Cockcroft-Gault equation) are based ondifferent parameters and may not yield comparable results.If eCrCl result is absurd, please check patient'sheight/weight. Estimated Glomerular Filt Rate >60 [facility] Comment:Chronic Kidney Disea se: Estimated GFR < 60 mL/min/1.35h8Epitxg Kidney Disease: Estimated GFR < 15 mL/min/1.73m2 Glucose 74 60 - 115 mg/dL [facility] Calcium 9.2 8.4 - 10.2 mg/dL [facility] Bilirubin, Total 0.9 0.0 - 1.0 mg/dL [facility] Aspartate Amino Transferase 48(H) 5 - 37 U/L [facility] Alanine Aminotransferase 38 0 - 40 U/L [facility] Total Protein 6.9 6.5 - 8.0 g/dL [facility] Albumin Level 4.0 3.5 - 5.0 g/dL [facility] Alkaline Phosphatase 73 39 - 117 U/L [facility] 05/20/2024 1:02 PM EST 05/20/2024 1:02 PM EST us Generic External Data Provider LAB BLOOD ORDERAB LES Final Result [facility] [address] [place] [phone] [phone] * (ABNORMAL) Cologuard?? colon cancer screening (10/04/2023 12:30 PM EDT) Cologuard Result Positive( A) Negative 10/15/2023 2:08 AM EDT [email or web address] (CLIA #:[id number]) Comment: POSITIVE TEST RESULT. A positive Cologuard result should be followed with a colonoscopy or visual examination of the colon. The normal value (reference range) for this assay is negative. TEST DESCRIPTION: Composite algorithmic analysis of stool DNA-biomarkers with hemoglobin immunoassay. ?? Quantitative values of individual biomarkers are not reportable and are not associated with individual biomarker result reference ranges. Cologuard is intended for colorectal cancer screening of adults of either sex, 45 years or older, who are at average-risk for colorectal cancer (CRC). Cologuard has been approved for use by the U.[place]. FDA. The performance of Cologuard was established in a cross sectional study of average-risk adults aged 50-84. Cologuard performance in patients ages 45 to 49 years was estimated by sub-group analysis of near-age groups. Colonoscopies performed for a positive result may find as the most clinically significant lesion: colorectal cancer [4.0%], advanced adenoma (including sessile serrated polyps greater than or equal to 1cm diameter) [20%] or non- advanced adenoma [31%]; or no colorectal neoplasia [45%]. These estimates are derived from a prospective cross-sectional screening study of 10,000 individuals at average risk for colorectal cancer who were screened with both Cologuard and colonoscopy. (Berenice Funes al, N Engl J Med 2014;370(14):9553-2356.) Cologuard may produce a false negative or false positive result (no colorectal cancer or precancerous polyp present at colonoscopy follow up). A negative Cologuard test result does not guarantee the absence of CRC or advanced adenoma (pre-cancer). The current Cologuard screening interval is every 3 years. ([place] [employer] and U.S. Multi-Society Task Force). Cologuard performance data in a 10,000 patient pivotal study using colonoscopy as the reference method can be accessed at the following location: www.[email or web address]/results. Additional description of the Cologuard test process, warnings and precautions can be found at [email or web address] [email or web address]. Stool specimen (specimen) 10/04/2023 12:30 PM EDT 10/05/2023 10:57 AM EDT us Maryan Santamaria MD LAB MOLECULAR DIAGNOSTICS ORD ERABLES Final Result [email or web address] (CLIA #:[id number]) [address] [place] [address], * LIPID PANEL, STANDARD (03/07/2022 11:24 AM EDT) Chol/HDLC Ratio 2.2 <5.0 (calc) [facility] Cholesterol, Total 177 <200 mg/dL [facility] HDL Cholesterol 80 > OR = 40 mg/dL [facility] LDL Cholesterol 74 mg/dL (calc) [facility] Comment: Reference range: <100 ?? Desirable range <100 mg/dL for primary prevention; ?? <70 mg/dL for patients with CHD or diabetic patients ?? with > or = 2 CHD risk factors. ?? LDL-C is now calculated using the Jovan-Roth ?? calculation, which is a validated novel method providing ?? better accuracy than the Friedewald equation in the ?? estimation of LDL-C. ?? Jovan HOWARD et al. ALISE. 2013;31019): 9001-0906 ?? (http://FightMe.[employer]/faq/QVG967) Non-HDL Cholesterol 97 <130 mg/dL (calc) [facility] Comment: For patients with diabetes plus 1 major ASCVD risk ?? factor, treating to a non-HDL-C goal of <100 mg/dL ?? (LDL-C of <70 mg/dL) is considered a therapeutic ?? option. Triglycerides 147 <150 mg/dL [facility] 03/07/2022 11:2 4 AM EDT Maryan Santamaria MD LAB BLOOD ORDERABLES Final Re sult Performing Organization Address [facility] Phone Number [facility] [address] [place] [address], * HEPATITIS C AB W/REFL TO HCV RNA, QN, PCR (03/07/2022 11:23 AM EDT) HEPATITIS C ANTIBODY NON-REACT CARLO NON-REACT CARLO [facility] INDEX 0.06 <1.00 [facility] Comment: ?? HCV antibody was non-reactive. There is no laboratory ?? evidence of HCV infection. ?? In most cases, no further action is required. However, if recent HCV exposure is suspected, a test for HCV RNA (test code 85964) is suggested. ?? For additional information please refer to http://education.hulu/faq/ADC81s2 (This link is being provided for informational/ educational purposes only.) ?? 03/07/2022 11:2 3 AM EDT Maryan Santamaria MD HISTORICAL/NON ORDERABLE LABS Final Result Performing Organization Address [facility] Phone Number [facility] [address] [place] [address], * HIV 1/2 ANTIGEN/ANTIBODY,FOURTH GENERATION W/RFL (03/07/2022 11:23 AM EDT) HIV-1/2 ANTIGEN AND ANTIBODIES, 4TH GENERATION W/ REFLEX NON-REACT CARLO NON-REACT CARLO [facility] Comment: HIV-1 antigen and HIV-1/HIV-2 antibodies were not detected. There is no laboratory evidence of HIV infection. ?? PLEASE NOTE: This information has been disclosed to you from records whose confidentiality may be protected by state law. ??If your state requires such protection, then the state law prohibits you from making any further disclosure of the information without the specific written consent of the person to whom it pertains, or as otherwise permitted by law. A general authorization for the release of medical or other information is NOT sufficient for this purpose. ? For additional information please refer to http://FightMe.hulu/faq/TUC093 (This link is being provided for informational/ educational purposes only.) ? The performance of this assay has not been clinically validated in patients less than 2 years old. ?? 03/07/2022 11:2 3 AM EDT us Maryan Santamaria MD LAB BLOOD ORDERABLES Final Re sult Performing Organization Address City/State/[facility] Co de Phone Number [facility] [address] from Last 3 Months or Most Recently Relevant to Health Maintenance Insurance [facility] C3 DENTAL-[facility] MEDICAID STAND ADULT Care Teams Carpenter Labor Supervisor Relationship Specialty Start Date End Date Maryan Santamaria MD [address] [place] [phone] PCP - General Family Medicine 03/17/21
--- OUTSIDE RECORDS SUMMARY | 2024-07-08 17:47 | XMS_ITS | Encounter Summary ---
Author Organization [employer] Address [address] [place] [address] [address]t [place] [address] Care Team Providers Care Retail Department Reset Name Role Phone Maryan Santamaria MD Primary Care Provider [phone] Reason for Visit * Reason Comments Extraction Patient presents tod ay for extraction Luh PATEL Encounter Details Date Type Department Care Team ([facility] st Contact Info) Description 06/22/2024 1:00 PM EST Office Visit [facility] [address] [place], [place] [phone] Tello Ramirez, DMD [address] [place], [place] [phone] Dental caries (Primary Dx); Periodontal disease Social History Tobacco Use Types Packs/Day Years [...] the past 12 months, has t he [employer], gas, oil or water inDplay threatened to shut off services in your [...] Pressure 120/78 06/22/2024 1:03 PM EST Pulse - - Temperature - - Respiratory Rate - - Oxygen Saturation - - Inhaled Oxygen Concentration - - Weight - - Height - - Body Mass Index - - documented in this encounter Progress Notes * Tello Ramirez, KARL - 06/22/2024 1:00 PM EST Patient ID: Ortega Ellis is a 54 y.o. male. Time Out: Timeout Date: 06/22/24, Timeout Time: 1313 (EXT #14,15) Location: [facility] Tooth: #14 and #15 Procedure: Extraction Verified the above with patient, clinical nursing assistant, and provider. Confirmed via patient's chart, intraorally and by radiographs. Public Address Announcer: not applicable Chief Complaint Patient presents with Extraction Patient presents today for extraction Luh JORGE Medical Hx: Vitals: Blood pressure 120/78. Past Medical History: Diagnosis Date Asthma COPD (chronic obstructive pulmonary disease) ([facility]) Medications: Outpatient Encounter Medications as of 06/22/2024 Medication Sig Dispense Refill Acetaminophen Extra Strength 500 MG tablet TAKE TWO TABLETS BY MOUTH EVERY EIGHT HOURS NEEDED 120 tablet 1 albuterol (Ventolin HFA) 108 (90 Base) MCG/ACT inhaler Inhale 2 puffs every 4 (four) hours if needed for wheezing. 18 g 11 fluticasone (Flonase) 50 MCG/ACT nasal spray Administer 1-2 sprays into each nostril in the morning. Shake gently. Before first use, prime pump. After use, clean tip and replace cap. 16 g 2 gabapentin (Neurontin) 300 MG capsule Take 1 capsule (300 mg) by mouth 3 times daily. 90 capsule 2 ibuprofen 600 MG tablet Take 1 tablet (600 mg) by mouth 3 times daily. 270 tablet 1 Mometasone Furoate (Asmanex, 30 Metered Doses,) 110 MCG/ACT aerosol powder Inhale 1 puff 2 times daily. 60 each 3 montelukast (Singulair) 10 MG tablet Take 1 tablet (10 mg) by mouth in the morning. 30 tablet 11 naloxone (Narcan) 4 mg/0.1 mL nasal spray FOR SUSPECTED OPIOID OVERDOSE. SPRAY 0.1mL IN ONE NOSTRIL. REPEAT IN ALTERNATE NOSTRIL EVERY 2-3 MINUTES IF NEEDED. SEEK MEDICAL ATTENTION IMMEDIATELY EVEN IF PT RESPONDS. omeprazole (PriLOSEC) [address] capsule Take 20 mg by mouth in the morning. oxyCODONE (Roxicodone) 5 MG immediate release tablet 5 mg. polyethylene glycol, PEG, 3350 (Glycolax) 17 GM/SCOOP powder MIX with liquid AND DRINK ONCE DIRECTED THE DAY BEFORE your PROCEDURE (Patient not taking: Reported on 06/11/2024) pregabalin (Lyrica) 150 MG capsule TAKE ONE CAPSULE TWICE DAILY 60 capsule 2 sertraline (Zoloft) 50 MG tablet TAKE ONE TABLET EVERY MORNING 90 tablet 1 No facility-administered encounter medications on file as of 06/22/2024. Consent Obtained: The risks, benefits, indications, potential complications, and alternatives were explained to the patient and informed consent was obtained with good understanding. Treatment Provided: Dental procedures in this visit D7140 - EXTRACTION, ERUPTED TOOTH OR EXPOSED ROOT (ELEVATION AND/OR FORCEPS REMOVAL) 15 (Completed) Service provider: Tello Ramirez DMD Billing provider: Tello Ramirez DMD D7140 - EXTRACTION, ERUPTED TOOTH OR EXPOSED ROOT (ELEVATION AND/OR FORCEPS REMOVAL) 14 (Completed) Service provider: Tello Ramirez DMD Billing provider: Tello Ramirez DMD D9450 - CASE PRESENTATION, DETAILED AND EXTENSIVE TREATMENT PLANNING (Completed) Service provider: Tello Ramirez DMD Billing provider: Tello Ramirez DMD Diagnosis: #14 caries, periodontal disease, supraeruption, pre-prosthetic extraction and #15 chronic apical abscess, non-restorable caries and periodontal disease Pt asymptomatic Topical: 20% Benzocaine Anesthesia: 2% Lidocaine (Xylocaine) w/ 1:100,000 epinephrine and 4% Septocaine (Articaine) w/ 1:200,000 epinephrine Number of Cartridges: 1 of each Injection Type: Buccal infiltration and Palatal infiltration Confirmed profound anesthesia. Pharyngeal curtain and bite block placed. Removed tooth with elevators and forceps. Apices intact. Surgical Extraction: N/A Socket curetted & irrigated with sterile water. Compressed alveolar bone. Sutures: None Needed All adjacent teeth intact. Hemostasis achieved. Complications: None Written and verbal post-op instructions given. Patient discharged in stable condition; ambulatory, alert, and oriented. NV: evaluation of healing and impressions for maxillary and mandibular RPDs Senior Product Engineer: Luh Dugan Dentist: Tello Ramirez DMD documented in this encounter Plan of Treatment Upcoming Encounters Date Type Department Care Team (Late st Contact Info) Description 07/20/2024 3:00 PM EST Office Visit [facility] ADULT D[facility]AL [address] [place] [address] Tello Ramirez DMD [address] [place] [address] Scheduled Orders Name Type Priority Associated Diagnoses Orde r Schedule DENTURE IMPRESSION Dental Routine 1 Occu rrences starting 06/22/2024 documented as of this encounter Procedures Procedure Name Priority Date/Time Associated Diagnosis Comments 14 EXTRACTION, ERUPTED TOOTH OR EXPOSED ROOT (ELEVATION AND/OR FORCEPS REMOVAL) Routine 06/22/2024 1:00 PM EST Dental caries Periodontal disease 15 EXTRACTION, ERUPTED TOOTH OR EXPOSED ROOT (ELEVATION AND/OR FORCEPS REMOVAL) Routine 06/22/2024 1:00 PM EST Dental caries Periodontal disease ADJUNCTIVE GENERAL SERVICES - PROFESSIONAL VISITS - CASE PRESENTATION, SUBSEQUENT TO DETAILED AND EXTENSIVE TREATMENT PLANNING Routine 06/22/2024 1:00 PM EST Dental caries Periodontal disease documented in this encounter Visit Diagnoses Diagnosis Dental caries- Primary Unspecified dental caries Periodontal disease Unspecified gingival and periodontal disease documented in this encounter Additional Health Concerns Assessment Noted Time PHQ-9 Depression Total Score: 15 024 8:53 AM EDT documented as of this encounter Care Teams Retail Department Reset Relationship Specialty Start Date End Date Maryan Santamaria MD [address] [place] [phone] PCP - General Family Medicine 03/17/21 documented as of this encounter
--- OUTSIDE RECORDS SUMMARY | 2024-07-08 17:47 | XMS_ITS | Encounter Summary ---
Author Organization [employer] Address [address] [facility] [address] [place] [address] Care Team Providers Care Industrial Locomotive Operator Name Role Phone Maryan Santamaria MD Primary Care Provider [phone] Encounter Details Date Type Department Care Team (Late st Contact Info) Description 07/08/2024 Orders Only [facility] External Provider, [facility] Social History Tobacco Use Types Packs/Day Years [...] Description 07/20/2024 3:00 PM EST Office Visit [facility] AD[facility] D[facility] [address] [place] [address] Tello Ramirez, DMD [address] [place] [address] documented as of this encounter Procedures Procedure Name Priority Date/Time Associated Diagnosis Comments D DIMER HIGH SENSITIVITY Routine 07/08/2024 4:27 PM EST SARS COV2/INFLUENZA A/B AND RSV RNA QL NAAT Routine 07/08/2024 4:27 PM EST LACTIC ACID Routine 07/08/2024 4:27 PM EST XR CHEST 1 VIEW Routine 07/08/2024 3:52 PM EST documented in this encounter Results * SARS-CoV-2 RNA, Influenza A/B, and RSV RNA, Ql NAAT (07/08/2024 4:27 PM EST) Influenza A PCR NEGATIVE Negative [facility] Influenza B PCR NEGATIVE Negative [facility] Resp Syncy Virus RNA Qual PCR NEGATIVE Negative [facility] SARS COV2 PCR NEGATIVE Negative [facility] Comment:All test results mus t be [...] use by authorized laboratories.Testing performed on the [employer] GeneXpert utilizingreal-time RT-PCR.All SARS CoV2 and positive influenza A/B results arereported to [facility]. 07/08/2024 4:27 PM EST 07/08/2024 4:32 PM EST Generic External Data Provider LAB MICROBIOLOGY - GENERAL ORDERABLES Final Result Performing Organization Address [facility] de Phone Number [facility] [address] [place] [phone] * D Dimer High Sensitivity (07/08/2024 4:27 PM EST) Pathologist [facility] D Dimer High Sensitivity <150 NG/ML [facility] Comment:D-DIMER HS REFERENCE RANGENote: Our assay reports D-Dimer Units (D- DU).The cut-off value for venous thromboembolic (VTE) disease is230 ng/mL. This value has a very high negative predictivevalue when the patient has a low to moderate clinicalprobability of VTE.The upper limit of normal is 243 ng/mL. 07/08/2024 4:27 PM EST 07/08/2024 4:35 PM EST Generic External Data Provider LAB BLOOD ORDERAB LES Final Result Performing Organization Address [facility] de Phone Number [facility] [address] [place] [phone] * Lactic Acid (07/08/2024 4:27 PM EST) Pathologist [facility] Lactic Acid 1.3 0.5 - 2.0 mmol/L [facility] 07/08/2024 4:27 PM EST 07/08/2024 4:32 PM EST us Generic External Data Provider LAB BLOOD ORDERAB LES Final Result [facility] [address] [facility] [place] [address] [phone] * XR Chest 1 View (07/08/2024 3:52 PM EST) Anatomical Region Laterality Modality Chest Radiographic Ines ging 07/08/2024 3:52 PM EST Narrative 07/08/2024 4:04 PM EST ? [facility] ?[address] ?[place] [address] ?XRay Report ? Signed ? Patient: Christiano Ellis,Ortega L ?MR#: ?? [id number] ? : 1970 ?Acct:[id number] ? Age/Sex: 54 / M ?ADM Date: 07/08/24 ? Loc: HO.ED ? Attending Dr: ? Ordering Physician: Cat Vinson MD ?? Date of Service: 07/08/24 ?? Procedure(s): XR chest 1V ?? Accession Number(s): [id number] ? cc: Cat Vinson MD; Maryan Santamaria [...] DD/ 1552 ? TD/TT: 07/08/24 1552 ? Lens Cementer: ? Procedure Note Donotjessicater, Image - 07/08/[address] [address] XRay Report Signed Patient: Ortega Lane LMR#: [id number] : 1970Acct:[id number] Age/Sex: 54 / MADM Date: 07/08/24 Loc: HO.ED Attending Dr: Ordering Physician: Cat Vinson MD Date of Service: 07/08/24 Procedure(s): XR chest 1V Accession Number(s): [id number] cc: Cat Vinson MD; Maryan Santamaria MD [...] by: Chuck Doss MD 07/08/2024 04:01 PM [facility] Dictated By: Chuck Doss MD Signed By: <Electronically signed by Chuck Doss MD in OV> 07/08/24 1601 DD/ 1552 TD/TT: 07/08/24 1552 Lens Cementer: [facility] External Provider IMG XR PROCEDURES Final Result documented in this encounter Visit Diagnoses Not on filedocumented in this encounter Additional Health Concerns Assessment Noted Time PHQ-9 Depression Total Score: 15 024 8:53 AM EDT documented as of this encounter Care Teams Industrial Locomotive Operator Relationship Specialty Start Date End Date Maryan Santamaria MD [address] [place] [address] PCP - General Family Medicine 03/17/21 documented as of this encounter
[2024-07-08 18:06] VITALS: BP 132/87; PULSE 95; RESP 18; TEMP 37.2; O2SAT 96
== END 2024-07-08 18:07 | disposition home or self-care (01) ==
PROVIDERS: Emergency Provider Emergency Medicine Emergency Medical Services; PCP Family Medicine
DX: J18.9 Pneumonia, unspecified organism (principal); R07.89 Other chest pain; R06.02 Shortness of breath; R05.9 Cough, unspecified; F17.210 Nicotine dependence, cigarettes, uncomplicated; Z03.818 Encounter for observation for suspected exposure to other biological agents ruled out; Z79.899 Other long term (current) drug therapy
CPT/HCPCS: 0241U; 36415; 71045; 80053; 83605; 84484; 85025; 85379; 87040; 93005; 96374; 99284; J0696

== ENCOUNTER → 2024-07-08 15:10 | Outpatient (BNV) | payer MEDICAID, SELFPAY | PROVIDERS: Emergency Provider Emergency Medicine Emergency Medical Services; PCP Family Medicine; Visit Provider Internal Medicine Cardiovascular Disease | DX: R07.9 Chest pain, unspecified (principal) | CPT/HCPCS: 93010 ==

== ENCOUNTER → 2024-07-08 15:16 | Outpatient (BNV) | payer MEDICAID, SELFPAY | PROVIDERS: Emergency Provider Emergency Medicine Emergency Medical Services; PCP Family Medicine; Visit Provider Radiology Diagnostic Radiology | DX: R07.9 Chest pain, unspecified (principal) | CPT/HCPCS: 71045 ==

== ENCOUNTER 2024-08-06 09:05 | Outpatient (REF) | payer MEDICAID, SELFPAY ==
--- NOTE | ~2024-08-06 | XR_ITS ---
EXAMINATION: XR CERVICAL SPINE CLINICAL INFORMATION: Z98.1 - Arthrodesis status COMPARISON: November 20, 2023. TECHNIQUE: 4 views of the cervical spine, inclusive of flexion and extension views, were obtained. FINDINGS: Intervertebral body disc spacer, C6-7. Multilevel syndesmophyte formation and marginal osteophyte formation C3 C6. Grade 1 retrolisthesis C3-4 in neutral position which maintains during flexion and extension position. Transcervical junction is intact. No acute cortical disruption. Upper airways patent. XR/XR cervical spine 4V IMPRESSION: Grade 1 retrolisthesis C3-4 without instability. Multilevel cervical spondylosis. Intact arthrodesis, C6-7. Electronically signed by: Quentin Mccormack MD 08/06/2024 03:02 PM [employer]
--- OUTSIDE RECORDS SUMMARY | 2024-08-06 09:41 | XMS_ITS | Encounter Summary ---
Author Organization [employer] Address [address] [facility] 7t [place] [address] Care Team Providers Care Director Pharmaceutical Name Role Phone Maryan Santamaria MD Primary Care Provider [phone] Encounter Details Date Type Department Care Team (Late st Contact Info) Description 07/08/2024 Orders Only [facility] External Provider, [facility] Social History Tobacco Use Types Packs/Day Years [...] as of this encounter Plan of Treatment Not on file documented as of this encounter Procedures Procedure Name Priority Date/Time Associated Diagnosis Comments D DIMER HIGH SENSITIVITY Routine 07/08/2024 4:27 PM EST BLOOD CULTURE (SECOND) Routine 07/08/2024 4:27 PM EST SARS COV2/INFLUENZA A/B AND RSV RNA QL NAAT Routine 07/08/2024 4:27 PM EST LACTIC ACID Routine 07/08/2024 4:27 PM EST BLOOD CULTURE (FIRST) Routine 07/08/2024 4:20 PM EST XR CHEST 1 VIEW Routine 07/08/2024 3:52 PM EST documented in this encounter Results * Blood Culture (Second) (07/08/2024 4:27 PM EST) Blood Venous blood specimen / Unknown 07/08/2024 4:27 PM EST 07/08/2024 4:32 PM EST Comment:Blood Narrative [facility] - 07/13/2024 6:33 PM EST Blood Culture (Second) No growth after 5 days. Specimen Source: Blood us Generic External Data Provider LAB MICROBIOLOGY - GENERAL ORDERABLES Final Result [facility] [address] [place] [address] [phone] * SARS-CoV-2 RNA, Influenza A/B, and RSV RNA, Ql NAAT (07/08/2024 4:27 PM EST) Pathologist [facility] Influenza A PCR NEGATIVE Negative [facility] Influenza B PCR NEGATIVE Negative [facility] Resp Syncy Virus RNA Qual PCR NEGATIVE Negative [facility] SARS COV2 PCR NEGATIVE Negative [facility] Comment:All test results mus [...] use by authorized laboratories.Testing performed on the [employer] GeneXpert utilizingreal-time RT-PCR.All SARS CoV2 and positive influenza A/B results arereported to [facility]. 07/08/2024 4:27 PM EST 07/08/2024 4:32 PM EST us Generic External Data Provider LAB MICROBIOLOGY - GENERAL ORDERABLES Final Result [facility] [address] [place] [address] [phone] * D Dimer High Sensitivity (07/08/2024 4:27 PM EST) [facility] D Dimer High Sensitivity <150 NG/ML [facility] Comment:D-DIMER HS REFERENCE RANGENote: Our [...] ORDERAB LES Final Result Performing Organization Address [facility] de Phone Number [facility] [address] [place] [phone] * Lactic Acid (07/08/2024 4:27 PM EST) Lactic Acid 1.3 0.5 - 2.0 mmol/L [facility] 07/08/2024 4:27 PM EST 07/08/2024 4:32 PM EST Generic External Data Provider LAB BLOOD ORDERAB LES Final Result Performing Organization Address [facility] Phone Number [facility] [address] [place] [phone] * Blood Culture (First) (07/08/2024 4:20 PM EST) Blood Venous blood specimen / Unknown 07/08/2024 4:20 PM EST 07/08/2024 4:35 PM EST Comment:Blood Narrative [facility] - 07/13/2024 6:35 PM EST Blood Culture (First) No growth after 5 days. Specimen Source: Blood Generic External Data Provider LAB MICROBIOLOGY - GENERAL ORDERABLES Final Result Performing Organization Address [facility] de Phone Number [facility] [address] [place] [phone] * XR Chest 1 View (07/08/2024 3:52 PM EST) Anatomical Region Laterality Modality Chest Radiographic Ines ging 07/08/2024 3:52 PM EST Narrative 07/08/2024 4:04 PM EST ? [facility] ?[address] ?[place] [address] ?XRay Report ? Signed ? Patient: Alvarado Ellis,Ortega L ?MR#: ?? [id number] ? : 1970 ?Acct:[id number] ? Age/Sex: 54 / M ?ADM Date: 07/08/24 ? Loc: HO.ED ? Attending Dr: ? Ordering Physician: Cat Vinson MD ?? Date of Service: 07/08/24 ?? Procedure(s): XR chest 1V ?? Accession Number(s): [id number] ? cc: Cat Vinson MD; Maryan Santamaria [...] DD/ 1552 ? TD/TT: 07/08/24 1552 ? Termite Inspector: ? Procedure Note Remedios, Chen - 07/08/[address] [address] XRay Report Signed Patient: Ortega Lane LMR#: [id number] : 1970Acct:[id number] Age/Sex: 54 / MADM Date: 07/08/24 Loc: HO.ED Attending Dr: Ordering Physician: Cat Vinson MD Date of Service: 07/08/24 Procedure(s): XR chest 1V Accession Number(s): [id number] cc: Cat Vinson MD; Maryan Santamaria MD [...] by: Chuck Doss MD 07/08/2024 04:01 PM [facility] Dictated By: Chuck Doss MD Signed By: <Electronically signed by Chuck Doss MD in OV> 07/08/24 1601 DD/ 1552 TD/TT: 07/08/24 1552 Termite Inspector: [facility] External Provider IMG XR PROCEDURES Final Result documented in this encounter Visit Diagnoses Not on filedocumented in this encounter Additional Health Concerns Assessment Noted Time PHQ-9 Depression Total Score: 15 024 8:53 AM EDT documented as of this encounter Care Teams Director Pharmaceutical Relationship Specialty Start Date End Date Marayn Santamaria MD [address] [place] [address] PCP - General Family Medicine 03/17/21 documented as of this encounter
--- OUTSIDE RECORDS SUMMARY | 2024-08-06 09:41 | XMS_ITS | Clinical Summary ---
Author Organization [facility] Address [address] [place] [address] Care Team Providers Care Help Desk Team Leader Name Role Phone Hiren Alcala MD Primary Care Provider [phone] Allergies No known active allergies Medications cyclobenzaprine (FLEXERIL) 10 mg tablet Take 1 [...] Name Administration Dates Next Due Hepatitis B (Sdxcakc-B-Afnwi , Recombivax HB-Adult) 19yo and older 03/23/2013,02/19/2013 [...] Recorded Sex Assigned at Not on file Legal Sex Male 8:26 AM EST Gender Identity Not on file Sexual Orientation Not on file Obstetrics History Plan of Treatment Health Maintenance Due Date Last Done Comments Pneumococcal Vaccine: 50+ Years (1 of 2 - PCV) 1989 Pneumococcal Vaccine: Pediatrics (0 to 5 Years) and At-Risk Patients (6 to 64 Years) (1 of 2 - PCV) 1989 Hepatitis B Vaccines (3 of 3 - [...] patient's age to complete this topic Meningococcal B Vacine Aged Out No lo nger eligible based on patient's age to complete [...] 151 0 - 200 mg/dL HDL 93 >=40 mg/dL LDL Cholesterol 43 0 - 100 mg/dL Blood Venous blood specimen / Unknown us Historical Provider LAB BLOOD ORDERABLES Genevieve l Result from Last 3 Months or Most Recently Relevant to Health Maintenance Care Teams Help Desk Team Leader Relationship Specialty Start Date End Date Hiren Alcala MD PCP - General Internal Medicine 05/29/11
--- OUTSIDE RECORDS SUMMARY | 2024-08-06 09:41 | XMS_ITS | Encounter Summary ---
Author Organization [employer] Address [address] [facility] [address] [place] [address] Care Team Providers Care Stem Lead Former Name Role Phone Maryan Santamaria MD Primary Care Provider [phone] Reason for Visit * Reason Onset Date Comments PT-1 08/20/2023 Encounter Details Date Type Department Care Team ([facility] st Contact Info) Description 08/20/2023 Telephone [facility] MEDICINE [address] [place] [address] Maryan Santamaria MD [address] [place] [address] PT-1 Social History Tobacco Use Types Packs/Day [...] 08/28 Time: 9:00 Visits: 3 Address: [address] [place], [place] Facility: [facility] Norberto Castro Wheel Chair: no Crm Specialist Needed: no PT1 needed Date: 09/01 Time: 10:30 Visits: 4 Address: [address] [place] [address] Facility: [facility] [address] Chair: no Crm Specialist Needed: no PT1 needed Date: 09/03 Time: 10:30 Visits: 3 Address: [address] [place] [address] [address] [facility] Dr. Landon Hammer Wheel Chair: no Crm Specialist Needed: no documented in this encounter Plan of Treatment Not on file documented as of this encounter Visit Diagnoses Not on filedocumented in this encounter Additional Health Concerns Assessment Noted Time PHQ-9 Depression Total Score: 13 023 9:21 AM EST documented as of this encounter Care Teams Stem Lead Former Relationship Specialty Start Date End Date Maryan Santamaria MD [address] [place] [address] PCP - General Family Medicine 03/17/21 documented as of this encounter
--- OUTSIDE RECORDS SUMMARY | 2024-08-06 09:41 | XMS_ITS | Encounter Summary ---
Author Organization [employer] Address [address] [facility] [address] [place] [address] Care Team Providers Care High [employer] Business Teacher Name Role Phone Maryan Santamaria MD Primary Care Provider [phone] Encounter Details Date Type Department Care Team (Late st Contact Info) Description 08/01/2023 Abstract [facility] ADULT DENTAL [address] [place] [address] Norberto Castro DDS [address] [facility] [place] [address] Social History Tobacco Use Types Packs/Day Years [...] documented as of this encounter Care Teams High [employer] Business Teacher Relationship Specialty Start Date End Date Maryan Santamaria MD [address] [place] [address] PCP - General Family Medicine 03/17/21 documented as of this encounter
--- OUTSIDE RECORDS SUMMARY | 2024-08-06 09:41 | XMS_ITS | Encounter Summary ---
Author Organization [employer] Address [address] [facility] [address] [place] [address] Care Team Providers Care Transformation Specialist Name Role Phone Maryan Santamaria MD Primary Care Provider [phone] Reason for Visit * Reason Onset Date Comments case back from lab 07/25/2023 Encounter Details Date Type Department Care Team (Late st Contact Info) Description 07/25/2023 Telephone [facility] ADULT DENTAL [address] [place], [place] [id number] Norberto Castro DDS [address] [place] [address] case back from lab Social History Tobacco [...] either way. Pls reach out to patient. documented in this encounter Plan of Treatment Not on file documented as of this encounter Visit Diagnoses Not on filedocumented in this encounter Additional Health Concerns Assessment Noted Time PHQ-9 Depression Total Score: 13 023 9:21 AM EST documented as of this encounter Care Teams Transformation Specialist Relationship Specialty Start Date End Date Maryan Santamaria MD [address] [place] [address] PCP - General Family Medicine 03/17/21 documented as of this encounter
--- OUTSIDE RECORDS SUMMARY | 2024-08-06 09:41 | XMS_ITS | Clinical Summary ---
Author Organization [employer] Address [address] [facility] 7[address] [place] [address] Care Team Providers Care Field Crop Harvest Contractor Name Role Phone Maryan Santamaria MD Primary Care Provider [phone] Allergies No known active allergies Medications naloxone (Narcan) 4 mg/0.1 mL nasal spray FOR SUSPECTED OPIOID OVERDOSE. SPRAY 0.1mL IN ONE NOSTRIL. REPEAT IN ALTERNATE NOSTRIL EVERY 2-3 MINUTES IF NEEDED. SEEK MEDICAL ATTENTION IMMEDIATELY EVEN IF PT RESPONDS. 2 Active omeprazole (PriLOSEC) [address] capsule Take 20 mg by mouth in the morning. 2 Active polyethylene glycol, PEG, 3350 (Glycolax) 17 GM/SCOOP powder MIX with liquid AND DRINK ONCE DIRECTED THE DAY BEFORE your PROCEDURE 2 Active gabapentin (Neurontin) 300 MG capsuleIndicatio ns:Chronic midline low back pain, unspecified whether sciatica present Take 1 capsule (300 mg) by mouth 3 times daily. 90 capsule 2 3 Active fluticasone (Flonase) 50 MCG/ACT nasal spray Administer 1-2 sprays into each nostril in the morning. Shake gently. Before first use, prime pump. After use, clean tip and replace cap. 16 g 2 4 09/02/19 25 Active montelukast (Singulair) 10 MG tablet Take 1 tablet (10 mg) by mouth in the morning. 30 tablet 11 4 09/02/19 25 Active albuterol (Ventolin HFA) 108 (90 Base) MCG/ACT inhaler Inhale 2 puffs every 4 (four) hours if needed for wheezing. 18 g 11 4 Active Acetaminophen Extra Strength 500 MG tablet TAKE TWO TABLETS BY MOUTH EVERY EIGHT HOURS NEEDED 120 tablet 1 4 Active Mometasone Furoate (Asmanex, 30 Metered Doses,) 110 MCG/ACT aerosol powder Inhale 1 puff 2 times daily. 60 each 3 4 Active sertraline (Zoloft) 50 MG tablet TAKE ONE TABLET EVERY MORNING 90 tablet 1 4 Active oxyCODONE (Roxicodone) 5 MG immediate release tablet 5 mg. 4 Active ibuprofen 600 MG tablet TAKE ONE TABLET THREE TIMES DAILY 270 tablet 1 5 Active pregabalin (Lyrica) 150 MG capsule TAKE ONE CAPSULE TWICE DAILY 60 capsule 2 5 Active Active Problems Problem Noted Date Diagnosed Date Osteoarthritis of left knee 03/05/2024 Left patella fracture 03/05/2024 Physical exam 09/02/2023 Assessment & Plan (09/02/2023 11:12 PM EDT): Labs: Lipid Panel IZ: Tdap, PCV-20 Polyarthralgia 09/02/2023 Assessment & Plan (09/02/2023 11:11 PM EDT): Patient has Hx of osteoarthritis. We discussed possible referral to a valet parking attendant for further evaluation and management. Explore non-opiate pain management options and consider referral to a shading painter. Labs: CBC, C-reactive, Sed Rate, LISA [...] 9:28 AM EST): Patient reported that the Lincoln medication is not helping with pain . I discontinued Lincoln medication and prescribed Lyrica. I have also [...] his medication had been discontinued by the cupola operator insulation. I informed the pt that I sent a new order for a similar medication on the . Had to call the pharmacy to sort out issue with insurance approval. 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/26/2018 Wears partial dentures 03/26/2018 Encounters Date Type Department Care Team Description 07/08/2024 Orders Only [facility] External Provider, [facility] 06/26/2024 Refill [facility] [address] [place] [address] Maryan Santamaria MD 06/22/2024 1:00 PM EST Office Visit [facility] [address] [place] [address] Tello Ramirez DMD Dental caries (Primary Dx); Periodontal disease 06/11/2024 9:00 AM EST Office Visit [facility] [address] [place] [address] Jasmin Marie Dental calculus (Primary Dx) 06/01/2024 10:00 AM EST Office Visit [facility] [address] [place] [address] Tello Ramirez DMD Dental caries (Primary Dx) 06/01/2024 Refill [facility] [address] [place] [address] Maryan Santamaria MD 05/20/2024 Orders Only GENERIC EXTERNAL DATA DEPARTMENT Provider, Generic External Data 05/19/2024 10:00 AM EST Office Visit [facility] [address] [place] [address] Jasmin Marie Dental calculus (Primary Dx) from Last 3 Months Immunizations Name Administration [...] 04/17/2024 8:49 AM EDT Plan of Treatment Health Maintenance Due Date [...] 04/17/2025 04/17/2024, 04/17/20 Dental X-Ray: Bitewings 05/05/2025 05/04/20 24, 05/15/2023, 01/27/2010 Tobacco Screening 06/22/2025 06/22/2024 Dental [...] Hepatitis C Screening Completed 03/07/2022 Pneumococcal Vaccine: 50+ Years Completed 09/02/2023, 12/04/2016 HIB Vaccines Aged Out [...] 4:27 PM EST BLOOD CULTURE (SECOND) Routine 4:27 PM EST SARS COV2/INFLUENZA A/B AND RSV RNA QL NAAT Routine 07/08/2024 4:27 PM EST BLOOD CULTURE (FIRST) Routine 07/08/2024 4:20 PM EST XR CHEST 1 VIEW Routine 07/08/2024 3:52 PM EST CASE PRESENTATION, DETAILED AND EXTENSIVE TREATMENT PLANNING Routine 06/22/2024 1:00 PM EST Dental caries Periodontal disease 14 EXTRACTION, ERUPTED TOOTH OR EXPOSED ROOT (ELEVATION/FORCEPS REMOVAL) Routine 06/22/2024 1:00 PM EST Dental caries Periodontal disease 15 EXTRACTION, ERUPTED TOOTH OR EXPOSED ROOT (ELEVATION/FORCEPS REMOVAL) Routine 06/22/2024 1:00 PM EST Dental caries Periodontal disease ORAL HYGIENE INSTRUCTIONS Routine 06/11/2024 9:00 AM EST CASE PRESENTATION, DETAILED AND EXTENSIVE TREATMENT PLANNING Routine 06/11/2024 9:00 AM EST LR PERIODONTAL SCALING AND ROOT PLANING - 4 OR MORE TEETH PER QUADRANT Routine 06/11/2024 9:00 AM EST UR PERIODONTAL SCALING AND ROOT PLANING - 4 OR MORE TEETH PER QUADRANT Routine 06/11/2024 9:00 AM EST FL GUIDANCE IN OR Routine 06/03/2024 10: 30 AM EST CASE PRESENTATION, DETAILED AND EXTENSIVE TREATMENT PLANNING Routine 06/01/2024 10:00 AM EST Dental caries 12 MOD RESIN-BASED COMPOSITE - 3 SURF, POSTERIOR Routine 06/01/2024 10:00 AM EST Dental caries 8 L RESIN-BASED COMPOSITE - 1 SURF, ANTERIOR Routine 06/01/2024 10:00 AM EST Dental caries COMPREHENSIVE METABOLIC PANEL Routine 05/20/2024 1:02 PM EST CBC Routine 05/20/2024 1:02 PM EST ORAL HYGIENE INSTRUCTIONS Routine 05/19/2024 10:00 AM EST CASE PRESENTATION, DETAILED AND EXTENSIVE TREATMENT PLANNING Routine 05/19/2024 10:00 AM EST LL PERIODONTAL SCALING AND ROOT PLANING - 1 TO 3 TEETH PER QUADRANT Routine 05/19/2024 10:00 AM EST UL PERIODONTAL SCALING AND ROOT PLANING - 4 OR MORE TEETH PER QUADRANT Routine 05/19/2024 10:00 AM EST Full PROPHYLAXIS - ADULT Routine 05/04/2024 9:00 AM EST BITEWINGS - 4 RADIOGRAPHIC IMAGES Routine 05/04/2024 9:00 AM EST LAB COLOGUARD?? COLON CANCER SCREEN Routine 10/04/2023 12:30 PM EDT Colon cancer screening INTRAORAL - COMPLETE SERIES OF RADIOGRAPHIC IMAGES Routine 05/15/2023 9:00 [...] EST) D Dimer High Sensitivity <150 NG/ML [facility] Comment:D-DIMER HS REFERENCE RANGENote: Our assay [...] Provider LAB BLOOD ORDERAB LES Final Result [facility] [address] [place] [phone] * Blood Culture (Second) (07/08/2024 4:27 PM EST) Blood Venous blood specimen / Unknown 07/08/2024 4:27 PM EST 07/08/2024 4:32 PM EST Comment:Blood Narrative [facility] - 07/13/2024 6:33 PM EST Blood Culture (Second) No growth after 5 days. Specimen Source: Blood Generic External Data Provider LAB MICROBIOLOGY - GENERAL ORDERABLES Final Result Performing Organization Address [facility] Co de Phone Number [facility] [address] [place] [phone] * SARS-CoV-2 RNA, Influenza A/B, and RSV RNA, Ql NAAT (07/08/2024 4:27 PM EST) Influenza A PCR NEGATIVE Negative [facility] Influenza B PCR NEGATIVE Negative [facility] Resp Syncy Virus RNA Qual PCR NEGATIVE Negative [facility] SARS COV2 PCR NEGATIVE Negative [facility] Comment:All test results mus t be [...] use by authorized laboratories.Testing performed on the [employer] GeneXpert utilizingreal-time RT-PCR.All SARS CoV2 and positive influenza A/B results arereported to [facility]. 07/08/2024 4:27 PM EST 07/08/2024 4:32 PM EST Generic External Data Provider LAB MICROBIOLOGY - GENERAL ORDERABLES Final Result Performing Organization Address [facility] Co de Phone Number [facility] [address] [place] [phone] * Lactic Acid (07/08/2024 4:27 PM EST) Lactic Acid 1.3 0.5 - 2.0 mmol/L [facility] 07/08/2024 4:27 PM EST 07/08/2024 4:32 PM EST us Generic External Data Provider LAB BLOOD ORDERAB LES Final Result Performing Organization Address [facility] de Phone Number [facility] [address] [place] [address] [phone] * Blood Culture (First) (07/08/2024 4:20 PM EST) Blood Venous blood specimen / Unknown 07/08/2024 4:20 PM EST 07/08/2024 4:35 PM EST Comment:Blood Narrative [facility] - 07/13/2024 6:35 PM EST Blood Culture (First) No growth after 5 days. Specimen Source: Blood Generic External Data Provider LAB MICROBIOLOGY - GENERAL ORDERABLES Final Result Performing Organization Address [facility] de Phone Number [facility] [address] [place] [address] [phone] * XR Chest 1 View (07/08/2024 3:52 PM EST) Anatomical Region Laterality Modality Chest Radiographic Ines ging 07/08/2024 3:52 PM EST Narrative 07/08/2024 4:04 PM EST ? [facility] ?[address] ?[place] [address] ?XRay Report ? Signed ? Patient: Christiano Ellis,Ortega L ?MR#: ?? [id number] ? : 1970 ?Acct:[id number] ? Age/Sex: 54 / M ?ADM Date: 07/08/24 ? Loc: HO.ED ? Attending Dr: ? Ordering Physician: Cat Vinson MD ?? Date of Service: 07/08/24 ?? Procedure(s): XR chest 1V ?? Accession Number(s): [id number] ? cc: Cat Vinson MD; Maryan Santamaria [...] DD/ 1552 ? TD/TT: 07/08/24 1552 ? Senior Mechanical Estimator: ? Procedure Note Donmaryter, Image - 07/08/2024 [place] [address] XRay Report Signed Patient: Ortega Lane LMR#: [id number] : 1970Acct:[id number] Age/Sex: 54 / MADM Date: 07/08/24 Loc: HO.ED Attending Dr: Ordering Physician: Cat Vinson MD Date of Service: 07/08/24 Procedure(s): XR chest 1V Accession Number(s): [id number] cc: Cat Vinson MD; Maryan Santamaria MD [...] by: Chuck Doss MD 07/08/2024 04:01 PM [facility] Dictated By: Chuck Doss MD Signed By: <Electronically signed by Chuck Doss MD in OV> 07/08/24 1601 DD/ 1552 TD/TT: 07/08/24 1552 Senior Mechanical Estimator: [facility] External Provider IMG XR PROCEDURES Final Result * FL Guidance in OR (06/03/2024 10:30 AM EST) Anatomical Region Laterality Modality X-Ray Angiograph y 06/03/2024 10:3 0 AM EST Narrative 07/16/2024 7:50 AM EST ? [facility] ?[address] ?[place], [place] [address] ? Fluoroscopy Report ? Signed ? Patient: Christiano EllisOrtega ?MR#: ?? [id number] ? : 1970 ?Acct:[id number] ? Age/Sex: 54 / M ?ADM Date: 06/03/24 ? Loc: HO.SSS ? Attending Dr: Renan Villaseñor MD, PhD ? Ordering Physician: Renan Villaseñor MD, PhD ?? Date of Service: 06/03/24 ?? Procedure(s): FL guidance in OR ?? Accession Number(s): [id number] ? cc: Renan Villaseñor MD, PhD; Maryan Santamaria MD ? EXAMINATION: ?? FLUORO GUIDANCE IN OR ? CLINICAL INFORMATION: ?? C6-C7 ACDF. ? COMPARISON: ?? None available. ? TECHNIQUE: ?? Fluoroscopy supervised by: Dr. Seth Justice. ?? Fluoroscopy time: 5.0 seconds. ?? Cumulative Dose: 0.1871 mGy. ?? DAP: 0.0814 Gy-cm2 (aldrich-centimeter squared). ?? Images: 2. ? FINDINGS: ?? ACDF hardware is present at C6-C7. Degenerative changes are present in ?? the spine. ? FL/FL guidance in OR ?? IMPRESSION: ?? Fluoroscopy during procedure. Please see procedure report for ?? additional information. ? Electronically signed by: ??Trevor Singh MD ??07/16/2024 07:47 AM EST ?? RP ? Dictated By: ?Trevor Singh MD ? Signed By: ?<Electronically signed by Trevor Singh MD in OV> ? 07/16/24 0747 ? DD/ 1030 ? TD/TT: 06/03/24 1150 ? Senior Mechanical Estimator: SS ? Procedure Note Donotuseinterpreter, Image - 07/16/[address] [address] Fluoroscopy Report Signed Patient: Ortega Lane LMR#: [id number] : 1970Acct:[id number] Age/Sex: 54 / MADM Date: 06/03/24 Loc: HO.SSS Attending Dr: Renan Villaseñor MD, PhD Ordering Physician: Renan Villaseñor MD, PhD Date of Service: 06/03/24 Procedure(s): FL guidance in OR Accession Number(s): [id number] cc: Renan Villaseñor MD, PhD; Maryan Santamaria MD EXAMINATION: FLUORO GUIDANCE IN OR CLINICAL INFORMATION: C6-C7 ACDF. COMPARISON: None available. TECHNIQUE: Fluoroscopy supervised by: Dr. Seth Justice. Fluoroscopy time: 5.0 seconds. Cumulative Dose: 0.1871 mGy. DAP: 0.0814 Gy-cm2 (aldrich-centimeter squared). Images: 2. FINDINGS: ACDF hardware is present at C6-C7. Degenerative changes are present in the spine. FL/FL guidance in OR IMPRESSION: Fluoroscopy during procedure. Please see procedure report for additional information. Electronically signed by: Trevor Singh MD 07/16/2024 07:47 AM EST Dictated By: Trevor Singh MD Signed By: <Electronically signed by Trevor Singh MD in OV> 07/16/24 0747 DD/ 1030 TD/TT: 06/03/24 1150 Senior Mechanical Estimator: ANITA us [facility] External Provider IMG IR PROCEDURES Edited Result - Final * (ABNORMAL) CBC (05/20/2024 1:02 PM EST) White Blood Count 8.8 4.8 - 10.8 X10*3/uL [facility] Red Blood Count 4.51(L) 4.60 - 5.80 X10*6/uL [facility] Hemoglobin 14.9 14.0 - 18.0 g/dl [facility] Hematocrit 43.9 42.0 - 52.0 % [facility] Mean Corpuscular Volume 97.3 80.0 - 98.0 fL [facility] Mean Corpuscular Hemoglobin 33.0 27.0 - 33.0 pg [facility] Mean Corpuscular HGB Conc 33.9 31.0 - 36.0 g/dl [facility] Red Cell Distribution Width 12.6 11.0 - 16.0 % [facility] Platelet Count 275 160 - 400 X10*3/uL [facility] Mean Platelet Volume 8.8(L) 9.4 - 12.4 fL [facility] NRBC Pct Auto 0.0 0.0 - 0.2 /100WBC [facility] NRBC Abs Auto 0.000 0.0 - 0.012 X10*3/uL [facility] 05/20/2024 1:02 PM EST 05/20/2024 1:02 PM EST us Generic External Data Provider LAB BLOOD ORDERAB LES Final Result [facility] [address] [place], [place] [phone] * (ABNORMAL) Comprehensive Metabolic Panel (05/20/2024 1:02 PM EST) Sodium 137 135 - 145 mmol/L [facility] Potassium 4.2 3.3 - 5.1 mmol/L [facility] Chloride 105 96 - 108 mmol/L [facility] Carbon Dioxide 23 22 - 29 mmol/L [facility] Anion Gap 13 12 - 20 [facility] Urea Nitrogen (BUN) 8(L) 9 - 16 mg/dL [facility] Creatinine, Serum 0.62 0.5 - 1.4 mg/dL [facility] Creatinine Clr Calc Pharmacy 130.4 [facility] Comment:eGFR (calculated fro m the MDRD study equation) and eCrCl(calculated from the Cockcroft-Gault equation) are based ondifferent parameters and may not yield comparable results.If eCrCl result is absurd, please check patient'sheight/weight. Estimated Glomerular Filt Rate >60 [facility] Comment:Chronic Kidney Disea se: Estimated GFR < 60 mL/min/1.86q4Uncwce Kidney Disease: Estimated GFR < 15 mL/min/1.73m2 Glucose 74 60 - 115 mg/dL [facility] Calcium 9.2 8.4 - 10.2 mg/dL [facility] Bilirubin, Total 0.9 0.0 - 1.0 mg/dL [facility] Aspartate Amino Transferase 48(H) 5 - 37 U/L [facility] Alanine Aminotransferase 38 0 - 40 U/L [facility] Total Protein 6.9 6.5 - 8.0 g/dL [facility] Albumin Level 4.0 3.5 - 5.0 g/dL [facility] Alkaline Phosphatase 73 39 - 117 U/L [facility] 05/20/2024 1:02 PM EST 05/20/2024 1:02 PM EST us Generic External Data Provider LAB BLOOD ORDERAB LES Final Result [facility] [address] [place] [phone] * (ABNORMAL) Cologuard?? colon cancer screening (10/04/2023 12:30 PM EDT) Cologuard Result Positive( A) Negative 10/15/2023 2:08 AM EDT [facility] (CLIA #:[id number]) Comment: POSITIVE TEST RESULT. A positive Cologuard [...] screened with both Cologuard and colonoscopy. (Berenice Flores et al, N Engl J Med 2014;370(14):1668-5831.) Cologuard may produce a false negative or false positive result (no colorectal cancer or precancerous polyp present at colonoscopy follow up). A negative Cologuard test result does not guarantee the absence of CRC or advanced adenoma (pre-cancer). The current Cologuard screening interval is every 3 years. ([place] [employer] Society and U.S. Multi-Society Task Force). Cologuard performance data in a 10,000 patient pivotal study using colonoscopy as the reference method can be accessed at the following location: www.Funplus/results. Additional description of the Cologuard test process, warnings and precautions can be found at www.[employer].com. Stool specimen (specimen) 10/04/2023 12:30 PM EDT 10/05/2023 10:57 AM EDT us Maryan Santamaria MD LAB MOLECULAR DIAGNOSTICS ORD ERABLES Final Result [facility] (CLIA #:[id number]) [address] [place] [address], * LIPID PANEL, STANDARD (03/07/2022 11:24 AM EDT) Pathologist [facility] Chol/HDLC Ratio 2.2 <5.0 (calc) [facility] Cholesterol, Total 177 <200 mg/dL [facility] HDL Cholesterol 80 > OR = 40 mg/dL [facility] LDL Cholesterol 74 mg/dL (calc) [facility] Comment: Reference range: <100 ?? [...] LDL-C. ?? Jovan HOWARD et al. ALISE. 2013;310(19): 5294-1260 ?? (http://education.Sleek Africa Magazine/faq/QLS874) Non-HDL Cholesterol 97 <130 mg/dL (calc) [facility] Comment: For patients with diabetes plus 1 major ASCVD risk ?? factor, treating to a non-HDL-C goal of <100 mg/dL ?? (LDL-C of <70 mg/dL) is considered a therapeutic ?? option. Triglycerides 147 <150 mg/dL [facility] 03/07/2022 11:2 4 AM EDT Maryan Santamaria MD LAB BLOOD ORDERABLES Final Re sult [facility] [address] [place] [address], * HEPATITIS C AB W/REFL TO HCV RNA, QN, PCR (03/07/2022 11:23 AM EDT) Pathologist [facility] HEPATITIS C ANTIBODY NON-REACT CARLO NON-REACT CARLO [facility] INDEX 0.06 <1.00 [facility] Comment: ?? HCV antibody was non-reactive. There is no laboratory ?? evidence of HCV infection. ?? In most cases, no further action is required. However, if recent HCV exposure is suspected, a test for HCV RNA (test code 76647) is suggested. ?? For additional information please refer to http://Cheezburger.LuckyCal/faq/ESR35m7 (This link is being provided for informational/ educational purposes only.) ?? 03/07/2022 11:2 3 AM EDT Maryan Santamaria MD HISTORICAL/NON ORDERABLE LABS Final Result Performing Organization Address [facility] Phone Number [facility] [address] * HIV 1/2 ANTIGEN/ANTIBODY,FOURTH GENERATION W/RFL (03/07/2022 11:23 AM EDT) [facility] HIV-1/2 ANTIGEN AND ANTIBODIES, 4TH GENERATION W/ REFLEX NON-REACT CARLO NON-REACT CARLO [facility] Comment: HIV-1 antigen and HIV-1/HIV-2 [...] ? For additional information please refer to http://Cheezburger.LuckyCal/faq/LAZ749 (This link is being provided for informational/ educational purposes only.) ? The performance of this assay has not been clinically validated in patients less than 2 years old. ?? 03/07/2022 11:2 3 AM EDT Maryan Santamaria MD LAB BLOOD ORDERABLES Final Re sult Performing Organization Address [facility] de Phone Number [facility] [address] from Last 3 Months or Most Recently Relevant to Health Maintenance Insurance [facility] C3 D[facility]AL-[facility] MEDICAID STAND ADULT Care Teams Field Crop Harvest Contractor Relationship Specialty Start Date End Date Maryan Santamaria MD [address] [place] [phone] PCP - General Family Medicine 03/17/21
== END 2024-08-06 09:06 | disposition home or self-care (01) ==
LOC: HO.HOSX 09:05
PROVIDERS: Visit Provider Physician Assistant
DX: Z98.1 Arthrodesis status (principal)
CPT/HCPCS: 72050; 99212

== ENCOUNTER 2024-08-06 09:38 | Outpatient (AMB) | payer MEDICAID, SELFPAY ==
--- NOTE | 2024-08-06 09:54 | A.SPINEOV_ITS ---
Intake Visit Reasons: 2nd post op with xrays Intake Note: Mr. Christiano Ellis is here today for his 2nd post op with xrays. Seo Manager Required: No Allergies No Known Allergies [No Known Allergies*] Allergy (Verified 08/06/24 09:55) Assessment & Plan Assessment & Plan (1) S/P cervical spinal fusion: Code(s): Z98.1 - Arthrodesis status Category: Surgical Plan Procedure: C6-7 ACDF Ortega comes in today for his 1st postoperative appointment after C6-7 ACDF was completed a couple of months ago. He is overall doing well but continues to report some posterior neck pain, and feels he is overall de-conditioned as a result of pre-operative pain. We reviewed his X-ray images which show stable placement of surgical construct. We discussed the postoperative healing course and I answered all questions to the best of my ability. No new neurological deficits. Patient ambulates well and rises from a seated position without difficulty. His anterior incision site is closed and well healing. I would like to send Ortega for course of physical therapy for the aforementioned deconditioning and pain, and he may follow up with us thereafter if he continues to have pain. Tahir Villaseñor MD,PhD [facility] Orders: Orders XR cervical spine 4V 08/06/24 Z98.1 - Arthrodesis status PT Evaluation and Treatment 08/06/24 Z98.1 - Arthrodesis status Coding Level of Care Code Global (81181) Diagnoses S/P cervical spinal fusion Z98.1
--- OUTSIDE RECORDS SUMMARY | 2024-08-06 10:27 | XMS_ITS | Encounter Summary ---
Author Organization [employer] Address [address] [facility] [address] [place] [address] Care Team Providers Care Baton Teacher Name Role Phone Maryan Santamaria MD Primary Care Provider [phone] Reason for Visit * Reason Onset Date Comments PT-1 08/20/2023 Encounter Details Date Type Department Care Team ([facility] st Contact Info) Description 08/20/2023 Telephone [facility] [address] [place] [address] Maryan Santamaria MD [address] [place] [address] PT-1 Social History Tobacco Use Types Packs/Day [...] 08/28 Time: 9:00 Visits: 3 Address: [address] [place], [place] Facility: [facility] Norberto Castro Wheel Chair: no Marine Electrician Apprentice Needed: no PT1 needed Date: 09/01 Time: 10:30 Visits: 4 Address: [address] [place] [address] Facility: [facility] [address] Chair: no Marine Electrician Apprentice Needed: no PT1 needed Date: 09/03 Time: 10:30 Visits: 3 Address: [address] [place] [address] Facility: [facility] Dr. Landon Hammer Wheel Chair: no Marine Electrician Apprentice Needed: no documented in this encounter Plan of Treatment Not on file documented as of this encounter Visit Diagnoses Not on filedocumented in this encounter Additional Health Concerns Assessment Noted Time PHQ-9 Depression Total Score: 13 023 9:21 AM EST documented as of this encounter Care Teams Baton Teacher Relationship Specialty Start Date End Date Maryan Santamaria MD [address] [place] [address] PCP - General Family Medicine 03/17/21 documented as of this encounter
--- OUTSIDE RECORDS SUMMARY | 2024-08-06 10:27 | XMS_ITS | Encounter Summary ---
Author Organization [employer] Address [address] [facility] [address] [place] [address] Care Team Providers Care Preparing Box Tender Name Role Phone Maryan Santamaria MD Primary Care Provider [phone] Encounter Details Date Type Department Care Team (Late st Contact Info) Description 07/08/2024 Orders Only [facility] External Provider, [facility] Social History Tobacco Use Types Packs/Day [...] EST 07/08/2024 4:32 PM EST Comment:Blood Narrative [facility] - 07/13/2024 6:33 PM EST Blood Culture (Second) No growth after 5 days. Specimen Source: Blood us Generic External Data Provider LAB MICROBIOLOGY - GENERAL ORDERABLES Final Result [facility] [address] [place] [address] [phone] * SARS-CoV-2 RNA, Influenza A/B, and RSV RNA, Ql NAAT (07/08/2024 4:27 PM EST) Pathologist [facility] Influenza A PCR NEGATIVE Negative [facility] Influenza B PCR NEGATIVE Negative [facility] Resp Syncy Virus RNA Qual PCR NEGATIVE Negative [facility] SARS COV2 PCR NEGATIVE Negative [facility] Comment:All test results mus t [...] use by authorized laboratories.Testing performed on the [employer] GeneXpert utilizingreal-time RT-PCR.All SARS CoV2 and positive influenza A/B results arereported to [facility]. 07/08/2024 4:27 PM EST 07/08/2024 4:32 PM EST us Generic External Data Provider LAB MICROBIOLOGY - GENERAL ORDERABLES Final Result [facility] [address] [place] [address] [phone] * D Dimer High Sensitivity (07/08/2024 4:27 PM EST) [facility] D Dimer High Sensitivity <150 NG/ML [facility] Comment:D-DIMER HS REFERENCE RANGENote: Our [...] ORDERAB LES Final Result Performing Organization Address [facility] de Phone Number [facility] [address] [place] [phone] * Lactic Acid (07/08/2024 4:27 PM EST) Lactic Acid 1.3 0.5 - 2.0 mmol/L [facility] 07/08/2024 4:27 PM EST 07/08/2024 4:32 PM EST Generic External Data Provider LAB BLOOD ORDERAB LES Final Result Performing Organization Address [facility] Phone Number [facility] [address] [place] [phone] * Blood Culture (First) (07/08/2024 4:20 PM EST) Blood Venous blood specimen / Unknown 07/08/2024 4:20 PM EST 07/08/2024 4:35 PM EST Comment:Blood Narrative [facility] - 07/13/2024 6:35 PM EST Blood Culture (First) No growth after 5 days. Specimen Source: Blood Generic External Data Provider LAB MICROBIOLOGY - GENERAL ORDERABLES Final Result Performing Organization Address [facility] de Phone Number [facility] [address] [place] [phone] * XR Chest 1 View (07/08/2024 3:52 PM EST) Anatomical Region Laterality Modality Chest Radiographic Ines ging 07/08/2024 3:52 PM EST Narrative 07/08/2024 4:04 PM EST ? [facility] ?[address] ?[place] [address] ?XRay Report ? Signed ? Patient: Alvarado Ellis,Ortega L ?MR#: ?? [id number] ? : 1970 ?Acct:[id number] ? Age/Sex: 54 / M ?ADM Date: 07/08/24 ? Loc: HO.ED ? Attending Dr: ? Ordering Physician: Cat Vinson MD ?? Date of Service: 07/08/24 ?? Procedure(s): XR chest 1V ?? Accession Number(s): [id number] ? cc: Cat Vinson MD; Maryan Santamaria [...] DD/ 1552 ? TD/TT: 07/08/24 1552 ? Color Expert: ? Procedure Note Remedios, [facility] - 07/08/[address] [address] XRay Report Signed Patient: Ortega Lane LMR#: [id number] : 1970Acct:[id number] Age/Sex: 54 / MADM Date: 07/08/24 Loc: HO.ED Attending Dr: Ordering Physician: Cat Vinson MD Date of Service: 07/08/24 Procedure(s): XR chest 1V Accession Number(s): [id number] cc: Cat Vinson MD; Maryan Santamaria MD [...] by: Chuck Doss MD 07/08/2024 04:01 PM [facility] Dictated By: Chuck Doss MD Signed By: <Electronically signed by Chuck Doss MD in OV> 07/08/24 1601 DD/ 1552 TD/TT: 07/08/24 1552 Color Expert: [facility] External Provider IMG XR PROCEDURES Final Result documented in this encounter Visit Diagnoses Not on filedocumented in this encounter Additional Health Concerns Assessment Noted Time PHQ-9 Depression Total Score: 15 024 8:53 AM EDT documented as of this encounter Care Teams Preparing Box Tender Relationship Specialty Start Date End Date Maryan Santamaria MD [address] [place] [address] PCP - General Family Medicine 03/17/21 documented as of this encounter
--- OUTSIDE RECORDS SUMMARY | 2024-08-06 10:27 | XMS_ITS | Clinical Summary ---
Author Organization [facility] Address [address] [place] [address] Care Team Providers Care Internet Retailer Name Role Phone Hiren Alcala MD Primary Care Provider [phone] Allergies No known active allergies Medications cyclobenzaprine [...] Name Administration Dates Next Due Hepatitis B (Myskogk-Y-Iblrx , Recombivax HB-Adult) 19yo and older 03/23/2013,02/19/2013 [...] Recently Relevant to Health Maintenance Care Teams Internet Retailer Relationship Specialty Start Date End Date Hiren Alcala MD PCP - General Internal Medicine 05/29/11
--- OUTSIDE RECORDS SUMMARY | 2024-08-06 10:27 | XMS_ITS | Encounter Summary ---
Author Organization [employer] Address [address] [facility] [address] [place] [address] Care Team Providers Care Briar Cutter Name Role Phone Maryan Santamaria MD Primary Care Provider [phone] Encounter Details Date Type Department Care Team (Late st Contact Info) Description 08/01/2023 Abstract [facility] [address] [place] [address] Norberto Castro DDS [address] [facility] [place] [address] Social History Tobacco Use Types Packs/Day Years [...] documented as of this encounter Care Teams Briar Cutter Relationship Specialty Start Date End Date Maryan Santamaria MD [address] [place] [address] PCP - General Family Medicine 03/17/21 documented as of this encounter
--- OUTSIDE RECORDS SUMMARY | 2024-08-06 10:27 | XMS_ITS | Encounter Summary ---
Author Organization [employer] Address [address] [address] [address] [place] [address] Care Team Providers Care Grommet Worker Name Role Phone Maryan Santamaria MD Primary Care Provider Reason for Visit * Reason Onset Date Comments case back from lab 07/25/2023 Encounter Details Date Type Department Care Team (Late st Contact Info) Description 07/25/2023 Telephone [facility]ULT [facility] [address] [place], [place] [phone] Norberto Castro DDS [address] [place] [address] case back from lab Social History Tobacco [...] documented as of this encounter Care Teams Grommet Worker Relationship Specialty Start Date End Date Maryan Santamaria MD [address] [place] [address] PCP - General Family Medicine 03/17/21 documented as of this encounter
--- OUTSIDE RECORDS SUMMARY | 2024-08-06 10:27 | XMS_ITS | Clinical Summary ---
Author Organization [employer] Address [address] [facility] 7t [place] [address] Care Team Providers Care Cash Management Associate Name Role Phone Maryan Santamaria MD Primary Care Provider [phone] Allergies No known active allergies Medications naloxone [...] osteoarthritis. We discussed possible referral to a cover remover for further evaluation and management. Explore non-opiate pain management options and consider referral to a clock and watch hands painter. Labs: CBC, C-reactive, Sed Rate, LISA [...] 9:28 AM EST): Patient reported that the [place] medication is not helping with pain . I discontinued [place] medication and prescribed Lyrica. I have also [...] his medication had been discontinued by the license distributor. I informed the pt that I sent a new order for a similar medication on the . Had to call the pharmacy to sort out issue with insurance approval. 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/26/2018 Wears partial dentures 03/26/2018 Encounters Date Type Department Care Team Description 07/08/2024 Orders Only [facility] External Provider, [facility] 06/26/2024 Refill [facility] [address] [place] [address] Maryan Santamaria MD 06/22/2024 1:00 PM EST Office Visit [facility] ADULT DENTAL [address] [place] [address] Tello Raimrez DMD Dental caries (Primary Dx); Periodontal disease 06/11/2024 9:00 AM EST Office Visit [facility]ULT [facility] [address] [place] [address] Jasmin Marie Dental calculus (Primary Dx) 06/01/2024 10:00 AM EST Office Visit [facility]ULT [facility] [address] [place] [address] Tello Ramirez DMD Dental caries (Primary Dx) 06/01/2024 Refill [facility] [address] [place] [address] Maryan Santamaria MD 05/20/2024 Orders Only GENERIC EXTERNAL DATA DEPARTMENT Provider, Generic External Data 05/19/2024 10:00 AM EST Office Visit [facility]ULT [facility] [address] [place] [address] Jasmin Marie Dental calculus (Primary Dx) from [...] EST) D Dimer High Sensitivity <150 NG/ML [facility] Comment:D-DIMER HS REFERENCE RANGENote: Our [...] Provider LAB BLOOD ORDERAB LES Final Result [facility] [address] [place] [phone] * Blood Culture (Second) (07/08/2024 4:27 PM EST) Blood Venous blood specimen / Unknown 07/08/2024 4:27 PM EST 07/08/2024 4:32 PM EST Comment:Blood Narrative [facility] - 07/13/2024 6:33 PM EST Blood Culture (Second) No growth after 5 days. Specimen Source: Blood Generic External Data Provider LAB MICROBIOLOGY - GENERAL ORDERABLES Final Result Performing Organization Address [facility] Co de Phone Number [facility] [address] [place] [phone] * SARS-CoV-2 RNA, Influenza A/B, and RSV RNA, Ql NAAT (07/08/2024 4:27 PM EST) Influenza A PCR NEGATIVE Negative [facility] Influenza B PCR NEGATIVE Negative [facility] Resp Syncy Virus RNA Qual PCR NEGATIVE Negative [facility] SARS COV2 PCR NEGATIVE Negative [facility] Comment:All test results mus t be [...] use by authorized laboratories.Testing performed on the [employer] GeneXpert utilizingreal-time RT-PCR.All SARS CoV2 and positive influenza A/B results arereported to [facility]. 07/08/2024 4:27 PM EST 07/08/2024 4:32 PM EST Generic External Data Provider LAB MICROBIOLOGY - GENERAL ORDERABLES Final Result Performing Organization Address [facility] Co de Phone Number [facility] [address] [place] [phone] * Lactic Acid (07/08/2024 4:27 PM EST) Lactic Acid 1.3 0.5 - 2.0 mmol/L [facility] 07/08/2024 4:27 PM EST 07/08/2024 4:32 PM EST us Generic External Data Provider LAB BLOOD ORDERAB LES Final Result Performing Organization Address [facility] de Phone Number [facility] [address] [place] [phone] * Blood Culture (First) (07/08/2024 4:20 PM EST) Blood Venous blood specimen / Unknown 07/08/2024 4:20 PM EST 07/08/2024 4:35 PM EST Comment:Blood Narrative [facility] - 07/13/2024 6:35 PM EST Blood Culture (First) No growth after 5 days. Specimen Source: Blood Generic External Data Provider LAB MICROBIOLOGY - GENERAL ORDERABLES Final Result Performing Organization Address [facility] de Phone Number [facility] [address] [place] [phone] [phone] * XR Chest 1 View (07/08/2024 3:52 PM EST) Anatomical Region Laterality Modality Chest Radiographic Ines ging 07/08/2024 3:52 PM EST Narrative 07/08/2024 4:04 PM EST ? [facility] ?[address] ?[place] [address] ?XRay Report ? Signed ? Patient: Christiano Ellis,Ortega L ?MR#: ?? [id number] ? : 1970 ?Acct:[id number] ? Age/Sex: 54 / M ?ADM Date: 07/08/24 ? Loc: HO.ED ? Attending Dr: ? Ordering Physician: Cat Vinson MD ?? Date of Service: 07/08/24 ?? Procedure(s): XR chest 1V ?? Accession Number(s): [id number] ? cc: Cat Vinson MD; Maryan Santamaria [...] DD/ 1552 ? TD/TT: 07/08/24 1552 ? Aircraft Cleaner: ? Procedure Note Donmaryter, Image - 07/08/2024 [place] [address] XRay Report Signed Patient: Ortega Lane LMR#: [id number] : 1970Acct:[id number] Age/Sex: 54 / MADM Date: 07/08/24 Loc: HO.ED Attending Dr: Ordering Physician: Cat Vinson MD Date of Service: 07/08/24 Procedure(s): XR chest 1V Accession Number(s): [id number] cc: Cat Vinson MD; Maryan Santamaria MD [...] by: Chuck Doss MD 07/08/2024 04:01 PM [facility] Dictated By: Chuck Doss MD Signed By: <Electronically signed by Chuck Doss MD in OV> 07/08/24 1601 DD/ 1552 TD/TT: 07/08/24 1552 Aircraft Cleaner: [facility] External Provider IMG XR PROCEDURES Final Result * FL Guidance in OR (06/03/2024 10:30 AM EST) Anatomical Region Laterality Modality X-Ray Angiograph y 06/03/2024 10:3 0 AM EST Narrative 07/16/2024 7:50 AM EST ? [facility] ?[address] ?[place], [place] [address] ? Fluoroscopy Report ? Signed ? Patient: Christiano EllisOrtega ?MR#: ?? [id number] ? : 1970 ?Acct:[id number] ? Age/Sex: 54 / M ?ADM Date: 06/03/24 ? Loc: HO.SSS ? Attending Dr: Renan Villaseñor MD, PhD ? Ordering Physician: Renan Villaseñor MD, PhD ?? Date of Service: 06/03/24 ?? Procedure(s): FL guidance in OR ?? Accession Number(s): [id number] ? cc: Renan Villaseñor MD, PhD; Maryan [...] DD/ 1030 ? TD/TT: 06/03/24 1150 ? Aircraft Cleaner: SS ? Procedure Note Donotuseinterpreter, Image - 07/16/[address] [address] Fluoroscopy Report Signed Patient: Ortega Lane LMR#: [id number] : 1970Acct:[id number] Age/Sex: 54 / MADM Date: 06/03/24 Loc: HO.SSS Attending Dr: Renan Villaseñor MD, PhD Ordering Physician: Renan Villaseñor MD, PhD Date of Service: 06/03/24 Procedure(s): FL guidance in OR Accession Number(s): [id number] cc: Renan Villaseñor MD, PhD; Maryan Santamaria [...] 07/16/24 0747 DD/ 1030 TD/TT: 06/03/24 1150 Aircraft Cleaner: ANITA us [facility] External Provider IMG IR PROCEDURES Edited Result - Final * (ABNORMAL) CBC (05/20/2024 1:02 PM EST) White Blood Count 8.8 4.8 - 10.8 X10*3/uL [facility] Red Blood Count 4.51(L) 4.60 - 5.80 X10*6/uL [facility] Hemoglobin 14.9 14.0 - 18.0 g/dl [facility] Hematocrit 43.9 42.0 - 52.0 % [facility] Mean Corpuscular Volume 97.3 80.0 - 98.0 fL [facility] Mean Corpuscular Hemoglobin 33.0 27.0 - 33.0 pg [facility] Mean Corpuscular HGB Conc 33.9 31.0 - 36.0 g/dl [facility] Red Cell Distribution Width 12.6 11.0 - 16.0 % [facility] Platelet Count 275 160 - 400 X10*3/uL [facility] Mean Platelet Volume 8.8(L) 9.4 - 12.4 fL [facility] NRBC Pct Auto 0.0 0.0 - 0.2 /100WBC [facility] NRBC Abs Auto 0.000 0.0 - 0.012 X10*3/uL [facility] 05/20/2024 1:02 PM EST 05/20/2024 1:02 PM EST us Generic External Data Provider LAB BLOOD ORDERAB LES Final Result [facility] [address] [place], [place] [phone] * (ABNORMAL) Comprehensive Metabolic Panel (05/20/2024 1:02 PM EST) Sodium 137 135 - 145 mmol/L [facility] Potassium 4.2 3.3 - 5.1 mmol/L [facility] Chloride 105 96 - 108 mmol/L [facility] Carbon Dioxide 23 22 - 29 mmol/L [facility] Anion Gap 13 12 - 20 [facility] Urea Nitrogen (BUN) 8(L) 9 - 16 mg/dL [facility] Creatinine, Serum 0.62 0.5 - 1.4 mg/dL [facility] Creatinine Clr Calc Pharmacy 130.4 [facility] Comment:eGFR (calculated fro m the MDRD study equation) and eCrCl(calculated from the Cockcroft-Gault equation) are based ondifferent parameters and may not yield comparable results.If eCrCl result is absurd, please check patient'sheight/weight. Estimated Glomerular Filt Rate >60 [facility] Comment:Chronic Kidney Disea se: Estimated GFR < 60 mL/min/1.71p0Sorrov Kidney Disease: Estimated GFR < 15 mL/min/1.73m2 Glucose 74 60 - 115 mg/dL [facility] Calcium 9.2 8.4 - 10.2 mg/dL [facility] Bilirubin, Total 0.9 0.0 - 1.0 mg/dL [facility] Aspartate Amino Transferase 48(H) 5 - 37 U/L [facility] Alanine Aminotransferase 38 0 - 40 U/L [facility] Total Protein 6.9 6.5 - 8.0 g/dL [facility] Albumin Level 4.0 3.5 - 5.0 g/dL [facility] Alkaline Phosphatase 73 39 - 117 U/L [facility] 05/20/2024 1:02 PM EST 05/20/2024 1:02 PM EST us Generic External Data Provider LAB BLOOD ORDERAB LES Final Result [facility] [address] [place] [phone] * (ABNORMAL) Cologuard?? colon cancer screening (10/04/2023 12:30 PM EDT) Cologuard Result Positive( A) Negative 10/15/2023 2:08 AM EDT [employer] (CLIA #:[id number]) Comment: POSITIVE TEST RESULT. A positive Cologuard [...] Flores et al, N Engl J Med 2014;370(14):4036-4508.) Cologuard may produce a false negative or false positive result (no colorectal cancer or precancerous polyp present at colonoscopy follow up). A negative Cologuard test result does not guarantee the absence of CRC or advanced adenoma (pre-cancer). The current Cologuard screening interval is every 3 years. ([place] [employer] Society and U.S. Multi-Society Task Force). Cologuard performance data in a 10,000 patient pivotal study using colonoscopy as the reference method can be accessed at the following location: www.EZ4U/results. Additional description of the Cologuard test process, warnings and precautions can be found at www.[employer].com. Stool specimen (specimen) 10/04/2023 12:30 PM EDT 10/05/2023 10:57 AM EDT us Maryan Santamaria MD LAB MOLECULAR DIAGNOSTICS ORD ERABLES Final Result [employer] (CLIA #:[id number]) [address] [place] [address], * LIPID PANEL, STANDARD (03/07/2022 11:24 AM EDT) Pathologist [facility] Chol/HDLC Ratio 2.2 <5.0 (calc) [facility] Cholesterol, Total 177 <200 mg/dL [facility] HDL Cholesterol 80 > OR = 40 mg/dL [facility] LDL Cholesterol 74 mg/dL (calc) [facility] Comment: Reference range: <100 ?? [...] ?? Jovan HOWARD et al. ALISE. 2013;310(19): 1315-0278 ?? (http://education.Getyoo/faq/WKU295) Non-HDL Cholesterol 97 <130 mg/dL (calc) [facility] Comment: For patients with diabetes plus 1 major ASCVD risk ?? factor, treating to a non-HDL-C goal of <100 mg/dL ?? (LDL-C of <70 mg/dL) is considered a therapeutic ?? option. Triglycerides 147 <150 mg/dL [facility] 03/07/2022 11:2 4 AM EDT Maryan Santamaria MD LAB BLOOD ORDERABLES Final Re sult [facility] [address] [place] [address], * HEPATITIS C AB W/REFL TO HCV RNA, QN, PCR (03/07/2022 11:23 AM EDT) Pathologist [facility] HEPATITIS C ANTIBODY NON-REACT CARLO NON-REACT CARLO [facility] INDEX 0.06 <1.00 [facility] Comment: ?? HCV antibody was non-reactive. There is no laboratory ?? evidence of HCV infection. ?? In most cases, no further action is required. However, if recent HCV exposure is suspected, a test for HCV RNA (test code 88829) is suggested. ?? For additional information please refer to http://[employer]/faq/MYL96m8 (This link is being provided for informational/ educational purposes only.) ?? 03/07/2022 11:2 3 AM EDT Maryan Santamaria MD HISTORICAL/NON ORDERABLE LABS Final Result Performing Organization Address [facility] Phone Number [facility] [address] * HIV 1/2 ANTIGEN/ANTIBODY,FOURTH GENERATION W/RFL (03/07/2022 11:23 AM EDT) [facility] HIV-1/2 ANTIGEN AND ANTIBODIES, 4TH GENERATION W/ REFLEX NON-REACT CARLO NON-REACT CARLO [facility] Comment: HIV-1 antigen and HIV-1/HIV-2 [...] ? For additional information please refer to http://[employer]/faq/KNK936 (This link is being provided for informational/ educational purposes only.) ? The performance of this assay has not been clinically validated in patients less than 2 years old. ?? 03/07/2022 11:2 3 AM EDT Maryan Santamaria MD LAB BLOOD ORDERABLES Final Re sult Performing Organization Address [facility] de Phone Number [facility] [address] from Last 3 Months or Most Recently Relevant to Health Maintenance Insurance [facility] C3 DENTAL-[facility] MEDICAID STAND ADULT Care Teams Cash Management Associate Relationship Specialty Start Date End Date Maryan Santamaria MD [address] [place] [phone] PCP - General Family Medicine 03/17/21
== END 2024-08-06 10:17 | disposition home or self-care (01) ==
PROVIDERS: PCP Family Medicine; Visit Provider Physician Assistant
DX: Z98.1 Arthrodesis status (principal)
CPT/HCPCS: 99024

== ENCOUNTER → 2024-08-06 09:45 | Outpatient (BNV) | payer MEDICAID, SELFPAY | PROVIDERS: Visit Provider Radiology Diagnostic Radiology | DX: Z98.1 Arthrodesis status (principal) | CPT/HCPCS: 72050 ==

== ENCOUNTER 2024-08-31 09:33 | Outpatient (AMB) | payer MEDICAID, SELFPAY ==
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
--- OUTSIDE RECORDS SUMMARY | 2024-08-31 10:23 | XMS_ITS | Encounter Summary ---
Author Organization [employer] Address [address] 7t [place] [address] Care Team Providers Care Bundle Shaker Name Role Phone Maryan Santamaria MD Primary Care Provider [phone] Encounter Details Date Type Department Care Team (Late st Contact Info) Description 08/01/2023 Abstract [facility] ADULT DENTAL [address] [place] [address] Norberto Castro DDS [address] [facility] [place] [address] Social History Tobacco Use Types Packs/Day Years [...] Care Team (Late st Contact Info) Description 09/01/2024 11:00 AM EDT Office Visit [facility] ADULT [facility] [address] [place] [address] Tello Ramirez, DMD [address] [place] [address] documented as of this encounter Visit Diagnoses Not on filedocumented in this encounter Additional Health Concerns Assessment Noted Time PHQ-9 Depression Total Score: 13 023 9:21 AM EST documented as of this encounter Care Teams Bundle Shaker Relationship Specialty Start Date End Date Maryan Santamaria MD [address] [place] [address] PCP - General Family Medicine 03/17/21 documented as of this encounter
--- OUTSIDE RECORDS SUMMARY | 2024-08-31 10:23 | XMS_ITS | Encounter Summary ---
Author Organization [employer] [facility] Address [address] [facility] 7t [place] [address] Care Team Providers Care Upper Marker Name Role Phone Maryan Santamaria MD Primary Care Provider [phone] Encounter Details Date Type Department Care Team ([facility] st Contact Info) Description 08/28/2024 Population Health Risk Score [facility] (C3) Department [address] [id number] Provider, Population Health Generic Social History Tobacco Use Types Packs/Day Years [...] Description 09/01/2024 11:00 AM EDT Office Visit [facility] ADULT DENTAL [address] [place] [address] Tello Ramirez, DMD [address] [place] [address] documented as of this encounter Visit Diagnoses Not on filedocumented in this encounter Additional Health Concerns Assessment Noted Time PHQ-9 Depression Total Score: 15 024 8:53 AM EDT documented as of this encounter Care Teams Upper Marker Relationship Specialty Start Date End Date Maryan Santamaria MD [address] [place] [address] PCP - General Family Medicine 03/17/21 documented as of this encounter
--- OUTSIDE RECORDS SUMMARY | 2024-08-31 10:23 | XMS_ITS | Encounter Summary ---
Author Organization [employer] Address [address] 7[address] [place] [address] Care Team Providers Care Project Technician Name Role Phone Maryan Santamaria MD Primary Care Provider [phone] Reason for Visit * Reason Onset Date Comments case back from lab 07/25/2023 Encounter Details Date Type Department Care Team (Late st Contact Info) Description 07/25/2023 Telephone [facility] ADULT DENTAL [address] [place], [place] [id number] Norberto Castro DDS [address] [place] [address] case back from lab Social History Tobacco [...] Description 09/01/2024 11:00 AM EDT Office Visit [facility] ADULT DENTAL [address] [place] [address] Tello Ramirez, KARL [address] [place] [address] documented as of this encounter Visit Diagnoses Not on filedocumented in this encounter Additional Health Concerns Assessment Noted Time PHQ-9 Depression Total Score: 13 023 9:21 AM EST documented as of this encounter Care Teams Project Technician Relationship Specialty Start Date End Date Maryan Santamaria MD [address] [place] [address] PCP - General Family Medicine 03/17/21 documented as of this encounter
--- OUTSIDE RECORDS SUMMARY | 2024-08-31 10:23 | XMS_ITS | Encounter Summary ---
Author Organization [employer] Address [address] [facility] 7t [place] [address] Care Team Providers Care Sweatband Decorating Machine Operator Name Role Phone Maryan Santamaria MD Primary Care Provider [phone] Reason for Visit * Reason Onset Date Comments PT-1 08/20/2023 Encounter Details Date Type Department Care Team ([facility] st Contact Info) Description 08/20/2023 Telephone [facility] MEDIC[facility] [address] [place] [address] Maryan Santmaaria MD [address] [place] [address] PT-1 Social History Tobacco Use Types Packs/Day [...] 08/28 Time: 9:00 Visits: 3 Address: [address] [place], [place] Facility: [facility] Norberto Park Chair: no Reinforcing Metal Worker Needed: no PT1 needed Date: 09/01 Time: 10:30 Visits: 4 Address: [address] [place], [place] Facility: [facility] [address] Chair: no Reinforcing Metal Worker Needed: no PT1 needed Date: 09/03 Time: 10:30 Visits: 3 Address: [address] [place] [address] Facility: [facility] [address] [place] Chair: no Reinforcing Metal Worker Needed: no documented in this encounter Plan of Treatment Upcoming Encounters Date Type Department Care Team (Late st Contact Info) Description 09/01/2024 11:00 AM EDT Office Visit [facility] ADULT DENTAL [address] [place] [address] Tello Ramirez, DMD [address] [place] [address] documented as of this encounter Visit Diagnoses Not on filedocumented in this encounter Additional Health Concerns Assessment Noted Time PHQ-9 Depression Total Score: 13 023 9:21 AM EST documented as of this encounter Care Teams Sweatband Decorating Machine Operator Relationship Specialty Start Date End Date Maryan Santamaria MD [address] [place] [address] PCP - General Family Medicine 03/17/21 documented as of this encounter
--- OUTSIDE RECORDS SUMMARY | 2024-08-31 10:23 | XMS_ITS | Clinical Summary ---
Author Organization [employer] Address [address] [facility] 7t [place] [address] Care Team Providers Care Sports Director Name Role Phone Maryan Santamaria MD Primary Care Provider [phone] Allergies No known active allergies Medications naloxone [...] osteoarthritis. We discussed possible referral to a aircraft maintenance engineer for further evaluation and management. Explore non-opiate pain management options and consider referral to a paint trimmer pipe bowls. Labs: CBC, C-reactive, Sed Rate, LISA Screen, [...] 9:28 AM EST): Patient reported that the [place] medication is not helping with pain . I discontinued [place] medication and prescribed Lyrica. I have also [...] his medication had been discontinued by the chief engineer research. I informed the pt that I sent a new order for a similar medication on the . Had to call the pharmacy to sort out issue with insurance approval. 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/26/2018 Wears partial dentures 03/26/2018 Encounters Date Type Department Care Team Description 08/28/2024 Population Health Risk Score [facility] (C3) Department [address] [address] Provider, Population Health Generic 07/08/2024 Orders Only [facility] External Provider, [facility] 06/26/2024 Refill [facility] [address] [place] [address] Maryan Santamaria MD 06/22/2024 1:00 PM EST Office Visit [facility] ADULT DENTAL [address] [place] [address] Tello Ramirez DMD Dental caries (Primary Dx); Periodontal disease 06/11/2024 9:00 AM EST Office Visit [facility] ADULT [facility] [address] [place] [address] Jasmin Marie Dental calculus (Primary Dx) from [...] Description 09/01/2024 11:00 AM EDT Office Visit [facility] ADULT DENT[facility] [address] [place] [address] Tello Ramirez, DMD [address] [place] [address] Health Maintenance Due Date Last Done Comments CT Colonography 1970 Colonoscopy 1970 FIT 1970 FOBT 1970 Sigmoidoscopy 1970 Zoster Vaccines (1 of 2) 2020 Dental [...] OR Routine 06/03/2024 10: 30 AM EST Full PROPHYLAXIS - ADULT Routine [...] EST) D Dimer High Sensitivity <150 NG/ML [facility] Comment:D-DIMER HS REFERENCE RANGENote: Our [...] ORDERAB LES Final Result Performing Organization Address [facility] Co de Phone Number [facility] [address] [place] [phone] * Blood Culture (Second) (07/08/2024 4:27 PM EST) Blood Venous blood specimen / Unknown 07/08/2024 4:27 PM EST 07/08/2024 4:32 PM EST Comment:Blood Narrative [facility] - 07/13/2024 6:33 PM EST Blood Culture (Second) No growth after 5 days. Specimen Source: Blood [facility] External Data Provider LAB MICROBIOLOGY - GENERAL ORDERABLES Final Result Performing Organization Address [facility] Co de Phone Number [facility] [address] [place] [phone] * SARS-CoV-2 RNA, Influenza A/B, and RSV RNA, Ql NAAT (07/08/2024 4:27 PM EST) Influenza A PCR NEGATIVE Negative [facility] Influenza B PCR NEGATIVE Negative [facility] Resp Syncy Virus RNA Qual PCR NEGATIVE Negative [facility] SARS COV2 PCR NEGATIVE Negative [facility] Comment:All test results mus t [...] use by authorized laboratories.Testing performed on the [employer] GeneXpert utilizingreal-time RT-PCR.All SARS CoV2 and positive influenza A/B results arereported to [facility]. 07/08/2024 4:27 PM EST 07/08/2024 4:32 PM EST Generic External Data Provider LAB MICROBIOLOGY - GENERAL ORDERABLES Final Result Performing Organization Address [facility] de Phone Number [facility] [address] [place] [phone] * Lactic Acid (07/08/2024 4:27 PM EST) Lactic Acid 1.3 0.5 - 2.0 mmol/L [facility] 07/08/2024 4:27 PM EST 07/08/2024 4:32 PM EST Generic External Data Provider LAB BLOOD ORDERAB LES Final Result Performing Organization Address [facility] Phone Number [facility] [address] [place] [phone] * Blood Culture (First) (07/08/2024 4:20 PM EST) Blood Venous blood specimen / Unknown 07/08/2024 4:20 PM EST 07/08/2024 4:35 PM EST Comment:Blood Narrative [facility] - 07/13/2024 6:35 PM EST Blood Culture (First) No growth after 5 days. Specimen Source: Blood Generic External Data Provider LAB MICROBIOLOGY - GENERAL ORDERABLES Final Result Performing Organization Address [facility] de Phone Number [facility] [address] [place] [phone] * XR Chest 1 View (07/08/2024 3:52 PM EST) Anatomical Region Laterality Modality Chest Radiographic Ines ging 07/08/2024 3:52 PM EST Narrative 07/08/2024 4:04 PM EST ? [facility] ?[address] ?[place], [place] [address] ?XRay Report ? Signed ? Patient: Alvarado Ellis,Ortega L ?MR#: ?? [id number] ? : 1970 ?Acct:[id number] ? Age/Sex: 54 / M ?ADM Date: 07/08/24 ? Loc: HO.ED ? Attending Dr: ? Ordering Physician: Cat Vinson MD ?? Date of Service: 07/08/24 ?? Procedure(s): XR chest 1V ?? Accession Number(s): [id number] ? cc: Cat Vinson MD; Maryan Santamaria [...] Doss MD ??07/08/2024 04:01 PM EST RP ?? Workstation: [id number] ? Dictated By: ?Chuck Doss MD ? Signed By: ?<Electronically signed by Chuck Doss MD in OV> ?07/08/24 1601 ? DD/ 1552 ? TD/TT: 07/08/24 1552 ? Substation Operator: ? Procedure Note Remedios, Image - 07/08/[address] [address] XRay Report Signed Patient: Christiano Otrega Ellis LMR#: [id number] : 1970Acct:[id number] Age/Sex: 54 / MADM Date: 07/08/24 Loc: HO.ED Attending Dr: Ordering Physician: Cat Vinson MD Date of Service: 07/08/24 Procedure(s): XR chest 1V Accession Number(s): [id number] cc: Cat Vinson MD; Maryan Santamaria MD [...] 07/08/24 1601 DD/ 1552 TD/TT: 07/08/24 1552 Substation Operator: [facility] External Provider IMG XR PROCEDURES Final Result * FL Guidance in OR (06/03/2024 10:30 AM EST) Anatomical Region Laterality Modality X-Ray Angiograph y 06/03/2024 10:3 0 AM EST Narrative 07/16/2024 7:50 AM EST ? [facility] ?[address] ?[place] [address] ? Fluoroscopy Report ? Signed ? Patient: Alvarado Ellis,Ortega L ?MR#: ?? [id number] ? : 1970 ?Acct:[id number] ? Age/Sex: 54 / M ?ADM Date: 12/18/24 ? Loc: HO.SSS ? Attending Dr: Renan Villaseñor MD, PhD ? Ordering Physician: Renan Villaseñor MD, PhD ?? Date of Service: 06/03/24 ?? Procedure(s): FL guidance in OR ?? Accession Number(s): [id number] ? cc: Renan Villaseñor MD, PhD; Maryan [...] ??Trevor Singh MD ??07/16/2024 07:47 AM EST ? Dictated By: ?Trevor Singh MD ? Signed By: ?<Electronically signed by Trevor Singh MD in OV> ? 07/16/24 0747 ? DD/ 1030 ? TD/TT: 06/03/24 1150 ? Substation Operator: SS ? Procedure Note Remedios, Image - 07/16/2024 [place] [address] Fluoroscopy Report Signed Patient: Ortega Lane LMR#: [id number] : 1970Acct:[id number] Age/Sex: 54 / MADM Date: 06/03/24 Loc: HO.SSS Attending Dr: Renan Villaseñor MD, PhD Ordering Physician: Renan Villaseñor MD, PhD Date of Service: 06/03/24 Procedure(s): FL guidance in OR Accession Number(s): [id number] cc: Renan Villaseñor MD, PhD; Maryan Santamaria [...] Trevor Singh MD 07/16/2024 07:47 AM EST RP Dictated By: Trevor Singh MD Signed By: <Electronically signed by Trevor Singh MD in OV> 07/16/24 0747 DD/ 1030 TD/TT: 06/03/24 1150 Substation Operator: ANITA [facility] External Provider IMG IR PROCEDURES Edited Result - Final * (ABNORMAL) Cologuard?? colon cancer screening (10/04/2023 12:30 PM EDT) Cologuard Result Positive( A) Negative 10/15/2023 2:08 AM EDT [facility] (CLIA #:[id number]) Comment: POSITIVE TEST RESULT. A positive Cologuard [...] (Berenice Funes al, N Engl J Med 2014;370(14):1820-2182.) Cologuard may produce a false negative or false positive result (no colorectal cancer or precancerous polyp present at colonoscopy follow up). A negative Cologuard test result does not guarantee the absence of CRC or advanced adenoma (pre-cancer). The current Cologuard screening interval is every 3 years. ([place] Cancer Society and U.S. Multi-Society Task Force). Cologuard performance data in a 10,000 patient pivotal study using colonoscopy as the reference method can be accessed at the following location: www.ClubLocal/results. Additional description of the Cologuard test process, warnings and precautions can be found at www.[employer] DeafogCarbon Digitalrd.Truly. Stool specimen (specimen) 10/04/2023 12:30 PM EDT 10/05/2023 10:57 AM EDT us Maryan Santamaria MD LAB MOLECULAR DIAGNOSTICS ORD ERABLES Final Result [facility] (CLIA #:[id number]) [address] [place] [address], * LIPID PANEL, STANDARD (03/07/2022 11:24 AM [...] ?? Jovan HOWARD et al. ALISE. 2013;310(19): 9330-7657 ?? (http://[employer].Inmoo/faq/BHE215) Non-HDL Cholesterol 97 <130 mg/dL (calc) [facility] Comment: For patients with diabetes plus 1 major ASCVD risk ?? factor, treating to a non-HDL-C goal of <100 mg/dL ?? (LDL-C of <70 mg/dL) is considered a therapeutic ?? option. Triglycerides 147 <150 mg/dL [facility] 03/07/2022 11:2 4 AM EDT Maryan Santamaria MD LAB BLOOD ORDERABLES Final Re sult Performing Organization Address [facility] Phone Number [facility] [address] [place] [address], * HEPATITIS C AB W/REFL TO HCV RNA, QN, PCR (03/07/2022 11:23 AM EDT) HEPATITIS C ANTIBODY NON-REACT CARLO NON-REACT CARLO [facility] INDEX 0.06 <1.00 [facility] Comment: ?? HCV antibody was non-reactive. There is no laboratory ?? evidence of HCV infection. ?? In most cases, no further action is required. However, if recent HCV exposure is suspected, a test for HCV RNA (test code 34070) is suggested. ?? For additional information please refer to http://education.Buzz Referrals/faq/LEX21x1 (This link is being provided for informational/ educational purposes only.) ?? 03/07/2022 11:2 3 AM EDT Maryan Santamaria MD HISTORICAL/NON ORDERABLE LABS Final Result Performing Organization Address [facility] Co de Phone Number [facility] [address] [place] [address], * HIV 1/2 ANTIGEN/ANTIBODY,FOURTH GENERATION W/RFL (03/07/2022 11:23 AM EDT) HIV-1/2 ANTIGEN AND ANTIBODIES, 4TH GENERATION W/ REFLEX NON-REACT CARLO NON-REACT CARLO [facility] Comment: HIV-1 antigen [...] ? For additional information please refer to http://[employer].Buzz Referrals/faq/XBC867 (This link is being provided for informational/ educational purposes only.) ? The performance of this assay has not been clinically validated in patients less than 2 years old. ?? 03/07/2022 11:2 3 AM EDT us Maryan Santamaria MD LAB BLOOD ORDERABLES Final Re sult [facility] [address] from Last 3 Months or Most Recently Relevant to Health Maintenance Insurance [facility] C3 DENTAL-[facility] MEDICAID STAND ADULT Member Subscriber Plan / Payer (Ef fective 2016-Present) Name:Ortega Lane Relation to Subscriber:Self Name:Ortega Lane Franck Payer ID:Not on file Group ID:Not on file Type:Not on file Address: [address] [place] [phone] Care Teams Sports Director Relationship Specialty Start Date End Date Maryan Santamaria MD [address] [place] [phone] PCP - General Family Medicine 03/17/21
--- OUTSIDE RECORDS SUMMARY | 2024-08-31 10:24 | XMS_ITS | Clinical Summary ---
Author Organization [facility] Address [address] [place] [address] Care Team Providers Care Surgery Center Administrator Name Role Phone Hiren Alcala MD Primary Care Provider [phone] Allergies No known active allergies Medications cyclobenzaprine [...] Name Administration Dates Next Due Hepatitis B (Wyptgiy-P-Clvqr , Recombivax HB-Adult) 19yo and older 03/23/2013,02/19/2013 [...] Recently Relevant to Health Maintenance Care Teams Surgery Center Administrator Relationship Specialty Start Date End Date Hiren Alcala MD PCP - General Internal Medicine 05/29/11
== END 2024-08-31 10:32 | disposition home or self-care (01) ==
LOC: HO.HNS 09:34
PROVIDERS: PCP Family Medicine; Visit Provider Physician Assistant
DX: M54.50 Low back pain, unspecified (principal)
CPT/HCPCS: 99024

== ENCOUNTER 2024-08-31 09:33 | Outpatient (REF) | payer MEDICAID, SELFPAY ==
--- NOTE | ~2024-08-31 | XR_ITS ---
CLINICAL HISTORY: M54.50 - Low back pain, unspecified 4 views lumbar spine Comparison: None Findings: Slight rightward curvature of the lumbar spine.5 [id number]-[id number] lumbar-type vertebral bodies. Multilevel disc height loss with reactive endplate changes. No listhesis. No instability on flexion extension. No vertebral body height loss. IMPRESSION: Multilevel degenerative change. No findings of instability on flexion-extension. This document has been electronically signed by: Марина Birch MD on 09/02/2024 08:51:27
== END 2024-08-31 09:34 | disposition home or self-care (01) ==
LOC: HO.HOSX 09:33
PROVIDERS: PCP Family Medicine; Visit Provider Physician Assistant
DX: M54.50 Low back pain, unspecified (principal); M48.061 Spinal stenosis, lumbar region without neurogenic claudication; Z98.890 Other specified postprocedural states
CPT/HCPCS: 72110; 99212

== ENCOUNTER → 2024-08-31 10:14 | Outpatient (BNV) | payer MEDICAID, SELFPAY | PROVIDERS: PCP Family Medicine; Visit Provider Radiology Diagnostic Radiology | DX: M54.50 Low back pain, unspecified (principal) | CPT/HCPCS: 72110 ==

== ENCOUNTER 2024-09-14 10:39 | Outpatient (RCR) | payer MEDICAID, SELFPAY ==
--- NOTE | 2024-08-24 16:42 | MHC.PT.EP ---
[facility] [place] Office [place] Office [place] Office [address] Michaelle Dimas [address] [phone] F: [phone] F: [phone] F: [phone] F: [phone] Physical Therapy Plan of Care Date of Evaluation: 08/24/24 Date of Surgery: 06/03/24 Diagnosis: Arthrodesis s/p C6-7 ACDF (fusion) Assessment: Pt is a 54 y/o male referred to PT for eval and treat of Arthrodesis s/p C6-7 ACDF who's condition is resulting in decreased tolerance for reaching high shelves, reading, turning his head to end ranges, lifting objects of weight and disturbed sleep secondary to decreased cervical ROM, decreased scapular and cervical posture, stomach sleeping post fusion, C6-7 ACDF surgical recovery, increased accessory tissue tension and pain. Pt is deemed an appropriate candidate to receive skilled PT services to address their physical impairments in order to improve their functional ability. Frequency and Duration: The patient will be seen 2 x/ wk x 3 wks. Short Term Goals: initiate home program Improve baseline pain to at most 3/10; initial 5-6/10 Supervisor [employer]enic [employer] Goals: I with home program. Pt will improve NDI by at least 9 points. Pt will report no longer painful with B end range rotation. Pt will report at most 50% disturbed sleep; initial: completely disturbed. Treatment Plan: Modalities to reduce pain, spasms and effusion. Manual therapy to restore motion and function. Therapeutic exercise to improve strength and flexibility. Neuromuscular re-education for posture and balance. Therapeutic activities to return to functional activities of daily living. Electronically signed by: Dain Gomes PT. Please sign and return to therapist. Thank you for your referral.
--- NOTE | 2024-09-14 12:45 | MHC.PT.DC ---
[facility] Interior Office [place] Office [place] Office [address] Michaelle Dimas 140 [facility] [phone] F: [phone] F: [phone] F: [phone] F: [phone] Physical Therapy Discharge Report Diagnosis: Arthrodesis s/p C6-7 ACDF (fusion) Date of Surgery: 06/03/24 Date of Evaluation: 08/24/24 Date of Discharge: 09/14/24 Treatments to Date: 6 Cancellations to Date: No Shows to Date: Discharge Status: Improved Function Independent with HEP Discharge Summary: Ortega has been a motivated and active participant in his program and we are in agreement with DC today as he has met some of his therapeutic goals, is improved of his pain, and is I with his home program. Electronically signed by: Dain Gomes PT. Please sign and return to therapist. Thank you for your referral.
== END 2024-09-14 12:46 | disposition home or self-care (01) ==
LOC: HO.PT 10:39
PROVIDERS: PCP Family Medicine; Visit Provider Physician Assistant
DX: M54.2 Cervicalgia (principal); Z98.1 Arthrodesis status
CPT/HCPCS: 97110; 97161

== ENCOUNTER 2024-09-15 09:57 | Outpatient (REF) | payer MEDICAID, SELFPAY ==
--- NOTE | ~2024-09-15 | MR_ITS ---
EXAMINATION: MR LUMBAR SPINE WITHOUT CONTRAST CLINICAL INFORMATION: Low back pain. COMPARISON: August 18, 2021 TECHNIQUE: MRI of the lumbar spine was obtained using routine sequences without contrast. FINDINGS: Last rib-bearing vertebra labeled T12. There is mild bone marrow STIR signal in the right side of inferior endplate of L4 and the posterior midline inferior endplate of L3. Bone marrow inhomogeneity. Focal hyperintense T2 STIR signal in the posterior intervertebral disc L3-4 likely annular fissure. Multilevel marginal osteophyte formation and disc desiccation from L1 to L5. 1 mm retrolisthesis L2-3 and L4-5 level. Conus medullaris ends at inferior endplate of L1 with normal signal. T12-L1: No disc herniation. No neuroforamina stenosis. L1-2: No disc herniation. No neuroforamina stenosis. L2-3: Broad-based disc bulging. Facet joint and ligamentum flavum hypertrophy. Facet effusion. Decreased AP diameter of the thecal sac and the neural foramina likely encroaching the L2 exiting nerve roots. L3-4: Focal annular fissure. Central right subarticular and foraminal broad-based disc herniation compressing the right L4 and L3 nerve roots and the neural elements of the thecal sac. Facet joint and ligamentum flavum hypertrophy. Reduced AP diameter of the thecal sac. Right neuroforamina stenosis. L4-5: Right subarticular disc herniation compressing the right L5 nerve root on its lateral recess. Facet joint and ligamentum flavum hypertrophy. Bilateral neuroforamina narrowing encroaching the L4 exiting nerve roots. L5-S1: Broad-based disc bulging. Facet joint hypertrophy. No central spinal canal stenosis. Bilateral neuroforamina narrowing. No prevertebral compartment hematoma, mass or fluid collection. MR/MR lumbar spine wo con IMPRESSION: Right subarticular disc herniation L4-5 compressing the right L5 nerve root. Broad-based central right subarticular and foraminal disc herniation encroaching the neural elements of the thecal sac and the right L3 exiting nerve root. Multilevel lumbar spondylosis L2-L5. Electronically signed by: Quentin Mccormack MD 09/16/2024 08:20 AM EDT
--- OUTSIDE RECORDS SUMMARY | 2024-09-15 11:38 | XMS_ITS | Encounter Summary ---
Author Organization [employer] Address [address] [facility] [address] [place] [address] Care Team Providers Care Meal Temperer Name Role Phone Maryan Santamaria MD Primary Care Provider [phone] Encounter Details Date Type Department Care Team (Late st Contact Info) Description 08/01/2023 Abstract [facility] ADULT D[facility] [address] [place] [address] Norberto Castro DDS [address] [place] [address] Social History Tobacco Use Types Packs/Day Years [...] Care Team (Late st Contact Info) Description 09/16/2024 11:00 AM EDT Office Visit [facility] [address] [place] [address] Tello Ramirez, DMD [address] [place] [address] documented as of this encounter Visit Diagnoses Not on filedocumented in this encounter Additional Health Concerns Assessment Noted Time PHQ-9 Depression Total Score: 13 023 9:21 AM EST documented as of this encounter Care Teams Meal Temperer Relationship Specialty Start Date End Date Maryan Santamaria MD [address] [place] [address] PCP - General Family Medicine 03/17/21 documented as of this encounter
--- OUTSIDE RECORDS SUMMARY | 2024-09-15 11:38 | XMS_ITS | Clinical Summary ---
Author Organization [employer] Address 75 [facility] 7t [place] [address] Care Team Providers Care Utility Aircrewman Name Role Phone Maryan Santamaria MD Primary Care Provider [phone] Allergies No known active allergies Medications naloxone [...] and replace cap. 16 g 2 4 Active montelukast (Singulair) 10 MG tablet Take 1 tablet (10 mg) by mouth in the morning. 30 tablet 11 4 Active albuterol (Ventolin HFA) 108 (90 Base) [...] TWICE DAILY 60 capsule 2 5 Active Asmanex HFA 100 MCG/ACT aerosol INHALE ONE PUFF TWICE DAILY, RINSE MOUTH AFTER USE 13 g 3 5 Active Active Problems Problem Noted Date Diagnosed Date Osteoarthritis of left knee 03/05/2024 Left patella fracture 03/05/2024 Physical exam 09/02/2023 Assessment & Plan (09/02/2023 11:12 PM EDT): Labs: Lipid Panel IZ: Tdap, PCV-20 Polyarthralgia 09/02/2023 Assessment & Plan (09/02/2023 11:11 PM EDT): Patient has Hx of osteoarthritis. We discussed possible referral to a shipping agent for further evaluation and management. Explore non-opiate pain management options and consider referral to a furniture painter. Labs: CBC, C-reactive, Sed Rate, LISA [...] 9:28 AM EST): Patient reported that the Seneca medication is not helping with pain . I discontinued Seneca medication and prescribed Lyrica. I have also [...] his medication had been discontinued by the movement assembler. I informed the pt that I sent a new order for a similar medication on the . Had to call the pharmacy to sort out issue with insurance approval. 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/26/2018 Wears partial dentures 03/26/2018 Encounters Date Type Department Care Team Description 09/02/2024 2:00 PM EDT Office Visit [facility] ADULT DENTAL [address] [place] [address] Tello Ramirez DMD Alveolar exostosis (Primary Dx) 09/01/2024 11:00 AM EDT Office Visit [facility]ULT [facility] [address] [place] [address] Tello Ramirez DMD Partial edentulism, unspecified edentulism class (Primary Dx); Alveolar exostosis 09/01/2024 Refill [facility] PED[facility] [address] [place] [address] Maryan Santamaria MD 08/31/2024 Orders Only [facility] External Provider, [facility] 08/28/2024 Population Health Risk Score [facility] Department [address] [phone] Provider, Population Health Generic 07/08/2024 Orders Only [facility] External Provider, [facility] 06/26/2024 Refill [facility] [address] [place] [address] Maryan Santamaria MD 06/22/2024 1:00 PM EST Office Visit [facility] ADULT D[facility] [address] [place] [address] Tello Ramirez DMD Dental caries (Primary Dx); Periodontal disease from Last 3 Months Immunizations Name Administration [...] t he electric, gas, oil or water [employer] threatened to shut off services in your [...] Description 09/16/2024 11:00 AM EDT Office Visit [facility] [address] [place] [address] Tello Ramirez, DMD [address] [place] [address] Health Maintenance Due Date Last Done Comments [...] 05/05/2025 05/04/20 24, 05/15/2023, 01/27/2010 Tobacco Screening 09/02/2025 09/02/2024 Colorectal Cancer Screening 10/03/2026 FIT DNA/Cologuard 10/03/2026 10/04/2023 Lipid Panel 03/07/2027 03/07/2022 Dental X-Ray: Full Mouth 09/04/2027 025, 05/15/2023, 01/27/2010, Additional history exists DTaP/Tdap/Td Vaccines (3 - Td or Tdap) [...] Procedure Name Priority Date/Time Associated Diagnosis Comments LIMITED ORAL EVALUATION - PROBLEM FOCUSED Routine 09/02/2024 2:00 PM EDT Alveolar exostosis PANORAMIC RADIOGRAPHIC IMAGE Routine 09/02/2024 2:00 PM EDT Alveolar exostosis XR LUMBAR SPINE COMPLETE 4+ VIEWS Routine 09/02/2024 8:51 AM EDT CASE PRESENTATION, DETAILED AND EXTENSIVE TREATMENT PLANNING Routine 09/01/2024 11:00 AM EDT Partial edentulism, unspecified edentulism class Alveolar exostosis DENTURE IMPRESSION Routine 09/01/2024 11 :00 AM EDT Partial edentulism, unspecified edentulism class Alveolar exostosis D DIMER HIGH SENSITIVITY Routine 07/08/2024 4:27 [...] 1:00 PM EST Dental caries Periodontal disease Full PROPHYLAXIS - ADULT Routine 05/04/2024 9:00 AM EST BITEWINGS - 4 RADIOGRAPHIC IMAGES Routine 05/04/2024 9:00 AM EST LAB COLOGUARD?? COLON CANCER SCREEN Routine 10/04/2023 12:30 PM EDT Colon cancer screening PERIODIC ORAL EVALUATION - ESTABLISHED PATIENT Routine 05/15/2023 9:00 AM EST LIPID PANEL, STANDARD Routine 03/07/2022 11:24 AM EDT [facility] HISTORICAL HEPATITIS C AB W/REFL TO HCV RNA, QN, PCR Routine 03/07/2022 11:23 AM EDT HIV 1/2 ANTIGEN/ANTIBODY, FOURTH GENERATION W/RFL Routine 03/07/2022 11:23 AM EDT from Last 3 Months or Most Recently Relevant to Health Maintenance Results * XR Lumbar Spine Complete 4+ Views (09/02/2024 8:51 AM EDT) Anatomical Region Laterality Modality Spine, L-spine Radiographic Ines ging 09/02/2024 8:51 AM EDT Narrative 09/02/2024 8:52 AM EDT ? [facility] ? [address] ?[place] [address] ?XRay Report ? Signed ? Patient: Alvarado Ellis,Ortega L ?MR#: ?? [id number] ? : 1970 ?Acct:[id number] ? Age/Sex: 54 / M ?ADM Date: 08/31/24 ? Loc: HO.HOSX ? Attending Dr: Tahir RAMSAY ? Ordering Physician: Tahir Gillespie ?? Date of Service: 08/31/24 ?? Procedure(s): XR lumbar spine 4V min ?? Accession Number(s): [id number] ? cc: Tahir Gillespie; Maryan Santamaria MD ? CLINICAL HISTORY: M54.50 - Low back pain, unspecified ? 4 views lumbar spine ? Comparison: None ? Findings: ?? Slight rightward curvature of the lumbar spine.5 [id number] ?? lumbar-type vertebral bodies. ?? Multilevel disc height loss with reactive endplate changes. No listhesis. ?? No instability on flexion extension. ?? No vertebral body height loss. ? IMPRESSION: ?? Multilevel degenerative change. No findings of instability on ?? flexion-extension. ? This document has been electronically signed by: Марина Birch MD on ?? 09/02/2024 08:51:27 ? Dictated By: ?Марина Birch MD ? Signed By: ?<Electronically signed by Марина Birch MD in OV> ?09/02/24 0852 ? DD/ 0851 ? TD/TT: 09/02/24 0851 ? Media Promoter: ? Procedure Note Donotuseinterpreter, Image - 09/02/2024 [facility] [address] [place] [address] Drive [address] [place] [address] XRay Report Signed Patient: Ortega Lane LMR#: [id number] : 1970Acct:[id number] Age/Sex: 54 / MADM Date: 08/31/24 Loc: HO.HOSX Attending Dr: Tahir RAMSAY Ordering Physician: Tahir Gillespie Date of Service: 08/31/24 Procedure(s): XR lumbar spine 4V min Accession Number(s): [id number] cc: Tahir Gillespie; Maryan Santamaria MD CLINICAL HISTORY: M54.50 - Low back pain, unspecified 4 views lumbar spine Comparison: None Findings: Slight rightward curvature of the lumbar spine.5 [id number] lumbar-type vertebral bodies. Multilevel disc height loss with reactive endplate changes. No listhesis. No instability on flexion extension. No vertebral body height loss. IMPRESSION: Multilevel degenerative change. No findings of instability on flexion-extension. This document has been electronically signed by: Марина Birch MD on 09/02/2024 08:51:27 Dictated By: Марина Birch MD Signed By: <Electronically signed by Марина Birch MD in OV> 09/02/24 0852 DD/ 0851 TD/TT: 09/02/24 0851 Media Promoter: [facility] External Provider IMG XR PROCEDURES Final Result * D Dimer High Sensitivity (07/08/2024 4:27 PM EST) D Dimer High Sensitivity <150 NG/ML [facility] Comment:D-DIMER HS REFERENCE RANGENote: Our [...] ORDERAB LES Final Result Performing Organization Address [facility]/ZIP Co de Phone Number [facility] [address] [place] [phone] * Blood Culture (Second) (07/08/2024 4:27 PM EST) Blood Venous blood specimen / Unknown 07/08/2024 4:27 PM EST 07/08/2024 4:32 PM EST Comment:Blood Narrative [facility] - 07/13/2024 6:33 PM EST Blood Culture (Second) No growth after 5 days. Specimen Source: Blood Generic External Data Provider LAB MICROBIOLOGY - GENERAL ORDERABLES Final Result Performing Organization Address [facility] Co de Phone Number [facility] [address] [place] [phone] * SARS-CoV-2 RNA, Influenza A/B, and RSV RNA, Ql NAAT (07/08/2024 4:27 PM EST) Influenza A PCR NEGATIVE Negative [facility] Influenza B PCR NEGATIVE Negative [facility] Resp Syncy Virus RNA Qual PCR NEGATIVE Negative [facility] SARS COV2 PCR NEGATIVE Negative [facility] Comment:All test results mus t [...] use by authorized laboratories.Testing performed on the [employer] GeneXpert utilizingreal-time RT-PCR.All SARS CoV2 and positive influenza A/B results arereported to [facility]. 07/08/2024 4:27 PM EST 07/08/2024 4:32 PM EST Generic External Data Provider LAB MICROBIOLOGY - GENERAL ORDERABLES Final Result Performing Organization Address [facility] Phone Number [facility] [address] [place] [phone] * Lactic Acid (07/08/2024 4:27 PM EST) Lactic Acid 1.3 0.5 - 2.0 mmol/L [facility] 07/08/2024 4:27 PM EST 07/08/2024 4:32 PM EST Generic External Data Provider LAB BLOOD ORDERAB LES Final Result Performing Organization Address [facility] Phone Number [facility] [address] [place] [phone] * Blood Culture (First) (07/08/2024 4:20 PM EST) Blood Venous blood specimen / Unknown 07/08/2024 4:20 PM EST 07/08/2024 4:35 PM EST Comment:Blood Narrative [facility] - 07/13/2024 6:35 PM EST Blood Culture (First) No growth after 5 days. Specimen Source: Blood Generic External Data Provider LAB MICROBIOLOGY - GENERAL ORDERABLES Final Result Performing Organization Address [facility] de Phone Number [facility] [address] [place] [phone] * XR Chest 1 View (07/08/2024 3:52 PM EST) Anatomical Region Laterality Modality Chest Radiographic Ines ging 07/08/2024 3:52 PM EST Narrative 07/08/2024 4:04 PM EST ? [facility] ?[address] ?[place] [address] ?XRay Report ? Signed ? Patient: Alvarado Ellis,Ortega L ?MR#: ?? [id number] ? : 1970 ?Acct:[id number] ? Age/Sex: 54 / M ?ADM Date: 07/08/24 ? Loc: HO.ED ? Attending Dr: ? Ordering Physician: Cat Vinson MD ?? Date of Service: 07/08/24 ?? Procedure(s): XR chest 1V ?? Accession Number(s): [id number] ? cc: Cat Vinson MD; Maryan Santamaria [...] DD/ 1552 ? TD/TT: 07/08/24 1552 ? Media Promoter: ? Procedure Note Remedios, Image - 07/08/[address] [address] XRay Report Signed Patient: Ortega Lane LMR#: [id number] : 1970Acct:[id number] Age/Sex: 54 / MADM Date: 07/08/24 Loc: HO.ED Attending Dr: Ordering Physician: Cat Vinson MD Date of Service: 07/08/24 Procedure(s): XR chest 1V Accession Number(s): [id number] cc: Cat Vinson MD; Maryan Santamaria MD [...] by: Chuck Doss MD 07/08/2024 04:01 PM [facility] Dictated By: Chuck Doss MD Signed By: <Electronically signed by Chuck Doss MD in OV> 07/08/24 1601 DD/ 1552 TD/TT: 07/08/24 155 Media Promoter: [facility] External Provider IMG XR PROCEDURES Final Result * (ABNORMAL) Cologuard?? colon cancer screening (10/04/2023 12:30 PM EDT) Cologuard Result Positive( A) Negative 10/15/2023 2:08 AM EDT [facility] (CLIA #:[id number]) Comment: POSITIVE TEST RESULT. A positive Cologuard [...] (Berenice Funes al, N Engl J Med 2014;370(14):0762-4599.) Cologuard may produce a false negative or false positive result (no colorectal cancer or precancerous polyp present at colonoscopy follow up). A negative Cologuard test result does not guarantee the absence of CRC or advanced adenoma (pre-cancer). The current Cologuard screening interval is every 3 years. ([place] Cancer Society and U.S. Multi-Society Task Force). Cologuard performance data in a 10,000 patient pivotal study using colonoscopy as the reference method can be accessed at the following location: www.Jajah/results. Additional description of the Cologuard test process, warnings and precautions can be found at www.[employer]. Stool specimen (specimen) 10/04/2023 12:30 PM EDT 10/05/2023 10:57 AM EDT us Maryan Santamaria MD LAB MOLECULAR DIAGNOSTICS ORD ERABLES Final Result [facility] (CLIA #:[id number]) [address] [place] [address], * LIPID PANEL, STANDARD (03/07/2022 11:24 AM [...] ?? LDL-C is now calculated using the Joe ?? calculation, which is a validated novel method providing ?? better accuracy than the Friedewald equation in the ?? estimation of LDL-C. ?? Jovan HOWARD et al. ALISE. 2013;310(19): 4799-4543 ?? (http://svh24.de.Bioenvision/faq/UCM719) Non-HDL Cholesterol 97 <130 mg/dL (calc) [facility] Comment: For patients with diabetes plus 1 major ASCVD risk ?? factor, treating to a non-HDL-C goal of <100 mg/dL ?? (LDL-C of <70 mg/dL) is considered a therapeutic ?? option. Triglycerides 147 <150 mg/dL [facility] 03/07/2022 11:2 4 AM EDT us Maryan Santamaria MD LAB BLOOD ORDERABLES Final Re sult Performing Organization Address [facility] de Phone Number [facility] [address] [place] [address], * HEPATITIS C AB W/REFL TO HCV [...] a test for HCV RNA (test code 74833) is suggested. ?? For additional information please refer to http://svh24.de.Trueffect/faq/IXE90i2 (This link is being provided for informational/ educational purposes only.) ?? 03/07/2022 11:2 3 AM EDT us Maryan Santamaria MD HISTORICAL/NON ORDERABLE LABS Final Result Performing Organization Address [facility] Co de Phone Number [facility] [address] * HIV 1/2 ANTIGEN/ANTIBODY,FOURTH GENERATION W/RFL [...] ? For additional information please refer to http://education.Trueffect/faq/ZWV921 (This link is being provided for informational/ educational purposes only.) ? The performance of this assay has not been clinically validated in patients less than 2 years old. ?? 03/07/2022 11:2 3 AM EDT us Maryan Santamaria MD LAB BLOOD ORDERABLES Final Re sult Performing Organization Address [facility] de Phone Number [facility] [address] from Last 3 Months or Most Recently Relevant to Health Maintenance Insurance [facility] C3 DENTAL-[facility] MEDICAID STAND ADULT Care Teams Utility Aircrewman Relationship Specialty Start Date End Date Maryan Santamaria MD [address] [place] [phone] PCP - General Family Medicine 03/17/21
--- OUTSIDE RECORDS SUMMARY | 2024-09-15 11:38 | XMS_ITS | Encounter Summary ---
Author Organization [employer] Address [address] [facility] 7t [place] [address] Care Team Providers Care Fiscal Accountant Name Role Phone Maryan Santamaria MD Primary Care Provider [phone] Reason for Visit * Reason Onset Date Comments PT-1 08/20/2023 Encounter Details Date Type Department Care Team ([facility] st Contact Info) Description 08/20/[address] [facility] MEDICINE [address] [place] [address] Maryan Santamaria MD [address] [place] [address] PT-1 Social History Tobacco Use Types Packs/Day [...] 08/28 Time: 9:00 Visits: 3 Address: [address] [place], [place] Facility: [facility] [place] Chair: no Car Repairman Needed: no PT1 needed Date: 09/01 Time: 10:30 Visits: 4 Address: [address] [place], [place] Facility: [facility] [address] Chair: no Car Repairman Needed: no PT1 needed Date: 09/03 Time: 10:30 Visits: 3 Address: [address] [place] [address] Facility: [facility] [address] [place] Chair: no Car Repairman Needed: no documented in this encounter Plan of Treatment Upcoming Encounters Date Type Department Care Team (Late st Contact Info) Description 09/16/2024 11:00 AM EDT Office Visit [facility] ADULT D[facility] [address] [place] [address] Tello Ramirez, DMD [address] [place] [address] documented as of this encounter Visit Diagnoses Not on filedocumented in this encounter Additional Health Concerns Assessment Noted Time PHQ-9 Depression Total Score: 13 023 9:21 AM EST documented as of this encounter Care Teams Fiscal Accountant Relationship Specialty Start Date End Date Maryan Santamaria MD [address] [place] [address] PCP - General Family Medicine 03/17/21 documented as of this encounter
--- OUTSIDE RECORDS SUMMARY | 2024-09-15 11:38 | XMS_ITS | Clinical Summary ---
Author Organization [facility] Address [address] [place] [address] Care Team Providers Care Tax Assessor Name Role Phone Hiren Alcala MD Primary Care Provider [phone] Allergies No known active allergies Medications cyclobenzaprine [...] Name Administration Dates Next Due Hepatitis B (Zyrosac-P-Etnku , Recombivax HB-Adult) 19yo and older 03/23/2013,02/19/2013 [...] Recently Relevant to Health Maintenance Care Teams Tax Assessor Relationship Specialty Start Date End Date Hiren Alcala MD PCP - General Internal Medicine 05/29/11
--- OUTSIDE RECORDS SUMMARY | 2024-09-15 11:38 | XMS_ITS | Encounter Summary ---
Author Organization [employer] Address [address] [facility] [address] [place] [address] Care Team Providers Care Concrete Pipe Plant Supervisor Name Role Phone Maryan Santamaria MD Primary Care Provider [phone] Reason for Visit * Reason Onset Date Comments case back from lab 07/25/2023 Encounter Details Date Type Department Care Team (Late st Contact Info) Description 07/25/2023 Telephone [facility] [address] [place] [address] Norberto Castro DDS [address] [place] [address] case back from lab Social History Tobacco [...] [facility] [address] [place] [address] Tello Ramirez, DMD [address] [place] [address] documented as of this encounter Visit Diagnoses Not on filedocumented in this encounter Additional Health Concerns Assessment Noted Time PHQ-9 Depression Total Score: 13 023 9:21 AM EST documented as of this encounter Care Teams Concrete Pipe Plant Supervisor Relationship Specialty Start Date End Date Maryan Santamaria MD [address] [place] [address] PCP - General Family Medicine 03/17/21 documented as of this encounter
== END 2024-09-15 09:58 | disposition home or self-care (01) ==
LOC: HO.MRI 09:57
PROVIDERS: PCP Family Medicine; Visit Provider Physician Assistant
DX: M54.50 Low back pain, unspecified (principal)
CPT/HCPCS: 72148

== ENCOUNTER → 2024-09-15 09:57 | Outpatient (BNV) | payer MEDICAID, SELFPAY | PROVIDERS: PCP Family Medicine; Visit Provider Radiology Diagnostic Radiology | DX: M51.26 Other intervertebral disc displacement, lumbar region (principal) | CPT/HCPCS: 72148 ==

== ENCOUNTER 2024-09-22 09:41 | Outpatient (AMB) | payer MEDICAID, SELFPAY ==
--- NOTE | 2024-09-22 09:55 | MHC.OFFVIS ---
Vital Signs 09/22/24 09:57 Height 5 ft 11 in Weight 156 lb BMI 21.8 Intake Visit Reasons: OV-Radiculopathy, cervical region, B/L sides Intake Note: Ortega is a 54 year old male who presents today for a follow up of his cervical radiculopathy/myelopathy. He was last seen with Neuro Spine office on 08/31/24 for a follow up s/p C6-7 ACDF 06/03/[address] Villaseñor - he reported that the neck pain has remained relatively unchanged. At this visit with Spine he also complained of lower back pain. pain is the worst when attempting to rise from a seated position. He has to move very slowly and wait for the initial onset of sharp pain to subside before standing up straight. His primary care physician has tried to help treat this pain with several different prescription medications including Lyrica, oxycodone, and Vicodin. He feels these have only been modestly helpful to relieve his symptoms. He has also tried a plethora of pbtl-qsy-[id number] medications including Tylenol, NSAIDs, pain patches/creams, all without relief of symptoms. He has allso had Facet injections with [facility] in the past that had only provided about 1 week of relief. An MRI or the lumbar spine was ordered and performed 09/15/24. Allergies No Known Allergies [No Known Allergies*] Allergy (Verified 09/22/24 09:57) Medication List - Last Reconciled 09/22/24 by Yaa Estrella MD acetaminophen 1,000 mg PO Q8H PRN albuterol sulfate 90 mcg/actuation (Ventolin HFA) 2 puffs inhalation Q4H PRN baclofen 5 mg PO TID doxycycline hyclate 100 mg PO BID 7 days ibuprofen 600 mg PO TID mometasone 100 mcg/actuation (Asmanex HFA) 1 puff inhalation BID montelukast 10 mg QAM oxycodone 5 mg PO BID PRN pregabalin 150 mg BID sertraline 50 mg QAM HPI Comments Details: Last saw the patient 04/09/2024 for neck pain. Underwent C6-[address] Villaseñor 06/03/2024. Multiple no-shows to physiatry since then. He saw neuro spine 08/31/2024 complain of lower back pain. MRI lumbar spine was ordered/done, has not seen neuro spine yet to review MRI. Lower back pain, mostly in the hips, does not radiate to legs. Sometimes might feel something on left thigh but not often. Has knee pain which he attributes to arthritis. No numbness on his feet. No gait change or stumbling. Worse pain on lower back, starts to sway back and forth, with prolonged standing. Heavy drinker, he only admits drinking couple beers at night, he smells alcohol today and he admits from drinking last night, but denies from this morning. [facility] Medical History Chest pain Tremor of both hands Numbness and tingling in left hand Hx of fracture of patella Osteoarthritis Carpal tunnel syndrome Fibromyalgia Medial epicondylitis of both elbows Low back pain Chronic nasal congestion Environmental and seasonal allergies Anxiety Depression COPD (chronic obstructive pulmonary disease) Asthma Personal history of nicotine dependence Lumbar radiculopathy, chronic Alcoholism Surgical History S/P cubital tunnel release (09/19/23) History of tonsillectomy Family History Mother Diabetes Social History Household Members: Spouse Are you a primary adult care manager to a significant other at home: No Do you presently have visiting nurse or other home services: No Alcohol intake: current Patient Tobacco Use Status: Current everyday Tobacco user Tobacco use type: Cigarette Cigarette Packs Per Day: 1 Cigarettes Per Day: 20.0 Years Smoked: (onset 15yo, 1ppd x 36yrs, 35pyh) Second Hand Smoke Exposure: No Substance Use Type: Marijuana Current occupational status: unemployed Current occupation: right hand dominant Physical Exam Vital Signs: BMI result Body Mass Index 21.8 He still has some tremors that I previously saw in the past, previously thought to be connected to cervical myelopathy. However as patient has consumed alcohol prior to coming to visit, suspect tremors are from alcohol abuse. Gait appeared normal though. Results Reviewed Results Reviewed: Ordering Physician: Tahir Gillespie Date of Service: 09/15/24 Procedure(s): MR lumbar spine wo con Accession Number(s): [id number] cc: Tahir Gillespie; Maryan Santamaria MD~ EXAMINATION: MR LUMBAR SPINE WITHOUT CONTRAST CLINICAL INFORMATION: Low back pain. COMPARISON: August 18, 2021 TECHNIQUE: MRI of the lumbar spine was obtained using routine sequences without contrast. FINDINGS: Last rib-bearing vertebra labeled T12. There is mild bone marrow STIR signal in the right side of inferior endplate of L4 and the posterior midline inferior endplate of L3. Bone marrow inhomogeneity. Focal hyperintense T2 STIR signal in the posterior intervertebral disc L3-4 likely annular fissure. Multilevel marginal osteophyte formation and disc desiccation from L1 to L5. 1 mm retrolisthesis L2-3 and L4-5 level. Conus medullaris ends at inferior endplate of L1 with normal signal. T12-L1: No disc herniation. No neuroforamina stenosis. L1-2: No disc herniation. No neuroforamina stenosis. L2-3: Broad-based disc bulging. Facet joint and ligamentum flavum hypertrophy. Facet effusion. Decreased AP diameter of the thecal sac and the neural foramina likely encroaching the L2 exiting nerve roots. L3-4: Focal annular fissure. Central right subarticular and foraminal broad-based disc herniation compressing the right L4 and L3 nerve roots and the neural elements of the thecal sac. Facet joint and ligamentum flavum hypertrophy. Reduced AP diameter of the thecal sac. Right neuroforamina stenosis. L4-5: Right subarticular disc herniation compressing the right L5 nerve root on its lateral recess. Facet joint and ligamentum flavum hypertrophy. Bilateral neuroforamina narrowing encroaching the L4 exiting nerve roots. L5-S1: Broad-based disc bulging. Facet joint hypertrophy. No central spinal canal stenosis. Bilateral neuroforamina narrowing. No prevertebral compartment hematoma, mass or fluid collection. MR/MR lumbar spine wo con IMPRESSION: Right subarticular disc herniation L4-5 compressing the right L5 nerve root. Broad-based central right subarticular and foraminal disc herniation encroaching the neural elements of the thecal sac and the right L3 exiting nerve root. Multilevel lumbar spondylosis L2-L5. Electronically signed by: Quentin Mccormack MD 09/16/2024 08:20 AM EDT RP Assessment & Plan Assessment & Plan (1) Low back pain: Code(s): M54.50 - Low back pain, unspecified Category: Medical Qualifiers: Chronicity: chronic Back pain laterality: bilateral Sciatica presence: without sciatica Qualified Code(s): M54.50 - Low back pain, unspecified; G89.29 - Other chronic pain (2) Lumbar radiculopathy, chronic: Code(s): M54.16 - Radiculopathy, lumbar region Category: Medical (3) Alcohol abuse: Code(s): F10.10 - Alcohol abuse, uncomplicated Category: Social Hx Plan Chronic lower back pain. We looked at lumbar MRI images together, there is a right-sided disc bulge L4-5. Patient denies radicular symptoms in the right side. Advised patient to get follow up appointment with neuro spine. If they do not recommend surgery, then he can perhaps be referred to pain management for injection. Alcohol abuse, suggested alcoholics anonymous or referral to our addiction department. Patient defers both. Assessment and plan discussed with patient, and patient was agreeable. All questions were answered thoroughly. Yaa Estrella MD, VANCE Board Certified, [place] [employer] and Rehabilitation (ABPMR) Board Certified, [place] [employer] of Electrodiagnostic Medicine (ABEM) Coding Level of Care Code Est Pt Level 4 (43153) Diagnoses Chronic bilateral low back pain without sciatica M54.50; G89.29 Chronicity: chronic Back pain laterality: bilateral Sciatica presence: without sciatica Lumbar radiculopathy, chronic M54.16 Alcohol abuse F10.10
[2024-09-22 09:57] VITALS: BMI 21.8
--- OUTSIDE RECORDS SUMMARY | 2024-09-22 11:04 | XMS_ITS | Clinical Summary ---
Author Organization [facility] Address [address] [place] [address] Care Team Providers Care Marketing Communications Associate Name Role Phone Hiren Alcala MD Primary Care Provider [phone] Allergies No known active allergies Medications cyclobenzaprine [...] Name Administration Dates Next Due Hepatitis B (Eywhgld-X-Mfxde , Recombivax HB-Adult) 19yo and older 03/23/2013,02/19/2013 [...] 07/28/2008 COVID-19 Vaccine (2023-2 5 season) 2024 Cholesterol Screening (Lipid Panel) 06/23/2024 01/04/2013 Colorectal Cancer Screening: Colonoscopy 06/23/2024 Depression Screening 06/23/2024 07/26/2022 HIV Screening 06/23/2024 Hepatitis C Screening 06/23/2024 Social Influencers of Health Screening 06/23/2024 Influenza Vaccine (Season Ended) 2025 HIB Vaccines Aged Out No longer eligi [...] age to complete this topic Meningococcal B Vaccine Aged Out No l onger eligible based on patient's age to complete [...] Recently Relevant to Health Maintenance Care Teams Marketing Communications Associate Relationship Specialty Start Date End Date Hiren Alcala MD PCP - General Internal Medicine 05/29/11
--- OUTSIDE RECORDS SUMMARY | 2024-09-22 11:04 | XMS_ITS | Encounter Summary ---
Author Organization [employer] Address [address] [place] [address] Care Team Providers Care Instrument Inspector Name Role Phone Maryan Santamaria MD Primary Care Provider [phone] Reason for Visit * Reason Onset Date Comments case back from lab 07/25/2023 Encounter Details Date Type Department Care Team ([facility] st Contact Info) Description 07/25/2023 Telephone [facility] [address] [place] [address] Norberto Castro DDS [address] [place] [address] case back from lab Social History Tobacco [...] Care Team (Late st Contact Info) Description 10/09/2024 1:00 PM EDT Office Visit [facility] [address] [place] [address] Tello Ramirez, DMD [address] [place] [address] documented as of this encounter Visit Diagnoses Not on filedocumented in this encounter Additional Health Concerns Assessment Noted Time PHQ-9 Depression Total Score: 13 023 9:21 AM EST documented as of this encounter Care Teams Instrument Inspector Relationship Specialty Start Date End Date Maryan Santamaria MD [address] [place] [address] PCP - General Family Medicine 03/17/21 documented as of this encounter
--- OUTSIDE RECORDS SUMMARY | 2024-09-22 11:04 | XMS_ITS | Encounter Summary ---
Author Organization [employer] Address [address] [place] [address] Care Team Providers Care Cable Tester Name Role Phone Maryan Santamaria MD Primary Care Provider [phone] Reason for Visit * Reason Onset Date Comments PT-1 08/20/2023 Encounter Details Date Type Department Care Team ([facility] st Contact Info) Description 08/20/2023 Telephone [facility] [address] [place] [address] Maryan Santamaria MD [address] [place] [address] PT-1 Social History Tobacco Use Types Packs/Day [...] 08/28 Time: 9:00 Visits: 3 Address: [address] [place], [place] Facility: [facility] [place]berto Park Chair: no Ditcher Needed: no PT1 needed Date: 09/01 Time: 10:30 Visits: 4 Address: [address] [place], [place] Facility: [facility] [address] Chair: no Ditcher Needed: no PT1 needed Date: 09/03 Time: 10:30 Visits: 3 Address: [address] [place] [address] Facility: [facility] [address] [place] Chair: no Ditcher Needed: no documented in this encounter Plan of Treatment Upcoming Encounters Date Type Department Care Team (Late st Contact Info) Description 10/09/2024 1:00 PM EDT Office Visit [facility] [address] [place] [address] Tello Ramirez, DMD [address] [place] [address] documented as of this encounter Visit Diagnoses Not on filedocumented in this encounter Additional Health Concerns Assessment Noted Time PHQ-9 Depression Total Score: 13 023 9:21 AM EST documented as of this encounter Care Teams Cable Tester Relationship Specialty Start Date End Date Maryan Santamaria MD [address] [place] [address] PCP - General Family Medicine 03/17/21 documented as of this encounter
--- OUTSIDE RECORDS SUMMARY | 2024-09-22 11:04 | XMS_ITS | Encounter Summary ---
Author Organization [employer] Address [address] [place] [address] Care Team Providers Care Mask Design Engineer Name Role Phone Maryan Santamaria MD Primary Care Provider [phone] Encounter Details Date Type Department Care Team (Late st Contact Info) Description 08/01/2023 Abstract [facility] [address] [place] [address] Norberto Castro DDS [address] [place] [address] Social History Tobacco Use Types Packs/Day Years [...] Description 10/09/2024 1:00 PM EDT Office Visit [facility] [address] [place] [address] Tello Ramirez, DMD [address] [place] [address] documented as of this encounter Visit Diagnoses Not on filedocumented in this encounter Additional Health Concerns Assessment Noted Time PHQ-9 Depression Total Score: 13 023 9:21 AM EST documented as of this encounter Care Teams Mask Design Engineer Relationship Specialty Start Date End Date Maryan Santamaria MD [address] [place] [address] PCP - General Family Medicine 03/17/21 documented as of this encounter
--- OUTSIDE RECORDS SUMMARY | 2024-09-22 11:04 | XMS_ITS | Clinical Summary ---
Author Organization [employer] Address [address] [facility] [address] [place] [address] Care Team Providers Care Fried Cake Maker Name Role Phone Maryan Santamaria MD Primary Care Provider Allergies No known active allergies Medications naloxone [...] AFTER USE 13 g 3 5 Active amoxicillin (Amoxil) 500 MG capsuleIndicatio ns:Hx of oral surgery Take 1 capsule (500 mg) by mouth every 8 (eight) hours for 7 days. 21 capsule 5 09/24/19 25 Active chlorhexidine (Peridex) 0.12 % solutionIndicati ons:Hx of oral surgery Swish 15 mL morning and night for 1 minute. Spit, do not swallow. Do not eat or drink for 30 minutes following use. 473 mL 5 Active acetaminophen (Tylenol) 500 MG tabletIndication s:Hx of oral surgery Take 1 tablet (500 mg) by mouth every 6 (six) hours if needed for mild pain for up to 20 doses. 20 tablet 5 Active Active Problems Problem Noted Date Diagnosed Date Osteoarthritis of left knee 03/05/2024 Left patella fracture 03/05/2024 Physical exam 09/02/2023 Assessment & Plan (09/02/2023 11:12 PM EDT): Labs: Lipid Panel IZ: Tdap, PCV-20 Polyarthralgia 09/02/2023 Assessment & Plan (09/02/2023 11:11 PM EDT): Patient has Hx of osteoarthritis. We discussed possible referral to a chlorination operator for further evaluation and management. Explore non-opiate pain management options and consider referral to a highway painter. Labs: CBC, C-reactive, Sed Rate, LISA [...] 9:28 AM EST): Patient reported that the [place] medication is not helping with pain . I discontinued [place] medication and prescribed Lyrica. I have also [...] his medication had been discontinued by the electronics installer. I informed the pt that I sent a new order for a similar medication on the . Had to call the pharmacy to sort out issue with insurance approval. 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/26/2018 Wears partial dentures 03/26/2018 Encounters Date Type Department Care Team Description 09/16/2024 11:00 AM EDT Office Visit [facility] ADULT [facility] [address] [place] [address] Tello Ramirez DMD Alveolar exostosis (Primary Dx); Hx of oral surgery 09/02/2024 2:00 PM EDT Office Visit [facility] [address] [place] [address] Tello Ramirez DMD Alveolar exostosis (Primary Dx) 09/01/2024 11:00 AM EDT Office Visit [facility] [address] [place] [address] Tello Ramirez DMD Partial edentulism, unspecified edentulism class (Primary Dx); Alveolar exostosis 09/01/[address] [facility] [address] [place] [address] Maryan Santamaria MD 08/31/2024 Orders Only [facility] External Provider, [facility] 08/28/2024 Population Health Risk Score [facility] ([facility]) Department [address] [place] [phone] Provider, Population Health Generic 07/08/2024 Orders Only [facility] External Provider, [facility] 06/26/[address] [facility] [address] [place] [address] Maryan Santamaria MD from Last 3 Months Immunizations Name Administration [...] Sign Reading Time Taken Comments Blood Pressure 130/70 09/16/2024 11:18 AM EDT Pulse 60 05/04/2024 8:53 AM EST Temperature [...] Description 10/09/2024 1:00 PM EDT Office Visit [facility] [address] [place] [address] Tello Ramirez, KARL [address] [place] [address] Health Maintenance Due Date Last Done Comments [...] 05/05/2025 05/04/20 24, 05/15/2023, 01/27/2010 Tobacco Screening 09/16/2025 09/16/2024 Colorectal Cancer Screening 10/03/2026 FIT DNA/Cologuard 10/03/2026 [...] Procedure Name Priority Date/Time Associated Diagnosis Comments CASE PRESENTATION, DETAILED AND EXTENSIVE TREATMENT PLANNING Routine 09/16/2024 11:00 AM EDT Alveolar exostosis 12,13,14,15 UL ALVEOLOPLASTY NOT IN CONJ W/ EXTRACTIONS - 4+ TEETH, PER QUAD Routine 09/16/2024 11:00 AM EDT Alveolar exostosis MR LUMBAR SPINE WO CONTRAST Routine 09/15/2024 10:24 AM EDT LIMITED ORAL EVALUATION - PROBLEM FOCUSED Routine [...] 1 VIEW Routine 07/08/2024 3:52 PM EST Full PROPHYLAXIS - ADULT Routine 05/04/2024 [...] Recently Relevant to Health Maintenance Results * MR Lumbar Spine w/o Contrast (09/15/2024 10:24 AM EDT) Anatomical Region Laterality Modality Spine, L-spine Magnetic Resonan ce 09/15/2024 10:2 4 AM EDT Narrative 09/16/2024 8:23 AM EDT ? [facility] ?[address] ?[place] [address] ? Magnetic Resonance Report ? Signed ? Patient: Alvarado Ellis,Ortega L ?MR#: ?? [id number] ? : 1970 ?Acct:[id number] ? Age/Sex: 54 / M ?ADM Date: 04/01/25 ? Loc: HO.MRI ? Attending Dr: Tahir RAMSAY ? Ordering Physician: Tahir Gillespie ?? Date of Service: 09/15/24 ?? Procedure(s): MR lumbar spine wo con ?? Accession Number(s): [id number] ? cc: Tahir Gillespie; Maryan Santamaria MD ? EXAMINATION: ?? MR LUMBAR SPINE WITHOUT CONTRAST ? CLINICAL INFORMATION: ?? Low back pain. ? COMPARISON: ?? August 18, 2021 ? TECHNIQUE: ?? MRI of the lumbar spine was obtained using routine sequences without ?? contrast. ? FINDINGS: ?? Last rib-bearing vertebra labeled T12. ? There is mild bone marrow STIR signal in the right side of inferior ?? endplate of L4 and the posterior midline inferior endplate of L3. ?? Bone marrow inhomogeneity. ?? Focal hyperintense T2 STIR signal in the posterior intervertebral disc ?? L3-4 likely annular fissure. ?? Multilevel marginal osteophyte formation and disc desiccation from L1 ?? to L5. ?? 1 mm retrolisthesis L2-3 and L4-5 level. ?? Conus medullaris ends at inferior endplate of L1 with normal signal. ? T12-L1: ?? No disc herniation. No neuroforamina stenosis. ? L1-2: ?? No disc herniation. No neuroforamina stenosis. ? L2-3: Broad-based disc bulging. Facet joint and ligamentum flavum ?? hypertrophy. Facet effusion. Decreased AP diameter of the thecal sac ?? and the neural foramina likely encroaching the L2 exiting nerve roots. ? L3-4: ?? Focal annular fissure. Central right subarticular and foraminal ?? broad-based disc herniation compressing the right L4 and L3 nerve roots ?? and the neural elements of the thecal sac. Facet joint and ligamentum ?? flavum hypertrophy. Reduced AP diameter of the thecal sac. Right ?? neuroforamina stenosis. ? L4-5: ?? Right subarticular disc herniation compressing the right L5 nerve root ?? on its lateral recess. Facet joint and ligamentum flavum hypertrophy. ?? Bilateral neuroforamina narrowing encroaching the L4 exiting nerve ?? roots. ? L5-S1: ?? Broad-based disc bulging. Facet joint hypertrophy. No central spinal ?? canal stenosis. Bilateral neuroforamina narrowing. ? No prevertebral compartment hematoma, mass or fluid collection. ? MR/MR lumbar spine wo con ?? IMPRESSION: ?? Right subarticular disc herniation L4-5 compressing the right L5 nerve ?? root. ? Broad-based central right subarticular and foraminal disc herniation ?? encroaching the neural elements of the thecal sac and the right L3 ?? exiting nerve root. ? Multilevel lumbar spondylosis L2-L5. ? Electronically signed by: ??Quentin Mccormack MD ??09/16/2024 08:20 AM ?? EDT RP ? Dictated By: ?Quentin Martin MD ? Signed By: ?<Electronically signed by Quentin White MD in OV> ? 09/16/24 0820 ? DD/ 1024 ? TD/TT: 09/15/24 1043 ? Sourcer: ? Procedure Note Donmaryter, Image - 09/16/2024 [place] [address] Magnetic Resonance Report Signed Patient: Ortega Lane LMR#: [id number] : 1970Acct:[id number] Age/Sex: 54 / MADM Date: 09/15/24 Loc: HO.MRI Attending Dr: Tahir RAMSAY Ordering Physician: Tahir Gillespie Date of Service: 09/15/24 Procedure(s): MR lumbar spine wo con Accession Number(s): [id number] cc: Tahir Gillespie; Maryan Santamaria MD EXAMINATION: MR LUMBAR SPINE WITHOUT CONTRAST CLINICAL INFORMATION: Low back pain. COMPARISON: August 18, 2021 TECHNIQUE: MRI of the lumbar spine was obtained using routine sequences without contrast. FINDINGS: Last rib-bearing vertebra labeled T12. There is mild bone marrow STIR signal in the right side of inferior endplate of L4 and the posterior midline inferior endplate of L3. Bone marrow inhomogeneity. Focal hyperintense T2 STIR signal in the posterior intervertebral disc L3-4 likely annular fissure. Multilevel marginal osteophyte formation and disc desiccation from L1 to L5. 1 mm retrolisthesis L2-3 and L4-5 level. Conus medullaris ends at inferior endplate of L1 with normal signal. T12-L1: No disc herniation. No neuroforamina stenosis. L1-2: No disc herniation. No neuroforamina stenosis. L2-3: Broad-based disc bulging. Facet joint and ligamentum flavum hypertrophy. Facet effusion. Decreased AP diameter of the thecal sac and the neural foramina likely encroaching the L2 exiting nerve roots. L3-4: Focal annular fissure. Central right subarticular and foraminal broad-based disc herniation compressing the right L4 and L3 nerve roots and the neural elements of the thecal sac. Facet joint and ligamentum flavum hypertrophy. Reduced AP diameter of the thecal sac. Right neuroforamina stenosis. L4-5: Right subarticular disc herniation compressing the right L5 nerve root on its lateral recess. Facet joint and ligamentum flavum hypertrophy. Bilateral neuroforamina narrowing encroaching the L4 exiting nerve roots. L5-S1: Broad-based disc bulging. Facet joint hypertrophy. No central spinal canal stenosis. Bilateral neuroforamina narrowing. No prevertebral compartment hematoma, mass or fluid collection. MR/MR lumbar spine wo con IMPRESSION: Right subarticular disc herniation L4-5 compressing the right L5 nerve root. Broad-based central right subarticular and foraminal disc herniation encroaching the neural elements of the thecal sac and the right L3 exiting nerve root. Multilevel lumbar spondylosis L2-L5. Electronically signed by: Quentin Mccormack MD 09/16/2024 08:20 AM EDT Dictated By: Quentin Martin MD Signed By: <Electronically signed by Quentin White MDin OV> 09/16/24 0820 DD/ 1024 TD/TT: 09/15/24 1043 Sourcer: [facility] External Provider IMG MRI PROCEDURES Edited Result - Final * XR Lumbar Spine Complete 4+ Views (09/02/2024 8:51 AM EDT) Anatomical Region Laterality Modality Spine, L-spine Radiographic Ines ging 09/02/2024 8:51 AM EDT Narrative 09/02/2024 8:52 AM EDT ? [facility] ? [address] ?[place] [address] ?XRay Report ? Signed ? Patient: Alvarado Ellis,Ortega L ?MR#: ?? [id number] ? : 1970 ?Acct:[id number] ? Age/Sex: 54 / M ?ADM Date: 08/31/24 ? Loc: HO.HOSX ? Attending Dr: Tahir RAMSAY ? Ordering Physician: Tahir Gillespie ?? Date of Service: 08/31/24 ?? Procedure(s): XR lumbar spine 4V min ?? Accession Number(s): [id number] ? cc: Tahir Gillespie; Maryan Santamaria MD ? CLINICAL HISTORY: M54.50 - Low back pain, unspecified ? 4 views lumbar spine ? Comparison: None ? Findings: ?? Slight rightward curvature of the lumbar spine.5 [id number] ?? lumbar-type vertebral bodies. ?? Multilevel disc height loss with reactive endplate changes. No listhesis. ?? No instability on flexion extension. ?? No vertebral body height loss. ? IMPRESSION: ?? Multilevel degenerative change. No findings of instability on ?? flexion-extension. ? This document has been electronically signed by: Марниа Birch MD on ?? 09/02/2024 08:51:27 ? Dictated By: ?Марина Birch MD ? Signed By: ?<Electronically signed by Марина Birch MD in OV> ?09/02/24 0852 ? DD/ 08 ? TD/TT: 09/02/24850 ? Sourcer: ? Procedure Note Chen Whittaker - 09/02/2024 [facility] [address] [place] [address] [address] [place] [address] XRay Report Signed Patient: Ortega Lane LMR#: [id number] : 1970Acct:[id number] Age/Sex: 54 / MADM Date: 08/31/24 Loc: IVANX Attending Dr: Tahir RAMSAY Ordering Physician: Tahir Gillespie Date of Service: 08/31/24 Procedure(s): XR lumbar spine 4V min Accession Number(s): [id number] cc: Tahir Gillespie; Maryan Santamaria MD CLINICAL HISTORY: M54.50 - Low back pain, unspecified 4 views lumbar spine Comparison: None Findings: Slight rightward curvature of the lumbar spine.5 [id number] lumbar-type vertebral bodies. Multilevel disc height loss [...] Birch MD in OV> 09/02/24 0852 DD/ TD/TT: 09/02/2451 Sourcer: [facility] External Provider IMG XR PROCEDURES Final Result * D Dimer High Sensitivity (07/08/2024 4:27 PM EST) D Dimer High Sensitivity <150 NG/ML [facility] Comment:D-DIMER HS REFERENCE RANGENote: Our [...] Provider LAB BLOOD ORDERAB LES Final Result [facility] [address] [place] [phone] * Blood Culture (Second) (07/08/2024 4:27 PM EST) Blood Venous blood specimen / Unknown 07/08/2024 4:27 PM EST 07/08/2024 4:32 PM EST Comment:Blood Narrative [facility] - 07/13/2024 6:33 PM EST Blood Culture (Second) No growth after 5 days. Specimen Source: Blood Generic External Data Provider LAB MICROBIOLOGY - GENERAL ORDERABLES Final Result Performing Organization Address [facility] de Phone Number [facility] [address] [place] [phone] * SARS-CoV-2 RNA, Influenza A/B, and RSV RNA, Ql NAAT (07/08/2024 4:27 PM EST) Influenza A PCR NEGATIVE Negative [facility] Influenza B PCR NEGATIVE Negative [facility] Resp Syncy Virus RNA Qual PCR NEGATIVE Negative [facility] SARS COV2 PCR NEGATIVE Negative [facility] Comment:All test results mus t [...] use by authorized laboratories.Testing performed on the [place] GeneXpert utilizingreal-time RT-PCR.All SARS CoV2 and positive influenza A/B results arereported to [facility]. 07/08/2024 4:27 PM EST 07/08/2024 4:32 PM EST Generic External Data Provider LAB MICROBIOLOGY - GENERAL ORDERABLES Final Result Performing Organization Address [facility]/ZIP Co de Phone Number [facility] [address] [place] [phone] * Lactic Acid (07/08/2024 4:27 PM EST) Lactic Acid 1.3 0.5 - 2.0 mmol/L [facility] 07/08/2024 4:27 PM EST 07/08/2024 4:32 PM EST us Generic External Data Provider LAB BLOOD ORDERAB LES Final Result Performing Organization Address [facility] de Phone Number [facility] [address] [place] [address] [phone] * Blood Culture (First) (07/08/2024 4:20 PM EST) Blood Venous blood specimen / Unknown 07/08/2024 4:20 PM EST 07/08/2024 4:35 PM EST Comment:Blood Narrative [facility] - 07/13/2024 6:35 PM EST Blood Culture (First) No growth after 5 days. Specimen Source: Blood Generic External Data Provider LAB MICROBIOLOGY - GENERAL ORDERABLES Final Result Performing Organization Address [facility] de Phone Number [facility] [address] [place] [address] [phone] * XR Chest 1 View (07/08/2024 3:52 PM EST) Anatomical Region Laterality Modality Chest Radiographic Ines ging 07/08/2024 3:52 PM EST Narrative 07/08/2024 4:04 PM EST ? [facility] ?[address] ?[place] [address] ?XRay Report ? Signed ? Patient: Alvarado Ellis,Otrega L ?MR#: ?? [id number] ? : 1970 ?Acct:[id number] ? Age/Sex: 54 / M ?ADM Date: 07/08/24 ? Loc: HO.ED ? Attending Dr: ? Ordering Physician: Cat Vinson MD ?? Date of Service: 07/08/24 ?? Procedure(s): XR chest 1V ?? Accession Number(s): [id number] ? cc: Cat Vinson MD; Maryan Santamaria [...] DD/ 1552 ? TD/TT: 07/08/24 1552 ? Sourcer: ? Procedure Note [place], Image - 07/08/2024 [place] [address] XRay Report Signed Patient: Ortega Lane LMR#: [id number] : 1970Acct:[id number] Age/Sex: 54 / MADM Date: 07/08/24 Loc: HO.ED Attending Dr: Ordering Physician: Cat Vinson MD Date of Service: 07/08/24 Procedure(s): XR chest 1V Accession Number(s): [id number] cc: Cat Vinson MD; Maryan Santamaria MD [...] by: Chuck Doss MD 07/08/2024 04:01 PM [facility] Dictated By: Chuck Doss MD Signed By: <Electronically signed by Chuck Doss MD in OV> 07/08/24 1601 DD/ 1552 TD/TT: 07/08/24 1552 Sourcer: [facility] External Provider IMG XR PROCEDURES Final Result * (ABNORMAL) Cologuard?? colon cancer screening (10/04/2023 12:30 PM EDT) Cologuard Result Positive( A) Negative 10/15/2023 2:08 AM EDT [facility] (CLIA #:[id number]) Comment: POSITIVE TEST RESULT. A positive Cologuard [...] (Berenice Funes al, N Engl J Med 2014;370(14):9240-8807.) Cologuard may produce a false negative or false positive result (no colorectal cancer or precancerous polyp present at colonoscopy follow up). A negative Cologuard test result does not guarantee the absence of CRC or advanced adenoma (pre-cancer). The current Cologuard screening interval is every 3 years. ([place] [employer] Society and U.S. Multi-Society Task Force). Cologuard performance data in a 10,000 patient pivotal study using colonoscopy as the reference method can be accessed at the following location: www.[employer].Tracelytics/results. Additional description of the Cologuard test process, warnings and precautions can be found at www.[employer].com. Stool specimen (specimen) 10/04/2023 12:30 PM EDT 10/05/2023 10:57 AM EDT us Maryan Santamaria MD LAB MOLECULAR DIAGNOSTICS ORD ERABLES Final Result [facility] (CLIA #:[id number]) [address] [place] [address], * LIPID PANEL, STANDARD (03/07/2022 11:24 AM EDT) Chol/HDLC Ratio 2.2 <5.0 (calc) [facility] Cholesterol, Total 177 <200 mg/dL [facility] HDL Cholesterol 80 > OR = 40 mg/dL [facility] LDL Cholesterol 74 mg/dL (calc) [facility] Comment: Reference range: <100 ?? [...] ?? Jovan HOWARD et al. ALISE. 2013;310(19): 6470-0535 ?? (http://education.Funding Profiles.com/faq/FIU241) Non-HDL Cholesterol 97 <130 mg/dL (calc) [facility] Comment: For patients with diabetes plus 1 major ASCVD risk ?? factor, treating to a non-HDL-C goal of <100 mg/dL ?? (LDL-C of <70 mg/dL) is considered a therapeutic ?? option. Triglycerides 147 <150 mg/dL [facility] 03/07/2022 11:2 4 AM EDT Maryan Santamaria MD LAB BLOOD ORDERABLES Final Re sult Performing Organization Address [facility] Phone Number [facility] [address] [place] [address], * HEPATITIS C AB W/REFL TO HCV RNA, QN, PCR (03/07/2022 11:23 AM EDT) HEPATITIS C ANTIBODY NON-REACT CARLO NON-REACT CARLO [facility] INDEX 0.06 <1.00 [facility] Comment: ?? HCV antibody was non-reactive. There is no laboratory ?? evidence of HCV infection. ?? In most cases, no further action is required. However, if recent HCV exposure is suspected, a test for HCV RNA (test code 63249) is suggested. ?? For additional information please refer to http://[employer]/faq/QZX29i0 (This link is being provided for informational/ educational purposes only.) ?? 03/07/2022 11:2 3 AM EDT Maryan Santamaria MD HISTORICAL/NON ORDERABLE LABS Final Result Performing Organization Address [facility] Phone Number [facility] [address] [place] [address], * HIV 1/2 ANTIGEN/ANTIBODY,FOURTH GENERATION W/RFL (03/07/2022 11:23 AM EDT) HIV-1/2 ANTIGEN AND ANTIBODIES, 4TH GENERATION W/ REFLEX NON-REACT CARLO NON-REACT CARLO [facility] Comment: HIV-1 antigen and HIV-1/HIV-2 [...] ? For additional information please refer to http://education.[employer].Tracelytics/faq/EMD383 (This link is being provided for informational/ educational purposes only.) ? The performance of this assay has not been clinically validated in patients less than 2 years old. ?? 03/07/2022 11:2 3 AM EDT us Maryan Santamaria MD LAB BLOOD ORDERABLES Final Re sult [facility] [address] from Last 3 Months or Most Recently Relevant to Health Maintenance Insurance [facility] C3 [facility] MEDICAID STAND ADULT Care Teams Fried Cake Maker Relationship Specialty Start Date End Date Maryan Santamaria MD [address] [place] [phone] PCP - General Family Medicine 03/17/21
== END 2024-09-22 10:19 | disposition home or self-care (01) ==
LOC: HO.HOS 09:41
PROVIDERS: PCP Family Medicine; Visit Provider Physical Medicine & Rehabilitation
DX: M54.50 Low back pain, unspecified (principal); G89.29 Other chronic pain; M54.16 Radiculopathy, lumbar region; F10.10 Alcohol abuse, uncomplicated
CPT/HCPCS: 99214

== ENCOUNTER → 2024-09-22 09:41 | Outpatient (BNVA) | payer MEDICAID, SELFPAY | PROVIDERS: PCP Family Medicine; Visit Provider Physical Medicine & Rehabilitation | DX: M54.50 Low back pain, unspecified (principal); M54.16 Radiculopathy, lumbar region; F10.10 Alcohol abuse, uncomplicated; G89.29 Other chronic pain | CPT/HCPCS: 99212 ==

== ENCOUNTER 2024-09-23 11:13 | Outpatient (AMB) | payer MEDICAID, SELFPAY ==
--- NOTE | 2024-09-23 11:18 | HO.SPINEOV ---
Intake Visit Reasons: MRI f/u Intake Note: Mr. Christiano Ellis is here today to F/u on the results to his MRI. Plate Stacker Hand Required: No Allergies No Known Allergies [No Known Allergies*] Allergy (Verified 09/23/24 11:19) Assessment & Plan Assessment & Plan (1) Low back pain: Code(s): M54.50 - Low back pain, unspecified Category: Medical Qualifiers: Chronicity: chronic Back pain laterality: bilateral Sciatica presence: without sciatica Qualified Code(s): M54.50 - Low back pain, unspecified; G89.29 - Other chronic pain Plan HPI: Ortega is a pleasant 54-year-old male who underwent C6-[address] Villaseñor in April of 2024. To recap he had very good relief of his shooting radicular pains after surgery, but continued to have some residual neck pain despite physical therapy. Today, he comes in for evaluation of his low back concerns. He states that he has suffered from severe low back pain for >10 years. 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 He states that he will occasionally get twinges of pain that shoot into his left lateral thigh, but otherwise is free of shooting pains down his lower extremities. He denies any numbness/tingling in the lower extremities. He denies any weakness in the lower extremities. He reports no issues with bowel/bladder. When describing his low back pain he runs his hands over the small of his back in an axial fashion. He does not report that 1 side of his low back hurts more than the other, but feels the pain is centered in his low back. He has attempted physical therapy, cortisone injections with our colleagues at [facility], a plethora of vklb-kpz-uyrqkbr medications including Tylenol, NSAIDs, pain gel/creams, and several different prescription medications including muscle relaxers meloxicam and narcotic pain control. He feels that these interventions only provided modest relief, and he always experiences a return of severe low back pain. Medication: No changes since last visit. Allergies: No changes since last visit. Exam: Ortega has 5/5 strength in his bilateral lower extremities. He does elicit pain to full strength testing with knee flexion and bilateral iliopsoas testing. (-) bilateral straight leg raise. He ambulates well and rises from a seated position without difficulty. He uses no assistive devices to ambulate. 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 There is degenerative disc disease at L3-4, L4-5 and posterior disc bulging causing severe bilateral foraminal stenosis at these levels. The disc bulge at L4-5 is also causing effacement of the ventral thecal sac. Plan: Ortega is suffering from what sounds like severe intractable low back pain, which he reports as worsening as the years progress. I would like to obtain the patient's injection records from [facility]. He reports that he had essentially no relief from the attempted injections. These would be helpful in providing surgical indication for us. I will review his imaging with Dr. Villaseñor when he returns from vacation next week, and will call him with a surgical recommendation thereafter. Tahir Villaseñor MD,PhD [facility] Coding Level of Care Code Est Pt Level 3 (97650) Diagnoses Chronic bilateral low back pain without sciatica M54.50; G89.29 Chronicity: chronic Back pain laterality: bilateral Sciatica presence: without sciatica
--- OUTSIDE RECORDS SUMMARY | 2024-09-23 13:17 | XMS_ITS | Clinical Summary ---
Author Organization [facility] Address [address] [place] [address] Care Team Providers Care Missile And Missile Checkout Technician Name Role Phone Hiren Alcala MD Primary Care Provider [phone] Allergies No known active allergies Medications cyclobenzaprine [...] Name Administration Dates Next Due Hepatitis B (Abdzmat-E-Uglmw , Recombivax HB-Adult) 19yo and older 03/23/2013,02/19/2013 [...] Recently Relevant to Health Maintenance Care Teams Missile And Missile Checkout Technician Relationship Specialty Start Date End Date Hiren Alcala MD PCP - General Internal Medicine 05/29/11
--- OUTSIDE RECORDS SUMMARY | 2024-09-23 13:17 | XMS_ITS | Encounter Summary ---
Author Organization [employer] Address [address] [place] [address] Care Team Providers Care Marriage And Family Teacher Name Role Phone Maryan Santamaria MD Primary Care Provider Encounter Details Date Type Department Care Team (Late st Contact Info) Description 08/01/2023 Abstract [facility] [address] [place] [address] Norberto Castro DDS [address] [place] [address] Social History Tobacco Use Types Packs/Day Years [...] Description 10/09/2024 1:00 PM EDT Office Visit [facility] [address] [place] [address] Tello Ramirez, DMD [address] [place] [address] documented as of this encounter Visit Diagnoses Not on filedocumented in this encounter Additional Health Concerns Assessment Noted Time PHQ-9 Depression Total Score: 13 023 9:21 AM EST documented as of this encounter Care Teams Marriage And Family Teacher Relationship Specialty Start Date End Date Maryan Santamaria MD [address] [place] [address] PCP - General Family Medicine 03/17/21 documented as of this encounter
--- OUTSIDE RECORDS SUMMARY | 2024-09-23 13:17 | XMS_ITS | Clinical Summary ---
Author Organization [employer] Address [address] 7t [place] [address] Care Team Providers Care Concrete Pipe Making Machine Operator Name Role Phone Maryan Santamaria MD Primary Care Provider [phone] Allergies No known active allergies Medications naloxone [...] osteoarthritis. We discussed possible referral to a solar technician for further evaluation and management. Explore non-opiate pain management options and consider referral to a spray painting machine operator. Labs: CBC, C-reactive, Sed Rate, LISA Screen, [...] 9:28 AM EST): Patient reported that the Campbell medication is not helping with pain . I discontinued Campbell medication and prescribed Lyrica. I have also [...] his medication had been discontinued by the airworthiness safety inspector. I informed the pt that I sent [...] Description 09/16/2024 11:00 AM EDT Office Visit [facility] [address] [place] [address] Tello Ramirez DMD Alveolar exostosis (Primary Dx); Hx of oral surgery 09/02/2024 2:00 PM EDT Office Visit [facility] [address] [place] [address] Tello Ramirez DMD Alveolar exostosis (Primary Dx) 09/01/2024 11:00 AM EDT Office Visit [facility] [address] [place] [address] Tello Ramirez DMD Partial edentulism, unspecified edentulism class (Primary Dx); Alveolar exostosis 09/01/2024 Refill [facility] [address] [place] [address] Maryan Santamaria MD 08/31/2024 Orders Only [facility] External Provider, [facility] 08/28/2024 Population Health Risk Score Community [facility] (C3) Department [address] [place] [phone] Provider, Population Health Generic 07/08/2024 Orders Only [facility] External Provider, [facility] 06/26/2024 Refill [facility] [address] [place] [address] Maryan Santamaria MD from Last 3 Months [...] Description 10/09/2024 1:00 PM EDT Office Visit [facility] [address] [place] [address] Tello Ramirez, KARL [address] [place] [address] Health Maintenance Due Date Last Done Comments [...] EDT Narrative 09/16/2024 8:23 AM EDT ? [facility] ?[address] ?[place] [address] ? Magnetic Resonance Report ? Signed ? Patient: Alvarado Ellis,Ortega L ?MR#: ?? [id number] ? : 1970 ?Acct:[id number] ? Age/Sex: 54 / M ?ADM Date: 04/01/25 ? Loc: HO.MRI ? Attending Dr: Tahir RAMSAY ? Ordering Physician: Tahir Gillespie ?? Date of Service: 09/15/24 ?? Procedure(s): MR lumbar spine wo con ?? Accession Number(s): [id number] ? cc: Tahir Gillespie; Maryan Santamaria MD [...] DD/ 1024 ? TD/TT: 09/15/24 1043 ? House Nurse: ? Procedure Note Donmaryter, Image - 09/16/2024 [place] [address] Magnetic Resonance Report Signed Patient: Ortega Lane LMR#: [id number] : 1970Acct:[id number] Age/Sex: 54 / MADM Date: 09/15/24 Loc: HO.MRI Attending Dr: Tahir RAMSAY Ordering Physician: Tahir Gillespie Date of Service: 09/15/24 Procedure(s): MR lumbar spine wo con Accession Number(s): [id number] cc: Tahir Gillespie; Maryan Santamaria MD EXAMINATION: [...] 09/16/24 0820 DD/ 1024 TD/TT: 09/15/24 1043 House Nurse: [facility] External Provider IMG MRI PROCEDURES Edited Result - Final * XR Lumbar Spine Complete 4+ Views (09/02/2024 8:51 AM EDT) Anatomical Region Laterality Modality Spine, L-spine Radiographic Ines ging 09/02/2024 8:51 AM EDT Narrative 09/02/2024 8:52 AM EDT ? [facility] ? [address] ?[place] [address] ?XRay Report ? Signed ? Patient: Alvarado Ellis,Ortega L ?MR#: ?? [id number] ? : 1970 ?Acct:[id number] ? Age/Sex: 54 / M ?ADM Date: 08/31/24 ? Loc: HO.HOSX ? Attending Dr: Tahir RAMSAY ? Ordering Physician: Tahir Gillespie ?? Date of Service: 08/31/24 ?? Procedure(s): XR lumbar spine 4V min ?? Accession Number(s): [id number] ? cc: Tahir Gillespie; Maryan Santamaria MD ? CLINICAL HISTORY: M54.50 - Low back pain, unspecified ? 4 views lumbar spine ? Comparison: None ? Findings: ?? Slight rightward curvature of the lumbar spine.5 eiw-ujz-innpfpc ?? lumbar-type vertebral bodies. ?? Multilevel disc [...] ? DD/ 08 ? TD/TT: 09/02/24850 ? House Nurse: ? Procedure Note Chen Whittaker - 09/02/2024 [facility] [address] [place] [address] [address] [place] [address] XRay Report Signed Patient: Ortega Lane LMR#: [id number] : 1970Acct:[id number] Age/Sex: 54 / MADM Date: 08/31/24 Loc: IVANX Attending Dr: Tahir RAMSAY Ordering Physician: Tahir Gillespie Date of Service: 08/31/24 Procedure(s): XR lumbar spine 4V min Accession Number(s): [id number] cc: Tahir Gillespie; Maryan Santamaria MD CLINICAL HISTORY: M54.50 - Low back pain, unspecified 4 views lumbar spine Comparison: None Findings: Slight rightward curvature of the lumbar spine.5 bav-kpd-boajere lumbar-type vertebral bodies. Multilevel disc height loss [...] in OV> 09/02/24 0852 DD/ TD/TT: 09/02/2451 House Nurse: [facility] External Provider IMG XR PROCEDURES Final Result * D Dimer High Sensitivity (07/08/2024 4:27 PM EST) D Dimer High Sensitivity <150 NG/ML [facility] Comment:D-DIMER HS REFERENCE RANGENote: Our [...] Provider LAB BLOOD ORDERAB LES Final Result [facility] [address] [place] [phone] * Blood Culture (Second) (07/08/2024 4:27 PM EST) Blood Venous blood specimen / Unknown 07/08/2024 4:27 PM EST 07/08/2024 4:32 PM EST Comment:Blood Narrative [facility] - 07/13/2024 6:33 PM EST Blood Culture (Second) No growth after 5 days. Specimen Source: Blood Generic External Data Provider LAB MICROBIOLOGY - GENERAL ORDERABLES Final Result Performing Organization Address [facility] de Phone Number [facility] [address] [place] [phone] * SARS-CoV-2 RNA, Influenza A/B, and RSV RNA, Ql NAAT (07/08/2024 4:27 PM EST) Influenza A PCR NEGATIVE Negative [facility] Influenza B PCR NEGATIVE Negative [facility] Resp Syncy Virus RNA Qual PCR NEGATIVE Negative [facility] SARS COV2 PCR NEGATIVE Negative [facility] Comment:All test results mus t be [...] use by authorized laboratories.Testing performed on the [employer]ilio GeneXpert utilizingreal-time RT-PCR.All SARS CoV2 and positive influenza A/B results arereported to [facility]. 07/08/2024 4:27 PM EST 07/08/2024 4:32 PM EST Generic External Data Provider LAB MICROBIOLOGY - GENERAL ORDERABLES Final Result Performing Organization Address [facility]/ZIP Co de Phone Number [facility] [address] [place] [phone] * Lactic Acid (07/08/2024 4:27 PM EST) Lactic Acid 1.3 0.5 - 2.0 mmol/L [facility] 07/08/2024 4:27 PM EST 07/08/2024 4:32 PM EST us Generic External Data Provider LAB BLOOD ORDERAB LES Final Result Performing Organization Address [facility] de Phone Number [facility] [address] [place] [phone] [phone] * Blood Culture (First) (07/08/2024 4:20 PM EST) Blood Venous blood specimen / Unknown 07/08/2024 4:20 PM EST 07/08/2024 4:35 PM EST Comment:Blood Narrative [facility] - 07/13/2024 6:35 PM EST Blood Culture (First) No growth after 5 days. Specimen Source: Blood Generic External Data Provider LAB MICROBIOLOGY - GENERAL ORDERABLES Final Result Performing Organization Address [facility] de Phone Number [facility] [address] [place] [address] [phone] * XR Chest 1 View (07/08/2024 3:52 PM EST) Anatomical Region Laterality Modality Chest Radiographic Ines ging 07/08/2024 3:52 PM EST Narrative 07/08/2024 4:04 PM EST ? [facility] ?[address] ?[place] [address] ?XRay Report ? Signed ? Patient: Alvarado Ellis,Ortega L ?MR#: ?? [id number] ? : 1970 ?Acct:[id number] ? Age/Sex: 54 / M ?ADM Date: 07/08/24 ? Loc: HO.ED ? Attending Dr: ? Ordering Physician: Cat Vinson MD ?? Date of Service: 07/08/24 ?? Procedure(s): XR chest 1V ?? Accession Number(s): [id number] ? cc: Cat Vinson MD; Maryan Santamaria [...] DD/ 1552 ? TD/TT: 07/08/24 1552 ? House Nurse: ? Procedure Note Cadenceter, Image - 07/08/2024 [place] [address] XRay Report Signed Patient: Ortega Lane LMR#: [id number] : 1970Acct:[id number] Age/Sex: 54 / MADM Date: 07/08/24 Loc: HO.ED Attending Dr: Ordering Physician: Cat Vinson MD Date of Service: 07/08/24 Procedure(s): XR chest 1V Accession Number(s): [id number] cc: Cat Vinson MD; Maryan Santamaria MD [...] by: Chuck Doss MD 07/08/2024 04:01 PM [facility] Dictated By: Chuck Doss MD Signed By: <Electronically signed by Chuck Doss MD in OV> 07/08/24 1601 DD/ 1552 TD/TT: 07/08/24 1552 House Nurse: [facility] External Provider IMG XR PROCEDURES Final Result * (ABNORMAL) Cologuard?? colon cancer screening (10/04/2023 12:30 PM EDT) Cologuard Result Positive( A) Negative 10/15/2023 2:08 AM EDT [facility] (CLIA #:[id number]) Comment: POSITIVE TEST RESULT. A positive Cologuard [...] (Berenice Funes al, N Engl J Med 2014;370(14):0849-2965.) Cologuard may produce a false negative or false positive result (no colorectal cancer or precancerous polyp present at colonoscopy follow up). A negative Cologuard test result does not guarantee the absence of CRC or advanced adenoma (pre-cancer). The current Cologuard screening interval is every 3 years. ([place] [employer] Society and U.S. Multi-Society Task Force). Cologuard performance data in a 10,000 patient pivotal study using colonoscopy as the reference method can be accessed at the following location: www.AlignAlytics.Gimado/results. Additional description of the Cologuard test process, warnings and precautions can be found at www.SentinelOnerd.com. Stool specimen (specimen) 10/04/2023 12:30 PM EDT 10/05/2023 10:57 AM EDT us Maryan Santamaria MD LAB MOLECULAR DIAGNOSTICS ORD ERABLES Final Result [facility] (CLIA #:[id number]) [address] [place] [address], * LIPID PANEL, STANDARD (03/07/2022 11:24 AM EDT) Chol/HDLC Ratio 2.2 <5.0 (calc) [facility] Cholesterol, Total 177 <200 mg/dL [facility] HDL Cholesterol 80 > OR = 40 mg/dL [facility] LDL Cholesterol 74 mg/dL (calc) [facility] Comment: Reference range: <100 ?? [...] ?? Jovan HOWARD et al. ALISE. 2013;310(19): 7928-1082 ?? (http://education.CloudStrategies.com/faq/TZR033) Non-HDL Cholesterol 97 <130 mg/dL (calc) [facility] Comment: For patients with diabetes plus 1 major ASCVD risk ?? factor, treating to a non-HDL-C goal of <100 mg/dL ?? (LDL-C of <70 mg/dL) is considered a therapeutic ?? option. Triglycerides 147 <150 mg/dL [facility] 03/07/2022 11:2 4 AM EDT Maryan Santamaria MD LAB BLOOD ORDERABLES Final Re sult Performing Organization Address [facility] Phone Number [facility] [address] [place] [address], * HEPATITIS C AB W/REFL TO HCV [...] a test for HCV RNA (test code 38990) is suggested. ?? For additional information please refer to http://LaunchPoint.Edsby/faq/SMJ42r8 (This link is being provided for informational/ educational purposes only.) ?? 03/07/2022 11:2 3 AM EDT Maryan Santamaria MD HISTORICAL/NON ORDERABLE LABS Final Result Performing Organization Address [facility] Phone Number [facility] [address] [place] [address], * HIV 1/2 ANTIGEN/ANTIBODY,FOURTH GENERATION W/RFL (03/07/2022 [...] ? For additional information please refer to http://education.Incentive Targeting.Gimado/faq/MEA330 (This link is being provided for informational/ educational purposes only.) ? The performance of this assay has not been clinically validated in patients less than 2 years old. ?? 03/07/2022 11:2 3 AM EDT us Maryan Santamaria MD LAB BLOOD ORDERABLES Final Re sult [facility] [address] from Last 3 Months or Most Recently Relevant to Health Maintenance Insurance [facility] C3 DENTAL-[facility] MEDICAID STAND ADULT Care Teams Concrete Pipe Making Machine Operator Relationship Specialty Start Date End Date Maryan Santamaria MD [address] [place] [phone] PCP - General Family Medicine 03/17/21
--- OUTSIDE RECORDS SUMMARY | 2024-09-23 13:17 | XMS_ITS | Encounter Summary ---
Author Organization [employer] Address [address] 7t [place] [address] Care Team Providers Care Radiologic Electronic Specialist Name Role Phone Maryan Santamaria MD Primary Care Provider [phone] Reason for Visit * Reason Onset Date Comments PT-1 08/20/2023 Encounter Details Date Type Department Care Team ([facility] st Contact Info) Description 08/20/2023 Telephone [facility] [address] [place] [address] Maryan Santamaria MD [address] [place] [address] PT-1 Social History Tobacco Use Types Packs/Day [...] 08/28 Time: 9:00 Visits: 3 Address: [address] [place], [place] Facility: [facility] Norberto Park Chair: no Shaft Sinker Needed: no PT1 needed Date: 09/01 Time: 10:30 Visits: 4 Address: [address] [place], [place] Facility: [facility] [address] Chair: no Shaft Sinker Needed: no PT1 needed Date: 09/03 Time: 10:30 Visits: 3 Address: [address] [place] [address] Facility: [facility] [address] [place] Chair: no Shaft Sinker Needed: no documented in this encounter Plan of Treatment Upcoming Encounters Date Type Department Care Team (Late st Contact Info) Description 10/09/2024 1:00 PM EDT Office Visit [facility] [address] [place] [address] Tello Ramirez, DMD [address] [place] [address] documented as of this encounter Visit Diagnoses Not on filedocumented in this encounter Additional Health Concerns Assessment Noted Time PHQ-9 Depression Total Score: 13 023 9:21 AM EST documented as of this encounter Care Teams Radiologic Electronic Specialist Relationship Specialty Start Date End Date Maryan Santamaria MD [address] [place] [address] PCP - General Family Medicine 03/17/21 documented as of this encounter
--- OUTSIDE RECORDS SUMMARY | 2024-09-23 13:17 | XMS_ITS | Encounter Summary ---
Author Organization [employer] Address [address] [facility] [address] [place] [address] Care Team Providers Care Gamb Cutter Name Role Phone Maryan Santamaria MD Primary Care Provider [phone] Reason for Visit * Reason Onset Date Comments case back from lab 07/25/2023 Encounter Details Date Type Department Care Team ([facility] st Contact Info) Description 07/25/2023 Telephone [facility] [address] [place] [address] Norberto Castro DDS [address] [facility] [place] [address] case back from lab Social History Tobacco [...] Description 10/09/2024 1:00 PM EDT Office Visit [facility] [address] [place] [address] Tello Ramirez, DMD [address] [place] [address] documented as of this encounter Visit Diagnoses Not on filedocumented in this encounter Additional Health Concerns Assessment Noted Time PHQ-9 Depression Total Score: 13 023 9:21 AM EST documented as of this encounter Care Teams Gamb Cutter Relationship Specialty Start Date End Date Maryan Santamaria MD [address] [place] [address] PCP - General Family Medicine 03/17/21 documented as of this encounter
== END 2024-09-23 11:39 | disposition home or self-care (01) ==
LOC: HO.HNS 11:15
PROVIDERS: PCP Family Medicine; Visit Provider Physician Assistant
DX: M54.50 Low back pain, unspecified (principal); G89.29 Other chronic pain
CPT/HCPCS: 99213

== ENCOUNTER → 2024-09-23 11:13 | Outpatient (BNVA) | payer MEDICAID, SELFPAY | PROVIDERS: PCP Family Medicine; Visit Provider Physician Assistant | DX: M54.50 Low back pain, unspecified (principal); G89.29 Other chronic pain | CPT/HCPCS: 99212 ==

== ENCOUNTER 2024-12-03 12:50 | Outpatient (AMB) | payer MEDICAID, SELFPAY ==
[2024-12-03 12:57] VITALS: BP 106/75; PULSE 97; RESP 16; O2SAT 98; BMI 18.8
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
== END 2024-12-03 13:42 | disposition home or self-care (01) ==
PROVIDERS: PCP Family Medicine; Referring Provider Physician Assistant; Visit Provider Registered Nurse Emergency
DX: M54.59 Other low back pain (principal); M54.16 Radiculopathy, lumbar region; M47.816 Spondylosis without myelopathy or radiculopathy, lumbar region
CPT/HCPCS: 99214

== ENCOUNTER → 2024-12-03 12:50 | Outpatient (BNVA) | payer MEDICAID, SELFPAY | PROVIDERS: PCP Family Medicine; Referring Provider Physician Assistant; Visit Provider Registered Nurse Emergency | DX: M54.59 Other low back pain (principal); M54.16 Radiculopathy, lumbar region; M47.816 Spondylosis without myelopathy or radiculopathy, lumbar region | CPT/HCPCS: 99212 ==

== ENCOUNTER 2025-02-09 06:08 | Outpatient (REF) | payer MEDICAID, SELFPAY ==
--- OUTSIDE RECORDS SUMMARY | 2025-02-09 06:11 | XMS_ITS | Encounter Summary ---
Author Organization [employer] Address [address] [place] [address] Care Team Providers Care Sales And Marketing Administrator Name Role Phone Maryan Santamaria MD Primary Care Provider [phone] Reason for Visit * Reason Onset Date Comments running late dental 12/23/2024 Encounter Details Date Type Department Care Team (Late st Contact Info) Description 12/23/2024 Telephone [facility] D[facility] [address] [place] [address] Jasmin Marie running late dental Social History Tobacco Use Types Packs/Day Years [...] is your housing situation today? I have sondraerica angela 08/23/[address] you [...] * Telephone Encounter - Rossy Cruz - 12/23/2024 10:46 AM EDT Patient called in stating that he is running late. Patient has been informed that anything after 10minutes the appt may need to be rescheduled DR documented in this encounter Plan of Treatment Upcoming Encounters Date Type Department Care Team (Late st Contact Info) Description 07/15/2025 10:00 AM EST Office Visit [facility] ADULT DENTAL [address] [place] [address] Jasmin Marie documented as of this encounter Visit Diagnoses Not on filedocumented in this encounter Additional Health Concerns Assessment Noted Time PHQ-9 Depression Total Score: 15 024 8:53 AM EDT documented as of this encounter Care Teams Sales And Marketing Administrator Relationship Specialty Start Date End Date Maryan Santamaria MD [address] [place] [id number] PCP - General Family Medicine 03/17/21 documented as of this encounter
--- OUTSIDE RECORDS SUMMARY | 2025-02-09 06:11 | XMS_ITS | Encounter Summary ---
Author Organization [employer] Address [address] [place] [address] Care Team Providers Care Claim Manager Name Role Phone Maryan Santamaria MD Primary Care Provider [phone] Encounter Details Date Type Department Care Team (Late st Contact Info) Description 08/01/2023 Abstract [facility] ADULT D[facility] [address] [place] [address] Norberto Castro DDS [address] [place] [address] Social History Tobacco Use Types Packs/Day Years [...] Description 07/15/2025 10:00 AM EST Office Visit [facility] ADULT D[facility] [address] [place] [address] Jasmin Marie documented as of this encounter Visit Diagnoses Not on filedocumented in this encounter Additional Health Concerns Assessment Noted Time PHQ-9 Depression Total Score: 13 023 9:21 AM EST documented as of this encounter Care Teams Claim Manager Relationship Specialty Start Date End Date Maryan Santamaria MD [address] [place] [id number] PCP - General Family Medicine 03/17/21 documented as of this encounter
--- OUTSIDE RECORDS SUMMARY | 2025-02-09 06:11 | XMS_ITS | Clinical Summary ---
Author Organization [facility] Address [address] [place] [address] Care Team Providers Care Cyanide Pot Hardener Name Role Phone Hiren Alcala MD Primary Care Provider [phone] Allergies No known active allergies Medications cyclobenzaprine [...] Name Administration Dates Next Due Hepatitis B (Letydnt-P-Vasxu , Recombivax HB-Adult) 19yo and older 03/23/2013,02/19/2013 [...] Years (1 of 2 - PCV) 1989 Hepatitis B Vaccines (3 of 3 - 19+ 3-dose series) 08/19/2013 03/23/2013, 02/19/2013 Zoster Vaccines (1 of 2) 2020 DTaP,Tdap,and Td Vaccines (3 - Td or Tdap) 04/17/2023 04/17/2013, 07/28/2008 COVID-19 Vaccine (1 - 2023-2 5 season) 2024 Depression Screening 06/17/2024 Cholesterol Screening (Lipid Panel) 06/23/2024 01/04/2013 Colorectal Cancer Screening: Colonoscopy 06/23/2024 HIV Screening 06/23/2024 Hepatitis C Screening 06/23/2024 Social Influencers of Health Screening 06/23/2024 Influenza Vaccine (#1) 2025 HIB Vaccines Aged Out No longer [...] Recently Relevant to Health Maintenance Care Teams Cyanide Pot Hardener Relationship Specialty Start Date End Date Hiren Alcala MD PCP - General Internal Medicine 05/29/11
--- OUTSIDE RECORDS SUMMARY | 2025-02-09 06:11 | XMS_ITS | Encounter Summary ---
Author Organization [employer] Address [address] [facility] [address] [place] [address] Care Team Providers Care Motorcycle Subassembler Name Role Phone Maryan Santamaria MD Primary Care Provider [phone] Reason for Visit * Reason Onset Date Comments PT-1 08/20/2023 Encounter Details Date Type Department Care Team ([facility] st Contact Info) Description 08/20/2023 Telephone [facility] MED[facility]INE [address] [place] [address] Maryan Santamaria MD [address] [place] [address] PT-1 Social History Tobacco Use Types Packs/Day [...] 08/28 Time: 9:00 Visits: 3 Address: [address] [place], [place] Facility: [facility] Norberto Park Chair: no Director Of Operations For Therapy Needed: no PT1 needed Date: 09/01 Time: 10:30 Visits: 4 Address: [address] [place], [place] Facility: [facility] [address] Chair: no Director Of Operations For Therapy Needed: no PT1 needed Date: 09/03 Time: 10:30 Visits: 3 Address: [address] [place] [address] Facility: [facility] [address] [place] Park Chair: no Director Of Operations For Therapy Needed: no documented in this encounter Plan of Treatment Upcoming Encounters Date Type Department Care Team (Late st Contact Info) Description 07/15/2025 10:00 AM EST Office Visit [facility] ADULT DENTAL [address] [place] [address] Jasmin Marie documented as of this encounter Visit Diagnoses Not on filedocumented in this encounter Additional Health Concerns Assessment Noted Time PHQ-9 Depression Total Score: 13 023 9:21 AM EST documented as of this encounter Care Teams Motorcycle Subassembler Relationship Specialty Start Date End Date Maryan Santamaria MD [address] [place] [address] PCP - General Family Medicine 03/17/21 documented as of this encounter
--- OUTSIDE RECORDS SUMMARY | 2025-02-09 06:11 | XMS_ITS | Encounter Summary ---
Author Organization [employer] Address [address] [place] [address] Care Team Providers Care Emergency Spill Response Technician Name Role Phone Maryan Santamaria MD Primary Care Provider Reason for Visit * Reason Onset Date Comments case back from lab 07/25/2023 Encounter Details Date Type Department Care Team (Late st Contact Info) Description 07/25/2023 Telephone [facility] ADULT DENTAL [address] [place] [address] Norberto Castro DDS [address] [place] [address] case back from lab Social History Tobacco [...] Description 07/15/2025 10:00 AM EST Office Visit [facility] ADULT D[facility] [address] [place] [address] Jasmin Marie documented as of this encounter Visit Diagnoses Not on filedocumented in this encounter Additional Health Concerns Assessment Noted Time PHQ-9 Depression Total Score: 13 023 9:21 AM EST documented as of this encounter Care Teams Emergency Spill Response Technician Relationship Specialty Start Date End Date Maryan Santamaria MD [address] [place] [id number] PCP - General Family Medicine 03/17/21 documented as of this encounter
--- OUTSIDE RECORDS SUMMARY | 2025-02-09 06:11 | XMS_ITS | Clinical Summary ---
Author Organization [employer] Address [address] [facility] [address] [place] [address] Care Team Providers Care Manager Bank Name Role Phone Maryan Santamaria MD Primary Care Provider [phone] Allergies No known active allergies Medications naloxone [...] replace cap. 16 g 2 09/02/19 24 Active Additional Information Patient not taking.Reported on 01/04/2025 Acetaminophen Extra Strength 500 MG tablet TAKE TWO TABLETS BY MOUTH EVERY EIGHT HOURS NEEDED 120 tablet 1 04/17/20 24 Active Mometasone Furoate (Asmanex, 30 Metered Doses,) 110 MCG/ACT aerosol powder Inhale 1 puff 2 times daily. 60 each 3 04/17/20 24 Active oxyCODONE (Roxicodone) 5 MG immediate release tablet 5 mg. 06/03/20 24 Active Asmanex HFA 100 MCG/ACT aerosol INHALE ONE PUFF TWICE DAILY, RINSE MOUTH AFTER USE 13 g 3 09/02/19 25 Active chlorhexidine (Peridex) 0.12 % solutionIndicat ions:Hx of oral surgery Swish 15 mL morning and night for 1 minute. Spit, do not swallow. Do not eat or drink for 30 minutes following use. 473 mL 09/17/19 25 Active acetaminophen (Tylenol) 500 MG tabletIndicatio ns:Hx of oral surgery Take 1 tablet (500 mg) by mouth every 6 (six) hours if needed for mild pain for up to 20 doses. 20 tablet 09/17/19 25 Active Ventolin HFA 108 (90 Base) MCG/ACT inhaler INHALE TWO PUFFS EVERY 4 HOURS NEEDED FOR WHEEZING 18 g 11 10/15/19 25 Active montelukast (Singulair) 10 MG tablet TAKE ONE TABLET EVERY MORNING 90 tablet 10/14/19 25 Active sertraline (Zoloft) 50 MG tablet TAKE ONE TABLET EVERY MORNING 90 tablet 1 01/05/20 25 Active ibuprofen 600 MG tablet TAKE ONE TABLET THREE TIMES DAILY 270 tablet 1 01/05/20 25 Active pregabalin (Lyrica) 150 MG capsule TAKE ONE CAPSULE TWICE DAILY 60 capsule 2 02/03/20 25 Active pregabalin (Lyrica) 150 MG capsule TAKE ONE CAPSULE TWICE DAILY 60 capsule 2 11/05/19 25 025 Discontinued Active Problems Problem Noted Date Diagnosed Date Osteoarthritis of left knee 03/05/2024 Left patella fracture 03/05/2024 Physical exam 09/02/2023 Assessment & Plan (09/02/2023 11:12 PM EDT): Labs: Lipid Panel IZ: Tdap, PCV-20 Polyarthralgia 09/02/2023 Assessment & Plan (09/02/2023 11:11 PM EDT): Patient has Hx of osteoarthritis. We discussed possible referral to a principal hardware architect for further evaluation and management. Explore non-opiate pain management options and consider referral to a parking line painter. Labs: CBC, C-reactive, Sed Rate, LISA [...] 9:28 AM EST): Patient reported that the [place] medication is not helping with pain . I discontinued [place] medication and prescribed Lyrica. I have also [...] his medication had been discontinued by the freight claim investigator. I informed the pt that I sent a new order for a similar medication on the . Had to call the pharmacy to sort out issue with insurance approval. 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/26/2018 Wears partial dentures 03/26/2018 Encounters Date Type Department Care Team Description 02/01/2025 Refill [facility] [address] [place] [address] Maryan Santamaria MD 01/04/2025 11:00 AM EDT Office Visit [facility] AD[facility] [address] [place] [address] Jasmin Marie Dental calculus (Primary Dx) 01/02/2025 Refill [facility] [address] [facility] [place] [address] Maryan Santamaria MD 12/23/2024 Telephone [facility] [address] [place] [address] Jasmin Marie running late dental 12/21/2024 3:00 PM EDT Office Visit [facility] [address] [place] [address] Tello Ramirez, DMD Partial edentulism, unspecified edentulism class (Primary Dx) 11/30/2024 8:00 AM EDT Office Visit [facility] [address] [place] [address] Tello Ramirez, DMD Partial edentulism, unspecified edentulism class (Primary Dx) 11/17/2024 3:00 PM EDT Office Visit [facility] [address] [place] [address] Tello Ramirez, DMD Partial edentulism, unspecified edentulism class (Primary Dx) from Last 3 Months Immunizations Immunization Administration Dates Next Due Hep B, adult [...] Sign Reading Time Taken Comments Blood Pressure 126/78 01/04/2025 11:02 AM EDT Pulse 74 10/09/2024 12:56 PM EDT Temperature 36.7 C (98 F) 04/17/2024 8:49 AM EDT Respiratory Rate 19 [...] 07/15/2025 10:00 AM EST Office Visit [facility] [address] [place] [address] Jasmin Marie Health Maintenance Due Date Last Done Comments CT Colonography 1970 Colonoscopy 1970 FIT 1970 FOBT 1970 Sigmoidoscopy 1970 Disability Screening 1970 Zoster Vaccines (1 of 2) 2020 Dental Oral Exam 11/14/2023 05/15/2023, 01/27/2010 COVID-19 Vaccine ( season) 2024 05/22/2022, 07/18/2021, 01/02/2021, Additional history exists SDOH Screening 08/22/2024 08/23/2023 Depression Monitoring 10/15/2024 04/17/2024, 024 Influenza Vaccine (#1) 2025 Alcohol/Substance Use Screening 04/17/2025 04/17/2024 Dental X-Ray: Bitewings 05/05/2025 05/04/20, 05/15/2023, 01/27/2010 Dental Prophylaxis 07/08/2025 01/04/2025, 1 07/04/2023, 07/05/2023, Additional history exists Tobacco Screening 01/04/2026 01/04/2025 Colorectal Cancer Screening 10/03/2026 FIT DNA/Cologuard 10/03/2026 [...] Procedure Name Priority Date/Time Associated Diagnosis Comments ORAL HYGIENE INSTRUCTIONS Routine 01/04/2025 11:00 AM EDT CASE PRESENTATION, DETAILED AND EXTENSIVE TREATMENT PLANNING Routine 01/04/2025 11:00 AM EDT PROPHYLAXIS - ADULT Routine 01/04/2025 1 1:00 AM EDT CASE PRESENTATION, DETAILED AND EXTENSIVE TREATMENT PLANNING Routine 12/21/2024 3:00 PM EDT Partial edentulism, unspecified edentulism class DENTURE FOLLOWUP Routine 12/21/2024 3:00 PM EDT Partial edentulism, unspecified edentulism class CASE PRESENTATION, DETAILED AND EXTENSIVE TREATMENT PLANNING Routine 11/30/2024 8:00 AM EDT Partial edentulism, unspecified edentulism class 24,25,18,19,20 MANDIBULAR PARTIAL DENTURE - RESIN BASE (INCLUDING, RETENTIVE/CLASPING MATERIALS, RESTS, AND TEETH) Routine 11/30/2024 8:00 AM EDT Partial edentulism, unspecified edentulism class 14,15,4,2 MAXILLARY PARTIAL DENTURE - RESIN BASE (INCLUDING, RETENTIVE/CLASPING MATERIALS, RESTS, AND TEETH) Routine 11/30/2024 8:00 AM EDT Partial edentulism, unspecified edentulism class CASE PRESENTATION, DETAILED AND EXTENSIVE TREATMENT PLANNING Routine 11/17/2024 3:00 PM EDT Partial edentulism, unspecified edentulism class WAX TRY IN Routine 11/17/2024 3:00 PM EDT Partial edentulism, unspecified edentulism class PANORAMIC RADIOGRAPHIC IMAGE Routine 09/02/2024 2:00 PM EDT Alveolar exostosis BITEWINGS - 4 RADIOGRAPHIC IMAGES Routine 05/04/2024 9:00 AM EST LAB COLOGUARD COLON CANCER SCREEN Routine 10/04/2023 12:30 PM [...] Recently Relevant to Health Maintenance Results * (ABNORMAL) Cologuard?? colon cancer screening (10/04/2023 12:30 PM EDT) Cologuard Result Positive( A) Negative 10/15/2023 2:08 AM EDT [facility] (CLIA #:[id number]) Comment: POSITIVE TEST RESULT. A positive Cologuard result should be followed with a colonoscopy or visual examination of the colon. The normal value (reference range) for this assay is negative. TEST DESCRIPTION: Composite algorithmic analysis of stool DNA-biomarkers with hemoglobin immunoassay. Quantitative values of individual biomarkers are not [...] (Berenice Funes al, N Engl J Med 2014;370(14):6369-4758.) Cologuard may produce a false negative or false positive result (no colorectal cancer or precancerous polyp present at colonoscopy follow up). A negative Cologuard test result does not guarantee the absence of CRC or advanced adenoma (pre-cancer). The current Cologuard screening interval is every 3 years. ([place] Cancer Society and U.S. Multi-Society Task Force). Cologuard performance data in a 10,000 patient pivotal study using colonoscopy as the reference method can be accessed at the following location: [email or web address]/results. Additional description of the Cologuard test process, warnings and precautions can be found at [email or web address]. Stool specimen (specimen) 10/04/2023 12:30 PM EDT 10/05/2023 10:57 AM EDT us Maryan Santamaria MD LAB MOLECULAR DIAGNOSTICS ORD ERABLES Final Result [facility] (CLIA #:[id number]) [address] [place] [address], * LIPID PANEL, STANDARD (03/07/2022 11:24 AM EDT) Chol/HDLC Ratio 2.2 <5.0 (calc) [facility] Cholesterol, Total 177 <200 mg/dL [facility] HDL Cholesterol 80 > OR = 40 mg/dL [facility] LDL Cholesterol 74 mg/dL (calc) [facility] Comment: Reference range: <100 Desirable range <100 mg/dL for primary prevention; <70 mg/dL for patients with CHD or diabetic patients with > or = 2 CHD risk factors. LDL-C is now calculated using the Joe calculation, which is a validated novel method providing better accuracy than the Friedewald equation in the estimation of LDL-C. Jovan HOWARD et al. ALISE. 2013;310(19): 5661-8747 (http://education.Ads-Fi.Altrec.com/faq/WNL840) Non-HDL Cholesterol 97 <130 mg/dL (calc) [facility] Comment: For patients with diabetes plus 1 major ASCVD risk factor, treating to a non-HDL-C goal of <100 mg/dL (LDL-C of <70 mg/dL) is considered a therapeutic option. Triglycerides 147 <150 mg/dL [facility] 03/07/2022 11:2 4 AM EDT Maryan Santamaria MD LAB BLOOD ORDERABLES Final Re sult Performing Organization Address [facility] de Phone Number [facility] [address] [place] [address], * HEPATITIS C AB W/REFL TO HCV RNA, QN, PCR (03/07/2022 11:23 AM EDT) HEPATITIS C ANTIBODY NON-REACT CARLO NON-REACT CARLO [facility] INDEX 0.06 <1.00 [facility] Comment: HCV antibody was non-reactive. There is no laboratory evidence of HCV infection. In most cases, no further action is required. However, if recent HCV exposure is suspected, a test for HCV RNA (test code 69279) is suggested. For additional information please refer to http://education.BusyEvent/faq/FYO25u8 (This link is being provided for informational/ educational purposes only.) 03/07/2022 11:2 3 AM EDT Maryan Santamaria MD HISTORICAL/NON ORDERABLE LABS Final Result Performing Organization Address [facility] Phone Number [facility] [address] [place] [address], * HIV 1/2 ANTIGEN/ANTIBODY,FOURTH GENERATION W/RFL (03/07/2022 11:23 AM EDT) HIV-1/2 ANTIGEN AND ANTIBODIES, 4TH GENERATION W/ REFLEX NON-REACT CARLO NON-REACT CARLO [facility] Comment: HIV-1 antigen and HIV-1/HIV-2 antibodies were not detected. There is no laboratory evidence of HIV infection. PLEASE NOTE: This information has been disclosed to you from records whose confidentiality may be protected by state law. If your state requires such protection, then the state law prohibits you from making any further disclosure of the information without the specific written consent of the person to whom it pertains, or as otherwise permitted by law. A general authorization for the release of medical or other information is NOT sufficient for this purpose. For additional information please refer to http://education.Dealstruck.Altrec.com/faq/MKH290 (This link is being provided for informational/ educational purposes only.) The performance of this assay has not been clinically validated in patients less than 2 years old. 03/07/2022 11:2 3 AM EDT us Maryan Santamaria MD LAB BLOOD ORDERABLES Final Re sult [facility] [address] from Last 3 Months or Most Recently Relevant to Health Maintenance Insurance [facility] C3 DENTAL-[facility] MEDICAID STAND ADULT Care Teams Manager Bank Relationship Specialty Start Date End Date Maryan Santamaria MD [address] [place] [id number] PCP - General Family Medicine 03/17/21
== END 2025-02-09 06:09 | disposition home or self-care (01) ==
LOC: CF 06:08
PROVIDERS: Visit Provider Anesthesiology
DX: Z13.89 Encounter for screening for other disorder (principal)

== ENCOUNTER 2025-03-23 06:15 | Outpatient (REF) | payer MEDICAID, SELFPAY ==
--- NOTE | ~2025-03-23 | FL_ITS ---
EXAMINATION: FL GUIDANCE ONLY HISTORY: M47.816 - Spondylosis without myelopathy or radiculopathy, lumbar region COMPARISON: None available. TECHNIQUE: Fluoroscopy time: 24.1 seconds. Cumulative Dose: 2.85 mGy. Images: 4. FINDINGS: Fluoroscopic spot films of the lumbar spine in the AP projection demonstrate needles and contrast material in the regions of the bilateral L3-4, L4-5, and L5-S1 facet joints. FL/FL guidance in treatment room IMPRESSION: Fluoroscopy during procedure. Please see procedure report for additional information. Electronically signed by: Dirk Mcghee MD 03/23/2025 01:08 PM EDT
--- OUTSIDE RECORDS SUMMARY | 2025-03-23 06:17 | XMS_ITS | Clinical Summary ---
Author Organization [facility] Address [address] [place] [address] Care Team Providers Care Maintenance Supervisor 2Nd Shift Name Role Phone Hiren Alcala MD Primary Care Provider [phone] Allergies No known active allergies Medications cyclobenzaprine [...] Lumbar disc herniation with radiculopathy 2011 Immunizations Immunization Administration Dates Next Due Hepatitis B (Zpzcuas-X-Ekxkn , Recombivax HB-Adult) 19yo and older 03/23/2013,02/19/2013 [...] Health Maintenance Due Date Last Done Comments Colorectal Cancer Screening: Colonoscopy 1970 Pneumococcal Vaccine: 50+ Years (1 of 2 - PCV) 1989 Hepatitis B Vaccines (3 of 3 - 19+ 3-dose series) 08/19/2013 03/23/2013, 02/19/2013 Zoster Vaccines (1 of 2) 2020 DTaP,Tdap,and Td Vaccines (3 - Td or Tdap) 04/17/2023 04/17/2013, 07/28/2008 Depression Screening 06/17/2024 Cholesterol Screening (Lipid Panel) 06/23/2024 01/04/2013 HIV Screening 06/23/2024 Hepatitis C Screening 06/23/2024 Social Influencers of Health Screening 06/23/2024 COVID-19 Vaccine (1 - 2023-2 5 season) 2025 Influenza Vaccine (#1) 2025 RSV Immunization Adult Patients (1 - 1-dose 75+ series) 2045 HIB Vaccines Aged Out No longer eligi [...] Recently Relevant to Health Maintenance Care Teams Maintenance Supervisor 2Nd Shift Relationship Specialty Start Date End Date Hiren Alcala MD PCP - General Internal Medicine 05/29/11
--- OUTSIDE RECORDS SUMMARY | 2025-03-23 06:17 | XMS_ITS | Clinical Summary ---
Author Organization [employer] Address [address] [facility] [address] [place] [address] Care Team Providers Care Pc Network Technician Name Role Phone Maryan Santamaria MD Primary Care Provider [phone] Allergies No known active allergies Medications naloxone [...] replace cap. 16 g 2 4 Active Additional Information Patient not taking.Reported on 01/04/2025 Acetaminophen Extra Strength 500 MG tablet TAKE TWO TABLETS BY MOUTH EVERY EIGHT HOURS NEEDED 120 tablet 1 4 Active Mometasone Furoate (Asmanex, 30 Metered Doses,) 110 MCG/ACT aerosol powder Inhale 1 puff 2 times daily. 60 each 3 4 Active oxyCODONE (Roxicodone) 5 MG immediate release tablet 5 mg. 4 Active Asmanex HFA 100 MCG/ACT aerosol INHALE ONE PUFF TWICE DAILY, RINSE MOUTH AFTER USE 13 g 3 5 Active chlorhexidine (Peridex) 0.12 % solutionIndicati ons:Hx [...] to 20 doses. 20 tablet 5 Active Ventolin HFA 108 (90 Base) MCG/ACT inhaler INHALE TWO PUFFS EVERY 4 HOURS NEEDED FOR WHEEZING 18 g 11 5 Active montelukast (Singulair) 10 MG tablet TAKE ONE TABLET EVERY MORNING 90 tablet 5 Active sertraline (Zoloft) 50 MG tablet TAKE ONE TABLET EVERY MORNING 90 tablet 1 5 Active ibuprofen 600 MG tablet TAKE ONE [...] osteoarthritis. We discussed possible referral to a template layout worker for further evaluation and management. Explore non-opiate pain management options and consider referral to a paint roller assembler. Labs: CBC, C-reactive, Sed Rate, LISA Screen, [...] 9:28 AM EST): Patient reported that the [place] medication is not helping with pain . I discontinued [place] medication and prescribed Lyrica. I have also [...] Will rx decongestant. Normal lung exam. Alcoholism ([facility]) 03/26/2018 Asthma-chronic obstructive p ulmonary disease overlap syndrome ([facility]) 03/26/2018 Assessment & Plan (04/18/2024 12:46 AM EDT): Notified the pt that his medication had been discontinued by the director of sustainability. I informed the pt that I sent a new order for a similar medication on the . Had to call the pharmacy to sort out issue with insurance approval. 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/26/2018 Wears partial dentures 03/26/2018 Encounters Date Type Department Care Team Description 03/04/2025 Telephone [facility] [address] [place] [address] Maryan Santamaria MD 02/01/2025 Refill [facility] [address] [place] [address] Maryan Santamaria MD 01/04/2025 11:00 AM EDT Office Visit [facility] AD[facility] [address] [place] [address] Jasmin Marie Dental calculus (Primary Dx) 01/02/2025 Refill [facility] [address] [place] [address] Maryan Santamaria MD 12/23/2024 Telephone [facility] [address] [place] [address] Jasmin Marie running late dental 12/21/2024 3:00 PM EDT Office Visit [facility] [address] [facility] [place] [address] Tello Ramirez, DMD Partial edentulism, unspecified edentulism [...] Care Team (Late st Contact Info) Description 05/17/2025 9:15 AM EST Office Visit [facility] [address] [place] [address] Maryan Santamaria MD [address] [place] [address] 07/15/2025 10:00 AM EST Office Visit [facility] [address] [place] [address] Jasmin Marie Health Maintenance Due Date Last Done Comments CT Colonography 1970 Colonoscopy 1970 FIT 1970 Sigmoidoscopy 1970 Disability Screening 1970 Zoster Vaccines (1 of 2) 2020 Dental Oral Exam 11/14/2023 05/15/2023, 01/27/2010 SDOH Screening 08/22/2024 08/23/2023 FOBT 10/03/2024 10/04/2023 Depression Monitoring 10/15/2024 04/17/2024, 024 COVID-19 Vaccine ( season) 2025 05/22/2022, 07/18/2021, 01/02/2021, Additional history exists Influenza Vaccine (#1) 2025 Alcohol/Substance Use Screening [...] Positive( A) Negative 10/15/2023 2:08 AM EDT [facility] (CLIA #:[id number]) Comment: POSITIVE TEST RESULT. A positive Cologuard [...] screened with both Cologuard and colonoscopy. (Berenice Strickland. et al, N Engl J Med 2014;370(14):3206-7877.) Cologuard may produce a false negative or false positive result (no colorectal cancer or precancerous polyp present at colonoscopy follow up). A negative Cologuard test result does not guarantee the absence of CRC or advanced adenoma (pre-cancer). The current Cologuard screening interval is every 3 years. ([place] Cancer Society and U.S. Multi-Society Task Force). Cologuard performance data in a 10,000 patient pivotal study using colonoscopy as the reference method can be accessed at the following location: www.LeKiosk.com/results. Additional description of the Cologuard test process, warnings and precautions can be found at [email or web address]. Stool specimen (specimen) 10/04/2023 12:30 PM EDT 10/05/2023 10:57 AM EDT us Maryan Santamaria MD LAB MOLECULAR DIAGNOSTICS ORD ERABLES Final Result [facility] (CLIA #:[id number]) [address] [place] [address], * LIPID PANEL, STANDARD (03/07/2022 11:24 AM EDT) Pathologist [facility] Chol/HDLC Ratio 2.2 <5.0 (calc) [facility] Cholesterol, Total 177 <200 mg/dL [facility] HDL Cholesterol 80 > OR = 40 mg/dL [facility] LDL Cholesterol 74 mg/dL (calc) [facility] Comment: Reference range: <100 Desirable range <100 mg/dL for primary prevention; <70 mg/dL for patients with CHD or diabetic patients with > or = 2 CHD risk factors. LDL-C is now calculated using the Jovan-Ira calculation, which is a validated novel method providing better accuracy than the Friedewald equation in the estimation of LDL-C. Jovan SS et al. ALISE. 2013;310(19): 9934-2692 (http://education.The B[employer]er [employer]ing/faq/IZC448) Non-HDL Cholesterol 97 <130 mg/dL (calc) [facility] Comment: For patients with diabetes plus 1 major ASCVD risk factor, treating to a non-HDL-C goal of <100 mg/dL (LDL-C of <70 mg/dL) is considered a therapeutic option. Triglycerides 147 <150 mg/dL [facility] 03/07/2022 11:2 4 AM EDT us Maryan Santamaria MD LAB BLOOD ORDERABLES Final Re sult [facility] [address] [place] [address], * HEPATITIS C AB W/REFL TO HCV RNA, QN, PCR (03/07/2022 11:23 AM EDT) Pathologist [facility] HEPATITIS C ANTIBODY NON-REACT CARLO NON-REACT CARLO [facility] INDEX 0.06 <1.00 [facility] Comment: HCV antibody was non-reactive. There is no laboratory evidence of HCV infection. In most cases, no further action is required. However, if recent HCV exposure is suspected, a test for HCV RNA (test code 99445) is suggested. For additional information please refer to http://[employer]/faq/ILT81w6 (This link is being provided for informational/ educational purposes only.) 03/07/2022 11:2 3 AM EDT us Maryan Santamaria MD HISTORICAL/NON ORDERABLE LABS Final Result Performing Organization Address [facility] Co de Phone Number [facility] [address] * HIV 1/2 ANTIGEN/ANTIBODY,FOURTH GENERATION W/RFL (03/07/2022 11:23 AM EDT) [facility] HIV-1/2 ANTIGEN AND ANTIBODIES, 4TH GENERATION W/ REFLEX NON-REACT CARLO NON-REACT CARLO [facility] Comment: HIV-1 antigen and HIV-1/HIV-2 [...] purpose. For additional information please refer to http://[employer]MoneyMenttor.ScreenMedix/faq/HDH937 (This link is being provided for informational/ educational purposes only.) The performance of this assay has not been clinically validated in patients less than 2 years old. 03/07/2022 11:2 3 AM EDT us Maryan Santamaria MD LAB BLOOD ORDERABLES Final Re sult Performing Organization Address [facility] de Phone Number [facility] [address] from Last 3 Months or Most Recently Relevant to Health Maintenance Insurance [facility] C3 DENTAL-[facility] MEDICAID STAND ADULT Care Teams Pc Network Technician Relationship Specialty Start Date End Date Maryan Santamaria MD [address] [place] [id number] PCP - General Family Medicine 10/1/21
--- OUTSIDE RECORDS SUMMARY | 2025-03-23 06:17 | XMS_ITS | Encounter Summary ---
Author Organization [employer] Address [address] [facility] 7t [place] [address] Care Team Providers Care Dobby Loom Fixer Name Role Phone Maryan Santamaria MD Primary Care Provider [phone] Reason for Visit * Reason Onset Date Comments PT-1 08/20/2023 Encounter Details Date Type Department Care Team ([facility] st Contact Info) Description 08/20/2023 Telephone [facility] [address] [place] [address] Maryan Santamaria MD [address] [place] [address] PT-1 Social History Tobacco Use Types Packs/Day [...] 08/28 Time: 9:00 Visits: 3 Address: [address] [place], [place] Facility: [facility] [place] Chair: no [address] Vendor Needed: no PT1 needed Date: 09/01 Time: 10:30 Visits: 4 Address: [address] [place], [place] Facility: [facility] [address] [place] Chair: no [address] Vendor Needed: no PT1 needed Date: 09/03 Time: 10:30 Visits: 3 Address: [address] [place] [address] Facility: [facility] [address] [place] Chair: no [address] Vendor Needed: no documented in this encounter Plan of Treatment Upcoming Encounters Date Type Department Care Team (Late st Contact Info) Description 05/17/2025 9:15 AM EST Office Visit [facility] MED & PEDS [address] [place] [address] Maryan Santamaria MD [address] [place] [address] 07/15/2025 10:00 AM EST Office Visit [facility] ADULT DENTAL [address] [place] [address] Jasmin Marie documented as of this encounter Visit Diagnoses Not on filedocumented in this encounter Additional Health Concerns Assessment Noted Time PHQ-9 Depression Total Score: 13 023 9:21 AM EST documented as of this encounter Care Teams Dobby Loom Fixer Relationship Specialty Start Date End Date Maryan Santamaria MD [address] [place] [id number] PCP - General Family Medicine 03/17/21 documented as of this encounter
--- OUTSIDE RECORDS SUMMARY | 2025-03-23 06:17 | XMS_ITS | Encounter Summary ---
Author Organization [employer] Address [address] [facility] [address] [place] [address] Care Team Providers Care Seed Mill Superintendent Name Role Phone Maryan Santamaria MD Primary Care Provider [phone] Reason for Visit * Reason Onset Date Comments case back from lab 07/25/2023 Encounter Details Date Type Department Care Team (Late st Contact Info) Description 07/25/2023 Telephone [facility] ADULT DENTAL [address] [place] [address] Norberto Castro DDS [address] [place] [address] case back from lab Social History Tobacco [...] Description 05/17/2025 9:15 AM EST Office Visit [facility] MED & PEDS [address] [place] [address] Maryan Santamaria MD [address] [place] [address] 07/15/2025 10:00 AM EST Office Visit [facility] ADULT DENTAL [address] [place] [address] Jasmin Marie documented as of this encounter Visit Diagnoses Not on filedocumented in this encounter Additional Health Concerns Assessment Noted Time PHQ-9 Depression Total Score: 13 023 9:21 AM EST documented as of this encounter Care Teams Seed Mill Superintendent Relationship Specialty Start Date End Date Maryan Santamaria MD [address] [place] [address] PCP - General Family Medicine 03/17/21 documented as of this encounter
--- OUTSIDE RECORDS SUMMARY | 2025-03-23 06:17 | XMS_ITS | Encounter Summary ---
Author Organization [employer] Address [address] [facility] [address] 7[address] [place] [address] Care Team Providers Care Glass Enamel Mixer Name Role Phone Maryan Santamaria MD Primary Care Provider [phone] Reason for Visit * Reason Onset Date Comments running late dental 12/23/2024 Encounter Details Date Type Department Care Team (Late st Contact Info) Description 12/23/2024 Telephone [facility] ADULT DENTAL [address] [place] [address] Jasmin Marie running late dental Social History [...] Description 05/17/2025 9:15 AM EST Office Visit [facility] MED & PEDS [address] [place] [address] Maryan Santamaria MD [address] [place] [address] 07/15/2025 10:00 AM EST Office Visit [facility] ADULT DENTAL [address] [place] [address] Jasmin Marie documented as of this encounter Visit Diagnoses Not on filedocumented in this encounter Additional Health Concerns Assessment Noted Time PHQ-9 Depression Total Score: 15 024 8:53 AM EDT documented as of this encounter Care Teams Glass Enamel Mixer Relationship Specialty Start Date End Date Maryan Santamaria MD [address] [place] [id number] PCP - General Family Medicine 03/17/21 documented as of this encounter
--- OUTSIDE RECORDS SUMMARY | 2025-03-23 06:17 | XMS_ITS | Encounter Summary ---
Author Organization [employer] Address [address] [facility] [address] 7[address] [place] [address] Care Team Providers Care Outdoor Education Teacher Name Role Phone Maryan Santamaria MD Primary Care Provider [phone] Encounter Details Date Type Department Care Team (Late st Contact Info) Description 08/01/2023 Abstract [facility] ADULT DENTAL [address] [place] [address] Norberto Castro DDS [address] [place] [address] Social History Tobacco Use Types Packs/Day Years [...] Description 05/17/2025 9:15 AM EST Office Visit [facility] MED & PEDS [address] [place] [address] Maryan Santamaria MD [address] [place] [address] 07/15/2025 10:00 AM EST Office Visit [facility] ADULT DENTAL [address] [place] [address] Jasmin Marie documented as of this encounter Visit Diagnoses Not on filedocumented in this encounter Additional Health Concerns Assessment Noted Time PHQ-9 Depression Total Score: 13 023 9:21 AM EST documented as of this encounter Care Teams Outdoor Education Teacher Relationship Specialty Start Date End Date Maryan Santamaria MD [address] [place] [address] PCP - General Family Medicine 03/17/21 documented as of this encounter
== END 2025-03-23 06:16 | disposition home or self-care (01) ==
LOC: CF 06:15
PROVIDERS: Visit Provider Anesthesiology
DX: M47.816 Spondylosis without myelopathy or radiculopathy, lumbar region (principal)
CPT/HCPCS: 64493; 64494; J2003; J2795; Q9967

== ENCOUNTER 2025-03-23 08:26 | Outpatient (AMB) | payer MEDICAID, SELFPAY ==
[2025-03-23 08:47] VITALS: BP 126/84; PULSE 67; RESP 16; O2SAT 96
--- NOTE | 2025-03-23 08:47 | A.OFFVIS_ITS ---
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 Instructions: Resume on 06/04/24. mometasone 100 mcg/actuation (Asmanex HFA) 1 puff inhalation BID montelukast 10 mg QAM pregabalin 150 mg BID sertraline 50 mg QAM PFSH Medical History Chest pain Tremor of both hands Numbness and tingling in left hand Hx of fracture of patella Osteoarthritis Carpal tunnel syndrome Fibromyalgia Medial epicondylitis of both elbows Low back pain Chronic nasal congestion Environmental and seasonal allergies Anxiety Depression COPD (chronic obstructive pulmonary disease) Asthma Personal history of nicotine dependence Lumbar radiculopathy, chronic Alcoholism Surgical History S/P cubital tunnel release (09/19/23) History of tonsillectomy Family History Mother Diabetes Social History Household Members: Spouse Are you a primary medicare biller to a significant other at home: No Do you presently have visiting nurse or other home services: No Alcohol intake: current Patient Tobacco Use Status: Current everyday Tobacco user Tobacco use type: Cigarette Cigarette Packs Per Day: 1 Cigarettes Per Day: 20.0 Years Smoked: (onset 15yo, 1ppd x 36yrs, 35pyh) Second Hand Smoke Exposure: No Substance Use Type: Marijuana Current occupational status: unemployed Current occupation: right hand dominant Physical Exam Vital Signs: Last Vital Signs Pulse 71 03/23/25 09:19 Resp 16 03/23/25 09:19 BP 131/79 03/23/25 09:19 Pulse Ox 99 03/23/25 09:19 Oxygen Delivery Method Room Air 03/23/25 09:19 Assessment & Plan Assessment & Plan (1) Spondylosis of lumbar region without myelopathy or radiculopathy: Code(s): M47.816 - Spondylosis without myelopathy or radiculopathy, lumbar region Category: Medical Plan Diagnostic medial branch block L3,L4 dorsal ramus L5 bilateral.? ? ?Informed consent was explained to the patient. All questions were explained and? answered.? The patient was taken inside the operating room where she was positioned prone on the operating table. Time-out was performed delineating correct site, side, the nature of the procedure, patient's allergy, . All operating room staff was participating in OR time-out procedure. ? ? The lower back was prepped with ChloraPrep and draped with sterile utility towels.? C-arm was brought over the operating field and sq picture of L4-, L5 vertebra and S1 AREA were delineated on the screen.? Question about transitional anatomy was raised about this patient lower lumbar spine silhouette, on the lateral view the disc between S1 and S2 vertebra seem to be prominent. Nevertheless the dorsal ramus L5 was chosen as the position of the confluence of the sacral allow bilaterally with superior articular process of S1. Point of interest were delineated as confluence of superior articular process of L4 and L5 vertebra bilaterally with corresponding transverse processes as well as confluence of the sacral alae bilaterally with superior articular process of S1.? The projection of the point of interest to the skin were inject ed with the small amount of local anesthetic lidocaine 2% mixed with ropivacaine 0.5% 1-1 approximately 1 cc.? After that 22 gauge 3.5 inch spinal needle was driven sequentially to the points of interest in tunnel vision fashion. After needles gently contacted the bone at the point of interests the needle was injected with small amount of the contrast.? The injection of the contrast did not demonstrate any intravascular or intrathecal spread of the contrast.? After that injection of the? ropivacaine 0.5%-1cc was performed at each needle location.?After that the needles were removed and Bandaids were applied. Orders: Orders FL guidance in treatment room Today M47.816 - Spondylosis without myelopathy or radiculopathy, lumbar region Coding Level of Care Code Procedure Only Diagnoses Spondylosis of lumbar region without myelopathy or radiculopathy M47.816
[2025-03-23 09:19] VITALS: BP 131/79; PULSE 71; RESP 16; O2SAT 99
== END 2025-03-23 09:20 | disposition home or self-care (01) ==
LOC: HO.PMCPRC 08:26
PROVIDERS: PCP Family Medicine; Referring Provider Family Medicine; Visit Provider Anesthesiology
DX: M47.816 Spondylosis without myelopathy or radiculopathy, lumbar region (principal)
CPT/HCPCS: 64493; 64494

== ENCOUNTER 2025-05-17 10:21 | Outpatient (REF) | payer MEDICAID, SELFPAY ==
--- OUTSIDE RECORDS SUMMARY | 2025-05-17 09:15 | XMS_ITS | Encounter Summary ---
Author Organization [employer] Address [address] [place] [address] [address] [place] [address] Care Team Providers Care Camper Assembler Name Role Phone Maryan Santamaria MD Primary Care Provider [phone] Reason for Referral * Cardiac Stress Testing (Routine) - Pending Review Specialty Diagnoses / Procedures Referred By Bro t Referred To Contact Diagnoses Atypical chest pain Procedures Stress test Maryan Santamaria MD [address] [place] [address] Phone: tel: fax: Referral ID Status Reason Start Date Expiration Date V isits Requested Visits Authorized [id number] Pending Review 05/17/2025 05/17/2026 1 1 * Consultation (Urgent) - Pending Review Specialty Diagnoses / Procedures Referred By Contaston t Referred To Contact Gastroenterology Diagnoses Positive colorectal cancer screening using Cologuard test Maryan Santamaria MD [address] [place] [address] Phone: tel: fax: Referral ID Status Reason Start Date Expiration Date Visits Requested Visits Authorized [id number] Pending Review Specialty Services Required 05/17/2025 05/17/2026 1 1 * PFT (Routine) - Pending Review Specialty Diagnoses / Procedures Referred By Contaston t Referred To Contact Diagnoses Moderate persistent asthma with acute exacerbation Procedures Pulmonary Function Test Maryan Santamaria MD [address] [place] [address] Phone: tel: fax: Referral ID Status Reason Start Date Expiration Date V isits Requested Visits Authorized [id number] Pending Review 05/17/2025 05/17/2026 1 1 Reason for Visit * Reason Comments Follow-up htn Encounter Details Date Type Department Care Team ([facility] st Contact Info) Description 05/17/2025 9:15 AM EST Office Visit [facility] PEDS [address] [place] [address] Maryan Santamaria MD [address] [place] [address] Moderate persistent asthma with acute exacerbation (Primary Dx); Encounter for health-related screening; Polyarthralgia; Positive colorectal cancer screening using Cologuard test; Encounter for immunization; Atypical chest pain Social History Tobacco Use Types Packs/Day Years [...] Answer Date Recorded Patient Health Questionnaire-9 Score 16 05/17/2025 Patient Health Questionnaire-9 Score 16 05/17/2025 Last PHQ-9: Questionnaire Data Not on file 1 07/18/2024 Housing Stability Answer Date Recorded What is your housing situation today? I have sondra angela 05/04/[address] you li ve. Do you have problems with any of the following? None of the above 05/04/2025 Food Insecurity Answer Date Recorded Within the past 12 months, y ou worried that your food would run out before you got money to buy more: Never True 05/04/2025 Within the past 12 months,th e food you bought just didn't last and you didn't have enough money to get more: Never True Transportation Answer Date Recorded In the past 12 months, has l ack of transportation kept you from medical appts, meetings, work or from getting things needed for daily living? No 05/04/2025 Utilities Answer Date Recorded In the past 12 months, has t he electric, gas, oil or water company threatened to shut off services in your home? No 05/04/2025 Depression Answer Date Recorded Patient Health Questionnaire-2 Score 5 05/17/2025 Internet Access Answer Date Recorded Internet Access Q1 Yes 05/04/2025 Internet Access Q2 Not on file 05/04/2025 Sex and Gender Information Value Date Recorded Sex Assigned at Male 04/16/2022 10:20 AM EDT Legal Sex Male 10:20 AM EDT Gender Identity Male 04/16/2022 10:20 AM EDT Sexual Orientation Straight 04/16/2022 10 :20 AM EDT documented as of this encounter Last Filed Vital Signs Vital Sign Reading Time Taken Comments Blood Pressure 128/76 05/17/2025 8:55 AM EST Pulse 88 05/17/2025 8:55 AM EST Temperature 36.1 C (97 F) 05/17/2025 8:55 AM EST Respiratory Rate 12 05/17/2025 8:55 AM EST Oxygen Saturation 97% 05/17/2025 8:55 AM EST Inhaled Oxygen Concentration - - Weight 65.3 kg (144 lb) 05/17/2025 8:55 AM EST Height 177.8 cm (5' 10 ) 05/17/2025 8:55 AM EST Body Mass Index 20.66 05/17/2025 8:55 AM EST documented in this encounter Functional Status * Over the past 2 weeks, how often have you been bothered by any of the following problems? Question Answer Date of Assessment Author Patient Health Questionnaire -2 Score 5 05/17/2025 8:58 AM EST Davin Garcia MA * Little interest or pleasure in doing things Answer Date of Assessment Author More than half the days 05/17/2025 8:58 AM EST Lamar Decker MA * Feeling down, depressed, or hopeless Answer Date of Assessment Author Nearly every day 05/17/2025 8:58 AM EST Lamar Ricketts MA * Trouble falling or staying asleep, or sleeping too much Answer Date of Assessment Author Several days 05/17/2025 8:58 AM EST [employer] Lamar metz MA * Feeling tired or having little energy Answer Date of Assessment Author Nearly every day 05/17/2025 8:58 AM Lamar Mcintyre MA * Poor appetite or overeating Answer Date of Assessment Author Several days 05/17/2025 8:58 AM [employer] Lamar metz MA * Feeling bad about yourself - or that you are a failure or have let yourself or your family down Answer Date of Assessment Author More than half the days 05/17/2025 8:58 AM Lamar Gilbert MA * Trouble concentrating on things, such as reading the newspaper or watching television Answer Date of Assessment Author Several days 05/17/2025 8:58 AM Lamar Torres MA * Moving or speaking so slowly that other people could have noticed? Or the opposite - being so fidgety or restless that you have been moving around a lot more than usual. Answer Date of Assessment Author Several days 05/17/2025 8:58 AM Lamar Torres MA * Thoughts that you would be better off or hurting yourself in some way Answer Date of Assessment Author More than half the days 05/17/2025 8:58 AM Lamar Gilbert MA * Patient Health Questionnaire-9 Score Answer Date of Assessment Author 16 05/17/2025 8:58 AM Lamar Torres MA * How difficult have these problems made it for you to do your work, take care of things at home, or get along with other people? Answer Date of Assessment Author Somewhat difficult 05/17/2025 8:58 AM Lamar Forrester MA documented as of this encounter Progress Notes * Maryan Santamaria MD - 05/17/2025 9:15 AM EST Subjective Patient ID: Ortega Ellis is a 55 y.o. male who presents for Follow-up (htn). Ortega Ellis presents with multiple ongoing health concerns including poorly controlled asthma, nasal congestion, and chronic pain. The patient reports significant asthma symptoms with nightly shortness of breath and daily inhaler use, indicating poor control despite being on Asmanex 110 and Ventolin, with recent insurance-related switch to Arnuity Ellipta. Symptoms are worse at night and improve somewhat during the day, with asthma limiting activities primarily at nighttime. The patient describes nasal symptoms that began a couple of years ago and have worsened over the last year and a half, characterized by black, stuffy nose with complete loss of smell and burning, irritating itch inside. There is no pain when touching the sinuses. The patient reports smoking daily and experiencing stress with decreased motivation. Chronic pain issues include arthritis affecting hands, knees, thighs, and femur, with pain that resolves after pressure application. The patient experiences pain when sitting down and standing up andreports that previous trials of different opiates, even at high doses, were ineffective. He received six injections of unknown medication for pain management. The patient reports ear symptoms with excessive earwax requiring frequent cleaning. Additional concerns include chest pains and a positive Cologuard test requiring colonoscopy follow-up, which the patient has not completed due to other health issues. The patient has not received a flu shot this visit but reports having received all four COVID vaccinations plus two boosters. Review of Systems General: Positive for stress, feeling like not wanting to do anything. HEENT: Positive for nasal congestion, anosmia, burning and irritating itch inside ears. Cardiovascular: Positive for chest pain. Respiratory: Positive for daily shortness of breath, worse at night. Musculoskeletal: Positive for arthritis pain in hands, knees, thighs, and femur; pain with sitting and standing that resolves with pressure. Review of Systems Objective BP 128/76 (BP Location: Left arm, Patient Position: Sitting, BP Cuff Size: Adult) Pulse 88 Temp 97 ??F (36.1 ??C) (Oral) Resp 12 Ht 5' 10 (1.778 m) Wt 144 lb (65.3 kg) SpO2 97% BMI 20.66 kg/m?? Physical Exam Constitutional: General: He is not in acute distress. Appearance: He is not ill-appearing. HENT: Head: Normocephalic and atraumatic. Nose: No congestion. Pulmonary: Effort: Pulmonary effort is normal. Breath sounds: Wheezing present. Musculoskeletal: Cervical back: Normal range of motion. Neurological: General: No focal deficit present. Mental Status: He is alert. Psychiatric: Mood and Affect: Mood normal. Assessment/Plan Problem List Items Addressed This Visit Asthma - Primary Relevant Medications Mometasone Furoate (Asmanex, 120 Metered Doses,) 220 MCG/ACT aerosol powder predniSONE (Deltasone) 50 MG tablet azithromycin (Zithromax) 250 MG tablet pseudoephedrine ER (Sudafed-12 Hour) 120 MG 12 hr tablet Other Relevant Orders Pulmonary Function Test Polyarthralgia Relevant Medications predniSONE (Deltasone) 50 MG tablet oxyCODONE (Roxicodone) 5 MG immediate release tablet Other Relevant Orders Rheumatoid Factor Cyclic Citrullinated Peptide (CCP) Antibody (IgG) Sed Rate by Modified Westergren C-reactive Protein Atypical chest pain Relevant Orders XR Chest 2 Views Stress test Other Visit Diagnoses Encounter for health-related screening Relevant Orders CBC auto differential Comprehensive Metabolic Panel Lipid Panel, Standard TSH W/Reflex to FT4 Positive colorectal cancer screening using Cologuard test Relevant Orders Referral to Gastroenterology Encounter for immunization Relevant Medications azithromycin (Zithromax) 250 MG tablet zoster vaccine-recombinant adjuvanted (Shingrix) 50 MCG/0.5ML vaccine Other Relevant Orders COVID-19 VACCINE 4922-4352 (Comirnaty) 19 yrs + Ortega Ellis presents with poorly controlled asthma with daily inhaler use and nightly symptoms, facial/sinus symptoms worsening over the past year and a half, chronic pain requiring opioidmanagement, and multiple follow-up needs including positive Cologuard test. Poorly controlled asthma Assessment: Patient demonstrates poorly controlled asthma with daily rescue inhaler use and nightlysymptoms including shortness of breath. Currently on Asmanex 110 and Ventolin, with recent insurance-mandated switch to Arnuity Ellipta. His symptoms significantly impact nighttime activities and sleep. Given the poor control despite current therapy and daily symptoms, there is concern for possibleunderlying COPD or other respiratory pathology requiring further evaluation. Plan: - Add long-acting beta agonist - Prescribe Z-Adarsh antibiotic: take two tablets today, then one tablet daily for the next four days - Prescribe Prednisone: one tablet daily for five days for persistent exacerbation - Order pulmonary function test (PFT) at [facility] to evaluate for COPD or other respiratory conditions beyond asthma - Patient confirmed transportation available for PFT Chronic facial and sinus symptoms Assessment: Patient reports facial symptoms that began a couple of years ago and have worsened overthe past year and a half. His symptoms include nasal congestion that is worse at night and improvesduring the day, complete loss of smell, and burning, irritating itch inside the nose. No tendernesson palpation of sinuses. Patient continues to smoke daily, which may be contributing to his symptoms. Plan: - Provide ear drops for earwax management Chronic pain management Assessment: Patient experiences chronic pain affecting sitting and standing activities. He has received six injections of unknown medication with limited benefit. Previous trials of various opiates, including high doses, have been ineffective. Patient inquiring about switching back to oxycodone forpain management. Plan: - Trial oxycodone for 14 days - Obtain controlled substance treatment (COT) contract for controlled substances Positive Cologuard test Assessment: Patient has positive Cologuard test requiring colonoscopy follow-up. Patient has not completed the recommended colonoscopy due to other medical issues. This represents an important screening abnormality that requires definitive evaluation to rule out colorectal pathology. Plan: - Schedule colonoscopy to follow up positive Cologuard test and ensure no colonic pathology Atypical CP Doorknob compliant of chronic intermittent CP for years. Will send for stress test and chest x ray,followup scheduled. Routine laboratory monitoring Assessment: Patient requesting comprehensive health screening. Previous autoimmune testing was ordered but not completed, with prior negative results. Patient has history of arthritis affecting hands, knees, thighs, and femur with pain that resolves with pressure. Hepatitis and HIV testing was performed three years ago. Plan: - Order lipids, comprehensive metabolic panel (CMP), complete blood count (CBC), and GSH - Repeat hepatitis and HIV testing Vaccination updates Assessment: Patient is up to date with COVID vaccinations (four initial vaccines plus two boosters)but declined flu vaccination today. Patient is due for shingles vaccination. Plan: - Send shingles vaccine prescription to pharmacy for administration documented in this encounter Plan of Treatment Upcoming Encounters Date Type Department Care Team (Late st Contact Info) Description 05/18/2025 3:00 PM EST Office Visit [facility]ULT D[facility] [address] [place] [address] Tello Ramirez, DMD [address] [place] [address] 06/28/2025 10:00 AM EST Office Visit [facility] PED[facility] [address] [place] [address] Maryan Santamaria MD [address] [place] [address] 07/15/2025 10:15 AM EST Office Visit [facility] [address] [place] [address] Jasmin Marie 07/26/2025 11:00 AM EST Immunization [facility] [address] [place] [address] Scheduled Orders Name Type Priority Associated Diagnoses Orde r Schedule Pulmonary Function Test PFT Routine Moderate persistent asthma with acute exacerbation Expected: 05/17/2025, Expires: 11/15/2025 CBC auto differential Lab Routine Encounter for health-related screening Expected: 05/17/2025 (Approximate), Expires: 05/17/2026 Comprehensive Metabolic Panel Lab Routine Encounter for health-related screening Expected: 05/17/2025 (Approximate), Expires: 05/17/2026 Lipid Panel, Standard Lab Routine Encounter for health-related screening Expected: 05/17/2025 (Approximate), Expires: 05/17/2026 TSH W/Reflex to FT4 Lab Routine Encounter for health-related screening Expected: 05/17/2025 (Approximate), Expires: 05/17/2026 Rheumatoid Factor Lab Routine Polyarthralgia Expected: 05/17/2025, Expires: 05/17/2026 Cyclic Citrullinated Peptide (CCP) Antibody (IgG) Lab Routine Polyarthralgia Expected: 05/17/2025 (Approximate), Expires: 05/17/2026 Sed Rate by Modified Westergren Lab Routine Polyarthralgia Expected: 05/17/2025, Expires: 05/17/2026 C-reactive Protein Lab Routine Polyarthralgia Expected: 05/17/2025 (Approximate), Expires: 05/17/2026 XR Chest 2 Views Imaging Routine Atypical chest pain Expected: 05/17/2025, Expires: 05/17/2026 Stress test Cardiac Services Routine Atypical chest pain Expected: 05/17/2025 (Approximate), Expires: 05/17/2027 Scheduled Referrals Name Type Priority Associated Diagnoses Order Schedule Referral to Gastroenterology Outpatient Referral Urgent Positive colorectal cancer screening using Cologuard test Expected: 05/17/2025 (Approximate), Expires: 05/17/2026 documented as of this encounter Visit Diagnoses Diagnosis Moderate persistent asthma with acute exacerbation- Primary Encounter for health-related screening Polyarthralgia Pain in joint, multiple sites Positive colorectal cancer screening using Cologuard test Encounter for immunization Atypical chest pain Other chest pain documented in this encounter Additional Health Concerns Assessment Noted Time PHQ-9 Depression Total Score: 16 025 8:58 AM EST documented as of this encounter Care Teams Camper Assembler Relationship Specialty Start Date End Date Maryan Santamaria MD [address] [place] [address] PCP - General Family Medicine 03/17/21 documented as of this encounter
--- OUTSIDE RECORDS SUMMARY | 2025-05-17 12:56 | XMS_ITS | Encounter Summary ---
Author Organization [employer] Address [address] [facility] [place] [address] Care Team Providers Care Storage Garage Attendant Name Role Phone Maryan Santamaria MD Primary Care Provider [phone] Encounter Details Date Type Department Care Team (Late st Contact Info) Description 08/01/2023 Abstract [facility] AD[facility] D[facility] [address] [place] [address] Norberto Castro DDS [address] [place] [address] Social History Tobacco Use Types Packs/Day Years [...] Description 05/18/2025 3:00 PM EST Office Visit [facility] [address] [place] [address] Tello Ramirez DMD [address] [place] [address] 06/28/2025 10:00 AM EST Office Visit [facility] [address] [place] [address] Maryan Santamaria MD [address] [place] [address] 07/15/2025 10:15 AM EST Office Visit [facility] [address] [place] [address] Jasmin Marie 07/26/2025 11:00 AM EST Immunization [facility] [address] [place] [address] documented as of this encounter Visit Diagnoses Not on filedocumented in this encounter Additional Health Concerns Assessment Noted Time PHQ-9 Depression Total Score: 13 023 9:21 AM EST documented as of this encounter Care Teams Storage Garage Attendant Relationship Specialty Start Date End Date Maryan Santamaria MD [address] [place] [address] PCP - General Family Medicine 03/17/21 documented as of this encounter
--- OUTSIDE RECORDS SUMMARY | 2025-05-17 12:56 | XMS_ITS | Encounter Summary ---
Author Organization [employer] Address [address] [facility] 7t [place] [address] Care Team Providers Care Field Crop Harvest Contractor Name Role Phone Maryan Santamaria MD Primary Care Provider [phone] Reason for Visit * Reason Onset Date Comments PT-1 08/20/2023 Encounter Details Date Type Department Care Team ([facility] st Contact Info) Description 08/20/2023 Telephone [facility] [address] [place] [address] Maryan Santamaria MD [address] [place] [address] PT-1 Social History Tobacco Use Types Packs/Day [...] 08/28 Time: 9:00 Visits: 3 Address: [address] [place], [place] Facility: [facility] [place] Chair: no Molecular Spectroscopist Needed: no PT1 needed Date: 09/01 Time: 10:30 Visits: 4 Address: [address] [place], [place] Facility: [facility] [address] Chair: no Molecular Spectroscopist Needed: no PT1 needed Date: 09/03 Time: 10:30 Visits: 3 Address: [address] [place] [address] Facility: [facility] [address] [place] Chair: no Molecular Spectroscopist Needed: no documented in this encounter Plan of Treatment Upcoming Encounters Date Type Department Care Team (Late st Contact Info) Description 05/18/2025 3:00 PM EST Office Visit [facility] [address] [place] [address] Tello Ramirez, KARL [address] [place] [address] 06/28/2025 10:00 AM EST Office Visit [facility] [address] [place] [address] Maryan Santamaria MD [address] [place] [address] 07/15/2025 10:15 AM EST Office Visit [facility] [address] [place] [address] Jasmin Marie 07/26/2025 11:00 AM EST Immunization [facility] [address] [place] [address] documented as of this encounter Visit Diagnoses Not on filedocumented in this encounter Additional Health Concerns Assessment Noted Time PHQ-9 Depression Total Score: 13 023 9:21 AM EST documented as of this encounter Care Teams Field Crop Harvest Contractor Relationship Specialty Start Date End Date Maryan Santamaria MD [address] [place] [address] PCP - General Family Medicine 03/17/21 documented as of this encounter
--- OUTSIDE RECORDS SUMMARY | 2025-05-17 12:56 | XMS_ITS | Encounter Summary ---
Author Organization [employer] Address [address] [facility] [address] [place] [address] Care Team Providers Care Job Analysis Manager Name Role Phone Maryan Santamaria MD Primary Care Provider [phone] Reason for Visit * Reason Onset Date Comments running late dental 12/23/2024 Encounter Details Date Type Department Care Team (Late st Contact Info) Description 12/23/2024 Telephone [facility] [address] [place] [address] Jasmin Marie running late dental Social History [...] Description 05/18/2025 3:00 PM EST Office Visit [facility] [address] [place] [address] Tello Ramirez DMD [address] [place] [address] 06/28/2025 10:00 AM EST Office Visit [facility] [address] [place] [address] Maryan Santamaria MD [address] [place] [address] 07/15/2025 10:15 AM EST Office Visit [facility] [address] [place] [address] Jasmin Marie 07/26/2025 11:00 AM EST Immunization [facility] [address] [place] [address] documented as of this encounter Visit Diagnoses Not on filedocumented in this encounter Additional Health Concerns Assessment Noted Time PHQ-9 Depression Total Score: 15 024 8:53 AM EDT documented as of this encounter Care Teams Job Analysis Manager Relationship Specialty Start Date End Date Maryan Santamaria MD [address] [place] [address] PCP - General Family Medicine 03/17/21 documented as of this encounter
--- OUTSIDE RECORDS SUMMARY | 2025-05-17 12:56 | XMS_ITS | Encounter Summary ---
Author Organization [email or web address] Address [address] [facility] [address] [place] [address] Care Team Providers Care Crib Clerk Name Role Phone Maryan Santamaria MD Primary Care Provider [phone] Reason for Visit * Reason Onset Date Comments case back from lab 07/25/2023 Encounter Details Date Type Department Care Team (Late st Contact Info) Description 07/25/2023 Telephone [facility] [address] [place] [address] Norberto Castro DDS [address] [place] [address] case back from lab Social History Tobacco [...] Description 05/18/2025 3:00 PM EST Office Visit [facility] [address] [place] [address] Tello Ramirez DMD [address] [place] [address] 06/28/2025 10:00 AM EST Office Visit [facility] [address] [place] [address] Maryan Santamaria MD [address] [place] [address] 07/15/2025 10:15 AM EST Office Visit [facility] [address] [place] [address] Jasmin Marie 07/26/2025 11:00 AM EST Immunization [facility] [address] [place] [address] documented as of this encounter Visit Diagnoses Not on filedocumented in this encounter Additional Health Concerns Assessment Noted Time PHQ-9 Depression Total Score: 13 023 9:21 AM EST documented as of this encounter Care Teams Crib Clerk Relationship Specialty Start Date End Date Maryan Santamaria MD [address] [place] [address] PCP - General Family Medicine 03/17/21 documented as of this encounter
--- OUTSIDE RECORDS SUMMARY | 2025-05-17 12:57 | XMS_ITS | Clinical Summary ---
Author Organization [employer] Address [address] [place] [address] Care Team Providers Care Rural Service Engineer Name Role Phone Maryan Santamaria MD Primary Care Provider [phone] Allergies No known active allergies Medications naloxone [...] NEEDED 120 tablet 1 04/17/20 24 Active chlorhexidine (Peridex) 0.12 % solutionIndicat ions:Hx [...] NEEDED FOR WHEEZING 18 g 11 5 11:01 AM EST 10/15/19 25 Active montelukast (Singulair) 10 MG tablet TAKE ONE TABLET EVERY MORNING 90 tablet 10/14/19 25 Active sertraline (Zoloft) 50 MG tablet TAKE ONE TABLET EVERY MORNING 90 tablet 1 5 11:57 AM EST 01/05/20 25 Active ibuprofen 600 MG tablet TAKE ONE TABLET THREE TIMES DAILY 270 tablet 1 5 11:57 AM EST 01/05/20 25 Active acetic acid-hydrocorti sone (Vosol-HC) otic solution Administer 4 drops into the right ear 2 times daily. 10 mL 2 05/17/20 25 Active Mometasone Furoate (Asmanex, 120 Metered Doses,) 220 MCG/ACT aerosol powder Inhale 2 Act (440 mcg) 2 times daily. 1 each 11 5 11:01 AM EST 05/17/20 25 Active predniSONE (Deltasone) 50 MG tabletIndicatio ns:Moderate persistent asthma with acute exacerbation Take 1 tablet (50 mg) by mouth Once per day. 5 tablet 5 11:01 AM EST 05/17/20 25 Active azithromycin (Zithromax) 250 MG tabletIndicatio ns:Moderate persistent asthma with acute exacerbation Take 2 tablets PO once, than take 1 tablet PO daily for total 5 days 6 tablet 5 11:01 AM EST 05/17/20 25 Active pseudoephedrine ER (Sudafed-12 Hour) 120 MG 12 hr tablet Take 1 tablet (120 mg) by mouth every 12 (twelve) hours. Do not crush, chew, or split. 20 tablet 5 11:01 AM EST 05/17/20 25 Active zoster vaccine-recombi nant adjuvanted (Shingrix) 50 MCG/0.5ML vaccine Inject 0.5 mL (50 mcg) into the muscle 1 (one) time for 1 dose. 0.5 mL 5 11:01 AM EST 05/17/20 25 2024 Active oxyCODONE (Roxicodone) 5 MG immediate release tabletIndicatio ns:Polyarthralg ia Take 1 tablet (5 mg) by mouth every 6 (six) hours if needed for severe pain for up to 14 days. 56 tablet 5 11:01 AM EST 05/17/20 25 2024 Active Mometasone Furoate (Asmanex, 30 Metered Doses,) 110 MCG/ACT aerosol powder Inhale 1 puff 2 times daily. 60 each 3 04/17/20 24 2024 Discontinued(T herapy completed) oxyCODONE (Roxicodone) 5 MG immediate release tablet 5 mg. 06/03/20 24 2024 Discontinued Asmanex HFA 100 MCG/ACT aerosol INHALE ONE PUFF TWICE DAILY, RINSE MOUTH AFTER USE 13 g 3 09/02/19 25 2024 Discontinued pregabalin (Lyrica) 150 MG capsule TAKE ONE CAPSULE TWICE DAILY 60 capsule 2 5 11:57 AM EST 02/03/20 25 2024 Discontinued(T herapy completed) fluticasone furoate (Arnuity Ellipta) 100 MCG/ACT inhalerIndicati ons:Asthma-grain trader arthur obstructive pulmonary disease overlap syndrome (CMS/HCC) (HCC) Inhale 1 puff Once per day. Rinse mouth with water after use to reduce aftertaste and incidence of candidiasis. Do not swallow. 1 each 04/30/20 25 2024 Discontinued(T herapy completed) Active Problems Problem Noted Date Diagnosed Date Tendonitis of left rotator cuff 05/17/2025 S/P cervical spinal fusion 05/17/2025 Numbness and tingling of left hand 05/17/2025 Heartburn 05/17/2025 Overview (05/17/2025): Continue PPI, avoid culprits, reviewed reflux precautions Chest pain 05/17/2025 Overview (05/17/2025): No further chest pain, did not show for cardiology appointment needs to be reschedule Cervical stenosis of spinal canal 05/17/2025 Atypical chest pain 05/17/2025 Osteoarthritis of left knee 03/05/2024 Left patella fracture 03/05/2024 Encounter for screening colonoscopy 09/02/2023 Overview (05/17/2025): 05/17 procedures cx- due to Cp- had appt with cardiology 07/18/22-did not follow through pls schedule out- to be sure we get clearance- Assessment & Plan (09/02/2023 11:12 PM EDT): Labs: Lipid Panel IZ: Tdap, PCV-20 Polyarthralgia 09/02/2023 Assessment & Plan (09/02/2023 11:11 PM EDT): Patient has Hx of osteoarthritis. We discussed possible referral to a carpenter maintenance for further evaluation and management. Explore non-opiate pain management options and consider referral to a interventional pain physician. Labs: CBC, C-reactive, Sed Rate, LISA Screen, [...] 9:28 AM EST): Patient reported that the Hackett medication is not helping with pain . I discontinued Hackett medication and prescribed Lyrica. I have also sent a referral for pain management. He will have a follow-up appointment for physical examination and on Lyrica medication F/U. I discussed the imaging finding of his left knee. I informed him he will be referred to orthopedic since he has severe arthritis. Carpal tunnel syndrome, bilateral upper limbs Cubital tunnel syndrome, bilateral 07/31/2023 Personal history of nicotine dependence 07/31/19 24 Overview (05/17/2025): (current smoker - onset 15yo, 1ppd x 36yrs, 35pyh) Fall (on) (from) other stairs and steps, [...] f/up to address his other concerns Chronic nasal congestion 06/22/2022 Assessment & Plan (06/25/2022 4:42 PM EST): Recommended supportive care, nasal lavage with high nasal saline volume low pressure. Will rx decongestant. Normal lung exam. Alcoholism ([facility]) 03/26/2018 Asthma 03/26/2018 Assessment & Plan (04/18/2024 12:46 AM EDT): Notified the pt that his medication had been discontinued by the stave inspector. I informed the pt that I sent a new order for a similar medication on the . Had to call the pharmacy to sort out issue with insurance approval. 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/26/2018 Wears partial dentures 03/26/2018 Gynecomastia 04/12/2014 Low back pain 07/05/2011 Assessment & Plan (07/18/2023 2:48 PM EST): [...] RN to get patient in opiate contract Lumbar disc herniation with radiculopathy 2011 Encounters Date Type Department Care Team Description 05/17/2025 9:15 AM EST Office Visit [facility] [address] [place] [address] Maryan Santamaria MD Moderate persistent asthma with acute exacerbation (Primary Dx); Encounter for health-related screening; Polyarthralgia; Positive colorectal cancer screening using Cologuard test; Encounter for immunization; Atypical chest pain 05/17/2025 Travel 05/11/2025 Telephone [facility] [address] [place] [address] Maryan Santamaria MD chart prep 05/04/2025 Patient Outreach [facility] [address] [place], [place] [id number] Maryan Santamaria MD Pre-visit Planning (SDOH Screening negative and Tobacco screening positive) 04/30/2025 Telephone [facility] [address] [place] [address] Maryan Santamaria MD 03/04/2025 Telephone [facility] [address] [place] [address] Maryan Santamaria MD from Last 3 Months Immunizations Immunization Administration Dates Next Due Hep B, adult 08/07/2019,03/23/2013,02/19/2013 Pfizer Covid-19 Vaccine 12+ Bivalent 05/22/2022 Pfizer Covid-19 Vaccine 12+ lashanda-sucrose (Aldrich Cap) 07/18/2021 Pneumococcal Conjugate PCV 20 09/02/2023 Pneumococcal Polysaccharide PPSV23 12/04/2016 TD (adult), 2 Lf tetanus tox oid, preservative free, adsorbed 07/28/2008 Tdap 09/02/2023,04/17/2013 Zoster, Recombinant 05/17/2025 Social History Tobacco Use Types Packs/Day Years [...] housing situation today? I have sondraerica angela 05/04/[address] you [...] Mass Index 20.66 05/17/2025 8:55 AM EST Plan of Treatment Upcoming Encounters Date Type Department Care Team (Late st Contact Info) Description 05/18/2025 3:00 PM EST Office Visit [facility] [address] [place] [address] Tello Ramirez DMD [address] [place] [address] 06/28/2025 10:00 AM EST Office Visit [facility] [address] [place] [address] Maryan Santamaria MD [address] [place] [address] 07/15/2025 10:15 AM EST Office Visit [facility] [address] [place] [address] Jasmin Marie 07/26/2025 11:00 AM EST Immunization [facility] [address] [place] [address] Health Maintenance Due Date Last Done Comments CT Colonography 1970 Colonoscopy 1970 FIT 1970 Sigmoidoscopy 1970 RSV Patients and Patients Aged 60 years or older (1 - Risk 50-74 years 1-dose series) 2020 Dental Oral Exam 11/14/2023 05/15/2023, 01/27/2010 FOBT 10/03/2024 10/04/2023 Dental X-Ray: Bitewings 05/05/2025 05/04/20 24, 05/15/2023, 01/27/2010 Dental Prophylaxis 07/08/2025 01/04/2025, 1 07/04/2023, 07/05/2023, Additional history exists Zoster Vaccines (2 of 2) 07/12/2025 05/17/2025 Depression Monitoring 11/15/2025 05/17/2025, 025 Influenza Vaccine (#1) 2025 Postp oned from 02/15/2025 (Patient Refused) Alcohol/Substance Use Screening 05/17/2026 05/17/2025 Disability Screening 05/17/2026 05/17/2025 SDOH Screening 05/17/2026 05/17/2025 Tobacco Screening 05/17/2026 05/17/2025 Colorectal Cancer Screening 10/03/2026 FIT DNA/Cologuard 10/03/2026 10/04/2023 Lipid Panel 03/07/2027 03/07/2022 Dental X-Ray: Full Mouth 09/04/2027 025, 05/15/2023, 01/27/2010, Additional history exists DTaP/Tdap/Td Vaccines (3 - Td or Tdap) 09/01/2033 09/02/2023, 04/17/2013, 07/28/2008 Hepatitis B Vaccines Completed 08/07/2019, 03/23/2013, 02/19/2013 HIV Screening Completed 03/07/2022 Hepatitis C Screening Completed 03/07/2022 Pneumococcal Vaccine: 50+ Years Completed 09/02/2023, 12/04/2016 COVID-19 Vaccine Completed 05/17/2025, 11/2021, 07/18/2021, Additional history exists HIB Vaccines Aged Out No longer eligi [...] Procedure Name Priority Date/Time Associated Diagnosis Comments PROPHYLAXIS - ADULT Routine 01/04/2025 1 1:00 AM EDT PANORAMIC RADIOGRAPHIC IMAGE Routine 09/02/2024 2:00 PM [...] Positive( A) Negative 10/15/2023 2:08 AM EDT [facility] (CLIA #:[id number]) Comment: POSITIVE TEST RESULT. A positive Cologuard [...] Flores et al, N Engl J Med 2014;370(14):2063-2799.) Cologuard may produce a false negative or false positive result (no colorectal cancer or precancerous polyp present at colonoscopy follow up). A negative Cologuard test result does not guarantee the absence of CRC or advanced adenoma (pre-cancer). The current Cologuard screening interval is every 3 years. ([place] [employer] and U.S. Multi-Society Task Force). Cologuard performance data in a 10,000 patient pivotal study using colonoscopy as the reference method can be accessed at the following location: www.Ztory/results. Additional description of the Cologuard test process, warnings and precautions can be found at www.MemoboxogFireBladerd.com. Stool specimen (specimen) 10/04/2023 12:30 PM EDT 10/05/2023 10:57 AM EDT us Maryan Santamaria MD LAB MOLECULAR DIAGNOSTICS ORD ERABLES Final Result [facility] (CLIA #:[id number]) [address] [place] [address], * LIPID PANEL, STANDARD (03/07/2022 11:24 AM EDT) Chol/HDLC Ratio 2.2 <5.0 (calc) [facility] Cholesterol, Total 177 <200 mg/dL [facility] HDL Cholesterol 80 > OR = 40 mg/dL [facility] LDL Cholesterol 74 mg/dL (calc) [facility] Comment: Reference range: <100 Desirable range <100 mg/dL for primary prevention; <70 mg/dL for patients with CHD or diabetic patients with > or = 2 CHD risk factors. LDL-C is now calculated using the Joe calculation, which is a validated novel method providing better accuracy than the Friedewald equation in the estimation of LDL-C. Jovan SS et al. ALISE. 2013;310(19): 9823-8477 (http://education.[employer].Bfly/faq/VYN114) Non-HDL Cholesterol 97 <130 mg/dL (calc) [facility] Comment: For patients with diabetes plus 1 major ASCVD risk factor, treating to a non-HDL-C goal of <100 mg/dL (LDL-C of <70 mg/dL) is considered a therapeutic option. Triglycerides 147 <150 mg/dL [facility] 03/07/2022 11:2 4 AM EDT Maryan Santamaria MD LAB BLOOD ORDERABLES Final Re sult Performing Organization Address [facility] de Phone Number [facility] [address] * HEPATITIS C AB W/REFL TO HCV RNA, QN, PCR (03/07/2022 11:23 AM EDT) HEPATITIS C ANTIBODY NON-REACT CARLO NON-REACT CARLO [facility] INDEX 0.06 <1.00 [facility] Comment: HCV antibody was non-reactive. There is no laboratory evidence of HCV infection. In most cases, no further action is required. However, if recent HCV exposure is suspected, a test for HCV RNA (test code 31183) is suggested. For additional information please refer to http://education.[employer].Bfly/faq/JCU74h0 (This link is being provided for informational/ educational purposes only.) 03/07/2022 11:2 3 AM EDT us Maryan Santamaria MD HISTORICAL/NON ORDERABLE LABS Final Result Performing Organization Address [facility]/ZIP Co de Phone Number [facility] [address] * HIV 1/2 ANTIGEN/ANTIBODY,FOURTH GENERATION W/RFL (03/07/2022 11:23 AM EDT) HIV-1/2 ANTIGEN AND ANTIBODIES, 4TH GENERATION W/ REFLEX NON-REACT CARLO NON-REACT CARLO [facility] Comment: HIV-1 antigen and HIV-1/HIV-2 [...] purpose. For additional information please refer to http://education.[employer]/faq/VRE442 (This link is being provided for informational/ educational purposes only.) The performance of this assay has not been clinically validated in patients less than 2 years old. 03/07/2022 11:2 3 AM EDT us Maryan Santamaria MD LAB BLOOD ORDERABLES Final Re sult Performing Organization Address [facility] de Phone Number [facility] [address] from Last 3 Months or Most Recently Relevant to Health Maintenance Insurance [facility] C3 DENTAL-[facility] MEDICAID STAND ADULT Care Teams Rural Service Engineer Relationship Specialty Start Date End Date Maryan Santamaria MD [address] [place] [address] PCP - General Family Medicine 03/17/21
--- OUTSIDE RECORDS SUMMARY | 2025-05-17 12:57 | XMS_ITS | Clinical Summary ---
Author Organization [facility] Address [address] [place] [address] Care Team Providers Care New Product Trainer Name Role Phone Hiren Alcala MD Primary Care Provider [phone] Allergies No known active allergies Medications cyclobenzaprine [...] Immunization Administration Dates Next Due Hepatitis B (Meoizor-W-Eckji , Recombivax HB-Adult) 19yo and older 03/23/2013,02/19/2013 [...] - 19+ 3-dose series) 08/19/2013 03/23/2013, 02/19/2013 RSV Immunization Adult Patients (1 - Risk 50-74 years 1-dose series) 2020 Zoster Vaccines (1 of 2) 2020 DTaP,Tdap,and Td Vaccines (3 - Td or Tdap) 04/17/2023 04/17/2013, 07/28/2008 Depression Screening 06/17/2024 Cholesterol Screening (Lipid Panel) 06/23/2024 01/04/2013 HIV Screening 06/23/2024 Hepatitis C Screening 06/23/2024 Social Influencers of Health Screening 06/23/2024 COVID-19 Vaccine ( - 2024-2 6 season) 2025 Influenza Vaccine (#1) 2025 HIB Vaccines Aged [...] specimen / Unknown Historical Provider LAB BLOOD ORDERABLES Genevieve l Result from Last 3 Months or Most Recently Relevant to Health Maintenance Care Teams New Product Trainer Relationship Specialty Start Date End Date Hiren Alcala MD PCP - General Internal Medicine 05/29/11
--- OUTSIDE RECORDS SUMMARY | 2025-05-17 12:57 | XMS_ITS | Encounter Summary ---
Author Organization [employer] Address [address] [place] [address] Care Team Providers Care Public Health Assistant Name Role Phone Maryan Santamaria MD Primary Care Provider [phone] Encounter Details Date Type Department Care Team (Latest Contact Info) Description 05/17/2025 Travel Social History Tobacco Use Types Packs/Day Years [...] AM EDT documented as of this encounter Functional Status * Over the past 2 weeks, how often have you been bothered by any of the following problems? Question Answer Date of Assessment Author Patient Health Questionnaire -2 Score 5 05/17/2025 8:58 AM Davin Murillo MA * Little interest or pleasure in doing things Answer Date of Assessment Author More than half the days 05/17/2025 8:58 AM Lamar Gilbert MA * Feeling down, depressed, or hopeless Answer Date of Assessment Author Nearly every day 05/17/2025 8:58 AM Lamar Mcintyre MA * Trouble falling or staying asleep, or sleeping too much Answer Date of Assessment Author Several days 05/17/2025 8:58 AM Lamar Torres MA * Feeling tired or having little energy Answer Date of Assessment Author Nearly every day 05/17/2025 8:58 AM Lamar Mcintyre MA * Poor appetite or overeating Answer Date of Assessment Author Several days 05/17/2025 8:58 AM Lamar Torres MA * Feeling bad about yourself - or that you are a failure or have let yourself or your family down Answer Date of Assessment Author More than half the days 05/17/2025 8:58 AM Lamar Gilbert MA * Trouble concentrating on things, such as reading the newspaper or watching television Answer Date of Assessment Author Several days 05/17/2025 8:58 AM Davin Torresha, MA * Moving or speaking so slowly that other people could have noticed? Or the opposite - being so fidgety or restless that you have been moving around a lot more than usual. Answer Date of Assessment Author Several days 05/17/2025 8:58 AM EST [employer] Lamar metz MA * Thoughts that you would be better off or hurting yourself in some way Answer Date of Assessment Author More than half the days 05/17/2025 8:58 AM EST Lamar Decker MA * Patient Health Questionnaire-9 Score Answer Date of Assessment Author 16 05/17/2025 8:58 AM EST [employer] Lamar metz MA * How difficult have these problems made it for you to do your work, take care of things at home, or get along with other people? Answer Date of Assessment Author Somewhat difficult 05/17/2025 8:58 AM Lamar Forrester MA documented as of this encounter Plan of Treatment Upcoming Encounters Date Type Department Care Team (Late st Contact Info) Description 05/18/2025 3:00 PM EST Office Visit [facility] [address] [place] [address] Tello Ramirez DMD [address] [place] [address] 06/28/2025 10:00 AM EST Office Visit [facility] [address] [place] [address] Maryan Santamaria MD [address] [place] [address] 07/15/2025 10:15 AM EST Office Visit [facility] [address] [place] [address] Jasmin Marie 07/26/2025 11:00 AM EST Immunization [facility] [address] [place] [address] documented as of this encounter Visit Diagnoses Not on filedocumented in this encounter Additional Health Concerns Assessment Noted Time PHQ-9 Depression Total Score: 16 025 8:58 AM EST documented as of this encounter Care Teams Public Health Assistant Relationship Specialty Start Date End Date Maryan Santamaria MD [address] [place] [address] PCP - General Family Medicine 03/17/21 documented as of this encounter
[2025-05-17 14:26] LABS: MANUAL DIFF FLAG NO
[2025-05-17 14:34] LABS: Hematocrit 45.3 % (42.0-52.0); Hemoglobin 14.9 g/dl (14.0-18.0); Imm Gran Abs Auto 0.03 X10*3/uL (0.00-0.03); Imm Gran Pct Auto 0.4 % (0.0-0.4); Lymphocytes Absolute Auto 1.5 X10*3/uL (1.2-4.9); Mean Corpuscular HGB Conc 32.9 g/dl (31.0-36.0); Mean Corpuscular Hemoglobin 32.4 pg (27.0-33.0); Mean Corpuscular Volume 98.5 fL (80.0-98.0); NRBC Abs Auto 0.000 X10*3/uL (0.0-0.012); NRBC Pct Auto 0.0 /100WBC (0.0-0.2); Platelet Count 324 X10*3/uL (160-400); Red Blood Count 4.60 X10*6/uL (4.60-5.80); White Blood Count 8.3 X10*3/uL (4.8-10.8)
[2025-05-17 14:56] LABS: Alanine Aminotransferase 20 U/L (0-40); Albumin Level 4.4 g/dL (3.5-5.0); Alkaline Phosphatase 97 U/L (39-117); Anion Gap 12 (12-20); Aspartate Amino Transferase 34 U/L (5-37); Blood Urea Nitrogen 9 mg/dL (9-16); Calcium 9.2 mg/dL (8.4-10.2); Carbon Dioxide 27 mmol/L (22-29); Chloride 106 mmol/L (96-108); Cholesterol 196 mg/dL (<200); Estimated Glomerular Filt Rate > 60; HDL Cholesterol 99 mg/dL (>40); Potassium 4.3 mmol/L (3.3-5.1); Sodium 141 mmol/L (135-145); Total Protein 7.0 g/dL (6.5-8.0); Triglycerides 57 mg/dL (<150)
== END 2025-05-17 10:22 | disposition home or self-care (01) ==
LOC: HO.CHCLDS 10:21
PROVIDERS: Visit Provider Family Medicine
DX: Z01.84 Encounter for antibody response examination (principal); M25.50 Pain in unspecified joint
CPT/HCPCS: 36415; 80053; 80061; 84443; 85025; 85652; 86140; 86200; 86431